=== PATIENT | female | born 1970 | race Caucasian/White ===

== ENCOUNTER 2017-02-23 12:40 | Emergency (ER) | payer OTHER ==
--- NOTE | 2017-02-23 14:51 | ED ---
General Adult HPI - General Chief complaint: Allergic Reaction Stated complaint: Nauseated, anxiety Time Seen by Provider: 02/23/17 14:15 Source: patient, RN notes reviewed Mode of arrival: ambulatory Limitations: no limitations - History of Present Illness Initial comments: Patient's 46-year-old female who presents emergency room today with a chief complaint of diarrhea. She states possible medication reaction. She states she 's had diarrhea loose stools over the last month and a half she has been following up with her family doctor was placed on Flagyl for 6 days. States that she began having some symptoms of fatigue and muscle aches. States she was told to discontinue the Flagyl. She stopped this 1 day ago. States she's been having anxiety as well. She does admit some arm pain 2 days ago after taking Lipitor. States did not happen last night. She denies any other complaints or symptoms at this time. Been following up with family doctor had stool studies obtained which were negative. Patient does admit that she had an elevated cholesterol that she was started on the left. She states they are trying her to see a specialist. She denies any new symptoms or complaints today. Patient denies any recent fever, chills, shortness of breath, chest pain , back pain, abdominal pain, nausea or vomiting, numbness or tingling, dysuria or hematuria, constipation or diarrhea, headaches or visual changes, or any other complaints. - Related Data Home Medications Medication Instructions Recorded Confirmed Atorvastatin [Lipitor] 20 mg PO HS 02/23/17 02/23/17 Allergies Allergy/AdvReac Type Severity Reaction Status Date / Time No Known Allergies Allergy Verified 02/23/17 14:13 Review of Systems ROS Statement: Those systems with pertinent positive or pertinent negative responses have been documented in the HPI. ROS Other: All systems not noted in ROS Statement are negative. Past Medical History Past Medical History: Hyperlipidemia History of Any Multi-Drug Resistant Organisms: None Reported Past Surgical History: Tubal Ligation Past Psychological History: No Psychological Hx Reported Smoking Status: Never smoker Past Alcohol Use History: None Reported Past Drug Use History: None Reported General Exam - General Exam Comments Initial Comments: General: The patient is awake and alert, in no distress, and does not appear acutely ill. Eye: Pupils are equal, round and reactive to light, extra-ocular movements are intact. No nystagmus. There is normal conjunctiva bilaterally. No signs of icterus. Ears, nose, mouth and throat: There are moist mucous membranes and no oral lesions. Neck: The neck is supple, there is no tenderness or JVD. Cardiovascular: There is a regular rate and rhythm. No murmur, rub or gallop is appreciated. Respiratory: Lungs are clear to auscultation, respirations are non-labored, breath sounds are equal. No wheezes, stridor, rales, or rhonchi. Gastrointestinal: Soft, non-distended, non-tender abdomen without masses or organomegaly noted. There is no rebound or guarding present. No CVA tenderness. Bowel sounds are unremarkable. Musculoskeletal: Normal ROM, no tenderness. Strength 5/5. Sensation intact. Pulses equal bilaterally 2+. Neurological: A&O x 3. CN II-XII intact, There are no obvious motor or sensory deficits. Coordination appears grossly intact. Speech is normal. Skin: Skin is warm and dry and no rashes or lesions are noted. Psychiatric: Cooperative, appropriate mood & affect, normal judgment. Limitations: no limitations Course Vital Signs 02/23/17 02/23/17 13:13 14:22 Temperature 97.4 F L Pulse Rate 71 67 Respiratory 18 16 Rate Blood Pressure 142/67 143/67 O2 Sat by Pulse 100 99 Oximetry Medical Decision Making - Medical Decision Making Patient showing no signs of distress. Her vitals are stable. She does admit that she had some loose stools over the last month and a half has had some stool studies. No C. diff test was done. At this time patient denies any recent antibiotic use other than the Flagyl which symptoms started prior to that. Denies any travel. Patient's symptoms have not changed the last month and a half. She is worried about the anxiety. At this time patient has had labs done outpatient just 2 days ago which were negative for any acute abnormalities. Results were discussed with the patient. Patient will be discharged home with a prescription for stool studies. Advised to follow-up the family doctor and also GI. Advised return if any symptoms increase or worsen or for any other concerns. She states understanding and is in agreement. Disposition Clinical Impression: Diarrhea Disposition: HOME SELF-CARE Condition: Good Instructions: Acute Diarrhea (ED) Additional Instructions: Please continue to increase oral fluids. Please follow-up family doctor over the next 2 days. Please have stool sample brought back here to the lab for evaluation. Please return if any symptoms increase or worsen or for any other concerns. Referrals: Galen Nath DO [Primary Care Provider] - 1-2 days Tala Corea MD [STAFF PHYSICIAN] - 1-2 days Time of Disposition: 14:49
[2017-02-23 15:04] VITALS: BP 110/59; PULSE 75; RESP 18; TEMP 98.3
== END 2017-02-23 15:03 | disposition home or self-care (01) ==
LOC: EC 12:40
DX: R19.7 Diarrhea, unspecified (principal); F41.9 Anxiety disorder, unspecified; E78.5 Hyperlipidemia, unspecified; Z79.899 Other long term (current) drug therapy
CPT/HCPCS: 99283

== ENCOUNTER → 2017-03-01 | Outpatient (CLI) | payer OTHER ==
--- NOTE | 2017-03-01 08:25 | US ---
EXAMINATION TYPE: US abdomen complete DATE OF EXAM: 03/01/2017 COMPARISON: NONE CLINICAL HISTORY: R10.9 Abd Pain K81.9 Cholecystitis. Epigastric pain x 1 week, diarrhea EXAM MEASUREMENTS: Liver Length: 15.9 cm Gallbladder Wall: 0.3 cm CBD: 0.2 cm Spleen: 9.2 cm Right Kidney: 10.4 x 4.9 x 3.6 cm Left Kidney: 9.9 x 5.0 x 4.8 cm Pancreas: wnl Liver: 2 adjacent cysts in right lobe with larger =1.3 x 1.2 x 0.8cm Gallbladder: wnl, seen between inferior liver and right kidney Evidence for sonographic Hutchinson's sign: No CBD: wnl Spleen: wnl Right Kidney: wnl Left Kidney: wnl Upper IVC: wnl Abd Aorta: size is wnl; mild intimal thickening is noted mid and lower aorta. Limited views of the pancreas are normal. The liver is normal in size. There is a 1.3 cm cystic lesion in the right lobe of the liver and a sec ond smaller lesion immediately adjacent to it. The gallbladder is unremarkable. Gallbladder wall measures 2.9 mm. The distal common hepatic duct nilda sures 2.1 mm. Spleen is normal in size. Both kidneys are normal. There is atheromatous irregularity of the aorta without evidence of aneurysm formation. The IVC is un remarkable. IMPRESSION: 1. SIMPLE APPEARING CYSTIC LESIONS WITHIN THE RIGHT LOBE OF THE LIVER. 2. MILD ATHEROMATOUS IRREGULARITY OF THE AORTA.
== END | disposition home or self-care (01) ==
LOC: RADUSWWP 06:58
PROVIDERS: ATTEND Family Medicine
DX: K76.89 Other specified diseases of liver (principal); I70.0 Atherosclerosis of aorta
CPT/HCPCS: 76700

== ENCOUNTER 2017-09-19 11:57 | Observation (INO) | payer BC ==
--- NOTE | 2017-09-19 12:55 | ED ---
General Adult HPI - General Chief complaint: Back Pain/Injury Stated complaint: Tingling in arms /back pain Time Seen by Provider: 09/19/17 12:43 Source: patient, RN notes reviewed Mode of arrival: ambulatory Limitations: no limitations - History of Present Illness Initial comments: 46-year-old female presented for evaluation of back pain and bilateral arm pain. Patient denies any injury or overuse. Her pain began as dull ache in her mid back between her scapula proximally 48 hours ago. Patient was at rest. Denies any injury. Patient has past medical history of hypercholesterolemia, she is a nonsmoker. Patient states she also had some bilateral upper arm pain which is dull and aching, and associated nausea. No central chest pain. Patient has family history of coronary artery disease. She presented for evaluation of this pain. - Related Data Home Medications Medication Instructions Recorded Confirmed Rosuvastatin Calcium [Crestor] 10 mg PO HS 09/19/17 09/19/17 Allergies Allergy/AdvReac Type Severity Reaction Status Date / Time No Known Allergies Allergy Verified 09/19/17 13:40 Review of Systems ROS Statement: Those systems with pertinent positive or pertinent negative responses have been documented in the HPI. ROS Other: All systems not noted in ROS Statement are negative. Past Medical History Past Medical History: Hyperlipidemia History of Any Multi-Drug Resistant Organisms: None Reported Past Surgical History: Tubal Ligation Past Psychological History: No Psychological Hx Reported Smoking Status: Never smoker Past Alcohol Use History: None Reported Past Drug Use History: None Reported General Exam Limitations: no limitations General appearance: alert, in no apparent distress Head exam: Present: atraumatic, normocephalic Eye exam: Present: normal appearance, PERRL ENT exam: Present: normal exam Neck exam: Present: normal inspection. Absent: tenderness, meningismus Respiratory exam: Present: normal lung sounds bilaterally. Absent: respiratory distress Cardiovascular Exam: Present: regular rate, normal rhythm GI/Abdominal exam: Present: soft. Absent: distended, tenderness Extremities exam: Present: normal inspection, normal capillary refill, other ( Distal pulses intact). Absent: pedal edema Back exam: Present: normal inspection. Absent: full ROM Neurological exam: Present: alert, oriented X3, CN II-XII intact. Absent: motor sensory deficit Psychiatric exam: Present: normal affect, normal mood Skin exam: Present: warm, dry, intact. Absent: cyanosis, diaphoretic Course Vital Signs 09/19/17 12:20 Temperature 98.5 F Pulse Rate 78 Respiratory 16 Rate Blood Pressure 132/61 O2 Sat by Pulse 100 Oximetry - Reevaluation(s) Reevaluation #1: 09/19/17 13:10 Cardiology in the emergency department to evaluate patient. Reevaluation #2: 09/19/17 13:00 EKG faxed to cardiology EKG Findings - EKG Comments: EKG Findings:: EKG obtained at 1232 normal sinus rhythm with sinus arrhythmia, ventricular rate 86, IA interval 134, castration 88, QTC 409, there is ST segment depression and T-wave abnormality in both the inferior and the lateral precordial leads. Repeat EKG obtained at 1254 shows normal sinus rhythm, ventricular rate 73, IA interval 132, castration 90, QTC 423, T-wave abnormality in lead III Medical Decision Making - Medical Decision Making 46-year-old female presenting with atraumatic back pain and bilateral arm pain associated with nausea. History is concerning for ACS, EKG shows some ischemic changes including ST segment depression and T-wave inversion. Patient is evaluated by cardiology in the emergency department. Chest x-ray obtained, negative including normal mediastinum. CBC CMP, troponin and d-dimer are all unremarkable. Echo is obtained and is pending. Case discussed with cardiology , patient will be initiated on heparin. She will be admitted for further evaluation and treatment. - Lab Data Result diagrams: 09/19/17 12:48 09/19/17 12:48 Lab Results 09/19/17 09/19/17 09/19/17 Range/Units 12:48 12:48 12:48 WBC 5.4 (3.8-10.6) k/uL RBC 4.43 (3.80-5.40) m/uL Hgb 14.0 (11.4-16.0) gm/dL Hct 43.1 (34.0-46.0) % MCV 97.4 (80.0-100.0) fL MCH 31.7 (25.0-35.0) pg MCHC 32.6 (31.0-37.0) g/dL RDW 13.2 (11.5-15.5) % Plt Count 248 (150-450) k/uL Neutrophils % 78 % Lymphocytes % 15 % Monocytes % 5 % Eosinophils % 1 % Basophils % 1 % Neutrophils # 4.2 (1.3-7.7) k/uL Lymphocytes # 0.8 L (1.0-4.8) k/uL Monocytes # 0.3 (0-1.0) k/uL Eosinophils # 0.0 (0-0.7) k/uL Basophils # 0.0 (0-0.2) k/uL PT (9.0-12.0) sec INR (<1.2) APTT (22.0-30.0) sec D-Dimer (<0.60) mg/L FEU Sodium 144 (137-145) mmol/L Potassium 3.9 (3.5-5.1) mmol/L Chloride 104 (98-107) mmol/L Carbon Dioxide 28 (22-30) mmol/L Anion Gap 12 mmol/L BUN 10 (7-17) mg/dL Creatinine 0.60 (0.52-1.04) mg/dL Est GFR (MDRD) Af Amer >60 (>60 ml/min/1.73 sqM) Est GFR (MDRD) Non-Af >60 (>60 ml/min/1.73 sqM) Glucose 95 (74-99) mg/dL Calcium 9.9 (8.4-10.2) mg/dL Magnesium 1.8 (1.6-2.3) mg/dL Total Bilirubin 0.5 (0.2-1.3) mg/dL AST 31 (14-36) U/L ALT 39 (9-52) U/L Alkaline Phosphatase 67 (38-126) U/L Total Creatine Kinase 95 (30-135) U/L CK-MB (CK-2) 1.2 (0.0-2.4) ng/mL CK-MB (CK-2) Rel Index 1.3 Troponin I <0.012 (0.000-0.034) ng/mL NT-Pro-B Natriuret Pep pg/mL Total Protein 8.0 (6.3-8.2) g/dL Albumin 5.0 (3.5-5.0) g/dL 09/19/17 09/19/17 Range/Units 12:48 12:48 WBC (3.8-10.6) k/uL RBC (3.80-5.40) m/uL Hgb (11.4-16.0) gm/dL Hct (34.0-46.0) % MCV (80.0-100.0) fL MCH (25.0-35.0) pg MCHC (31.0-37.0) g/dL RDW (11.5-15.5) % Plt Count (150-450) k/uL Neutrophils % % Lymphocytes % % Monocytes % % Eosinophils % % Basophils % % Neutrophils # (1.3-7.7) k/uL Lymphocytes # (1.0-4.8) k/uL Monocytes # (0-1.0) k/uL Eosinophils # (0-0.7) k/uL Basophils # (0-0.2) k/uL PT 10.2 (9.0-12.0) sec INR 1.0 (<1.2) APTT 23.7 (22.0-30.0) sec D-Dimer 0.39 (<0.60) mg/L FEU Sodium (137-145) mmol/L Potassium (3.5-5.1) mmol/L Chloride (98-107) mmol/L Carbon Dioxide (22-30) mmol/L Anion Gap mmol/L BUN (7-17) mg/dL Creatinine (0.52-1.04) mg/dL Est GFR (MDRD) Af Amer (>60 ml/min/1.73 sqM) Est GFR (MDRD) Non-Af (>60 ml/min/1.73 sqM) Glucose (74-99) mg/dL Calcium (8.4-10.2) mg/dL Magnesium (1.6-2.3) mg/dL Total Bilirubin (0.2-1.3) mg/dL AST (14-36) U/L ALT (9-52) U/L Alkaline Phosphatase (38-126) U/L Total Creatine Kinase (30-135) U/L CK-MB (CK-2) (0.0-2.4) ng/mL CK-MB (CK-2) Rel Index Troponin I (0.000-0.034) ng/mL NT-Pro-B Natriuret Pep 114 pg/mL Total Protein (6.3-8.2) g/dL Albumin (3.5-5.0) g/dL Critical Care Time Critical Care Time: Yes Total Critical Care Time: 35 Disposition Clinical Impression: Unstable angina Disposition: ADMITTED IP TO THIS [facility] Condition: Stable Referrals: Galen Nath DO [Primary Care Provider] - 1-2 days Decision to Admit Reason: Admit from EC Decision Date: 09/19/17 Decision Time: 15:14
[2017-09-19 13:16] LABS: Basophils % (A) 1 %; Eosinophils % (A) 1 %; HCT 43.1 % (34.0-46.0); Lymphocytes # (A) 0.8 k/uL (1.0-4.8); Lymphocytes % (A) 15 %; MCH 31.7 pg (25.0-35.0); MCHC 32.6 g/dL (31.0-37.0); MCV 97.4 fL (80.0-100.0); Mean Platelet Volume 7.3; Monocytes # (A) 0.3 k/uL (0-1.0); Monocytes % (A) 5 %; Neutrophils # (A) 4.2 k/uL (1.3-7.7); Neutrophils % (A) 78 %; Platelet Count 248 k/uL (150-450); RBC 4.43 m/uL (3.80-5.40); RDW 13.2 % (11.5-15.5); WBC 5.4 k/uL (3.8-10.6)
--- NOTE | 2017-09-19 13:21 | XR ---
EXAMINATION TYPE: XR chest 2V DATE OF EXAM: 09/19/2017 COMPARISON: NONE TECHNIQUE: PA and lateral views submitted. HISTORY: Chest pain FINDINGS: The lungs are clear and there is no pneumothorax, pleural effusion, or focal pneumonia. Biapical pl eural thickening. IMPRESSION: 1. No acute process.
[2017-09-19 13:25] LABS: ALT 39 U/L (9-52); AST 31 U/L (14-36); Alkaline Phosphatase 67 U/L (38-126); Anion Gap 12 mmol/L; Blood Urea Nitrogen 10 mg/dL (7-17); Calcium 9.9 mg/dL (8.4-10.2); Carbon Dioxide 28 mmol/L (22-30); Chloride 104 mmol/L (98-107); Glucose 95 mg/dL (74-99); Magnesium 1.8 mg/dL (1.6-2.3); Potassium 3.9 mmol/L (3.5-5.1); Sodium 144 mmol/L (137-145); Total Bilirubin 0.5 mg/dL (0.2-1.3)
[2017-09-19 13:35] LABS: Creatine Kinase 95 U/L (30-135)
[2017-09-19 13:41] LABS: D-Dimer 0.39 mg/L FEU (<0.60); Partial Thromboplastin Time 23.7 sec (22.0-30.0); Prothrombin Time 10.2 sec (9.0-12.0)
[2017-09-19 13:48] LABS: Creatine Kinase MB 1.2 ng/mL (0.0-2.4); Troponin I <0.012 ng/mL (0.000-0.034)
[2017-09-19] MEDS ORDERED: ASPIRIN 325 MG TAB PO STA (14:18)
[2017-09-19] MEDS ORDERED: HEPARIN SODIUM,PORCINE 5,000 UNIT/ML 1 ML VIAL IV ONE (14:19)
[2017-09-19] MEDS ORDERED: HEPARIN SODIUM,PORCINE 5,000 UNIT/ML 1 ML VIAL IV PRN (14:19)
[2017-09-19] MEDS ORDERED: HEPARIN SOD,PORK IN 0.45% NACL 25,000 UNIT in 0.45% NACL 1 500ML.BAG IV SCH (14:30)
[2017-09-19] MEDS ORDERED: NALOXONE 0.4 MG/ML 1 ML VIAL IV PRN (14:55)
[2017-09-19] MEDS ORDERED: ONDANSETRON 4 MG/2 ML VIAL IVP PRN (14:55)
[2017-09-19] MEDS ORDERED: HYDROmorphone 2 MG/ML 1 ML SYRINGE IVP PRN (14:55)
[2017-09-19] MEDS ORDERED: SODIUM CHLORIDE 0.9% 1,000 ML IV SCH (15:00)
--- NOTE | 2017-09-19 16:26 | P.CRDCN ---
History of Present Illness Consult date: 09/19/17 Requesting physician: Galen Nath Reason for Consult (text): Shoulder pain and back discomfort Chief complaint: Shoulder pain, arm numbness, and back discomfort History of present illness: This is a pleasant 46-year-old female with history of hyperlipidemia, family history of premature coronary artery disease in her father, who presented to the hospital with symptoms of discomfort in her bilateral shoulders with associated arm numbness, as well as a pain between the scapula area. She states that the bilateral shoulder and arm discomfort she has noticed off and on for the past 6 months, but again yesterday it returned. He states that she does get occasional mild nausea, denies shortness of breath, no diaphoresis. Patient is otherwise physically active, she is not a diabetic, no hypertension, nonsmoker. Her blood pressure on arrival here was 132/60 with a heart rate in the 70s, temperature 90.8, 100% on room air. Her initial EKG shows a normal sinus rhythm with nonspecific ST-T wave changes. CBC is normal, d-dimer negative, sodium 144, potassium 3.9, chloride 104, CO2 28, BUN 10, creatinine 0.6. Troponin 0.012. BNP level 114. Chest x-ray did not reveal any acute process. Past Medical History Past Medical History: Hyperlipidemia History of Any Multi-Drug Resistant Organisms: None Reported Past Surgical History: Tubal Ligation Past Psychological History: No Psychological Hx Reported Smoking Status: Never smoker Past Alcohol Use History: None Reported Past Drug Use History: None Reported Medications and Allergies Home Medications Medication Instructions Recorded Confirmed Type Rosuvastatin Calcium [Crestor] 10 mg PO HS 09/19/17 09/19/17 History Allergies Allergy/AdvReac Type Severity Reaction Status Date / Time No Known Allergies Allergy Verified 09/19/17 13:40 Physical Exam Vitals: Vital Signs Temp Pulse Resp BP Pulse Ox 09/19/17 12:20 98.5 F 78 16 132/61 100 Intake and Output 09/19/17 09/19/17 09/19/17 06:59 14:59 22:59 Other: Weight 63.503 kg Patient Weight 09/20/17 06:59 Weight 63.503 kg PHYSICAL EXAMINATION: HEENT: Head is atraumatic, normocephalic. Pupils equal, round. Neck is supple. There is no elevated jugular venous pressure. HEART EXAMINATION: Heart S1, S2 normal. No murmur or gallop heard. CHEST EXAMINATION: Lungs are clear to auscultation and precussion. No chest wall tenderness is noted on palpation or with deep breathing. ABDOMEN: Soft, nontender. Bowel sounds are heard. No organomegaly noted. EXTREMITIES: 2+ peripheral pulses with no evidence of peripheral edema and no calf tenderness noted. NEUROLOGIC patient is awake, alert and oriented -3. . Results 09/19/17 12:48 09/19/17 12:48 Cardiac Enzymes 09/19/17 09/19/17 Range/Units 12:48 12:48 AST 31 (14-36) U/L CK-MB (CK-2) 1.2 (0.0-2.4) ng/mL Troponin I <0.012 (0.000-0.034) ng/mL Coagulation 09/19/17 Range/Units 12:48 PT 10.2 (9.0-12.0) sec APTT 23.7 (22.0-30.0) sec CBC 09/19/17 Range/Units 12:48 WBC 5.4 (3.8-10.6) k/uL RBC 4.43 (3.80-5.40) m/uL Hgb 14.0 (11.4-16.0) gm/dL Hct 43.1 (34.0-46.0) % Plt Count 248 (150-450) k/uL Comprehensive Metabolic Panel 09/19/17 Range/Units 12:48 Sodium 144 (137-145) mmol/L Potassium 3.9 (3.5-5.1) mmol/L Chloride 104 (98-107) mmol/L Carbon Dioxide 28 (22-30) mmol/L BUN 10 (7-17) mg/dL Creatinine 0.60 (0.52-1.04) mg/dL Glucose 95 (74-99) mg/dL Calcium 9.9 (8.4-10.2) mg/dL AST 31 (14-36) U/L ALT 39 (9-52) U/L Alkaline Phosphatase 67 (38-126) U/L Total Protein 8.0 (6.3-8.2) g/dL Albumin 5.0 (3.5-5.0) g/dL Current Medications Generic Name Dose Route Start Last Admin Trade Name Freq PRN Reason Stop Dose Admin Heparin Sodium (Porcine) 0 unit 09/19/17 14:19 Heparin IV PER PROTOCOL PRN Low PTT Protocol Hydromorphone HCl 0.5 mg 09/19/17 14:55 Dilaudid IVP Q3HR PRN Moderate Pain Heparin Sodium/Sodium Chloride 500 mls @ 15.24 mls/hr 09/19/17 14:30 25,000 unit/ Sodium Chloride IV .Q24H JORDAN Protocol 12 UNITS/KG/HR Sodium Chloride 1,000 mls @ 20 mls/hr 09/19/17 15:00 Saline 0.9% IV .Q24H JORDAN Naloxone HCl 0.2 mg 09/19/17 14:55 Narcan IV Q2M PRN Opioid Reversal Ondansetron HCl 4 mg 09/19/17 14:55 Zofran IVP Q8HR PRN Nausea And Vomiting Intake and Output 09/19/17 09/19/17 09/19/17 06:59 14:59 22:59 Other: Weight 63.503 kg Patient Weight 09/20/17 06:59 Weight 63.503 kg 09/19/17 12:48 09/19/17 12:48 EKG Interpretations (text) EKG shows normal sinus rhythm with nonspecific ST-T wave changes Assessment and Plan Plan: Assessment and plan #1 symptoms of bilateral shoulder discomfort with associated arm numbness, and pain between the scapula. Atypical features for acute coronary syndrome. Initial troponin negative. Normal sinus rhythm with nonspecific ST-T wave changes #2 hyperlipidemia #3 family history of premature coronary artery disease Plan We will obtain an echocardiogram with Doppler study, patient will also be initiated on IV heparin. He is currently on an aspirin daily as well. This patient subsequent troponins remain negative we will recommend that she undergo a stress echocardiographic study tomorrow. If her troponins are positive patient will be recommended to undergo cardiac catheterization. Further recommendations will be based on these findings and patient's clinical course. DNP note has been reviewed, I agree with a documented findings and plan of care. Patient was seen and examined.
[2017-09-19 20:35] LABS: Creatine Kinase 80 U/L (30-135)
[2017-09-19 20:49] LABS: Creatine Kinase MB 0.8 ng/mL (0.0-2.4); Troponin I <0.012 ng/mL (0.000-0.034)
[2017-09-19] MEDS ORDERED: ATORVASTATIN 20 MG TAB PO SCH (22:30)
[2017-09-20] MEDS ORDERED: CRESTOR 10MG TABLET PO SCH
[2017-09-20 03:06] LABS: Basophils % (A) 1 %; Eosinophils % (A) 1 %; HCT 39.8 % (34.0-46.0); HGB 13.2 gm/dL (11.4-16.0); Lymphocytes % (A) 35 %; MCH 32.4 pg (25.0-35.0); MCHC 33.2 g/dL (31.0-37.0); MCV 97.7 fL (80.0-100.0); Mean Platelet Volume 6.9; Monocytes # (A) 0.4 k/uL (0-1.0); Monocytes % (A) 7 %; Neutrophils # (A) 3.1 k/uL (1.3-7.7); Neutrophils % (A) 55 %; Platelet Count 225 k/uL (150-450); RBC 4.07 m/uL (3.80-5.40); RDW 12.2 % (11.5-15.5); WBC 5.7 k/uL (3.8-10.6)
[2017-09-20 03:32] LABS: ALT 34 U/L (9-52); AST 26 U/L (14-36); Alkaline Phosphatase 55 U/L (38-126); Anion Gap 9 mmol/L; Blood Urea Nitrogen 10 mg/dL (7-17); Calcium 9.7 mg/dL (8.4-10.2); Carbon Dioxide 28 mmol/L (22-30); Chloride 107 mmol/L (98-107); Glucose 92 mg/dL (74-99); Potassium 3.8 mmol/L (3.5-5.1); Sodium 144 mmol/L (137-145); Total Bilirubin 0.6 mg/dL (0.2-1.3); Total Protein 6.4 g/dL (6.3-8.2)
[2017-09-20 03:35] LABS: Creatine Kinase 78 U/L (30-135)
[2017-09-20 03:49] LABS: Creatine Kinase MB 0.8 ng/mL (0.0-2.4); Troponin I <0.012 ng/mL (0.000-0.034)
--- NOTE | 2017-09-20 11:01 | P.HPIM ---
History of Present Illness H&P Date: 09/20/17 Chief Complaint: bilateral arm pain 46-year-old female who presented to the emergency room on 09/19/2017 with a chief complaint of bilateral shoulder pain and discomfort in between her shoulder blades. The patient states that she has had this pain on and off for several months but has never undergone workup for it. She states that she became concerned yesterday and presented to the emergency room for further evaluation. The patient has a history of hyperlipidemia and a family history of heart disease. She is a nonsmoker. The patient did have a brief period of nicotine use for approximately one year and quit in 2000. Her home medications include Crestor 10 mg at night. In the emergency room an EKG was completed revealing normal sinus rhythm. Laboratory results reveal sodium 144, potassium 3.9, BUN 10, creatinine 0.60, WBC 5.4, hemoglobin 14, platelet count 248. D- dimer was 0.39. INR 1.0. Troponins are negative 3. BNP 114. A chest x-ray was completed which was negative for an acute process. The patient was admitted for observation under the care of Dr. Nath. Consultations were placed to cardiology. The patient was seen and examined at the bedside. Multiple family members at the bedside. She states that she is feeling better this morning. She states that the pain in her shoulders has improved. She denies chest pain or pressure at this time. Denies shortness of breath. Denies nausea or vomiting. Her vital signs remain stable. She was evaluated by cardiology and is scheduled for a stress test this morning. Review of Systems GENERAL: Patient denies fever. Denies chills. EYES: Denies blurred vision. Denies vision changes. Denies eye pain. EARS, NOSE, MOUTH, & THROAT: Denies headache. Denies sore throat. Denies ear pain. RESPIRATORY: Denies cough. Denies shortness of breath. Denies sputum production. Denies hemoptysis. CARDIOVASCULAR: Denies chest pain or pressure. Denies palpitations. Denies arrhythmias. GASTROINTESTINAL: Denies abdominal pain. Denies diarrhea. Denies constipation. Denies nausea. Denies vomiting. Denies heartburn. Denies blood in the stool. GENITOURINARY: Denies urinary frequency. Denies burning. Denies dysuria. Denies cloudy urine. Denies blood in the urine. MUSCULOSKELETAL: Positive for recent bilateral shoulder pain and mid scapular pain which is currently improved but patient states has lasted on and off for 6 months. Denies myalgias. INTEGUMENTARY: Denies pruitis. Denies rash. PSYCHIATRIC: Denies suicidal or homicial ideations. ENDOCRINE: Denies weight change. Denies polydipsia. Denies polyuria. HEMATOLOGIC: Denies bleeding disorders. Past Medical History Past Medical History: Hyperlipidemia Additional Past Medical History / Comment(s): miah 2005 History of Any Multi-Drug Resistant Organisms: None Reported Past Surgical History: Tubal Ligation Past Anesthesia/Blood Transfusion Reactions: No Reported Reaction Additional Past Anesthesia/Blood Transfusion Reaction / Comment(s): never recieved blood in past Smoking Status: Former smoker - Past Family History Mother Family Medical History: Hyperlipidemia, Hypertension Additional Family Medical History / Comment(s): boarderline diabetic Father Family Medical History: Coronary Artery Disease (CAD), Hyperlipidemia, Hypertension Additional Family Medical History / Comment(s): cabg Medications and Allergies Home Medications Medication Instructions Recorded Confirmed Type Rosuvastatin Calcium [Crestor] 10 mg PO HS 09/19/17 09/19/17 History Allergies Allergy/AdvReac Type Severity Reaction Status Date / Time atorvastatin [From Lipitor] Allergy Chest Pain Verified 09/19/17 23:43 Physical Exam Vitals: Vital Signs Temp Pulse Pulse Resp BP BP Pulse Ox 09/20/17 04:00 97.6 F 59 L 16 111/70 99 09/20/17 00:00 97.4 F L 55 L 16 115/57 99 09/19/17 21:13 70 16 128/63 98 09/19/17 20:00 97.1 F L 55 L 16 124/65 97 09/19/17 19:50 78 16 126/59 97 09/19/17 16:22 76 18 125/59 98 09/19/17 12:20 98.5 F 78 16 132/61 100 Intake and Output 09/19/17 09/20/17 09/20/17 22:59 06:59 14:59 Intake Total 60 280 Balance 60 280 Intake: Intake, IV Titration 60 280 Amount Heparin Sod,Pork in 0.45% 120 NaCl 25,000 unit In 0.45 % NaCl 1 500ml.bag @ 12 UNITS/KG/HR 15.24 mls/hr IV .Q24H [facility] Rx#: [id number] Sodium Chloride 0.9% 1, 60 160 000 ml @ 20 mls/hr IV . Q24H [facility] Rx#:[id number] Other: Voiding Method Toilet Toilet Weight 63.8 kg GENERAL: This is a 46-year-old female in no apparent distress at the time of examination. Pleasant and cooperative. HEENT: Head is atraumatic, normocephalic. Pupils are equal, round, and reactive to light. Sclerae anicteric. Conjunctivae are clear. Mucus membranes of the mouth are moist. Neck is supple. RESPIRATORY: Clear to ausculation. No wheezes, rales, or rhonchi. No use of accessory muscles. Patient maintaining oxygen saturation greater than 92% on room air. No chest wall tenderness is noted on palpation or with deep breathing. CARDIOVASCULAR: Regular rate and rhythm. S1 and S2 noted. No systolic or diastolic murmur auscultated. No JVD noted. No S3 or S4 noted. GASTROINTESTINAL: No distention noted. Abdomen soft and round. Normal active bowel sounds auscultated X 4 quadrants. No pain or tenderness noted upon palpation. INTEGUMENTARY: No cyanosis. No jaundice. No rashes noted. No cellulitis noted. EXTREMITIES: 2+ peripheral pulses. No evidence of peripheral edema. No calf tenderness noted. NEUROLOGIC: Cranial nerves II-XII intact. PSYCHIATRIC: Awake, alert, and oriented X 3. Appropriate affect. Intact judgement and insight. Results CBC & Chem 7: 09/20/17 02:31 09/20/17 02:31 Labs: Abnormal Lab Results - Last 24 Hours (Table) 09/19/17 09/19/17 09/20/17 Range/Units 12:48 19:57 02:31 Lymphocytes # 0.8 L (1.0-4.8) k/uL APTT 65.9 H 51.4 H (22.0-30.0) sec Thrombosis Risk Factor Assmnt - Choose All That Apply Any of the Below Risk Factors Present?: Yes Each Factor Represents 1 point: Age 41-60 years Other Risk Factors: No Other congenital or acquired thrombophilia - If yes, enter type in comment: No Thrombosis Risk Factor Assessment Total Risk Factor Score: 1 Thrombosis Risk Factor Assessment Level: Low Risk Assessment and Plan Plan: ASSESSMENT: Bilateral shoulder pain and discomfort between the scapula, present on admission , cardiac enzymes negative 3, rule out acute coronary syndrome Hyperlipidemia Family history of premature coronary artery disease Remote history of nicotine dependence, patient smoked cigarettes for 1 year and quit in 2000 PLAN: -Cardiology on consult. Appreciate recommendations and input -Continue heparin drip -Patient scheduled for stress test today -Await results of echocardiogram -Home meds as appropriate -Monitor labs -GI prophylaxis: Protonix 40 mg by mouth daily -DVT prophylaxis: Heparin 5000 units subcu every 8 hours -Monitor vital signs and address as appropriate -Discharge planning: Patient to return home -Further recommendations pending patient's course -If stress test is negative, anticipate discharge home this afternoon with follow-up on an outpatient basis Nurse practitioner note has been reviewed by physician. Signing provider agrees with the documented findings, assessment, and plan of care.
[2017-09-20 11:02] VITALS: BP 117/73; PULSE 78; RESP 12; TEMP 97.3
--- NOTE | 2017-09-20 11:51 | ECHOS ---
STRESS ECHOCARDIOGRAM DATE OF SERVICE: 09/20/2017 INDICATIONS: Chest pain. MEDICATIONS: Crestor. BASELINE HEART RATE: 84 BASELINE BLOOD PRESSURE: 118/52 MAXIMUM HEART RATE: 181 MAXIMUM BLOOD PRESSURE: 146/67 85% MPHR: 146 100% MPHR: 172 METS: 8 MAXIMUM STAGE REACHED: III TOTAL EXERCISE TIME: 6:30 CLINICAL INFORMATION: Baseline EKG shows sinus rhythm, normal axis, normal intervals with poor R-wave progression and inferolateral ST-T wave changes. The patient exercised on Akash protocol for a total of 6-1/2 minutes achieving 8 METS, 100% of predicted maximal heart rate without chest pain. At peak exercise, there was worsening of the baseline ST-T wave changes noted. Baseline echo shows normal left ventricular size, wall motion and systolic function. Postexercise, there is normal hyperdynamic response of all segments of myocardium noted. CONCLUSIONS: 1. Average exercise tolerance. 2. Inconclusive EKG part of the stress test due to baseline EKG abnormalities. 3. Negative stress echo. MMODL / IJN: [id number] /
--- NOTE | 2017-09-20 12:24 | P.DS ---
Providers Date of admission: 09/19/17 14:55 Expected date of discharge: 09/20/17 Attending physician: Galen Nath Consults: 09/19/17 14:55 Consult Physician Urgent Consulting Provider: Luz Moise Consult Reason/Comments: Unstable angina Do you want consulting provider notified?: Already Contacted Primary care physician: Galen Nath [facility] Course: 46-year-old female who presented to the emergency room on 09/19/2017 with a chief complaint of bilateral shoulder pain and discomfort in between her shoulder blades. The patient states that she has had this pain on and off for several months but has never undergone workup for it. She states that she became concerned yesterday and presented to the emergency room for further evaluation. The patient has a history of hyperlipidemia and a family history of heart disease. She is a nonsmoker. The patient did have a brief period of nicotine use for approximately one year and quit in 2000. Her home medications include Crestor 10 mg at night. In the emergency room an EKG was completed revealing normal sinus rhythm. Laboratory results reveal sodium 144, potassium 3.9, BUN 10, creatinine 0.60, WBC 5.4, hemoglobin 14, platelet count 248. D- dimer was 0.39. INR 1.0. Troponins are negative 3. BNP 114. A chest x-ray was completed which was negative for an acute process. The patient was admitted for observation under the care of Dr. Nath. Consultations were placed to cardiology. The patient was seen and examined at the bedside. Multiple family members at the bedside. She states that she is feeling better this morning. She states that the pain in her shoulders has improved. She denies chest pain or pressure at this time. Denies shortness of breath. Denies nausea or vomiting. Her vital signs remain stable. She was evaluated by cardiology and underwent stress test on 09/20/2017 which was negative. She was cleared for discharge from a cardiology standpoint. The patient was deemed stable for discharge. She is to follow up on an outpatient basis with Dr. Nath for further evaluation of her bilateral shoulder pain. DISCHARGE DIAGNOSIS: Bilateral shoulder pain and discomfort between the scapula, present on admission , cardiac enzymes negative 3, stress test negative, acute coronary syndrome ruled out Hyperlipidemia Family history of premature coronary artery disease Remote history of nicotine dependence, patient smoked cigarettes for 1 year and quit in 2000 Nurse practitioner note has been reviewed by physician. Signing provider agrees with the documented findings, assessment, and plan of care. Patient Condition at Discharge: Stable Plan - Discharge Summary Discharge Rx Participant: No New Discharge Prescriptions: Continue Rosuvastatin Calcium [Crestor] 10 mg PO HS Discharge Medication List Rosuvastatin Calcium [Crestor] 10 mg PO HS 09/19/17 [History] Follow up Appointment(s)/Referral(s): Galen Nath DO [Primary Care Provider] - 1-2 days (Office is currently closed. Please call to make follow up appointment) Patient Instructions/Handouts: Chest Pain (DC) Activity/Diet/Wound Care/Special Instructions: stress test was negative. pt is cleared from cardiology perspective Discharge Disposition: HOME SELF-CARE
--- NOTE | 2017-09-20 15:05 | P.PN ---
Subjective Progress Note Date: 09/20/17 This is a pleasant 46-year-old female with history of hyperlipidemia, family history of premature coronary artery disease in her father, who presented to the hospital with symptoms of discomfort in her bilateral shoulders with associated arm numbness, as well as a pain between the scapula area. She states that the bilateral shoulder and arm discomfort she has noticed off and on for the past 6 months, but again yesterday it returned. He states that she does get occasional mild nausea, denies shortness of breath, no diaphoresis. Patient is otherwise physically active, she is not a diabetic, no hypertension, nonsmoker. Her blood pressure on arrival here was 132/60 with a heart rate in the 70s, temperature 90.8, 100% on room air. Her initial EKG shows a normal sinus rhythm with nonspecific ST-T wave changes. CBC is normal, d-dimer negative, sodium 144, potassium 3.9, chloride 104, CO2 28, BUN 10, creatinine 0.6. Troponin 0.012. BNP level 114. Chest x-ray did not reveal any acute process. Troponins are negative 3, patient underwent a stress echocardiographic study today that was negative for any reversible ischemia. From cardiology's perspective she may be able to be discharged home and follow-up with Dr. Moise in the office 2 weeks post discharge. Objective - Vital Signs Vital signs: Vital Signs Temp 97.3 F L 09/20/17 08:00 Pulse 78 09/20/17 12:00 Resp 12 09/20/17 12:00 BP 117/73 09/20/17 08:00 Pulse Ox 100 09/20/17 08:00 Intake & Output 09/19/17 09/20/17 09/20/17 18:59 06:59 18:59 Intake Total 340 580 Balance 340 580 Weight 63.503 kg 63.8 kg Intake: Intake, IV Titration 340 100 Amount Heparin Sod,Pork in 0.45% 120 NaCl 25,000 unit In 0.45 % NaCl 1 500ml.bag @ 12 UNITS/KG/HR 15.24 mls/hr IV .Q24H [facility] Rx#: [id number] Sodium Chloride 0.9% 1, 220 100 000 ml @ 20 mls/hr IV . Q24H [facility] Rx#:[id number] Oral 480 Other: Voiding Method Toilet Toilet - Exam PHYSICAL EXAMINATION: HEENT: Head is atraumatic, normocephalic. Pupils equal, round. Neck is supple. There is no elevated jugular venous pressure. HEART EXAMINATION: Heart S1, S2 normal. No murmur or gallop heard. CHEST EXAMINATION: Lungs are clear to auscultation and precussion. No chest wall tenderness is noted on palpation or with deep breathing. ABDOMEN: Soft, nontender. Bowel sounds are heard. No organomegaly noted. EXTREMITIES: 2+ peripheral pulses with no evidence of peripheral edema and no calf tenderness noted. NEUROLOGIC patient is awake, alert and oriented -3. . - Labs CBC & Chem 7: 09/20/17 02:31 09/20/17 02:31 Labs: Abnormal Lab Results - Last 24 Hours (Table) 09/19/17 09/20/17 Range/Units 19:57 02:31 APTT 65.9 H 51.4 H (22.0-30.0) sec Assessment and Plan Plan: Assessment and plan #1 symptoms of bilateral shoulder discomfort with associated arm numbness, and pain between the scapula. Atypical features for acute coronary syndrome. Troponins neg. Normal sinus rhythm with nonspecific ST-T wave changes #2 hyperlipidemia #3 family history of premature coronary artery disease Plan Stress echo was performed today which was negative for any reversible ischemia. From cardiology's perspective, patient may be able to be discharged home today. We will make a follow-up appointment for her to see Dr. Moise in the office in 4 weeks. DNP note has been reviewed, I agree with a documented findings and plan of care. Patient was seen and examined.
[2017-09-21] MEDS ORDERED: PANTOPRAZOLE 40 MG TABLET PO SCH (07:30)
--- NOTE | 2017-09-21 12:26 | ECHOF ---
Referral Reason: MEASUREMENTS -------- HEIGHT: 170.2 cm WEIGHT: 63.5 kg BP: RVIDd: 2.3 cm (< 3.3) IVSd: 0.8 cm (0.6 - 1.1) LVIDd: 4.1 cm (3.9 - 5.3) LVPWd: 0.9 cm (0.6 - 1.1) IVSs: 0.9 cm LVIDs: 3.4 cm LVPWs: 0.9 cm LAESV Index (A-L): 21.07 ml/m Ao Diam: 2.4 cm (2.0 - 3.7) AV Cusp: 1.8 cm (1.5 - 2.6) LA Diam: 2.7 cm (2.7 - 3.8) MV E Drew: 0.81 m/s MV DecT: 161 ms MV A Drew: 0.63 m/s MV E/A Ratio: 1.29 RAP: 5.00 mmHg RVSP: 19.30 mmHg FINDINGS -------- Sinus rhythm. This was a technically good study. LV size, wall thickness and systolic function are normal, with an EF greater than 55%. The right ventricle is normal in size. The left atrial size is normal. The right atrial size is normal. The aortic valve is trileaflet, and appears structurally normal. No aortic stenosis or regurgitation. Mild mitral regurgitation is present. Mild tricuspid regurgitation present. There is no evidence of pulmonary hypertension. The right v entricular systolic pressure, as measured by Doppler, is 19.30mmHg. There is no pulmonic regurgitation present. The aortic root size is normal. There is no pericardial effusion. CONCLUSIONS -------- 1. LV size, wall thickness and systolic function are normal, with an EF greater than 55%. 2. The aortic valve is trileaflet, and appears structurally normal. No aortic stenosis or regurgitati on. 3. Mild mitral regurgitation is present. 4. Mild tricuspid regurgitation present. 5. There is no evidence of pulmonary hypertension. 6. The right ventricular systolic pressure, as measured by Doppler, is 19.30mmHg. 7. There is no pulmonic regurgitation present. 8. The aortic root size is normal. 9. There is no pericardial effusion. [employer] PROFESSOR: Nancy Diggs RDCS
== END 2017-09-20 13:00 | disposition home or self-care (01) ==
LOC: EC 11:57 → 6SEL 14:55
PROVIDERS: ADMIT Family Medicine; ATTEND Family Medicine
DX: M25.512 Pain in left shoulder (principal); M25.511 Pain in right shoulder; R20.2 Paresthesia of skin; E78.5 Hyperlipidemia, unspecified; E78.00 Pure hypercholesterolemia, unspecified; M79.622 Pain in left upper arm; M79.621 Pain in right upper arm; R20.0 Anesthesia of skin; R11.0 Nausea; M54.9 Dorsalgia, unspecified; Z87.891 Personal history of nicotine dependence; Z82.49 Family history of ischemic heart disease and other diseases of the circulatory system; Z79.899 Other long term (current) drug therapy; Z83.3 Family history of diabetes mellitus; Z88.8 Allergy status to other drugs, medicaments and biological substances
CPT/HCPCS: 96366 ×5; 96376 ×2; 96365 ×2; 99291; 36415; 93005; 93017; 93306; 93350; 85379; 83880; 80053 ×2; 82550 ×2; 82553 ×2; 83735; 84484 ×2; 85025 ×2; 85610; 85730 ×2; 71046; G0378 ×2; J1644 ×2

== ENCOUNTER → 2017-10-30 | Outpatient (CLI) | payer BC ==
--- NOTE | 2017-10-30 11:54 | NM ---
EXAMINATION TYPE: NM hepatobiliary w CCK DATE OF EXAM: 10/30/2017 COMPARISON: Ultrasound 03/01/2017 HISTORY: 47-year-old female gastroesophageal reflux disease, epigastric pain TECHNIQUE: After the intravenous administration of 5.3 mCi Tc 99m Mebrofenin hepatobiliary scintigrap hy is performed. Immediate images post injection. FINDINGS: There is satisfactory initial accumulation of tracer by the liver. The gallbladder is visualized wit hin 12 minutes. The small bowel activity is noted within 70 minutes. At 70 minutes, CCK was adminis tered, patient was injected with 1.25 mcg of Kinevac, and gallbladder ejection fraction is calculated at 59 %, in the normal range. Therefore there is no scintigraphic evidence of cystic or common bile duct obstruction to suggest acute cholecystitis or gallbladder dyskinesia. IMPRESSION: No scintigraphic evidence for acute/chronic cholecystitis or biliary dyskinesia. Normal gallbladder e jection fraction.
== END | disposition home or self-care (01) ==
LOC: RADNMMAIN 06:47
PROVIDERS: ATTEND Surgery
DX: K21.9 Gastro-esophageal reflux disease without esophagitis (principal); K81.1 Chronic cholecystitis
CPT/HCPCS: 78227; A9537; J2805

== ENCOUNTER → 2017-11-01 | Day surgery (SDC) | payer BC ==
[2017-10-27 14:38] VITALS: BMI 21.7
[~2017-11-01] MED LIST: LACTATED RINGERS 1,000 ML IV SCH; LIDOCAINE 1% 20 ML VIAL (10MG/ML) FOR IV START INTRADERMA PRN; LIDOCAINE 1% INJ 10MG/ML (20 ML MDV) ONE; PROPOFOL 10 MG/ML 20 ML VIAL IV ONE
[2017-11-01 09:51] VITALS: RESP 16; TEMP 98.5
--- NOTE | 2017-11-01 10:14 | P.GSHP ---
History of Present Illness H&P Date: 11/01/17 Chief Complaint: Epigastric pain This a 47-year-old female who dissected planes epigastric pain. Patient presents today for EGD. Her recent HIDA scan shows no evidence of cholecystitis. She also has an abnormal ejection fraction. Past Medical History Past Medical History: Chest Pain / Angina, GERD/Reflux, Hyperlipidemia Additional Past Medical History / Comment(s): shingles 2005. HAS BEEN HAVING EPISODES OF STOMACH PAIN FOR PAST MONTH History of Any Multi-Drug Resistant Organisms: None Reported Past Surgical History: Tubal Ligation Past Anesthesia/Blood Transfusion Reactions: No Reported Reaction Additional Past Anesthesia/Blood Transfusion Reaction / Comment(s): never recieved blood in past Smoking Status: Former smoker - Past Family History Mother Family Medical History: Hyperlipidemia, Hypertension Additional Family Medical History / Comment(s): boarderline diabetic Father Family Medical History: Coronary Artery Disease (CAD), Hyperlipidemia, Hypertension Additional Family Medical History / Comment(s): cabg Medications and Allergies Home Medications Medication Instructions Recorded Confirmed Type Rosuvastatin Calcium [Crestor] 10 mg PO AC-SUPPER 09/19/17 11/01/17 History Sucralfate [Carafate] 1 gm PO BID 10/27/17 11/01/17 History Allergies Allergy/AdvReac Type Severity Reaction Status Date / Time atorvastatin [From Lipitor] Allergy Chest Pain Verified 10/27/17 14:34 metronidazole Allergy Chest Pain Verified 10/27/17 14:34 Surgical - Exam Vital Signs Temp Pulse Resp BP Pulse Ox 98.5 F 75 16 120/71 99 11/01/17 09:49 11/01/17 09:49 11/01/17 09:49 11/01/17 09:49 11/01/17 09:49 - General well developed, no distress - Eyes PERRL - ENT normal pinna - Neck no masses - Respiratory normal expansion - Cardiovascular Rhythm: regular - Abdomen Abdomen: soft, tender (Mild epigastric tenderness) Assessment and Plan Assessment: Epigastric pain. We'll perform EGD.
--- NOTE | 2017-11-01 10:26 | P.OP ---
Date of Procedure: 11/01/17 Preoperative Diagnosis: Epigastric dull pain Postoperative Diagnosis: Mild antral gastritis Procedure(s) Performed: EGD Anesthesia: MAC Surgeon: Abhishek Garland Pathology: other (Antral, esophagus) Condition: stable Disposition: PACU Description of Procedure: The patient's placed on the endoscopy table lateral position. She received IV sedation. The gastroscope placed oropharynx passed in the esophagus and stomach. Scope was then placed through the pylorus. The first and second portion of the duodenum appeared normal. Scope was then brought back the antrum this mild inflamed. A biopsies performed. The scope was unretroflexed and remainder of the stomach appeared normal. There is no hiatal hernia seen. The GE junction was at 40 cm.. The distal esophagus inflamed a biopsies performed. The proximal esophagus appeared normal. Scope was withdrawn for patient.
[2017-11-01 10:52] VITALS: BP 132/70; PULSE 62
== END ==
LOC: ORWHC2ENDO 09:12
PROVIDERS: ATTEND Surgery
DX: K21.0 Gastro-esophageal reflux disease with esophagitis (principal); K29.70 Gastritis, unspecified, without bleeding; E78.5 Hyperlipidemia, unspecified; Z87.891 Personal history of nicotine dependence; Z82.49 Family history of ischemic heart disease and other diseases of the circulatory system; Z79.899 Other long term (current) drug therapy; Z88.1 Allergy status to other antibiotic agents; Z88.8 Allergy status to other drugs, medicaments and biological substances
CPT/HCPCS: 88305; 43239; J2001; J2704

== ENCOUNTER 2020-12-18 17:54 | Inpatient (IN) | payer BC ==
[2020-12-18] MEDS ORDERED: KETOROLAC 15 MG/ML 1 ML VIAL IVP STA (19:46)
--- NOTE | 2020-12-18 19:56 | ED ---
General Adult HPI - General Chief complaint: Abdominal Pain Stated complaint: L side swelling, fever Time Seen by Provider: 12/18/20 19:35 Source: patient, RN notes reviewed, old records reviewed Mode of arrival: ambulatory Limitations: no limitations - History of Present Illness Initial comments: 50-year-old presenting for evaluation of lower abdominal pain. Patient states that she was diagnosed with uterine fibroid within the past several months as well as abnormal Pap smear. She states over the past 1 week she's noticed bloating and increased pain in her lower abdomen and pelvis. She did report some bleeding after her Pap smear. She also reports dysuria. She noted a fever today and was concerned about infection. She's had no upper respiratory symptoms. No cough or dyspnea. No sore throat. - Related Data Home Medications Medication Instructions Recorded Confirmed Rosuvastatin Calcium [Crestor] 10 mg PO DAILY@1900 09/19/17 12/18/20 Ibuprofen [Motrin Ib] 200 mg PO Q6H 12/18/20 12/18/20 Allergies Allergy/AdvReac Type Severity Reaction Status Date / Time atorvastatin [From Lipitor] Allergy Chest Pain Verified 12/18/20 21:44 Latex, Natural Rubber Allergy Swelling Verified 12/18/20 21:44 metronidazole Allergy Chest Pain Verified 12/18/20 21:44 Review of Systems ROS Statement: Those systems with pertinent positive or pertinent negative responses have been documented in the HPI. ROS Other: All systems not noted in ROS Statement are negative. Past Medical History Past Medical History: Chest Pain / Angina, GERD/Reflux, Hyperlipidemia Additional Past Medical History / Comment(s): shingles 2005. HAS BEEN HAVING EPISODES OF STOMACH PAIN FOR PAST MONTH History of Any Multi-Drug Resistant Organisms: None Reported Past Surgical History: Tubal Ligation Past Anesthesia/Blood Transfusion Reactions: No Reported Reaction Additional Past Anesthesia/Blood Transfusion Reaction / Comment(s): never recieved blood in past Past Psychological History: No Psychological Hx Reported Smoking Status: Never smoker Past Alcohol Use History: None Reported Past Drug Use History: None Reported - Past Family History Mother Family Medical History: Hyperlipidemia, Hypertension Additional Family Medical History / Comment(s): boarderline diabetic Father Family Medical History: Coronary Artery Disease (CAD), Hyperlipidemia, Hypertension Additional Family Medical History / Comment(s): cabg General Exam Limitations: no limitations General appearance: alert, in no apparent distress Head exam: Present: atraumatic, normocephalic Eye exam: Present: normal appearance, PERRL ENT exam: Present: normal exam Neck exam: Present: normal inspection. Absent: tenderness, meningismus Respiratory exam: Present: normal lung sounds bilaterally. Absent: respiratory distress, wheezes Cardiovascular Exam: Present: regular rate, normal rhythm GI/Abdominal exam: Present: soft, tenderness (Minimal bilateral lower abdominal tenderness and fullness.). Absent: distended Extremities exam: Present: normal inspection, normal capillary refill. Absent: pedal edema, calf tenderness Back exam: Present: normal inspection Neurological exam: Present: alert, oriented X3, CN II-XII intact. Absent: motor sensory deficit Psychiatric exam: Present: normal affect, normal mood Skin exam: Present: warm, dry, intact. Absent: cyanosis, diaphoretic Course Vital Signs 12/18/20 17:56 Temperature 99.2 F Pulse Rate 100 Respiratory 20 Rate Blood Pressure 127/68 O2 Sat by Pulse 99 Oximetry Medical Decision Making - Lab Data Result diagrams: 12/18/20 20:37 12/18/20 20:37 Lab Results 12/18/20 12/18/20 12/18/20 Range/Units 20:37 20:37 20:37 WBC 11.7 H (3.8-10.6) k/uL RBC 3.33 L (3.80-5.40) m/uL Hgb 10.3 L (11.4-16.0) gm/dL Hct 31.6 L (34.0-46.0) % MCV 94.9 (80.0-100.0) fL MCH 31.1 (25.0-35.0) pg MCHC 32.7 (31.0-37.0) g/dL RDW 11.8 (11.5-15.5) % Plt Count 379 (150-450) k/uL MPV 7.2 Neutrophils % 84 % Lymphocytes % 7 % Monocytes % 6 % Eosinophils % 1 % Basophils % 0 % Neutrophils # 9.8 H (1.3-7.7) k/uL Lymphocytes # 0.9 L (1.0-4.8) k/uL Monocytes # 0.7 (0-1.0) k/uL Eosinophils # 0.1 (0-0.7) k/uL Basophils # 0.0 (0-0.2) k/uL Sodium 136 L (137-145) mmol/L Potassium 5.0 (3.5-5.1) mmol/L Chloride 106 (98-107) mmol/L Carbon Dioxide 19 L (22-30) mmol/L Anion Gap 11 mmol/L BUN 22 H (7-17) mg/dL Creatinine 2.32 H (0.52-1.04) mg/dL Est GFR (CKD-EPI)AfAm 27 (>60 ml/min/1.73 sqM) Est GFR (CKD-EPI)NonAf 24 (>60 ml/min/1.73 sqM) Glucose 86 (74-99) mg/dL Plasma Lactic Acid [place] 1.2 (0.7-2.0) mmol/L Calcium 8.9 (8.4-10.2) mg/dL Total Bilirubin 0.5 (0.2-1.3) mg/dL AST 25 (14-36) U/L ALT 8 (4-34) U/L Alkaline Phosphatase 69 (38-126) U/L Total Protein 6.7 (6.3-8.2) g/dL Albumin 3.5 (3.5-5.0) g/dL Amylase 43 (30-110) U/L Lipase 17 L (23-300) U/L Disposition Clinical Impression: Bladder mass, Hydronephrosis, Acute renal failure (ARF) Disposition: [facility]ITT[facility] Condition: Stable Is patient prescribed a controlled substance at d/c from ED?: No Referrals: Galen Nath DO [Primary Care Provider] - 1-2 days Decision to Admit Reason: Admit from EC Decision Date: 12/18/20 Decision Time: 22:38
[2020-12-18 20:56] LABS: Basophils % (A) 0 %; Eosinophils # (A) 0.1 k/uL (0-0.7); Eosinophils % (A) 1 %; HCT 31.6 % (34.0-46.0); HGB 10.3 gm/dL (11.4-16.0); Lymphocytes # (A) 0.9 k/uL (1.0-4.8); Lymphocytes % (A) 7 %; MCH 31.1 pg (25.0-35.0); MCHC 32.7 g/dL (31.0-37.0); MCV 94.9 fL (80.0-100.0); Mean Platelet Volume 7.2; Monocytes # (A) 0.7 k/uL (0-1.0); Monocytes % (A) 6 %; Neutrophils # (A) 9.8 k/uL (1.3-7.7); Neutrophils % (A) 84 %; Platelet Count 379 k/uL (150-450); RBC 3.33 m/uL (3.80-5.40); RDW 11.8 % (11.5-15.5); WBC 11.7 k/uL (3.8-10.6)
[2020-12-18 21:06] LABS: Albumin 3.5 g/dL (3.5-5.0); Calcium 8.9 mg/dL (8.4-10.2); Total Bilirubin 0.5 mg/dL (0.2-1.3); Total Protein 6.7 g/dL (6.3-8.2)
--- NOTE | 2020-12-18 21:31 | CT ---
EXAMINATION TYPE: CT abdomen pelvis w con DATE OF EXAM: 12/18/2020 COMPARISON: 08/18/2014 INDICATION: lower anterior abdominal pain DLP: 667.1 mGycm, Automated exposure control for dose reduction was used. CONTRAST: 100 mL of Isovue 300. Study performed without Oral Contrast TECHNIQUE: Axial images were obtained from above the diaphragm to the pubic rami in the axial plane a t 5 mm thick sections. Reconstructed images are reviewed on the computer in the coronal plane. FINDINGS: Limited CT sections are obtained the lung bases. Streaky opacities in the posterior left lung base. Correlate for atelectasis. CT ABDOMEN: Liver: There is a 1.6 cm hypodensity measuring 6 Hounsfield units compatible this hepatic cyst in the right lobe liver. Spleen: Normal Pancreas: Normal Adrenal glands: The adrenal glands are normal. Gallbladder: Normal Kidneys: No masses are evident. There is moderate right hydronephrosis and marked right hydroureter. This extends urinary bladder. Mild left hydronephrosis and hydroureter is present. Ureter extends to the pelvis. No cysts are present. Delayed images were obtained through the kidneys, which remain unr emarkable. Aorta: Normal Inferior vena cava: Normal. CT PELVIS: Loops of bowel within the abdomen and pelvis are normal. The study is performed without oral cont rast limiting bowel evaluation. Appendix: Normal as visualized. Urinary bladder: There is irregular wall thickening through the posterior urinary bladder suspicious for bladder mass. Genitourinary structures: Uterus is enlarged and has hypoechoic areas within. This could be a uterine fibroid anteriorly. This may be related to a fibroid or fluid within the endometrial canal more post eriorly. Adnexal regions may contain some cysts on the right. There is mild fullness on the left ovar y. No omental caking is evident. No significant free fluid is evident. Small amount of free fluid is within the pelvis. Osseous structures: No suspicious lytic or sclerotic lesions. IMPRESSIONS: 1. Thickening of the posterior urinary bladder wall. Underlying mass is suspected. This may be the e tiology of moderate right hydronephrosis with moderate to severe right hydroureter and more mild left hydronephrosis and hydroureter. 2. Enlarged heterogenous uterus with fullness in the ovaries. Additional workup is recommended.
[2020-12-18] MEDS ORDERED: SODIUM CHLORIDE 0.9% 1,000 ML IV ONE (21:50)
[2020-12-18] MEDS ORDERED: NALOXONE 0.4 MG/ML 1 ML VIAL IV PRN (22:04)
[2020-12-18] MEDS ORDERED: ACETAMINOPHEN TAB 325 MG TAB PO PRN (22:04)
[2020-12-18] MEDS: SODIUM CHLORIDE 0.9% 1,000 ML IV SCH (22:40)
[2020-12-18 23:05] LABS: Appearance,Urine Clear (Clear); Bacteria,Urine Rare /hpf; Bilirubin,Urine Negative (Negative); Blood,Urine Large (Negative); Color,Urine Light Yellow; Glucose,Urine (UA) Negative (Negative); Hyaline Casts,Urine 3 /lpf (0-2); Ketones,Urine Trace (Negative); Leukocyte Esterase,Urine Negative (Negative); Mucus,Urine Rare /hpf; Nitrite,Urine Negative (Negative); PH, Urine 5.5 (5.0-8.0); Protein,Urine 1+ (Negative); RBC,Urine 3 /hpf (0-5); Squamous Epithelial Cell,Urine <1 /hpf (0-4); Urobilinogen,Urine <2.0 mg/dL (<2.0); WBC,Urine 4 /hpf (0-5)
[2020-12-19] MEDS: HYDROmorphone 0.5 MG/0.5 ML SYRINGE IVP PRN ×3 (01:32→13:04)
[2020-12-19 06:16] LABS: Basophils # (A) 0.1 k/uL (0-0.2); Basophils % (A) 1 %; Eosinophils # (A) 0.1 k/uL (0-0.7); Eosinophils % (A) 1 %; HCT 28.4 % (34.0-46.0); HGB 9.7 gm/dL (11.4-16.0); Lymphocytes # (A) 1.1 k/uL (1.0-4.8); Lymphocytes % (A) 10 %; MCHC 33.9 g/dL (31.0-37.0); MCV 94.4 fL (80.0-100.0); Monocytes # (A) 0.8 k/uL (0-1.0); Monocytes % (A) 8 %; Neutrophils # (A) 8.5 k/uL (1.3-7.7); Neutrophils % (A) 80 %; Platelet Count 360 k/uL (150-450); RBC 3.01 m/uL (3.80-5.40); RDW 11.9 % (11.5-15.5); WBC 10.6 k/uL (3.8-10.6)
[2020-12-19 06:37] LABS: Calcium 8.4 mg/dL (8.4-10.2); Potassium 4.8 mmol/L (3.5-5.1)
--- NOTE | 2020-12-19 09:09 | P.NPCON ---
History of Present Illness - Reason for Consult acute renal failure - History of Present Illness Reason for consultation: Acute kidney injury History of present illness: Patient is a 50-year-old female seen in renal consultation for acute kidney injury. Patient's baseline creatinine as of October 142020 was 0.5. She denies any history of kidney disease. Patient states she recently had an abnormal Pap smear and was scheduled to see a varnish inspector next week. She has noticed low-grade fever last couple of days. She's been having lower abdominal discomfort and has been taking Motrin 200 mg every 6 hours for the last 20 days or so. Patient's creatinine on admission was 2.32 and his 2.51 today. She also underwent CAT scan of the abdomen and pelvis yesterday with IV contrast which revealed possible mass in the urinary bladder along with bilateral hydronephrosis. Urology has been consulted. No history of diabetes. Denies family history of renal disease. No vomiting or diarrhea. Oral intake has been poor the last few days. Blood pressure stable. Vital signs are stable. General: The patient appeared well nourished and normally developed. HEENT: Head exam is unremarkable. Neck is without jugular venous distension. LUNGS: Breath sounds decreased. HEART: Rate and Rhythm are regular. ABDOMEN: Soft, mild generalized tenderness. EXTREMITITES: No edema. Past Medical History Past Medical History: Chest Pain / Angina, GERD/Reflux, Hyperlipidemia Additional Past Medical History / Comment(s): shingles 2005. HAS BEEN HAVING EPISODES OF STOMACH PAIN FOR PAST MONTH History of Any Multi-Drug Resistant Organisms: None Reported Past Surgical History: Tubal Ligation Past Anesthesia/Blood Transfusion Reactions: No Reported Reaction Additional Past Anesthesia/Blood Transfusion Reaction / Comment(s): never recieved blood in past Past Psychological History: No Psychological Hx Reported Smoking Status: Never smoker Past Alcohol Use History: None Reported Past Drug Use History: None Reported - Past Family History Mother Family Medical History: Hyperlipidemia, Hypertension Additional Family Medical History / Comment(s): boarderline diabetic Father Family Medical History: Coronary Artery Disease (CAD), Hyperlipidemia, Hypertension Additional Family Medical History / Comment(s): cabg Medications and Allergies Home Medications Medication Instructions Recorded Confirmed Type Rosuvastatin Calcium [Crestor] 10 mg PO DAILY@1900 09/19/17 12/18/20 History Ibuprofen [Motrin Ib] 200 mg PO Q6H 12/18/20 12/18/20 History Allergies Allergy/AdvReac Type Severity Reaction Status Date / Time atorvastatin [From Lipitor] Allergy Chest Pain Verified 12/18/20 21:44 Latex, Natural Rubber Allergy Swelling Verified 12/18/20 21:44 metronidazole Allergy Chest Pain Verified 12/18/20 21:44 Physical Exam Vitals: Vital Signs Temp Pulse Resp BP Pulse Ox 12/19/20 05:40 98.5 F 99 18 117/67 99 12/19/20 01:23 99.4 F 84 18 125/61 100 12/18/20 17:56 99.2 F 100 20 127/68 99 Intake and Output 12/18/20 12/19/20 12/19/20 22:59 06:59 14:59 Other: Weight 65.317 kg 65.317 kg Results - Lab Results Most recent lab results Calcium 8.4 mg/dL (8.4-10.2) 12/19/20 05:38 12/19/20 05:38 12/19/20 05:38 Assessment and Plan Plan: Assessment: 1. Acute kidney injury secondary to obstructive uropathy and nonsteroidals. Also received IV contrast on December 18. Baseline creatinine near 0.5. Creatinine 2.3 on admission and is 2.51 today. 2. Bilateral hydronephrosis with possible urinary bladder mass. Urology consulted. Currently has a Zavala catheter. 3. Metabolic acidosis secondary to acute kidney injury and IV fluids. 4. Anemia. Rule out iron deficiency. Plan: Maintain IV fluids. Add oral bicarb. Check iron studies. Avoid nephrotoxins, including nonsteroidals. Continue to monitor renal function and urine output. Await urology recommendations. Thank you for the consultation. I will continue to follow the patient with you during her hospital stay.
[2020-12-19] MEDS: SODIUM BICARBONATE TAB 650 MG TAB PO SCH ×2 (09:43→20:31)
--- NOTE | 2020-12-19 10:53 | P.GSCN ---
History of Present Illness Consult date: 12/19/20 Reason for Consult: Hydronephrosis Requesting physician: Neda Earl History of present illness: The patient is a 50-year-old white female who denies any prior history of UTIs or urolithiasis. She has recently experienced lower abdominal swelling associated with right lower quadrant abdominal discomfort. She has also noted a diminished urinary stream. She is postmenopausal but has noted some spotting, increased since she underwent a Pap smear 3 weeks ago. Review of Systems - Constitutional Reports fever, Denies chills, Denies weight gain, Denies weight loss - Respiratory Denies dyspnea - Gastrointestinal Reports abdominal pain - Genitourinary Genitourinary: Reports difficulty voiding Past Medical History Past Medical History: Chest Pain / Angina, GERD/Reflux, Hyperlipidemia Additional Past Medical History / Comment(s): shingles 2005. HAS BEEN HAVING EPISODES OF STOMACH PAIN FOR PAST MONTH History of Any Multi-Drug Resistant Organisms: None Reported Past Surgical History: Tubal Ligation Past Anesthesia/Blood Transfusion Reactions: No Reported Reaction Additional Past Anesthesia/Blood Transfusion Reaction / Comm: never recieved blood in past Past Psychological History: No Psychological Hx Reported Smoking Status: Never smoker Past Alcohol Use History: None Reported Past Drug Use History: None Reported - Past Family History Mother Family Medical History: Hyperlipidemia, Hypertension Additional Family Medical History / Comment(s): boarderline diabetic Father Family Medical History: Coronary Artery Disease (CAD), Hyperlipidemia, Hypertension Additional Family Medical History / Comment(s): cabg Medications and Allergies Home Medications Medication Instructions Recorded Confirmed Type Rosuvastatin Calcium [Crestor] 10 mg PO DAILY@1900 09/19/17 12/18/20 History Ibuprofen [Motrin Ib] 200 mg PO Q6H 12/18/20 12/18/20 History Allergies Allergy/AdvReac Type Severity Reaction Status Date / Time atorvastatin [From Lipitor] Allergy Chest Pain Verified 12/18/20 21:44 Latex, Natural Rubber Allergy Swelling Verified 12/18/20 21:44 metronidazole Allergy Chest Pain Verified 12/18/20 21:44 Surgical - Exam Vital Signs Temp Pulse Resp BP Pulse Ox 99.2 F 100 20 127/68 99 12/18/20 17:56 12/18/20 17:56 12/18/20 17:56 12/18/20 17:56 12/18/20 17:56 - General well developed, well nourished, no distress - Neck no masses, trachea midline - Respiratory normal respiratory effort - Abdomen Soft, non-distended. Suprapubic fullness is noted. There is mild right lower quadrant tenderness to palpation, without guarding or rebound. The Zavala catheter is draining clear yellow urine. - Psychiatric oriented to time, oriented to person, oriented to place, speech is normal, memory intact Results - Labs 12/19/20 05:38 12/19/20 05:38 Abnormal Lab Results - Last 24 Hours (Table) 12/18/20 12/18/20 12/18/20 Range/Units 20:37 20:37 22:13 WBC 11.7 H (3.8-10.6) k/uL RBC 3.33 L (3.80-5.40) m/uL Hgb 10.3 L (11.4-16.0) gm/dL Hct 31.6 L (34.0-46.0) % Neutrophils # 9.8 H (1.3-7.7) k/uL Lymphocytes # 0.9 L (1.0-4.8) k/uL Sodium 136 L (137-145) mmol/L Carbon Dioxide 19 L (22-30) mmol/L BUN 22 H (7-17) mg/dL Creatinine 2.32 H (0.52-1.04) mg/dL Lipase 17 L (23-300) U/L Ur Specific [place] 1.000 L (1.001-1.035) Urine Protein 1+ H (Negative) Urine Ketones Trace H (Negative) Urine Blood Large H (Negative) Urine Bacteria Rare H (None) /hpf Hyaline Casts 3 H (0-2) /lpf Urine Mucus Rare H (None) /hpf 12/19/20 12/19/20 Range/Units 05:38 05:38 WBC (3.8-10.6) k/uL RBC 3.01 L (3.80-5.40) m/uL Hgb 9.7 L (11.4-16.0) gm/dL Hct 28.4 L (34.0-46.0) % Neutrophils # 8.5 H (1.3-7.7) k/uL Lymphocytes # (1.0-4.8) k/uL Sodium 136 L (137-145) mmol/L Carbon Dioxide 20 L (22-30) mmol/L BUN 21 H (7-17) mg/dL Creatinine 2.51 H (0.52-1.04) mg/dL Lipase (23-300) U/L Ur Specific [place] (1.001-1.035) Urine Protein (Negative) Urine Ketones (Negative) Urine Blood (Negative) Urine Bacteria (None) /hpf Hyaline Casts (0-2) /lpf Urine Mucus (None) /hpf Diabetes panel 12/18/20 12/19/20 Range/Units 20:37 05:38 Sodium 136 L 136 L (137-145) mmol/L Potassium 5.0 4.8 (3.5-5.1) mmol/L Chloride 106 107 (98-107) mmol/L Carbon Dioxide 19 L 20 L (22-30) mmol/L BUN 22 H 21 H (7-17) mg/dL Creatinine 2.32 H 2.51 H (0.52-1.04) mg/dL Glucose 86 82 (74-99) mg/dL Calcium 8.9 8.4 (8.4-10.2) mg/dL AST 25 (14-36) U/L ALT 8 (4-34) U/L Alkaline Phosphatase 69 (38-126) U/L Total Protein 6.7 (6.3-8.2) g/dL Albumin 3.5 (3.5-5.0) g/dL Calcium panel 12/18/20 12/19/20 Range/Units 20:37 05:38 Calcium 8.9 8.4 (8.4-10.2) mg/dL Albumin 3.5 (3.5-5.0) g/dL Pituitary panel 12/18/20 12/19/20 Range/Units 20:37 05:38 Sodium 136 L 136 L (137-145) mmol/L Potassium 5.0 4.8 (3.5-5.1) mmol/L Chloride 106 107 (98-107) mmol/L Carbon Dioxide 19 L 20 L (22-30) mmol/L BUN 22 H 21 H (7-17) mg/dL Creatinine 2.32 H 2.51 H (0.52-1.04) mg/dL Glucose 86 82 (74-99) mg/dL Calcium 8.9 8.4 (8.4-10.2) mg/dL Adrenal panel 12/18/20 12/19/20 Range/Units 20:37 05:38 Sodium 136 L 136 L (137-145) mmol/L Potassium 5.0 4.8 (3.5-5.1) mmol/L Chloride 106 107 (98-107) mmol/L Carbon Dioxide 19 L 20 L (22-30) mmol/L BUN 22 H 21 H (7-17) mg/dL Creatinine 2.32 H 2.51 H (0.52-1.04) mg/dL Glucose 86 82 (74-99) mg/dL Calcium 8.9 8.4 (8.4-10.2) mg/dL Total Bilirubin 0.5 (0.2-1.3) mg/dL AST 25 (14-36) U/L ALT 8 (4-34) U/L Alkaline Phosphatase 69 (38-126) U/L Total Protein 6.7 (6.3-8.2) g/dL Albumin 3.5 (3.5-5.0) g/dL - Imaging CT scan - abdomen: report reviewed, image reviewed Assessment and Plan (1) Hydronephrosis Current Visit: Yes Status: Acute Code(s): N13.30 - UNSPECIFIED HYDR ONEPHROSIS SNOMED Code(s): 20308933 Plan: I had a lengthy discussion with Mrs. Mistry regarding her condition. She has bilateral hydronephrosis, moderate on the right and mild on the left. The level of obstruction appears to be within the pelvis. The computed tomography scan shows uterine enlargement as well as posterior bladder wall thickening. She was scheduled to see Dr. Browne on December 23, and I have thus consulted her. I have scheduled Mrs. Mistry to undergo cystoscopy, bilateral retrograde pyelograms, bilateral ureteral stent insertion, possible bladder biopsy, possible TUR-BT tomorrow morning. The rationale for the procedure was discussed in detail, as were potential risks which include anesthesia, bleeding, infecti on, bladder perforation, ureteral injury, and inability to successfully place stents. Time with Patient: Greater than 30
[2020-12-19] MEDS: SODIUM CHLORIDE 0.9% 1,000 ML IV SCH ×2 (13:16→20:31)
[2020-12-19] MEDS ORDERED: ALPRAZolam 0.25 MG TAB PO PRN (13:43)
[2020-12-19] MEDS ORDERED: TEMAZEPAM 15 MG CAP PO PRN (13:43)
--- NOTE | 2020-12-19 13:58 | P.OBCN ---
History of Present Illness Consult date: 12/19/20 Reason for consult: pelvic mass (enlarged uterus, fibroid) Chief complaint: abdominal bloating, dysuria, RLQ pain History of present illness: This is a 50 yo female that was admitted to [facility] on 12/18 for bladder irregularity and b/l hydronephrosis. Patient states she been began having urinary issues since end of September and was seen with her primary care around 10/15. She was evaluated for urinary tract infection which was negative. Patient was scheduled for annual exam which was completed an ultrasound was ordered, based on findings of pelvic exam. Patient states she did have a pelvic ultrasound completed at Dr. Nath's office about 3 weeks ago, this report is unavailable to us at this time. She states she was told she had a uterine fibroid, no mention of ovarian cysts. Patient states she has been menopausal since around age 38 and notes spotting irregularly since that time. Patient notes increased frequency of spotting since her Pap smear was obtained. Patient denies changes in her bowel function, but does note some "swelling" of her abdomen, in addition to increasing right lower quadrant pain. Patient is not currently sexually active and states she hasn't been for many years secondary to discomfort. MANAGER BUILDING history This is a 3 para 3, she states she had 3 normal spontaneous vaginal deliveries with no complications. Pregnancies were uncomplicated. She states she went through menopause at age 38 and has had irregular spotting since that time. She is not currently sexually active Review of Systems Ears, nose, mouth and throat: Denies headache Respiratory: Denies dyspnea Gastrointestinal: Reports bloating (she states she percieves this as swelling increasing since october), Denies constipation, Denies diarrhea, Denies nausea, Denies vomiting Genitourinary: Reports dysuria (Postmenopausal bleeding), Denies Menstruation: Reports postmenopausal Past Medical History Past Medical History: Chest Pain / Angina, GERD/Reflux, Hyperlipidemia Additional Past Medical History / Comment(s): miah 2005. HAS BEEN HAVING EPISODES OF STOMACH PAIN FOR PAST MONTH History of Any Multi-Drug Resistant Organisms: None Reported Past Surgical History: Tubal Ligation Past Anesthesia/Blood Transfusion Reactions: No Reported Reaction Additional Past Anesthesia/Blood Transfusion Reaction / Comm: never recieved blood in past Past Psychological History: No Psychological Hx Reported Smoking Status: Never smoker Past Alcohol Use History: None Reported Past Drug Use History: None Reported - Past Family History Mother Family Medical History: Hyperlipidemia, Hypertension Additional Family Medical History / Comment(s): boarderline diabetic Father Family Medical History: Coronary Artery Disease (CAD), Hyperlipidemia, Hypertension Additional Family Medical History / Comment(s): cabg Medications and Allergies Home Medications Medication Instructions Recorded Confirmed Type Rosuvastatin Calcium [Crestor] 10 mg PO DAILY@1900 09/19/17 12/18/20 History Ibuprofen [Motrin Ib] 200 mg PO Q6H 12/18/20 12/18/20 History Allergies Allergy/AdvReac Type Severity Reaction Status Date / Time atorvastatin [From Lipitor] Allergy Chest Pain Verified 12/18/20 21:44 Latex, Natural Rubber Allergy Swelling Verified 12/18/20 21:44 metronidazole Allergy Chest Pain Verified 12/18/20 21:44 Exam Osteopathic Statement: *. No significant issues noted on an osteopathic structural exam other than those noted in the History and Physical/Consult. Vital Signs Temp Pulse Pulse Resp BP BP Pulse Ox 12/19/20 08:14 98.2 F 75 18 117/64 98 12/19/20 08:00 75 18 12/19/20 05:40 98.5 F 99 18 117/67 99 12/19/20 01:23 99.4 F 84 18 125/61 100 12/18/20 17:56 99.2 F 100 20 127/68 99 Intake and Output 12/18/20 12/19/20 12/19/20 22:59 06:59 14:59 Output Total 500 Balance -500 Output: Urine 500 Other: Voiding Method Indwelling Catheter Weight 65.317 kg 65.317 kg Targeted physical exam is performed and on this date and data governance analyst a well- nourished well-developed female in no acute distress, breathing is noted to be nonlabored, abdomen is noted to be tense, but no guarding is appreciated. On pelvic exam external genitalia is noted to be normal for age, on bimanual exam it is difficult to ascertain uterine mobility or size given a shot discomfort with exam. Anteriorly the bladder wall feels thickened, and firm. The cervix is palpated, no masses are appreciated but once again difficulty with exam secondary to patient discomfort. No lower extremity swelling is appreciated Results Result Diagrams: 12/19/20 05:38 12/19/20 05:38 Abnormal Lab Results - Last 24 Hours (Table) 12/18/20 12/18/20 12/18/20 Range/Units 20:37 20:37 22:13 WBC 11.7 H (3.8-10.6) k/uL RBC 3.33 L (3.80-5.40) m/uL Hgb 10.3 L (11.4-16.0) gm/dL Hct 31.6 L (34.0-46.0) % Neutrophils # 9.8 H (1.3-7.7) k/uL Lymphocytes # 0.9 L (1.0-4.8) k/uL Sodium 136 L (137-145) mmol/L Carbon Dioxide 19 L (22-30) mmol/L BUN 22 H (7-17) mg/dL Creatinine 2.32 H (0.52-1.04) mg/dL Lipase 17 L (23-300) U/L Ur Specific [place] 1.000 L (1.001-1.035) Urine Protein 1+ H (Negative) Urine Ketones Trace H (Negative) Urine Blood Large H (Negative) Urine Bacteria Rare H (None) /hpf Hyaline Casts 3 H (0-2) /lpf Urine Mucus Rare H (None) /hpf 12/19/20 12/19/20 Range/Units 05:38 05:38 WBC (3.8-10.6) k/uL RBC 3.01 L (3.80-5.40) m/uL Hgb 9.7 L (11.4-16.0) gm/dL Hct 28.4 L (34.0-46.0) % Neutrophils # 8.5 H (1.3-7.7) k/uL Lymphocytes # (1.0-4.8) k/uL Sodium 136 L (137-145) mmol/L Carbon Dioxide 20 L (22-30) mmol/L BUN 21 H (7-17) mg/dL Creatinine 2.51 H (0.52-1.04) mg/dL Lipase (23-300) U/L Ur Specific [place] (1.001-1.035) Urine Protein (Negative) Urine Ketones (Negative) Urine Blood (Negative) Urine Bacteria (None) /hpf Hyaline Casts (0-2) /lpf Urine Mucus (None) /hpf Assessment and Plan (1) Uterine fibroid Current Visit: Yes Status: Acute Code(s): D25.9 - LEIOMYOMA OF UTERUS, UNSPECIFIED SNOMED Code(s): 20738661 (2) Ovarian cyst Current Visit: Yes Status: Acute Code(s): N83.209 - UNSPECIFIED OVARIAN CYST, UNSPECIFIED SIDE SNOMED Code(s): 69894470 Plan: This 50-year-old female is admitted to [facility] with working diagnosis of bladder irregularity/questionable mass, bilateral hydronephrosis. Patient was evaluated by Dr. Landaverde and is being taken to the operating suite tomorrow for cystoscopy and stent placement. Patient had a CT scan revealing uterine enlargement and right ovarian cystic changes. Ultrasound is ordered for further evaluation of pelvic anatomy. D iscussion with the patient and her significant other about findings of CT scan and need for ultrasound. Patient states understanding. We will follow up once ultrasound is completed for further recommendation Thank you for the consult
--- NOTE | 2020-12-19 15:42 | HP ---
HISTORY AND PHYSICAL DATE OF SERVICE: 12/19/2020. I am covering for Dr. Nath. CHIEF COMPLAINTS: Abdominal pain and some fever. HISTORY OF PRESENT ILLNESS: This 50-year-old woman with a past medical history of multiple medical problems including GERD, hyperlipidemia, history of shingles, history of episodes of stomach pain for the past one month, being followed by Dr. Nath in the outpatient setting, was having some fever and abdominal pain. The patient came to [facility] and was admitted for further evaluation and treatment. Evaluation showed multiple abnormalities including creatinine elevated up to 0.32. The previous creatinine was normal indicating acute renal failure and hyponatremia, elevated WBC and possibly an abnormal urine and abdomen and pelvis CAT scan was also done because of abdominal pain which is felt mainly in the lower part and inguinal areas. The CT of the abdomen showed thickening of the posterior urinary bladder and underlying mass suspected, etiology of right hydronephrosis noted. The patient has moderate severe right hydroureter and mild left hydronephrosis and hydroureter, enlarged heterogeneous uterus with fullness was noted. The patient had abnormal Pap smear and abnormal uterine possibly uterine fibroid and was slated to have an outpatient appointment with CHASSIS INSPECTOR arranged by the primary care physician. There is no history of fever, rigors or chills. No history of headache, loss of consciousness, seizures at this time. PAST MEDICAL HISTORY: History of recent abnormal Pap smears and other history as described. GERD, hyperlipidemia, shingles. MEDICATIONS: Home medications are: Motrin and Crestor. ALLERGIES: LIPITOR, NATURAL RUBBER MATERIAL, FLAGYL. FAMILY HISTORY: History of hypertension, hyperlipidemia, history of diabetes in the family. SOCIAL HISTORY: No history of current smoking, or alcohol. Previous history of smoking. REVIEW OF SYSTEMS: ENT: No diminished hearing. No diminished vision. CARDIOVASCULAR: No angina or palpitations. RESPIRATION: No cough or hemoptysis. GI: As mentioned earlier. : As mentioned earlier. NERVOUS SYSTEM: No numbness or weakness. ALLERGY/IMMUNOLOGY: No asthma, hayfever. MUSCULOSKELETAL: As mentioned earlier. HEMATOLOGY/ONCOLOGY: No history of anemia. ENDOCRINE: No history of diabetes or hypothyroidism. CONSTITUTIONAL: As mentioned earlier. DERMATOLOGY: Negative. RHEUMATOLOGY: Negative. PSYCHIATRY: As mentioned earlier. PHYSICAL EXAMINATION: The patient is alert and oriented times three. Pulse 75, blood pressure 117/64, respiration 18, temperature 98.4, pulse ox 98% on room air. HEENT: Conjunctivae normal. NECK: No JVD. CARDIOVASCULAR: S1, S2. RESPIRATION: Breath sounds diminished in the bases. A few scattered rhonchi. No crackles. ABDOMEN: Soft. Mild diffuse discomfort in the lower part of the abdomen. No guarding. No rigidity. No mass palpable. No renal angle tenderness. LEGS are no edema. No swelling. NERVOUS SYSTEM: Higher functions as mentioned earlier. Moves all 4 limbs. No focal motor or sensory deficits. LYMPHATICS: No lymph nodes palpable in the neck, axillae or groin. SKIN: No rashes, no ulcers, no bleeding. JOINTS: No active deforming arthropathy. LABS: WBC 11.7, hemoglobin 10.3. Sodium 136, creatinine is 2.32. ASSESSMENT: 1. Abdominal pain with acute renal failure, possible acute tubular necrosis, rule out postobstructive renal failure. 2. Possible urinary tract infection with sepsis, present on admission. 3. Increased WBC. 4. Anemia. 5. Hyponatremia. 6. Thickened posterior urinary bladder wall, rule out underlying mass. 7. Moderate right hydronephrosis with moderate severe hydroureter and mild left hydronephrosis, hydroureter. 8. Heterogeneous mass in the uterus. 9. Recent abnormal Pap smear. 10.History of gastroesophageal reflux disease. 11.Hyperlipidemia. 12.History of shingles. 13.History of stomach pains. 14.FULL CODE. RECOMMENDATIONS AND DISCUSSION: In this 50-year-old woman who presented with multiple complex medical issues, we will monitor the patient closely, continue the current medications, management and symptomatic treatment. Otherwise, at this time, nephrology and urology has been consulted. Repeat labs will be ordered. IV hydration. Urology recommended cystoscopy and bilateral retrograde pyelogram and bilateral ureteral stent insertion, possible bladder biopsy and TURBT tomorrow morning. CHASSIS INSPECTOR evaluation also underway. We will continue to monitor obtain cultures as well. See orders for details. Prognosis guarded. A copy of dictation being forwarded to Dr. Nath, who is the primary physician. MMNIKKI / ZAKI: [id number] /
[2020-12-19] MEDS ORDERED: ROSUVASTATIN CALCIUM 10 MG PO SCH (19:00)
--- NOTE | 2020-12-19 19:06 | US ---
EXAMINATION TYPE: US pelvis complete transvag DATE OF EXAM: 12/19/2020 COMPARISON: CT 12/18/2020. CLINICAL HISTORY: enlarged uterus, right ovarian cysts. enlarged uterus TECHNIQUE: Transvaginal (TV) and Transabdominal (TA) . Transabdominal sonographic images of the pel vis were acquired. Transvaginal sonographic images were medically necessary to better assess the fol lowing anatomy: ovaries Date of LMP: unknown EXAM MEASUREMENTS: Uterus: 12.1 x 7.2 x 7.8 cm Right Ovary: unable to visualize Left Ovary: unable to visualize 1. Uterus: Anteverted complex anechoic area = 3.9 x 4.3 x 5.6cm 2. Endometrium: not clearly visualized 3. Right Ovary: Obscured by overlying bowel gas 4. Left Ovary: Obscured by overlying bowel gas 5. Bilateral Adnexa: appears wnl 6. Posterior cul-de-sac: wnl IMPRESSION: Indeterminate 5.6 cm complex cystic structure in the uterus and corresponding to CT finding. Recommen d MANDARIN CHINESE TEACHER consultation. Bilateral ovaries not visualized.
[2020-12-19 19:11] LABS: Ferritin 254.7 ng/mL (10.0-291.0)
[2020-12-19 19:50] LABS: % Iron Saturation 11.6 (12.00-45.00)
[2020-12-19] MEDS: HYDROcodone/APAP 5-325MG 1 EACH TAB PO PRN (20:30)
[2020-12-19] MEDS: HEPARIN SODIUM,PORCINE/PF 5,000 UNIT/0.5 ML SYRINGE SQ SCH (20:31)
[2020-12-20] MEDS: HYDROcodone/APAP 5-325MG 1 EACH TAB PO PRN ×4 (02:12→22:32)
[2020-12-20 07:11] LABS: African American GFR (CKD) 41 (>60 ml/min/1.73 sqM); Anion Gap 10 mmol/L; Blood Urea Nitrogen 16 mg/dL (7-17); Calcium 8.4 mg/dL (8.4-10.2); Carbon Dioxide 20 mmol/L (22-30); Chloride 109 mmol/L (98-107); Glucose 82 mg/dL (74-99); Magnesium 2.1 mg/dL (1.6-2.3); Non-African American GFR(CKD) 36 (>60 ml/min/1.73 sqM); Potassium 4.5 mmol/L (3.5-5.1); Sodium 139 mmol/L (137-145)
[2020-12-20] MEDS: PANTOPRAZOLE 40 MG TABLET PO SCH (07:21)
[2020-12-20] MEDS: SODIUM BICARBONATE TAB 650 MG TAB PO SCH ×2 (07:21→19:41)
[2020-12-20] MEDS ORDERED: ONDANSETRON 4 MG/2 ML VIAL ONE (08:09)
[2020-12-20] MEDS ORDERED: PROPOFOL 10 MG/ML 20 ML VIAL IV ONE (08:09)
[2020-12-20] MEDS ORDERED: LIDOCAINE 1% INJ 10MG/ML (20 ML MDV) ONE (08:09)
[2020-12-20] MEDS ORDERED: fentaNYL (PF) 50 MCG/ML 2 ML AMP ONE (08:09)
[2020-12-20] MEDS ORDERED: MIDAZOLAM 2 MG/2 ML VIAL ONE (08:09)
[2020-12-20] MEDS ORDERED: IV FLUID CONTINUATION 1,000 ML IV ONE (08:11)
[2020-12-20 09:06] LABS: Basophils # (A) 0.06 X 10*3/uL (0.00-0.10); Basophils % (A) 0.5 %; Eosinophils # (A) 0.16 X 10*3/uL (0.04-0.35); Eosinophils % (A) 1.4 %; HCT 26.9 % (37.2-46.3); HGB 8.6 g/dL (12.0-15.0); Lymphocytes # (A) 0.96 X 10*3/uL (0.90-5.00); Lymphocytes % (A) 8.5 %; MCH 30.8 pg (27.0-32.0); MCV 96.4 fL (80.0-97.0); Mean Platelet Volume 9.9 fL (9.5-12.2); Monocytes # (A) 1.01 X 10*3/uL (0.20-1.00); Monocytes % (A) 8.9 %; Neutrophils # (A) 9.07 X 10*3/uL (1.80-7.70); Neutrophils % (A) 80.2 %; Platelet Count 351 X 10*3/uL (140-440); RBC 2.79 X 10*6/uL (4.10-5.20); RDW 12.5 % (11.5-14.5); WBC 11.32 X 10*3/uL (4.50-10.00)
--- NOTE | 2020-12-20 09:30 | P.OP ---
Date of Procedure: 12/20/20 Preoperative Diagnosis: Bladder tumor Postoperative Diagnosis: Same Procedure(s) Performed: Cystoscopy, TURBT (medium), examination under anesthesia Anesthesia: RADHA Surgeon: Irving Bee Estimated Blood Loss (ml): 5 IV fluids (ml): 500 Pathology: other (Posterior bladder wall tissue fragments) Condition: stable Disposition: PACU Indications for Procedure: Patient is a 50-year-old white female with a 2 to three-month history of lower abdominal swelling and discomfort, which is predominantly right sided. She has noted weakening of her urinary stream. A computed tomography scan shows bilateral hydroureteronephrosis and thickening of the posterior bladder wall. Operative Findings: Tumor infiltrating posterior bladder wall, including trigone. Ureteral orifices not seen. Description of Procedure: The patient was taken in the operating room and placed in the dorsal lithotomy position, with his legs supported in Rob stirrups. The external genitalia was prepped and draped sterilely. The 30 lens was used to introduce the 19-[place]izen [place] cystoscopic sheath through the urethra and into the bladder under direct vision. The urethra appeared normal. Tumor was seen to involve the posterior bladder wall, including the trigone. The ureteral orifices were not identified. The tumor had an infiltrative appearance, not typical of urothelial carcinoma. The remainder of the bladder appeared normal. The cystoscope was removed, and the 25-[place]izen [place] ACMI resectoscope sheath was introduced into the bladder. Using the cutting loop, a portion of the tumor was resected, predominantly within the midline. Any areas of oozing were controlled with electrocautery. Excellent hemostasis was attained. The resected tissue was saved and sent for pathologic examination. After draining the bladder and removing the resectoscope, examination under anesthesia was performed. This revealed thickening and induration of the anterior vaginal wall. An 18-[place] Zavala catheter was inserted. The return was essentially clear. The patient tolerated the procedure well. He was taken to the recovery room in stable condition.
[2020-12-20 11:38] LABS: Partial Thromboplastin Time 25.6 sec (22.0-30.0)
[2020-12-20] MEDS: HEPARIN SODIUM,PORCINE/PF 5,000 UNIT/0.5 ML SYRINGE SQ SCH (12:14)
[2020-12-20] MEDS: SODIUM CHLORIDE 0.9% 1,000 ML IV SCH ×2 (14:34→22:34)
--- NOTE | 2020-12-20 15:24 | PN ---
PROGRESS NOTE DATE OF SERVICE: 12/20/2020 I am covering for Dr. Nath. HISTORY OF PRESENT ILLNESS: This 50-year-old woman who was admitted with abdominal pain had renal failure. The patient had a cystoscopy which showed some malignant lesions in the bladder and biopsies were taken by Dr. Bee. FLIPPING MACHINE OPERATOR evaluation is ongoing at this time. No chest pain. No palpitations. No fever. PHYSICAL EXAMINATION: Alert and oriented x3. Pulse 70, blood pressure 120/70, respiration 18, temperature 97.2 pulse ox 100% on room air. HEENT: Conjunctivae normal. Oral mucosa moist. NECK: No jugular venous distention. No lymph node enlargement. CARDIOVASCULAR: S1, S2, muffled. No S3, no S4, RESPIRATORY: Diminished breath sounds at the bases. No rhonchi, no crackles. ABDOMEN: Soft, nontender. LEGS: No edema, no swelling. NERVOUS SYSTEM: No focal deficits LABS: WBC 11.32, hemoglobin is 8.6. UA noted. Otherwise, creatinine is 1.64. Cultures are negative at this time. ASSESSMENT: 1. Abdominal pain with acute renal failure, possible acute tubular necrosis, rule out postobstructive renal failure. 2. Possible acute urinary tract infection with sepsis, present on admission, on empiric antibiotics. 3. Status post cystoscopy showing possibly bladder tumor. 4. Increased WBC. 5. Anemia. 6. Hyponatremia. 7. Thickened posterior bladder wall, rule out underlying mass in the CT scan. 8. Moderate right hydronephrosis with moderate severe hydroureter and mild left hydronephrosis and hydroureter in the CT scan. 9. Heterogenous mass in the uterus. 10.Recent abnormal Pap smear. 11.History of GERD. 12.Hyperlipidemia. 13.History of shingles. 14.History of stomach pains. 15.FULL CODE. RECOMMENDATIONS AND DISCUSSION: Recommend to continue current management and continue symptomatic treatment. Otherwise, closely follow with Urology and as well as FLIPPING MACHINE OPERATOR. Symptomatic treatment. Guarded prognosis because of multiple complex medical issues and Dr. Nath will follow in the morning. MMODL / IJN: [id number] /
[2020-12-20] MEDS: ROSUVASTATIN CALCIUM 10 MG PO SCH (19:41)
[2020-12-20 20:31] LABS: INR 1.1 (<1.2); Prothrombin Time 11.7 sec (9.0-12.0)
[2020-12-21] MEDS: HYDROcodone/APAP 5-325MG 1 EACH TAB PO PRN ×4 (04:44→23:05)
[2020-12-21 05:54] LABS: Magnesium 1.8 mg/dL (1.6-2.3); Potassium 4.4 mmol/L (3.5-5.1)
[2020-12-21] MEDS: PANTOPRAZOLE 40 MG TABLET PO SCH (06:38)
--- NOTE | 2020-12-21 08:43 | P.PN ---
Progress Note - Text Progress Note Date: 12/21/20 Mrs. Mistry continues to experience lower abdominal/pelvic discomfort. She is afebrile with stable vital signs. Her Zavala catheter is draining clear yellow urine. The catheter will be removed. She will undergo bilateral nephrostomy tube insertion later today.
[2020-12-21 08:53] VITALS: RESP 16
[2020-12-21] MEDS: SODIUM BICARBONATE TAB 650 MG TAB PO SCH ×2 (09:11→20:03)
--- NOTE | 2020-12-21 11:36 | P.PN ---
Subjective Patient is seen in follow for acute kidney injury. Renal function improved initially with IV fluids. Creatinine stable at 1.65 today. She underwent cystoscopy December 20. Awaiting nephrostomy tube placement. Has a Zavala catheter. Nonoliguric. No chest pain or shortness of breath. Vital signs are stable. General: The patient appeared well nourished and normally developed. HEENT: Head exam is unremarkable. Neck is without jugular venous distension. LUNGS: Breath sounds decreased. HEART: Rate and Rhythm are regular. ABDOMEN: Soft, nontender. EXTREMITITES: No edema. Objective - Vital Signs Vital signs: Vital Signs Temp 98.2 F 12/21/20 08:16 Pulse 100 12/21/20 11:28 Resp 16 12/21/20 11:28 BP 160/86 12/21/20 11:28 Pulse Ox 99 12/21/20 11:28 Intake & Output 12/20/20 12/21/20 12/21/20 18:59 06:59 18:59 Intake Total 2280 Output Total 555 1000 540 Balance 1725 -1000 -540 Weight 65.317 kg Intake: IV 700 Intake, IV Titration 800 Amount Sodium Chloride 0.9% 1, 750 000 ml @ 75 mls/hr IV . [id number] JORDAN Rx#:[id number] cefTRIAXone 1 gm In 50 Sodium Chloride 0.9% 50 ml @ 100 mls/hr IVPB Q24H JORDAN Rx#:[id number] Oral 780 Output: Urine 550 1000 540 Estimated Blood Loss 5 Other: Voiding Method Indwelling Catheter Indwelling Catheter Indwelling Catheter # Voids 1 1 - Labs CBC & Chem 7: 12/20/20 06:01 12/21/20 05:15 Labs: Abnormal Lab Results - Last 24 Hours (Table) 12/21/20 Range/Units 05:15 Chloride 111 H (98-107) mmol/L Carbon Dioxide 19 L (22-30) mmol/L Creatinine 1.65 H (0.52-1.04) mg/dL Calcium 8.0 L (8.4-10.2) mg/dL Microbiology - Last 24 Hours (Table) 12/19/20 14:25 Urine Culture - Final Urine,Catheterized 12/19/20 14:14 Blood Culture - Preliminary Blood No Growth after 24 hours Assessment and Plan Plan: Assessment: 1. Acute kidney injury secondary to obstructive uropathy and nonsteroidals. Also received IV contrast on December 18. Baseline creatinine near 0.5. Creatinine 2.3 on admission and is stable at 1.65 today. 2. Bilateral hydronephrosis with possible urinary bladder mass. Urology following. Currently has a Zavala catheter. Status post cystoscopy December 20. 3. Metabolic acidosis secondary to acute kidney injury and IV fluids. Maintained on oral bicarbonate. 4. Anemia. Iron deficiency noted. Plan: Maintain IV fluids. IV iron 3 doses. First dose today. Avoid nephrotoxins, including nonsteroidals. Continue to monitor renal function and urine output. Awaits nephrostomy tube placement.
[2020-12-21] MEDS ORDERED: IV FLUID CONTINUATION 925 ML IV ONE (11:40)
[2020-12-21] MEDS ORDERED: fentaNYL (PF) 50 MCG/ML 2 ML AMP IVP ONE (11:45)
[2020-12-21] MEDS: LIDOCAINE 1% INJ 10MG/ML (20 ML MDV) SQ ONE ×2 (11:46→11:54)
[2020-12-21] MEDS ORDERED: IOPAMIDOL-250 50ML BTL IV ONE (12:00)
--- NOTE | 2020-12-21 12:19 | P.PN ---
Progress Note - Text Progress Note Date: 12/21/20 In to see patient status post cystoscopy with bladder biopsies yesterday with Dr. Bee. She is currently having bilateral nephrostomy tubes placed. Patient underwent ultrasound prior to procedure on Monday. Uterine enlargement was noted of 12 cm, uterine mass/questionable fibroid personally 5 cm in nature. Ovaries were not visualized secondary to overlying bowel gas. I did review the ultrasound the patient prior to her procedure. I do question whether MRI would be useful in this situation for visualization of the pelvis. I was present during the procedure and pelvic exam was done under anesthesia. Firmness of the pelvis was appreciated once again, cervix was difficult to pal henning secondary to mass/firmness of the anterior vaginal wall. I did discuss with Dr. Bee, she will likely need MULTIPLE SLIDE OPERATOR oncology pending pathology for bladder biopsies. I will continue to follow the chart and be available should questions arise.
--- NOTE | 2020-12-21 12:25 | CT ---
EXAMINATION TYPE: CT Guided Neph New Access DATE OF EXAM: 12/21/2020 COMPARISON: 12/18/2020 HISTORY: Bilateral hydronephrosis Procedure had been discussed with the patient risks, benefits, alternatives, were discussed and any q uestions were answered. Informed consent was obtained. The patient was in a semiprone position prep ped and draped on the OR table in the usual sterile fashion. Utilizing a 15 cm length Chiba needle a single pass was made into a mid pole posterior calyx under CT guidance of each kidney. An 0.018 zaynab dewire is passed through the needle and the patient was taken to the CVL lab. Contrast was injected t o outline the renal pelvis within CT scan. There was placement of a 6-[place] catheter sheath system. There was conversion to a 0.035 system was performed with passage of a guidewire into the ureter an d there is serial dilation 8 [place] with placement 8.5 [place] drainage catheter bilaterally. Approxim ately 3 minutes of fluoroscopy was provided. IMPRESSION: 1. Successful CT and fluoroscopic guided bilateral nephrostomy tube insertion.
--- NOTE | 2020-12-21 12:27 | IR ---
EXAMINATION TYPE: IR nephrostomy DATE OF EXAM: 12/21/2020 COMPARISON: NONE HISTORY: Nephrostomy tube insertion TECHNIQUE: Fluoroscopy. FINDINGS: Fluoroscopic guidance was provided during procedure of 1.[address] nephr ostomy for full report.
[2020-12-21] MEDS: SODIUM FERRIC GLUCONAT-SUCROSE 125 MG in SODIUM CHLORIDE 0.9% 100 ML IVPB SCH (12:51)
[2020-12-21] MEDS: DOCUSATE 100 MG CAP PO SCH ×2 (13:50→20:03)
--- NOTE | 2020-12-21 14:41 | P.PN ---
Subjective Progress Note Date: 12/21/20 This is a 50-year-old female admitted with acute renal failure, possible bladder tumor per her cystoscopy, heterogenous mass in the uterus, bilateral hydronephrosis multiple other medical issues. Evaluated by multiple consults; urology, SOLE LEVELER MACHINE, interventional radiology. Ultrasound completed yesterday he repo rted uterine enlargement 12 cm, questionable uterine mass, questionable fibroid, ovaries not visualized secondary to bowel gas. Scheduled for bilateral nephrostomy tube placement today by interventional radiology. Currently denies pain, complains of bloating/edema. Renal function improving with IV fluid hydration, creatinine 1.65 Denies chest pain, palpitations or shortness of breath. Afebrile,VSS. Objective - Vital Signs Vital signs: Vital Signs Temp 98.2 F 12/21/20 08:16 Pulse 100 12/21/20 11:34 Resp 16 12/21/20 11:34 BP 165/85 12/21/20 11:34 Pulse Ox 99 12/21/20 11:34 Intake & Output 12/20/20 12/21/20 12/21/20 18:59 06:59 18:59 Intake Total 2280 50 Output Total 555 1000 1715 Balance 1725 -1000 -1665 Weight 65.317 kg Intake: IV 700 50 Intake, IV Titration 800 Amount Sodium Chloride 0.9% 1, 750 000 ml @ 75 mls/hr IV . [id number] JORDAN Rx#:[id number] cefTRIAXone 1 gm In 50 Sodium Chloride 0.9% 50 ml @ 100 mls/hr IVPB Q24H JORDAN Rx#:[id number] Oral 780 Output: Drainage 1050 Left 525 Right 525 Urine 550 1000 665 Estimated Blood Loss 5 Other: Voiding Method Indwelling Catheter Indwelling Catheter Indwelling Catheter # Voids 1 1 - Exam PHYSICAL EXAM: VITAL SIGNS: As above GENERAL: Sitting up in bed, no acute distress HEENT: Conjunctivae normal. eyes normal. NECK: No JVD. No thyroid enlargement. No LNs CARDIOVASCULAR: S1, S2 regular.No murmur RESPIRATION: Breath sounds diminished in the bases. No rhonchi or crackles. No wheezing. ABDOMEN: Soft, bloated, suprapubic edema, diffuse tenderness right lower quadrant. No guarding. no masses palpable.hypoactive Bowel sounds heard. LEGS: No edema. no swelling PSYCHIATRY: Alert and oriented X3, mood and affect normal. NERVOUS SYSTEM: Cranial N 2-12 grossly normal. Moves all 4 limbs. No focal deficits. Strength and sensation grossly intact.. Skin: Warm and dry, no rash - Labs CBC & Chem 7: 12/20/20 06:01 12/21/20 05:15 Labs: Abnormal Lab Results - Last 24 Hours (Table) 12/21/20 Range/Units 05:15 Chloride 111 H (98-107) mmol/L Carbon Dioxide 19 L (22-30) mmol/L Creatinine 1.65 H (0.52-1.04) mg/dL Calcium 8.0 L (8.4-10.2) mg/dL Microbiology - Last 24 Hours (Table) 12/19/20 14:25 Urine Culture - Final Urine,Catheterized 12/19/20 14:14 Blood Culture - Preliminary Blood No Growth after 24 hours Assessment and Plan Assessment: Subacute Abdominal pain, multifactorial, secondary to renal failure, bladder tumor, uterine mass ,workup in progress Acute renal failure secondary to obstructive uropathy, IV contrast, NSAIDs Bilateral hydronephrosis, moderate on the right, mild on the left Bladder tumor, status post cystoscopy with biopsies Indeterminate 5.6 cm complex cystic structure in the uterus Iron deficient anemia Metabolic acidosis secondary to acute renal failure Plan: Continue on current medication regime ,monitoring and symptomatic treat ment. Scheduled for bilateral nephrostomy tube placement today. Pain management, continue IV fluid hydration, close monitoring of renal function with repeat labs ordered for a.m. receiving IV iron. Bladder tumor Pathology pending. Follow closely with both urology and [employer] MACHINE. Prognosis guarded given multiple complex medical issues. The impression and plan of care has been dictated as directed. : I performed a history and examination of this patient, discussed the same with the dictator. I agree with the dictator's note ,documented as a scribe. Any additional findings or plans will be noted.
[2020-12-21] MEDS: SODIUM CHLORIDE 0.9% 1,000 ML IV SCH (15:50)
[2020-12-21] MEDS: ROSUVASTATIN CALCIUM 10 MG PO SCH (20:03)
[2020-12-21] MEDS ORDERED: SENNOSIDES-DOCUSATE SODIUM 1 EACH TAB PO SCH (21:00)
[2020-12-22] MEDS: SODIUM CHLORIDE 0.9% 1,000 ML IV SCH (04:00)
[2020-12-22] MEDS: HYDROcodone/APAP 5-325MG 1 EACH TAB PO PRN ×2 (04:14→09:45)
[2020-12-22] MEDS: PANTOPRAZOLE 40 MG TABLET PO SCH (06:26)
[2020-12-22 07:41] LABS: African American GFR (CKD) >90 (>60 ml/min/1.73 sqM); Anion Gap 7 mmol/L; Blood Urea Nitrogen 6 mg/dL (7-17); Calcium 8.5 mg/dL (8.4-10.2); Carbon Dioxide 24 mmol/L (22-30); Chloride 106 mmol/L (98-107); Glucose 94 mg/dL (74-99); Magnesium 1.4 mg/dL (1.6-2.3); Non-African American GFR(CKD) 89 (>60 ml/min/1.73 sqM); Sodium 137 mmol/L (137-145)
[2020-12-22] MEDS: MAGNESIUM SULFATE-D5W PMX 1 GM in DEXTROSE/WATER 1 100ML.BAG IVPB SCH ×3 (08:05→10:04)
[2020-12-22] MEDS: DOCUSATE 100 MG CAP PO SCH (08:27)
[2020-12-22] MEDS: SODIUM BICARBONATE TAB 650 MG TAB PO SCH (08:27)
[2020-12-22 08:37] VITALS: BP 121/75; PULSE 106; TEMP 98
[2020-12-22] MEDS ORDERED: MAGNESIUM OXIDE 400 MG TAB PO STA (09:35)
--- NOTE | 2020-12-22 10:02 | P.DS ---
Providers Date of admission: 12/21/20 07:27 Expected date of discharge: 12/22/20 Attending physician: Galen Nath Consults: 12/18/20 22:04 Consult Physician Urgent Consulting Provider: Irving Bee Consult Reason/Comments: Bladder irregularity, bilateral hydro Do you want consulting provider notified?: Already Contacted 12/18/20 22:05 Consult Physician Routine Consulting Provider: Soniya Freed Consult Reason/Comments: RADHA Do you want consulting provider notified?: Yes 12/19/20 10:43 Consult Physician Routine Consulting Provider: She Browne Consult Reason/Comments: Uterine fibroid Do you want consulting provider notified?: Yes 12/20/20 09:30 Consult Physician Routine Consulting Provider: Flaco Rios Consult Reason/Comments: Bilateral hydronephrosis, needs nephrostomy tubes Do you want consulting provider notified?: Yes, Notify in am Primary care physician: Galen Nath Hospital Course: Final Diagnoses: Subacute Abdominal pain, multifactorial, secondary to renal failure, bladder tumor, uterine mass , status post biopsies ,pathology pending Acute renal failure secondary to obstructive uropathy, IV contrast, NSAIDs. Status post bilateral nephrostomy tube insertion Bilateral hydronephrosis, moderate on the right, mild on the left Bladder tumor, status post cystoscopy with biopsies Indeterminate 5.6 cm complex cystic structure in the uterus Iron deficient anemia Metabolic acidosis secondary to acute renal failure Hospital course:This is a 50-year-old female admitted with acute renal failure, possible bladder tumor per her cystoscopy, heterogenous mass in the uterus, bilateral hydronephrosis multiple other medical issues. Evaluated by multiple consults; urology, [employer]IST, interventional radiology. Ultrasound completed yesterday he reported uterine enlargement 12 cm, questionable uterine mass, questionable fibroid, ovaries not visualized secondary to bowel gas. Scheduled for bilateral nephrostomy tube placement today by interventional radiology. Currently denies pain, complains of bloating/edema. Renal function improving with IV fluid hydration, creatinine 1.65 Denies chest pain, palpitations or shortness of breath. Afebrile,VSS. Status post successful bilateral nephrostomy tube insertion. Renal function significantly improved, BUN 6, creatinine 0.77. Pain controlled. Denies chest pain, palpitations or shortness of breath. T-max 99.1. Magnesium 1.4, received supplementation. Pathology pending. Patient will be discharged home today in a stable condition with guarded prognosis. Patient to follow-up with Dr. Bee and Dr. Lora in 1 week and with PCP Dr. Nath in 2 weeks. The impression and plan of care has been dictated as directed. : I performed a history and examination of this patient, discussed the same with the dictator. I agree with the dictator's note ,documented as a scribe. Any additional findings or plans will be noted. Patient Condition at Discharge: Stable Plan - Discharge Summary Discharge Rx Participant: No New Discharge Prescriptions: New Docusate [Colace] 100 mg PO BID #60 cap Pantoprazole [Protonix] 40 mg PO AC-BRKFST #40 tablet. Ferrous Sulfate [Feosol] 325 mg PO DAILY #30 tab Cefuroxime Axetil [Ceftin] 500 mg PO BID 1 Days #10 tab HYDROcodone/APAP 5-325MG [[place] 5-325] 1 each PO Q6HR PRN #12 tab PRN Reason: Pain Sennosides-Docusate Sodium [Senokot-S] 2 each PO HS #60 tab Sodium Bicarbonate Tab 650 mg PO BID #30 tab Continue Rosuvastatin Calcium [Crestor] 10 mg PO DAILY@1900 Discontinued Ibuprofen [Motrin Ib] 200 mg PO Q6H Discharge Medication List Rosuvastatin Calcium [Crestor] 10 mg PO DAILY@1900 09/19/17 [History] Cefuroxime Axetil [Ceftin] 500 mg PO BID 1 Days #10 tab 12/22/20 [Rx] Docusate [Colace] 100 mg PO BID #60 cap 12/22/20 [Rx] Ferrous Sulfate [Feosol] 325 mg PO DAILY #30 tab 12/22/20 [Rx] HYDROcodone/APAP 5-325MG [[place] 5-325] 1 each PO Q6HR PRN #12 tab 12/22/20 [Rx] Pantoprazole [Protonix] 40 mg PO AC-BRKFST #40 tablet. 12/22/20 [Rx] Sennosides-Docusate Sodium [Senokot-S] 2 each PO HS #60 tab 12/22/20 [Rx] Sodium Bicarbonate Tab 650 mg PO BID #30 tab 12/22/20 [Rx] Follow up Appointment(s)/Referral(s): Irving Bee MD [STAFF PHYSICIAN] - 1 Week Galen Nath DO [Primary Care Provider] - 2 Weeks Elda Lora DO [Doctor of Osteopathic Medicine] - 1 Week Ambulatory/Diagnostic Orders: Complete Blood Count w/diff [LAB.AMB] Time Frame: 3 Days, Location: None Selected Activity/Diet/Wound Care/Special Instructions: Pathology pending PATIENT'S OWN CRESTOR IN MED ROOM, RETURN TO PATIENT BEFORE DISCHARGE.
[2020-12-22] MEDS: SODIUM FERRIC GLUCONAT-SUCROSE 125 MG in SODIUM CHLORIDE 0.9% 100 ML IVPB SCH (10:04)
--- NOTE | 2020-12-22 11:49 | P.PN ---
Subjective Patient is seen in follow for acute kidney injury. Renal function back to baseline. She underwent cystoscopy December 20 and underwent bilateral nephrostomy tubes on December 21. Good output from the nephrostomy tubes. Oral intake. No vomiting or diarrhea. Vital signs are stable. General: The patient appeared well nourished and normally developed. HEENT: Head exam is unremarkable. Neck is without jugular venous distension. LUNGS: Breath sounds decreased. HEART: Rate and Rhythm are regular. ABDOMEN: Soft, nontender. EXTREMITITES: No edema. Objective - Vital Signs Vital signs: Vital Signs Temp 98.0 F 12/22/20 08:25 Pulse 106 H 12/22/20 08:25 Resp 16 12/22/20 08:25 BP 121/75 12/22/20 08:25 Pulse Ox 96 12/22/20 08:25 Intake & Output 12/21/20 12/22/20 12/22/20 18:59 06:59 18:59 Intake Total 50 600 Output Total 2740 2600 985 Balance -6495 Intake: IV 50 Oral 600 Output: Drainage 2075 2600 985 Left 1125 1250 400 Right 950 1350 585 Urine 665 Other: Voiding Method Indwelling Catheter Ileal Conduit (Right) Ileal Conduit (Right) Ileal Conduit (Left) Ileal Conduit (Left) # Voids 1 - Labs CBC & Chem 7: 12/20/20 06:01 12/22/20 06:34 Labs: Abnormal Lab Results - Last 24 Hours (Table) 12/22/20 Range/Units 06:34 BUN 6 L (7-17) mg/dL Magnesium 1.4 L (1.6-2.3) mg/dL Microbiology - Last 24 Hours (Table) 12/19/20 14:14 Blood Culture - Preliminary Blood No Growth after 48 hours Assessment and Plan Plan: Assessment: 1. Acute kidney injury secondary to obstructive uropathy and nonsteroidals. Also received IV contrast on December 18. Baseline creatinine near 0.5. Creatinine 2.3 on admission and is down to 0.77 today. 2. Bilateral hydronephrosis with possible urinary bladder mass. Urology following. Status post cystoscopy and bilateral nephrostomy tubes placement this admission. 3. Metabolic acidosis secondary to acute kidney injury and IV fluids. Maintained on oral bicarbonate. 4. Anemia. Iron deficiency noted. 5. Hypomagnesemia from poor intake. Plan: Hep-Lock IV fluids. IV iron 3 doses. Second dose today. Avoid nephrotoxins, including nonsteroidals. Continue to monitor renal function and urine output. Decrease oral bicarbonate to once daily. Anticipate discharge home soon. Follow up outpatient in 1-2 weeks.
--- NOTE | 2020-12-22 19:41 | P.PN ---
Subjective Progress Note Date: 12/22/20 S/P bilateral PCN placement,creat down to 0.77 from 1.6. Was having high output from the PCN. denies any abdominal of flank pain Objective - Vital Signs Vital signs: Vital Signs Temp 98.0 F 12/22/20 08:25 Pulse 106 H 12/22/20 08:25 Resp 16 12/22/20 08:25 BP 121/75 12/22/20 08:25 Pulse Ox 96 12/22/20 08:25 Intake & Output 12/22/20 12/22/20 12/23/20 06:59 18:59 06:59 Intake Total 600 Output Total 2600 985 Balance -1999 Intake: Oral 600 Output: Drainage 2600 985 Left 1250 400 Right 1350 585 Other: Voiding Method Ileal Conduit (Right) Ileal Conduit (Right) Ileal Conduit (Left) Ileal Conduit (Left) - Constitutional General appearance: Present: no acute distress - EENT Eyes: Present: normal appearance - Genitourinary Genitourinary Comment(s): bilateral PCN draining clear yellow urine - Psychiatric Psychiatric: Present: A&O x's 3 - Labs CBC & Chem 7: 12/20/20 06:01 12/22/20 06:34 Labs: Abnormal Lab Results - Last 24 Hours (Table) 12/22/20 Range/Units 06:34 BUN 6 L (7-17) mg/dL Magnesium 1.4 L (1.6-2.3) mg/dL Microbiology - Last 24 Hours (Table) 12/19/20 14:14 Blood Culture - Preliminary Blood No Growth after 72 hours Assessment and Plan Assessment: S/P TURBT, pathology pending. Underwent bilateral PCN placement on 12/21 having high output most likely secondary to post obstructive diuresis. output did slow down this am -Advised to continue po hydration -OK for discharge from urology standpoint, will be discharged with PCN -F/U with Dr Bee and an outpatient for pathology review
[2020-12-23] MEDS ORDERED: SODIUM BICARBONATE TAB 650 MG TAB PO SCH (09:00)
--- NOTE | 2020-12-24 14:55 | CDI ---
Documentation Clarification Form Date: 12/24/20 From: Kiley Martínez Phone: Admit Date: 12/21/2020 07:27:00 AM Patient Name: Sparkle Mistry Visit Number: [id number] Discharge Date: 12/22/2020 12:35:00 PM ATTENTION: The Clinical Documentation Specialists (CDI) and [facility] Coding Staff appreciate your assistance in clarifying documentation. Please respond to the clarification below the line at the bottom and electronically sign. The CDI & [facility] Coding staff will review the response and follow-up if needed. Please note: Queries are made part of the Legal Health Record. If you have any questions, please contact the author of this message via ITS. Dr. 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 Coding guidelines do not allow coding professionals to code based on pathology results; therefore, clarification is requested. History/risk factors: acute renal failure, hyponatremia Clinical Indicators: Bladder tumor and bilateral hydronephrosis. Treatment: Cystoscopy, TUR-BT (medium) Please clarify if you agree with the pathology report diagnosis of [insert result/diagnosis]: [ ] Yes [ ] No [ ] Other (please specify) [ ] Unable to determine yes MTDD
== END 2020-12-22 12:35 | disposition home or self-care (01) | DRG 669 ==
LOC: EC 17:54 → 6NMEDSUR 22:04 → 6PED 12-20 11:43 → OBSVTOIN 12-21 07:27
PROVIDERS: ADMIT Family Medicine; ATTEND Family Medicine
PROC: 0T9030Z Drainage of Right Kidney with Drainage Device, Percutaneous Approach (ICD-10-PCS; 2020-12-21)
PROC: 0T9130Z Drainage of Left Kidney with Drainage Device, Percutaneous Approach (ICD-10-PCS; 2020-12-21)
PROC: 0TBB8ZX Excision of Bladder, Via Natural or Artificial Opening Endoscopic, Diagnostic (ICD-10-PCS; principal; 2020-12-21 15:45)
DX: C67.8 Malignant neoplasm of overlapping sites of bladder (principal); N17.9 Acute kidney failure, unspecified; E87.1 Hypo-osmolality and hyponatremia; E87.2 Acidosis; N13.30 Unspecified hydronephrosis; Z20.822 Contact with and (suspected) exposure to COVID-19; T39.315A Adverse effect of propionic acid derivatives, initial encounter; D25.9 Leiomyoma of uterus, unspecified; E83.42 Hypomagnesemia; N83.209 Unspecified ovarian cyst, unspecified side; D50.9 Iron deficiency anemia, unspecified; K21.9 Gastro-esophageal reflux disease without esophagitis; E78.5 Hyperlipidemia, unspecified; Z79.1 Long term (current) use of non-steroidal anti-inflammatories (NSAID); Z79.899 Other long term (current) drug therapy; Z86.19 Personal history of other infectious and parasitic diseases; Z87.891 Personal history of nicotine dependence; Z98.51 Tubal ligation status; Z88.8 Allergy status to other drugs, medicaments and biological substances; Z91.040 Latex allergy status; Z83.49 Family history of other endocrine, nutritional and metabolic diseases; Z82.49 Family history of ischemic heart disease and other diseases of the circulatory system; Z83.3 Family history of diabetes mellitus
CPT/HCPCS: 36415; 50432; 74177; 76830; 76856; 77012; 80048; 80053; 81001; 82150; 82728; 83540; 83550; 83605; 83690; 83735; 85025; 85610; 85730; 87040; 87086; 87635; 88307; 96374; 99284; 99285

== ENCOUNTER → 2021-01-01 | Outpatient (CLI) | payer BC ==
--- NOTE | 2021-01-01 08:19 | CT ---
EXAMINATION TYPE: CT chest w con DATE OF EXAM: 01/01/2021 COMPARISON: None HISTORY: bladder cancer follow up, mets CT DLP: 149.6 mGycm Automated exposure control for dose reduction was used. CONTRAST: CT scan of the chest is performed with IV Contrast, patient injected with 100 mL of Isovue 300. FINDINGS: LUNGS: The lungs are grossly clear, there is no concerning parenchymal mass or nodule identified. The re is no pleural effusion or pneumothorax seen. The tracheobronchial tree is patent. MEDIASTINUM: There are no greater than 1 cm hilar or mediastinal lymph nodes. No pericardial effusi on is seen. Thoracic aorta is of normal caliber. The heart is not enlarged. UPPER ABDOMEN: No significant abnormality appreciated. OTHER: No additional significant abnormality is seen. IMPRESSION: No evidence for metastatic disease.
== END | disposition home or self-care (01) ==
LOC: RADCTMAIN 07:26
PROVIDERS: ATTEND Internal Medicine Hematology & Oncology
DX: C67.9 Malignant neoplasm of bladder, unspecified (principal)
CPT/HCPCS: 71260; Q9967

== ENCOUNTER 2021-01-04 10:27 | Day surgery (SDC) | payer BC ==
[2020-12-31 15:48] VITALS: BMI 20.7
[~2021-01-04 10:27] MED LIST changes: +ACETAMINOPHEN TAB 500 MG TAB PO PRN; +DEXAMETHASONE SOD PHOSPHATE 4 MG/ML 1 ML VIAL IV ONE; +HEPARIN SODIUM,PORCINE/PF 5,000 UNIT/0.5 ML SYRINGE SQ PRN; +HYDROmorphone 0.5 MG/0.5 ML SYRINGE IVP PRN; +LIDOCAINE 1% (10MG/ML) FOR IV START INTRADERMA PRN; -LIDOCAINE 1% 20 ML VIAL (10MG/ML) FOR IV START INTRADERMA PRN; -LIDOCAINE 1% INJ 10MG/ML (20 ML MDV) ONE; +ONDANSETRON 4 MG/2 ML VIAL IVP ONE; -PROPOFOL 10 MG/ML 20 ML VIAL IV ONE; +Pre Op ABX Message 1 EACH MISC MISCELLANE ONE; +SCOPOLAMINE 1.5MG/72HR PATCH TRANSDERM ONE
[2021-01-04] MEDS ORDERED: MIDAZOLAM 2 MG/2 ML VIAL IV ONE (11:25)
--- NOTE | 2021-01-04 12:11 | P.GSHP ---
History of Present Illness H&P Date: 01/04/21 Chief Complaint: Bladder cancer 50-year-old female here today for Port-A-Cath placement. Patient was recently diagnosed with bladder cancer. She has bilateral nephrostomy tubes. She is starting chemotherapy she believes later this week. She has not had a port previously. Past Medical History Past Medical History: Cancer, GERD/Reflux, Hyperlipidemia Additional Past Medical History / Comment(s): miah 2005, Hospitalized 12/18/20 to 12/22/20 with renal failure & bladder tumor (cancer), uterine cyst, low iron., states pain lower abdomen , Irvin nephrostomy tubes. History of Any Multi-Drug Resistant Organisms: None Reported Past Surgical History: Tubal Ligation Additional Past Surgical History / Comment(s): nephrostomy tubes 12/21/20 Past Anesthesia/Blood Transfusion Reactions: No Reported Reaction Additional Past Anesthesia/Blood Transfusion Reaction / Comment(s): . Past Psychological History: No Psychological Hx Reported Smoking Status: Never smoker Past Alcohol Use History: None Reported Additional Past Alcohol Use History / Comment(s): . Past Drug Use History: None Reported - Past Family History Mother Family Medical History: Hyperlipidemia, Hypertension Additional Family Medical History / Comment(s): boarderline diabetic Father Family Medical History: Coronary Artery Disease (CAD), Hyperlipidemia, Hypertension Additional Family Medical History / Comment(s): cabg Medications and Allergies Home Medications Medication Instructions Recorded Confirmed Type Rosuvastatin Calcium [Crestor] 10 mg PO HS 09/19/17 12/31/20 History Docusate [Colace] 100 mg PO BID #60 cap 12/22/20 12/31/20 Rx Ferrous Sulfate [Feosol] 325 mg PO DAILY #30 tab 12/22/20 12/31/20 Rx HYDROcodone/APAP 5-325MG [[place] 1 each PO Q6HR PRN #12 tab 12/22/20 12/31/20 Rx 5-325] Pantoprazole [Protonix] 40 mg PO AC-BRKFST #40 tablet. 12/22/20 12/31/20 Rx Sodium Bicarbonate Tab 650 mg PO DAILY 12/31/20 12/31/20 History Allergies Allergy/AdvReac Type Severity Reaction Status Date / Time atorvastatin [From Lipitor] Allergy Chest Pain Verified 01/04/21 10:41 Latex, Natural Rubber Allergy Swelling Verified 01/04/21 10:41 metronidazole Allergy Chest Pain Verified 01/04/21 10:41 Surgical - Exam Vital Signs Temp Pulse Resp BP Pulse Ox 96.7 F L 93 16 132/64 99 01/04/21 10:50 01/04/21 10:50 01/04/21 10:50 01/04/21 10:50 01/04/21 10:50 Physical exam: General: Well-developed, well-nourished HEENT: Normocephalic, sclerae nonicteric Abdomen: Nontender, nondistended, nephrostomy tubes in place Extremities: No edema Neuro: Alert and oriented Assessment and Plan (1) Bladder cancer Narrative/Plan: Will proceed with Port-A-Cath placement at this time. Risks of bleeding, infection, DVT, pneumothorax, catheter malfunction, anesthesia related complications were discussed. The patient understands and wishes to proceed. Current Visit: Yes Status: Acute Code(s): C67.9 - MALIGNANT NEOPLASM OF BLADDER, UNSPECIFIED SNOMED Code(s): 585953919
[2021-01-04] MEDS ORDERED: SUCCINYLCHOLINE CHLORIDE 100 MG/5 ML SYR IV ONE (12:23)
[2021-01-04] MEDS ORDERED: PROPOFOL 10 MG/ML 20 ML VIAL IV ONE (12:23)
[2021-01-04] MEDS ORDERED: fentaNYL (PF) 50 MCG/ML 2 ML AMP ONE (12:23)
[2021-01-04] MEDS ORDERED: LIDOCAINE 1% INJ 10MG/ML (20 ML MDV) ONE (12:23)
[2021-01-04] MEDS ORDERED: MIDAZOLAM 2 MG/2 ML VIAL ONE (12:23)
[2021-01-04] MEDS ORDERED: SODIUM CHLORIDE 0.9% 100 ML with ceFAZolin 2,000 MG IV ONE ×2 (12:48)
[2021-01-04] MEDS ORDERED: HEPARIN SODIUM,PORCINE 100 UNIT/ML 5 ML VIAL IV ONE (12:56)
[2021-01-04] MEDS ORDERED: LIDOCAINE 1% INJ 10MG/ML (20 ML MDV) SQ ONE ×2 (12:57)
[2021-01-04] MEDS ORDERED: NALOXONE 0.4 MG/ML 1 ML VIAL IV PRN (13:23)
--- NOTE | 2021-01-04 13:24 | P.OP ---
Date of Procedure: 01/04/21 Procedure(s) Performed: PREOPERATIVE DIAGNOSIS: Bladder cancer POSTOPERATIVE DIAGNOSIS: Same PROCEDURE: Port-A-Cath placement with fluoroscopic and ultrasound guidance SURGEON: Josue EBL: Minimal ANESTHESIA: Sedation COMPLICATIONS: None OPERATIVE PROCEDURE: Patient was brought and placed on the operative table in the supine position. The patient was sedated per anesthesia that time. The chest and neck were prepped and draped in usual sterile fashion. The ultrasound probe was used to identify the location of the right internal jugular vein. The skin was localized with lidocaine. The Seldinger needle was advanced into the IJ under ultrasound guidance. The wire was advanced through the needle under fluoroscopic guidance into the superior vena cava. A port pocket was created in the right infraclavicular location. The catheter was tunneled from the wire entrance site to the port pocket. The port was then connected to the catheter. The dilator introducer was threaded over the guidewire. The guidewire and dilator were then removed. The catheter was advanced through the introducer and introducer was then removed. The tip was seen to be in the right atrial junction via fluoroscopy. A picture of the radiograph showing the tip at the radial digital junction was taken. Port was flushed with both saline and a Hep- Lock solution. There was good flow both in and out of the port. The port was sutured in underlying tissues using 3-0 silk sutures. The subcutaneous tissues were reapproximated using 3-0 Vicryl sutures and the skin at both locations using 4-0 Monocryl sutures. Skin glue and sterile dressings then applied. DISPOSITION: Stable to recovery room
[2021-01-04 13:36] VITALS: TEMP 97.3
[2021-01-04] MEDS ORDERED: HYDROmorphone 0.5 MG/0.5 ML SYRINGE IVP ONE (14:06)
--- NOTE | 2021-01-04 14:12 | XR ---
EXAMINATION TYPE: XR chest 1V confirm line [facility] DATE OF EXAM: 01/04/2021 HISTORY: Shortness of breath. COMPARISON: 09/19/2017 TECHNIQUE: Single view of the chest is submitted. FINDINGS: Right-sided MediPort catheter with its distal tip overlying the SVC. No evidence for pneumothorax. There is no evidence for focal infiltrate. The heart is stable. Hilar and mediastinal structures are within normal limits. Degenerative changes are seen of the dorsal spine. IMPRESSION: 1. Right-sided MediPort catheter with its distal tip overlying the SVC. No evidence for pneumothorax .
[2021-01-04 14:17] VITALS: RESP 16
--- NOTE | 2021-01-04 14:48 | FL ---
EXAMINATION TYPE: FL guided central line placemt DATE OF EXAM: 01/04/2021 CLINICAL HISTORY: Port-A-Cath insertion. Bladder cancer. TECHNIQUE: Fluoroscopy. COMPARISON: None. FINDINGS: Fluoroscopic guidance was provided during right internal jugular Port-A-Cath insertion pro cedure performed by Dr. Salas. A total of 14 seconds of fluoroscopic time was utilized during the pr ocedure and 1 spot intraoperative image is acquired. Single limits acquired shows right internal jugular Mediport catheter terminating at level of SVC. Th ere is partial visualization of endotracheal tube terminating above laz. IMPRESSION: As Above.
[2021-01-04 15:10] VITALS: BP 118/73; PULSE 76
== END 2021-01-04 15:13 | disposition home or self-care (01) ==
LOC: OR 10:27
PROVIDERS: ATTEND Surgery
DX: C67.9 Malignant neoplasm of bladder, unspecified (principal); K21.9 Gastro-esophageal reflux disease without esophagitis; E78.5 Hyperlipidemia, unspecified; Z86.19 Personal history of other infectious and parasitic diseases; D50.9 Iron deficiency anemia, unspecified; Z93.6 Other artificial openings of urinary tract status; Z98.51 Tubal ligation status; Z83.438 Family history of other disorder of lipoprotein metabolism and other lipidemia; Z83.3 Family history of diabetes mellitus; Z82.49 Family history of ischemic heart disease and other diseases of the circulatory system; Z79.899 Other long term (current) drug therapy; Z88.8 Allergy status to other drugs, medicaments and biological substances; Z91.040 Latex allergy status
CPT/HCPCS: 77001; 36561; 76937; C1788; J2250; J1642; J1100; J2405; J0690; J2001; J3010; J0330; J2704; J1170

== ENCOUNTER 2021-01-06 13:33 | Day surgery (SDC) | payer BC ==
[2021-01-06 14:28] VITALS: BP 136/60; PULSE 100; RESP 16; TEMP 98.5
== END 2021-01-06 14:28 | disposition home or self-care (01) ==
LOC: RADPROMAIN 13:33
PROVIDERS: ATTEND Radiology Diagnostic Radiology
DX: Z43.6 Encounter for attention to other artificial openings of urinary tract (principal)
CPT/HCPCS: 99213

== ENCOUNTER 2021-01-13 10:09 | Day surgery (SDC) | payer BC ==
[2021-01-13 11:02] VITALS: BP 104/55; PULSE 87; RESP 16; TEMP 98.3
== END 2021-01-13 11:05 | disposition home or self-care (01) ==
LOC: RADPROMAIN 10:09
PROVIDERS: ATTEND Radiology Diagnostic Radiology
DX: Z43.6 Encounter for attention to other artificial openings of urinary tract (principal)
CPT/HCPCS: 99213

== ENCOUNTER 2021-01-20 10:37 | Day surgery (SDC) | payer BC ==
[2021-01-20 11:12] VITALS: BP 111/76; PULSE 77; RESP 16; TEMP 98
== END 2021-01-20 11:23 | disposition home or self-care (01) ==
LOC: RADPROMAIN 10:37
PROVIDERS: ATTEND Radiology Diagnostic Radiology
DX: Z93.6 Other artificial openings of urinary tract status (principal); Z88.8 Allergy status to other drugs, medicaments and biological substances; Z91.040 Latex allergy status
CPT/HCPCS: 99213

== ENCOUNTER 2021-01-29 09:06 | Day surgery (SDC) | payer BC ==
[2021-01-29 09:46] VITALS: BP 112/62; PULSE 68; RESP 16; TEMP 98.3
== END 2021-01-29 09:51 | disposition home or self-care (01) ==
LOC: RADPROMAIN 09:06
PROVIDERS: ATTEND Radiology Diagnostic Radiology
DX: Z43.6 Encounter for attention to other artificial openings of urinary tract (principal)
CPT/HCPCS: 99213

== ENCOUNTER 2021-02-03 12:50 | Day surgery (SDC) | payer BC ==
[2021-02-03 14:06] VITALS: BP 120/66; PULSE 88; RESP 16; TEMP 98.3
== END 2021-02-03 13:40 | disposition home or self-care (01) ==
LOC: RADPROMAIN 12:50
PROVIDERS: ATTEND Radiology Diagnostic Radiology
DX: Z43.6 Encounter for attention to other artificial openings of urinary tract (principal)
CPT/HCPCS: 99213

== ENCOUNTER 2021-02-10 10:11 | Day surgery (SDC) | payer BC ==
[2021-02-10 11:00] VITALS: BP 113/64; PULSE 75; RESP 18; TEMP 98
== END 2021-02-10 11:16 | disposition home or self-care (01) ==
LOC: RADPROMAIN 10:11
PROVIDERS: ATTEND Radiology Diagnostic Radiology
DX: Z43.6 Encounter for attention to other artificial openings of urinary tract (principal)
CPT/HCPCS: 99213

== ENCOUNTER 2021-02-24 08:48 | Day surgery (SDC) | payer BC ==
[2021-02-24 09:31] VITALS: BP 110/56; PULSE 86; RESP 16; TEMP 98.4
== END 2021-02-24 09:25 | disposition home or self-care (01) ==
LOC: RADPROMAIN 08:48
PROVIDERS: ATTEND Radiology Diagnostic Radiology
DX: Z43.6 Encounter for attention to other artificial openings of urinary tract (principal)
CPT/HCPCS: 99213

== ENCOUNTER 2021-03-10 10:54 | Day surgery (SDC) | payer BC ==
[2021-03-10 11:26] VITALS: BP 118/68; PULSE 75; RESP 16; TEMP 98.1
== END 2021-03-10 11:31 | disposition home or self-care (01) ==
LOC: RADPROMAIN 10:54
PROVIDERS: ATTEND Radiology Diagnostic Radiology
DX: Z43.6 Encounter for attention to other artificial openings of urinary tract (principal)
CPT/HCPCS: 99213

== ENCOUNTER 2021-03-17 10:29 | Day surgery (SDC) | payer BC ==
[2021-03-17 13:38] VITALS: BP 143/84; PULSE 74; RESP 18; TEMP 98.1
== END 2021-03-17 11:00 | disposition home or self-care (01) ==
LOC: RADPROMAIN 10:29
PROVIDERS: ATTEND Radiology Diagnostic Radiology
DX: Z43.6 Encounter for attention to other artificial openings of urinary tract (principal)
CPT/HCPCS: 99213

== ENCOUNTER 2021-03-22 09:53 | Day surgery (SDC) | payer BC ==
[2021-03-18 15:53] VITALS: BMI 20.5
--- NOTE | 2021-03-21 21:19 | P.GSHP ---
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 The tumor primarily involved the posterior bladder wall and resulted in bilateral hydronephrosis. She underwent bilateral percutaneous nephrostomy tube insertion and is now receiving systemic chemotherapy. Her voiding function has improved significantly. She now comes for nephrostomy tube change. - Constitutional Constitutional: Denies chills, Denies fever Past Medical History Past Medical History: Cancer, GERD/Reflux, Hyperlipidemia Additional Past Medical History / Comment(s): Hx Allie 2005, Hospitalized 12/18/20 to 12/22/20 with renal failure & bladder tumor (cancer), uterine cyst, low iron, bilateral nephrostomy tubes. History of Any Multi-Drug Resistant Organisms: None Reported Past Surgical History: Tubal Ligation Additional Past Surgical History / Comment(s): Bilateral Nephrostomy tubes placed, RIGHT SCL PORT PLACEMENT. Past Anesthesia/Blood Transfusion Reactions: No Reported Reaction Additional Past Anesthesia/Blood Transfusion Reaction / Comment(s): . Past Psychological History: No Psychological Hx Reported Smoking Status: Never smoker Past Alcohol Use History: None Reported Past Drug Use History: None Reported - Past Family History Mother Family Medical History: Hyperlipidemia, Hypertension Additional Family Medical History / Comment(s): Borderline Diabetic. Father Family Medical History: Coronary Artery Disease (CAD), Hyperlipidemia, Hypertension Additional Family Medical History / Comment(s): CABG. Medications and Allergies Home Medications Medication Instructions Recorded Confirmed Type Rosuvastatin Calcium [Crestor] 10 mg PO HS 09/19/17 03/20/21 History Ferrous Sulfate [Feosol] 325 mg PO DAILY #30 tab 12/22/20 03/20/21 Rx Pantoprazole [Protonix] 40 mg PO AC-BRKFST #40 tablet. 12/22/20 03/20/21 Rx Sodium Bicarbonate Tab 650 mg PO QAM 12/31/20 03/20/21 History HYDROcodone/APAP 10-325MG [[place] 1 tab PO Q4-6H PRN 02/03/21 03/20/21 History 10-325] Ondansetron HCl [Zofran] 4 mg PO Q8H PRN 03/03/21 03/20/21 History Prochlorperazine [Compazine] 10 mg PO Q6H PRN 03/03/21 03/20/21 History Docusate [Colace] 100 mg PO BID PRN 03/18/21 03/20/21 History Allergies Allergy/AdvReac Type Severity Reaction Status Date / Time atorvastatin [From Lipitor] Allergy Chest Pain Verified 03/20/21 12:01 Latex, Natural Rubber Allergy Swelling Verified 03/20/21 12:01 metronidazole Allergy Chest Pain Verified 03/20/21 12:01 Surgical - Exam - General well developed, well nourished, no distress - Respiratory normal respiratory effort - Abdomen Abdomen: soft, non tender, no guarding, no rigid, no rebound - Psychiatric oriented to time, oriented to person, oriented to place, speech is normal, memory intact Assessment and Plan (1) Hydronephrosis Status: Acute Code(s): N13.30 - UNSPECIFIED HYDRONEPHROSIS SNOMED Code(s): 98806187 Plan: Bilateral percutaneous nephrostomy tube change, to be performed by Dr. King.
[2021-03-22] MEDS ORDERED: SODIUM CHLORIDE 0.9% 500 ML 500 ML IV SCH (10:00)
[2021-03-22] MEDS ORDERED: LIDOCAINE 1% INJ 10MG/ML (20 ML MDV) ONE (10:23)
[2021-03-22 10:32] VITALS: RESP 16; TEMP 97.9
[2021-03-22] MEDS: MIDAZOLAM 2 MG/2 ML VIAL IV ONE ×2 (11:06→11:20)
[2021-03-22] MEDS ORDERED: SODIUM CHLORIDE 0.9% 500 ML 500 ML IV ONE (11:06)
[2021-03-22] MEDS ORDERED: LIDOCAINE 1% INJ 10MG/ML (20 ML MDV) SQ ONE ×2 (11:21)
[2021-03-22] MEDS ORDERED: IOPAMIDOL-370 50ML BTL MISCELLANE ONE (11:29)
[2021-03-22] MEDS ORDERED: HYDROcodone/APAP 10-325MG 1 EACH TAB ONE (12:12)
[2021-03-22] MEDS ORDERED: HYDROcodone/APAP 10-325MG 1 EACH TAB PO ONE ×2 (12:13→12:14)
[2021-03-22] MEDS ORDERED: ONDANSETRON 4 MG/2 ML VIAL ONE (12:35)
[2021-03-22 19:48] VITALS: BP 122/58; PULSE 76
--- NOTE | 2021-03-23 08:36 | IR ---
EXAMINATION TYPE: IR nephrostomy tube change DATE OF EXAM: 03/22/2021 COMPARISON: 12/21/2020 bilateral percutaneous nephrostomy tube placement HISTORY: Hydronephrosis, ureteral obstruction, bladder cancer. [employer] OPERATOR: Dr. Cyndi Perez PROCEDURE: Informed consent was obtained. Formal timeout performed. Maximal barrier technique was utilized. The skin overlying the bilateral kidneys and existing bilateral percutaneous nephrostomy tubes was prepp ed and draped. The right percutaneous nephrostomy tube was cut at the hub. An 0.035 inch wire was advanced through t he percutaneous nephrostomy tube, the percutaneous nephrostomy tube loop was released, and wire acces s to the right ureter was obtained under fluoroscopic observation. Lidocaine used for local anesthesi a. The old percutaneous nephrostomy tube was removed. A new 8.5 Amharic percutaneous nephrostomy tube was advanced over the wire. The wire was removed. Urine returned in the hub of the catheter. A gentle hand-injection of 50:50 normal saline and iodinated contrast was injected via the tube under direct fluoroscopic observation, with delineation of the renal collecting system and ureter, and no evidence of leak. Percutaneous nephrostomy tube loop was formed. The left percutaneous nephrostomy tube was cut at the hub. An 0.035 inch wire was advanced through th e percutaneous nephrostomy tube, the percutaneous nephrostomy tube loop was released, and wire access to the left ureter was obtained under fluoroscopic observation. Lidocaine used for local anesthesia. The old percutaneous nephrostomy tube was removed. A new 8.5 Amharic percutaneous nephrostomy tube wa s advanced over the wire. The wire was removed. Urine returned in the hub of the catheter. A gentle h and-injection of 50:50 normal saline and iodinated contrast was injected via the tube under direct fl uoroscopic observation, with delineation of the renal collecting system and ureter, and no evidence o f leak. Percutaneous nephrostomy tube loop was formed. Right and left catheters were fixed to the skin with 2-0 silk and a sterile dressing was placed. The patient remained in stable condition without complication. The patient was discharged to [facility]. Total fluoroscopy time: 5.5 minutes Total images obtained: 112 IMPRESSION: Status post 8.5 FR bilateral percutaneous nephrostomy tube exchange with fluoroscopic guidance.
== END 2021-03-22 13:06 | disposition home or self-care (01) ==
LOC: OR 09:53
PROVIDERS: ATTEND Radiology Diagnostic Radiology
DX: Z43.6 Encounter for attention to other artificial openings of urinary tract (principal); N13.1 Hydronephrosis with ureteral stricture, not elsewhere classified; C67.4 Malignant neoplasm of posterior wall of bladder; K21.9 Gastro-esophageal reflux disease without esophagitis; E78.5 Hyperlipidemia, unspecified; Z79.899 Other long term (current) drug therapy; Z88.8 Allergy status to other drugs, medicaments and biological substances; Z91.040 Latex allergy status
CPT/HCPCS: 50435; C1729; C1769 ×3; J2250; J0690; J2405; J2001; Q9967

== ENCOUNTER 2021-03-24 17:44 | Emergency (ER) | payer BC ==
--- NOTE | 2021-03-24 18:04 | ED ---
General Adult HPI - General Chief complaint: Urogenital Stated complaint: problem w/ kidney drain Time Seen by Provider: 03/24/21 17:50 Source: patient, RN notes reviewed, old records reviewed Mode of arrival: ambulatory Limitations: no limitations - History of Present Illness Initial comments: This a 50-year-old female presents emergency Department with a past medical history significant for bladder scan cancer and had 2 nephrostomy tubes placed in early December patient states he had no problem with those and she had those replaced [address] ross radiologist. Patient states since then she has had virtually no output on the left side but has had normal output on the right and continues to urinate. Patient states she has some mild discomfort in her back just like when she had her original nephrostomy tubes placed. Patient denies any fever chills. Patient denies any abdominal pain. Patient denies any other symptoms at this time. - Related Data Home Medications Medication Instructions Recorded Confirmed Rosuvastatin Calcium [Crestor] 10 mg PO HS 09/19/17 03/24/21 Sodium Bicarbonate Tab 650 mg PO DAILY 12/31/20 03/24/21 HYDROcodone/APAP 10-325MG [[place] 1 tab PO Q4-6H 02/03/21 03/24/21 10-325] Prochlorperazine [Compazine] 10 mg PO Q6H PRN 03/03/21 03/24/21 Lidocaine-Prilocaine Cream [[place] 1 applic TOPICAL DAILY PRN 03/24/21 03/24/21 Cream 2.5%/2.5%] Pantoprazole [Protonix] 40 mg PO DAILY 03/24/21 03/24/21 Sennosides [Senokot] 17.2 mg PO HS 03/24/21 03/24/21 ondansetron HCL [Zofran] 8 mg PO Q8HR PRN 03/24/21 03/24/21 Previous Rx's Medication Instructions Recorded Ferrous Sulfate [Feosol] 325 mg PO DAILY #30 tab 12/22/20 Levofloxacin [Levaquin] 500 mg PO DAILY 1 Days #7 tab 03/24/21 Allergies Allergy/AdvReac Type Severity Reaction Status Date / Time atorvastatin [From Lipitor] Allergy Chest Pain Verified 03/24/21 18:35 Latex, Natural Rubber Allergy Swelling Verified 03/24/21 18:35 metronidazole Allergy Chest Pain Verified 03/24/21 18:35 Review of Systems ROS Statement: Those systems with pertinent positive or pertinent negative responses have been documented in the HPI. ROS Other: All systems not noted in ROS Statement are negative. Past Medical History Past Medical History: Cancer, GERD/Reflux, Hyperlipidemia Additional Past Medical History / Comment(s): miah 2006, Hospitalized 12/18/20 to 12/22/20 with renal failure & bladder tumor (cancer), uterine cyst, low iron., states pain lower abdomen , Irvin nephrostomy tubes. History of Any Multi-Drug Resistant Organisms: None Reported Past Surgical History: Tubal Ligation Additional Past Surgical History / Comment(s): nephrostomy tubes 12/21/20. RIGHT SCL PORT PLACEMENT. Past Anesthesia/Blood Transfusion Reactions: No Reported Reaction Additional Past Anesthesia/Blood Transfusion Reaction / Comment(s): . Past Psychological History: No Psychological Hx Reported Smoking Status: Never smoker Past Alcohol Use History: None Reported Past Drug Use History: None Reported - Past Family History Mother Family Medical History: Hyperlipidemia, Hypertension Additional Family Medical History / Comment(s): Borderline Diabetic. Father Family Medical History: Coronary Artery Disease (CAD), Hyperlipidemia, Hypertension Additional Family Medical History / Comment(s): CABG. General Exam - General Exam Comments Initial Comments: GENERAL: Patient is well-developed and well-nourished. Patient is nontoxic and well- hydrated and is in mild distress. ENT: Neck is soft and supple. No significant lymphadenopathy is noted. Oropharynx is clear. Moist mucous membranes. Neck has full range of motion without eliciting any pain. EYES: The sclera were anicteric and conjunctiva were pink and moist. Extraocular movements were intact and pupils were equal round and reactive to light. Eyelids were unremarkable. ABDOMEN: Soft and nontender with normal bowel sounds. No palpable organomegaly was noted. There is no palpable pulsatile mass. SKIN: Skin is clear with no lesions or rashes and otherwise unremarkable. NEUROLOGIC: Patient is alert and oriented x3. Cranial nerves II through XII are grossly intact. Motor and sensory are also intact. Normal speech, volume and content. Symmetrical smile. MUSCULOSKELETAL: Normal extremities with adequate strength and full range of motion. LYMPHATICS: No significant lymphadenopathy is noted PSYCHIATRIC: Normal psychiatric evaluation. Limitations: no limitations Course Vital Signs 07/14/21 07/14/21 17:48 18:19 Temperature 98 F 100.4 F H Pulse Rate 110 H Respiratory 18 Rate Blood Pressure 115/69 O2 Sat by Pulse 98 Oximetry Medical Decision Making - Medical Decision Making I spoke with Dr. Marie he wanted a nephrostogram. I spoke with Dr. Perez she ordered a CAT scan of the abdomen and pelvis and there was no [place] the patient was making good urine and she did not seem to think it this point time the patient needed nephrostogram nor did the patient wanted so at this point time she got 2 g Rocephin because the fever the potential infection and I spoke with Dr. Lisa he wanted the patient home on Levaquin and the patient will be discharged home to follow-up with Dr. Lisa. - Lab Data Result diagrams: 03/24/21 18:53 03/24/21 18:53 Lab Results 03/24/21 03/24/21 03/24/21 Range/Units 18:22 18:53 18:53 WBC 20.2 H (3.8-10.6) k/uL RBC 3.45 L (3.80-5.40) m/uL Hgb 11.6 (11.4-16.0) gm/dL Hct 35.3 (34.0-46.0) % MCV 102.2 H (80.0-100.0) fL MCH 33.5 (25.0-35.0) pg MCHC 32.8 (31.0-37.0) g/dL RDW 18.0 H (11.5-15.5) % Plt Count 148 L (150-450) k/uL MPV 6.5 Neutrophils % (Manual) 56 % Band Neuts % (Manual) 11 % Lymphocytes % (Manual) 17 % Monocytes % (Manual) 6 % Metamyelocytes % 10 % Neutrophils # (Manual) 13.50 H (1.3-7.7) k/uL Lymphocytes # (Manual) 3.43 (1.0-4.8) k/uL Monocytes # (Manual) 1.21 H (0-1.0) k/uL Metamyelocytes # (Man) 2.02 H (0) k/uL Nucleated RBCs 0 (0-0) /100 WBC Manual Slide Review Performed Anisocytosis Slight Macrocytosis Moderate Sodium 135 L (137-145) mmol/L Potassium 4.1 (3.5-5.1) mmol/L Chloride 97 L (98-107) mmol/L Carbon Dioxide 29 (22-30) mmol/L Anion Gap 9 mmol/L BUN 10 (7-17) mg/dL Creatinine 0.44 L (0.52-1.04) mg/dL Est GFR (CKD-EPI)AfAm >90 (>60 ml/min/1.73 sqM) Est GFR (CKD-EPI)NonAf >90 (>60 ml/min/1.73 sqM) Glucose 107 H (74-99) mg/dL Calcium 9.3 (8.4-10.2) mg/dL Total Bilirubin 0.2 (0.2-1.3) mg/dL AST 26 (14-36) U/L ALT 16 (4-34) U/L Alkaline Phosphatase 134 H (38-126) U/L Total Protein 6.8 (6.3-8.2) g/dL Albumin 4.2 (3.5-5.0) g/dL Urine Color Light Yellow Urine Appearance Clear (Clear) Urine pH 6.5 (5.0-8.0) Ur Specific [place] 1.008 (1.001-1.035) Urine Protein Trace H (Negative) Urine Glucose (UA) Negative (Negative) Urine Ketones Negative (Negative) Urine Blood Trace H (Negative) Urine Nitrite Negative (Negative) Urine Bilirubin Negative (Negative) Urine Urobilinogen <2.0 (<2.0) mg/dL Ur Leukocyte Esterase Small H (Negative) Urine RBC 2 (0-5) /hpf Urine WBC 9 H (0-5) /hpf Urine Bacteria Rare H (None) /hpf Urine Mucus Rare H (None) /hpf Disposition Clinical Impression: Postsurgical fever, History of nephrostomy Disposition: HOME SELF-CARE Condition: Good Instructions (If sedation given, give patient instructions): Fever in Adults (ED) Prescriptions: Levofloxacin [Levaquin] 500 mg PO DAILY 1 Days #7 tab Is patient prescribed a controlled substance at d/c from ED?: No Referrals: Galen Nath DO [Primary Care Provider] - 1-2 days Time of Disposition: 20:36
[2021-03-24 18:50] LABS: Appearance,Urine Clear (Clear); Bacteria,Urine Rare /hpf; Bilirubin,Urine Negative (Negative); Blood,Urine Trace (Negative); Color,Urine Light Yellow; Glucose,Urine (UA) Negative (Negative); Ketones,Urine Negative (Negative); Leukocyte Esterase,Urine Small (Negative); Mucus,Urine Rare /hpf; Nitrite,Urine Negative (Negative); PH, Urine 6.5 (5.0-8.0); Protein,Urine Trace (Negative); RBC,Urine 2 /hpf (0-5); Specific Gravity,Urine 1.008 (1.001-1.035); Urobilinogen,Urine <2.0 mg/dL (<2.0); WBC,Urine 9 /hpf (0-5)
[2021-03-24] MEDS ORDERED: cefTRIAXone IN SWFI 1,000 MG/10 ML SYRINGE IVP STA (18:53)
[2021-03-24] MEDS ORDERED: ACETAMINOPHEN TAB 500 MG TAB PO STA (18:53)
[2021-03-24 19:14] LABS: Anisocytosis Slight; HCT 35.3 % (34.0-46.0); HGB 11.6 gm/dL (11.4-16.0); MCH 33.5 pg (25.0-35.0); MCHC 32.8 g/dL (31.0-37.0); MCV 102.2 fL (80.0-100.0); Macrocytosis Moderate; Mean Platelet Volume 6.5; Platelet Count 148 k/uL (150-450); RBC 3.45 m/uL (3.80-5.40); WBC 20.2 k/uL (3.8-10.6)
[2021-03-24 19:20] LABS: ALT 16 U/L (4-34); AST 26 U/L (14-36); African American GFR (CKD) >90 (>60 ml/min/1.73 sqM); Albumin 4.2 g/dL (3.5-5.0); Alkaline Phosphatase 134 U/L (38-126); Anion Gap 9 mmol/L; Blood Urea Nitrogen 10 mg/dL (7-17); Calcium 9.3 mg/dL (8.4-10.2); Carbon Dioxide 29 mmol/L (22-30); Chloride 97 mmol/L (98-107); Glucose 107 mg/dL (74-99); Non-African American GFR(CKD) >90 (>60 ml/min/1.73 sqM); Potassium 4.1 mmol/L (3.5-5.1); Sodium 135 mmol/L (137-145); Total Bilirubin 0.2 mg/dL (0.2-1.3); Total Protein 6.8 g/dL (6.3-8.2)
[2021-03-24 19:40] LABS: Band Neutrophils % 11 %; Lymphocytes # (M) 3.43 k/uL (1.0-4.8); Metamyelocytes # (M) 2.02 k/uL (0); Metamyelocytes % 10 %; Monocytes # (M) 1.21 k/uL (0-1.0); Neutrophils % (M) 56 %; Nucleated Red Blood Cells 0 /100 WBC (0-0); Total Cells Counted 200
--- NOTE | 2021-03-24 20:20 | CT ---
EXAMINATION TYPE: CT abdomen pelvis w con DATE OF EXAM: 03/24/2021 COMPARISON: 12/18/2020 CT abdomen pelvis. HISTORY: Concern for obstructed LT nephrostomy tube due to decreased output. Hx bladder ca. Status po st bilateral nephrostomy tube exchange 03/22/2021. CT DLP: 947.8 mGycm Automated exposure control for dose reduction was used. TECHNIQUE: Helical acquisition of images was performed from the lung bases through the pelvis. CONTRAST: Performed without Oral Contrast and with IV Contrast, patient injected with 100 mL of Isovue 300. FINDINGS: LUNG BASES: Lung bases are clear. LIVER: Right hepatic cyst. BILIARY SYSTEM: Normal. PANCREAS: Normal. SPLEEN: Normal. ADRENALS: Normal. KIDNEYS: There are bilateral percutaneous nephrostomy tubes which appear appropriately positioned wit hin the renal collecting systems. There is mild right-sided fullness of the renal collecting system. There is no left-sided hydronephrosis. There is relatively homogenous and synchronous renal parenchym al enhancement and excretion of contrast on delayed imaging. There is hypodensity of the renal parenc hyma along the course of the right percutaneous nephrostomy tube and trace perinephric hypodensity at the site of the left percutaneous nephrostomy tube, which may be related to postprocedural changes , within expected limits. There is no hydroureter. The bilateral flank superficial subcutaneo us soft tissues along the course of the percutaneous nephrostomy tubes are unremarkable with no signi ficant inflammatory stranding or evidence of abnormal fluid collection. BOWEL: No obstruction or thickening. There is increased colonic fecal debris diffusely. Normal appen chris. PERITONEUM: No pneumoperitoneum. No free fluid. LYMPH NODES: No lymphadenopathy. PELVIS: Urinary bladder is nondistended. There is again heterogenous uterus with hypodense versus cys tic area of the fundus. The heterogenous uterine soft tissue mass is decreased in size versus . VASCULATURE: No abdominal aortic aneurysm. MUSCULOSKELETAL: There is a nondisplaced fracture of the left inferior pubic ramus with callus forma tion, which is new versus 12/18/2020 IMPRESSION: 1. Bilateral percutaneous nephrostomy tubes appear appropriately positioned within the renal collecti ng systems. There is mild fullness of the right renal collecting system. No left-sided hydronephrosis or evidence of obstruction. There is no hydroureter bilaterally. 2. Nondisplaced nonacute fracture of the left inferior pubic ramus, with periosteal reaction and call us formation. Findings are new versus 12/18/2020 CT. 3. Nondistended urinary bladder. 4. The enlarged, heterogenous, and lobular soft tissue appearance of the uterus is decreased in size versus 12/18/2020. 5. Increased colonic fecal debris. Findings may represent constipation. Dr. Cyndi Perez discussed findings with Dr. Andrés Rizo MD via the phone on 03/24/2021 7:57 PM at 7:57 PM EST, and results were acknowledged.
[2021-03-24 21:16] VITALS: BP 115/74; PULSE 97; RESP 17; TEMP 98.2
== END 2021-03-24 21:16 | disposition home or self-care (01) ==
LOC: EC 17:44
DX: R50.82 Postprocedural fever (principal); Z85.51 Personal history of malignant neoplasm of bladder; Z93.6 Other artificial openings of urinary tract status
CPT/HCPCS: 36415; 80053; 85025; 81001; 74177; 99284; 96374; J0696; Q9967

== ENCOUNTER 2021-04-07 | Day surgery (SDC) | payer BC | END 2021-04-07 11:50 | disposition home or self-care (01) | DX: Z43.6 Encounter for attention to other artificial openings of urinary tract (principal) | CPT/HCPCS: 99213 ==

== ENCOUNTER 2021-04-14 11:43 | Day surgery (SDC) | payer BC ==
[2021-04-14 11:53] VITALS: BP 121/61; PULSE 76; RESP 16
== END 2021-04-14 12:00 | disposition home or self-care (01) ==
LOC: RADPROMAIN 11:43
PROVIDERS: ATTEND Radiology Diagnostic Radiology
DX: Z48.03 Encounter for change or removal of drains (principal)
CPT/HCPCS: 99212

== ENCOUNTER → 2021-04-21 | Outpatient (CLI) | payer BC ==
[2021-04-21 11:12] LABS: African American GFR (CKD) >90 (>60 ml/min/1.73 sqM); Blood Urea Nitrogen 6 mg/dL (7-17); Non-African American GFR(CKD) >90 (>60 ml/min/1.73 sqM)
--- NOTE | 2021-04-21 13:55 | CT ---
EXAMINATION TYPE: CT ChestAbdPelvis w con DATE OF EXAM: 04/21/2021 COMPARISON: CT abdomen and pelvis 03/24/2021 HISTORY: Bladder cancer CT DLP: 551.6 mGycm Automated exposure control for dose reduction was used. CONTRAST: CT scan of the chest, abdomen and pelvis is performed with Oral Contrast and with IV Contrast, patien t injected with 100 mL of Isovue 300. FINDINGS: LUNGS: The lungs are grossly clear, there is no concerning parenchymal mass or nodule identified. Api kelvin pleural thickening is present. There is no pleural effusion or pneumothorax seen. The tracheobr onchial tree is patent. MEDIASTINUM: There are no greater than 1 cm hilar or mediastinal lymph nodes. No pericardial effusi on is seen. AORTA: No significant abnormality is seen. OTHER: No additional significant abnormality is seen. LIVER/GB: Scattered low attenuation foci statistically are likely to represent cysts similar to prior exam. PANCREAS: No significant abnormality is seen. SPLEEN: No significant abnormality is seen. ADRENALS: No significant abnormality is seen. KIDNEYS: Bilateral nephrostomies are in place, no hydronephrosis, only mild pelvic caliectasis on the right, there is some enhancement along the collecting systems. REPRODUCTIVE ORGANS: Similar appearance of what appears to be the uterus, somewhat lobular contour wi th some associated low attenuation BOWEL: No significant abnormality is seen. The appendix is normal . FREE AIR: No Free Air visible. ASCITES: None seen. RETROPERITONEAL ADENOPATHY: No retroperitoneal adenopathy is seen. Shotty nodes are again noted LYMPH NODES: No greater than 1 cm abdominal or pelvic lymph nodes are appreciated similar to prior ex am. URINARY BLADDER: Not distended, thickened wall is present. PELVIC ADENOPATHY: None visualized. OSSEOUS STRUCTURES: Inferior pubic ramus fracture on the left is again noted with some local callus formation. IMPRESSION: Findings are similar to prior exam. Metastatic disease is not evident.
== END | disposition home or self-care (01) ==
LOC: RADCTMAIN 10:25
PROVIDERS: ATTEND Internal Medicine Hematology & Oncology
DX: C67.9 Malignant neoplasm of bladder, unspecified (principal)
CPT/HCPCS: 82565; 84520; 71260; 74177; 36415; Q9967

== ENCOUNTER 2021-04-22 11:19 | Emergency (ER) | payer BC ==
[2021-04-22 11:27] VITALS: RESP 18; TEMP 99
--- NOTE | 2021-04-22 11:48 | ED ---
General Adult HPI - General Chief complaint: Neck Pain/Injury Stated complaint: Neck Swelling/Pain Time Seen by Provider: 04/22/21 11:29 Source: patient Mode of arrival: ambulatory Limitations: no limitations - History of Present Illness Initial comments: 50 year-old female patient presents to the emergency department for evaluation of right sided neck swelling and pain. Patient states it woke her from sleep last night. States that pain worsens when she takes a deep breath and the area is tender. She denies any fever or chills. She does have a mediport on the right side, last infusion was 04/14/21. She is getting chemotherapy for bladder cancer. Denies history of similar symptoms. She did take norco for pain prior to arrival. Patient denies any recent rash, cough, shortness of breath, chest pain, abdominal pain, nausea, vomiting, diarrhea, constipation, back pain, numbness, tingling, dizziness, weakness, hematuria, dysuria, urinary urgency, ur inary frequency, headache, visual changes, or any other complaints. - Related Data Home Medications Medication Instructions Recorded Confirmed Rosuvastatin Calcium [Crestor] 10 mg PO HS 09/19/17 04/22/21 Sodium Bicarbonate Tab 650 mg PO DAILY 12/31/20 04/22/21 HYDROcodone/APAP 10-325MG [[place] 1 tab PO Q6H 02/03/21 04/22/21 10-325] Pantoprazole [Protonix] 40 mg PO DAILY 03/24/21 04/22/21 Sennosides [Senokot] 17.2 mg PO HS PRN 03/24/21 04/22/21 Previous Rx's Medication Instructions Recorded Ferrous Sulfate [Feosol] 325 mg PO DAILY #30 tab 12/22/20 Apixaban [Eliquis Starter Pack 0 mg PO DIRECTED 30 Days #1 each 04/22/21 (for VTE)] Allergies Allergy/AdvReac Type Severity Reaction Status Date / Time atorvastatin [From Lipitor] Allergy Chest Pain Verified 04/22/21 15:24 Latex, Natural Rubber Allergy Swelling Verified 04/22/21 15:24 metronidazole Allergy Chest Pain Verified 04/22/21 15:24 Review of Systems ROS Statement: Those systems with pertinent positive or pertinent negative responses have been documented in the HPI. ROS Other: All systems not noted in ROS Statement are negative. Past Medical History Past Medical History: Cancer, GERD/Reflux, Hyperlipidemia Additional Past Medical History / Comment(s): miah 2006, Hospitalized 12/18/20 to 12/22/20 with renal failure & bladder tumor (cancer), uterine cyst, low ir on., states pain lower abdomen , Irvin nephrostomy tubes. History of Any Multi-Drug Resistant Organisms: None Reported Past Surgical History: Tubal Ligation Additional Past Surgical History / Comment(s): nephrostomy tubes 12/21/20. RIGHT SCL PORT PLACEMENT. Past Anesthesia/Blood Transfusion Reactions: No Reported Reaction Additional Past Anesthesia/Blood Transfusion Reaction / Comment(s): . Past Psychological History: No Psychological Hx Reported Smoking Status: Never smoker Past Alcohol Use History: None Reported Past Drug Use History: None Reported - Past Family History Mother Family Medical History: Hyperlipidemia, Hypertension Additional Family Medical History / Comment(s): Borderline Diabetic. Father Family Medical History: Coronary Artery Disease (CAD), Hyperlipidemia, Hypertension Additional Family Medical History / Comment(s): CABG. General Exam Limitations: no limitations General appearance: alert, in no apparent distress, other Course Vital Signs 04/22/21 04/22/21 11:21 14:28 Temperature 99.0 F Pulse Rate 139 H 85 Respiratory 18 18 Rate Blood Pressure 121/57 111/67 O2 Sat by Pulse 97 99 Oximetry EKG Findings - EKG Comments: EKG Findings:: EKG obtained at 1148 shows sinus rhythm with marked sinus arrhythmia with junctional escape complexes, ventricular rate is 96, GA interval 144, QRS duration 86, QT 308, QTC 389. No evidence of ST elevation or depression. Medical Decision Making - Medical Decision Making 50-year-old female patient presents to the emergency department today for evaluation of right neck swelling and pain. Physical examination did reveal soft tissue swelling to the supraclavicular region. No right arm swelling. Radial pulses intact. Lungs are clear to auscultation. Chest x-ray was obtained and was negative. Ultrasound of the right upper extremity was obtained and did reveal occlusive thrombosis of the right internal jugular vein. I did discuss the case with vascular states that patient can be started on anticoagulation orally and discharged home. He recommends that the right chest Mediport be removed. I discussed the case with Dr. Salas who inserted the mediport, he states that he will consult with vascular and have patient follow up outpatient. I did discuss results and plan with the patient. We will start eliquis. We discussed risk associated with anticoagulation. We discussed s/sx and risk of PE. She is instructed to follow up with oncology to determine further need of mediport catheter. Return parameters were discussed in detail. She verbalizes understanding and agrees with this plan. Case discussed with my attending Dr. Ibanez. - Lab Data Result diagrams: 04/22/21 12:28 04/22/21 12:28 Lab Results 04/22/21 04/22/21 04/22/21 Range/Units 12:28 12:28 12:28 WBC 11.5 H (3.8-10.6) k/uL RBC 3.10 L (3.80-5.40) m/uL Hgb 11.2 L (11.4-16.0) gm/dL Hct 32.9 L (34.0-46.0) % MCV 105.9 H (80.0-100.0) fL MCH 36.2 H (25.0-35.0) pg MCHC 34.2 (31.0-37.0) g/dL RDW 15.9 H (11.5-15.5) % Plt Count 108 L (150-450) k/uL MPV 7.3 Neutrophils % (Manual) 69 % Band Neuts % (Manual) 13 % Lymphocytes % (Manual) 6 % Monocytes % (Manual) 11 % Metamyelocytes % 1 % Neutrophils # (Manual) 9.40 H (1.3-7.7) k/uL Lymphocytes # (Manual) 0.69 L (1.0-4.8) k/uL Monocytes # (Manual) 1.27 H (0-1.0) k/uL Metamyelocytes # (Man) 0.12 H (0) k/uL Nucleated RBCs 0 (0-0) /100 WBC Manual Slide Review Performed Macrocytosis Moderate Sodium 134 L (137-145) mmol/L Potassium 4.1 (3.5-5.1) mmol/L Chloride 100 (98-107) mmol/L Carbon Dioxide 25 (22-30) mmol/L Anion Gap 9 mmol/L BUN 9 (7-17) mg/dL Creatinine 0.45 L (0.52-1.04) mg/dL Est GFR (CKD-EPI)AfAm >90 (>60 ml/min/1.73 sqM) Est GFR (CKD-EPI)NonAf >90 (>60 ml/min/1.73 sqM) Glucose 143 H (74-99) mg/dL Plasma Lactic Acid [place] 0.9 (0.7-2.0) mmol/L Calcium 9.1 (8.4-10.2) mg/dL Total Bilirubin 0.2 (0.2-1.3) mg/dL AST 20 (14-36) U/L ALT 11 (4-34) U/L Alkaline Phosphatase 91 (38-126) U/L Total Protein 6.3 (6.3-8.2) g/dL Albumin 3.7 (3.5-5.0) g/dL - Radiology Data Radiology results: report reviewed, image reviewed X-ray of the chest is obtained. Report was reviewed in its entirety. Impress ion by Dr. Estes shows on retrospective review of the patient's CT performed yesterday with attention to the right side of the neck, we are unable to exclude right IJ be thrombosis and surrounding soft tissue swelling. Correlate for possible thrombophlebitis. Doppler ultrasound could be considered. Otherwise no acute cardiopulmonary process. Ultrasound venous Doppler duplex right upper extremity was obtained. Report was reviewed in its entirety. Impression by Dr. Estes shows acute occlusive right IJ vein thrombosis. Disposition Clinical Impression: Thrombosis of right internal jugular vein Disposition: HOME SELF-CARE Condition: Good Instructions (If sedation given, give patient instructions): Deep Vein Thrombosis (ED), Safe Use of Anticoagulants (ED) Additional Instructions: Take medication as directed. Follow up with oncology to determine further need of mediport. Call Dr. Salas's office to schedule appointment. Return to the emergency department for any new, worsening, or concerning symptoms. Prescriptions: Apixaban [Eliquis Starter Pack (for VTE)] 0 mg PO DIRECTED 30 Days #1 each Is patient prescribed a controlled substance at d/c from ED?: No Referrals: Galen Nath DO [Primary Care Provider] - 1-2 days Henok Salas MD [Medical Doctor] - 1-2 days Time of Disposition: 15:23
--- NOTE | 2021-04-22 12:25 | XR ---
EXAMINATION TYPE: XR chest 1V DATE OF EXAM: 04/22/2021 COMPARISON: 01/04/[address] 04/21/2021 HISTORY: 50-year-old female right neck swelling, pain with breathing. TECHNIQUE: Single frontal view of the chest is obtained. FINDINGS: Right anterior chest wall injection port with catheter tip at the lower SVC. Heart normal size. Aorta and pulmonary vasculature within normal limits. Mild hyperinflation. No consolidation or pleural eff usion. IMPRESSION: 1. On retrospective review of the patient's CT performed yesterday with attention to the right side o f the neck, we are unable to exclude right IJV thrombosis and surrounding soft tissue swelling. Corre late for possible thrombophlebitis. Doppler ultrasound can be considered. 2. Otherwise, no acute cardiopulmonary process.
[2021-04-22 12:49] LABS: HCT 32.9 % (34.0-46.0); HGB 11.2 gm/dL (11.4-16.0); MCH 36.2 pg (25.0-35.0); MCHC 34.2 g/dL (31.0-37.0); MCV 105.9 fL (80.0-100.0); Macrocytosis Moderate; Mean Platelet Volume 7.3; Platelet Count 108 k/uL (150-450); RDW 15.9 % (11.5-15.5); WBC 11.5 k/uL (3.8-10.6)
[2021-04-22 13:03] LABS: ALT 11 U/L (4-34); AST 20 U/L (14-36); African American GFR (CKD) >90 (>60 ml/min/1.73 sqM); Albumin 3.7 g/dL (3.5-5.0); Alkaline Phosphatase 91 U/L (38-126); Anion Gap 9 mmol/L; Blood Urea Nitrogen 9 mg/dL (7-17); Calcium 9.1 mg/dL (8.4-10.2); Carbon Dioxide 25 mmol/L (22-30); Chloride 100 mmol/L (98-107); Glucose 143 mg/dL (74-99); Non-African American GFR(CKD) >90 (>60 ml/min/1.73 sqM); Potassium 4.1 mmol/L (3.5-5.1); Sodium 134 mmol/L (137-145); Total Bilirubin 0.2 mg/dL (0.2-1.3); Total Protein 6.3 g/dL (6.3-8.2)
[2021-04-22 13:29] LABS: Band Neutrophils % 13 %; Lymphocytes # (M) 0.69 k/uL (1.0-4.8); Metamyelocytes # (M) 0.12 k/uL (0); Metamyelocytes % 1 %; Monocytes # (M) 1.27 k/uL (0-1.0); Neutrophils % (M) 69 %; Nucleated Red Blood Cells 0 /100 WBC (0-0); Total Cells Counted 100
--- NOTE | 2021-04-22 14:10 | US ---
EXAMINATION TYPE: US venous doppler duplex UE RT DATE OF EXAM: 04/22/2021 COMPARISON: NONE CLINICAL HISTORY: 50-year-old female right neck swelling. Patient has port. Right neck pain and redn ess. Not on blood thinners. SIDE PERFORMED: Right Right Arm: Appears POSITIVE for DVT in lower IJV to upper IJV. No vascular flow visualized. This is characterized by expanded and hypoechoic vein with wall thickening. The remaining right upper extremity venous structures are patent. IMPRESSION: Acute occlusive right IJ vein thrombosis.
[2021-04-22] MEDS ORDERED: APIXABAN 5 MG TAB PO STA (15:15)
[2021-04-22 15:47] VITALS: BP 117/57; PULSE 90
== END 2021-04-22 15:45 | disposition home or self-care (01) ==
LOC: EC 11:19
DX: I82.C11 Acute embolism and thrombosis of right internal jugular vein (principal); C67.9 Malignant neoplasm of bladder, unspecified; K21.9 Gastro-esophageal reflux disease without esophagitis; E78.5 Hyperlipidemia, unspecified; Z91.040 Latex allergy status; Z88.1 Allergy status to other antibiotic agents; Z98.51 Tubal ligation status
CPT/HCPCS: 36415; 71045; 80053; 83605; 85025; 93005; 99284

== ENCOUNTER 2021-04-22 17:53 | Inpatient (IN) | payer BC ==
[2021-04-22] MEDS ORDERED: HYDROcodone/APAP 10-325MG 1 EACH TAB PO ONE (18:48)
--- NOTE | 2021-04-22 18:53 | ED ---
General Adult HPI - General Chief complaint: Recheck/Abnormal Lab/Rx Stated complaint: Revisit/DVT Time Seen by Provider: 04/22/21 18:31 Source: patient Mode of arrival: ambulatory Limitations: no limitations - History of Present Illness Initial comments: Dictation was produced using [employer] dictation software. please excuse any grammatical, word or spelling errors. Chief Complaint: 50-year-old female Presents to the emergency department for hematuria History of Present Illness: 50-year-old female she presents emergency department for hematuria. Patient was recently diagnosed with venous thrombosis of the right internal jugular. This she was told that it was suspected from altercations with a port. Patient has history of bladder cancer see his chemotherapy. Patient recently started on eliquis. She was given 2 doses and discharged. Several hours later patient noted blood in her urine and in her nephrostomy tube bag. The ROS documented in this emergency department record has been reviewed and confirmed by me. Those systems with pertinent positive or negative responses have been documented in the HPI. All other systems are other negative and/or noncontributory. PHYSICAL EXAM: General Impression: Alert and oriented x3, not in acute distress HEENT: Normocephalic atraumatic, extra-ocular movements intact, pupils equal and reactive to light bilaterally, mucous membranes moist. Cardiovascular: Heart regular rate and rhythm Chest: Able to complete full sentences, no retractions, no tachypnea Abdomen: abdomen soft, non-tender, non-distended, no organomegaly Musculoskeletal: Pulses present and equal in all extremities, no peripheral edema Motor: no focal deficits noted Neurological: CN II-XII grossly intact, no focal motor or sensory deficits noted Skin: Intact with no visualized rashes, nephrostomy tubes in place without any surgical site drainage. There is no bloody urine in nephrostomy tube reservoir Psych: Normal affect and mood ED course: 50-year-old female presents with hematuria after being started on out" earlier today. She was given 2 doses for treatment of right IJ vein thrombosis. Signs upon arrival shows heart rate of 127, temperature 99.9, worse vital signs within acceptable limits. She has no chest pain or shortness of breath. EKG interpretation: Ventricular rate 107, sinus tachycardia,. 140, QRS 86, QTC 460. No [place] prolongation, no QTC prolongation, no ST or T-wave changes noted. EKG compared to 04/22/2021 showing no changes. Overall, this EKG is unremarkable Return evaluation obtained. Hemoglobin is 10.5. Early today is 11.2. Rest of CBC within acceptable limits. Coag panel is negative. Metabolic panel is unremarkable. Greater than 182 red blood cells. Patient observed the emergency department for approximately 3 hours and 30 minutes. She is reevaluated at bedside at 9:30 PM out of a stable medical condition. She has a complex patient. Case is discussed with her primary care doctor was agreeable with inpatient admission. She is presentation is complex. His concern that patient has proclivit for bleeding considering her cancer history. At this point and evaluation medicines will be held. We'll have patient admitted to be value by oncology and vascular surgery to determine the next best course of action concerning that patient has bleeding but also has a concomitant right IJ vein thrombosis. - Related Data Home Medications Medication Instructions Recorded Confirmed Rosuvastatin Calcium [Crestor] 10 mg PO HS 09/19/17 04/22/21 Sodium Bicarbonate Tab 650 mg PO DAILY 12/31/20 04/22/21 HYDROcodone/APAP 10-325MG [[place] 1 tab PO Q6H 02/03/21 04/22/21 10-325] Pantoprazole [Protonix] 40 mg PO DAILY 03/24/21 04/22/21 Sennosides [Senokot] 17.2 mg PO HS PRN 03/24/21 04/22/21 Apixaban [Eliquis Starter Pack See Taper PO DIRECTED 04/22/21 04/22/21 (for VTE)] Previous Rx's Medication Instructions Recorded Ferrous Sulfate [Feosol] 325 mg PO DAILY #30 tab 12/22/20 Allergies Allergy/AdvReac Type Severity Reaction Status Date / Time atorvastatin [From Lipitor] Allergy Chest Pain Verified 04/22/21 20:32 Latex, Natural Rubber Allergy Swelling Verified 04/22/21 20:32 metronidazole Allergy Chest Pain Verified 04/22/21 20:32 Review of Systems ROS Statement: Those systems with pertinent positive or pertinent negative responses have been documented in the HPI. ROS Other: All systems not noted in ROS Statement are negative. Past Medical History Past Medical History: Cancer, GERD/Reflux, Hyperlipidemia Additional Past Medical History / Comment(s): miah 2005, Hospitalized 12/18/20 to 12/22/20 with renal failure & bladder tumor (cancer), uterine cyst, low i elizabeth., states pain lower abdomen , Irvin nephrostomy tubes. History of Any Multi-Drug Resistant Organisms: None Reported Past Surgical History: Tubal Ligation Additional Past Surgical History / Comment(s): nephrostomy tubes 12/21/20. RIGHT SCL PORT PLACEMENT. blood clot in jugular Past Anesthesia/Blood Transfusion Reactions: No Reported Reaction Additional Past Anesthesia/Blood Transfusion Reaction / Comment(s): . Past Psychological History: No Psychological Hx Reported Smoking Status: Never smoker Past Alcohol Use History: None Reported Past Drug Use History: None Reported - Past Family History Mother Family Medical History: Hyperlipidemia, Hypertension Additional Family Medical History / Comment(s): Borderline Diabetic. Father Family Medical History: Coronary Artery Disease (CAD), Hyperlipidemia, Hypertension Additional Family Medical History / Comment(s): CABG. General Exam Limitations: no limitations Course Vital Signs 04/22/21 04/22/21 04/22/21 18:18 20:06 20:35 Temperature 99.9 F H Pulse Rate 127 H 109 H 94 Respiratory 18 18 Rate Blood Pressure 125/69 O2 Sat by Pulse 100 98 Oximetry Medical Decision Making - Lab Data Result diagrams: 04/22/21 18:31 04/22/21 18:31 Lab Results 04/22/21 04/22/21 04/22/21 Range/Units 18:31 18:31 18:31 WBC 9.7 (3.8-10.6) k/uL RBC 2.97 L (3.80-5.40) m/uL Hgb 10.5 L (11.4-16.0) gm/dL Hct 32.0 L (34.0-46.0) % MCV 107.9 H (80.0-100.0) fL MCH 35.3 H (25.0-35.0) pg MCHC 32.7 (31.0-37.0) g/dL RDW 15.9 H (11.5-15.5) % Plt Count 105 L (150-450) k/uL MPV 7.6 Neutrophils % 80 % Lymphocytes % 7 % Monocytes % 8 % Eosinophils % 0 % Basophils % 2 % Neutrophils # 7.7 (1.3-7.7) k/uL Lymphocytes # 0.6 L (1.0-4.8) k/uL Monocytes # 0.8 (0-1.0) k/uL Eosinophils # 0.0 (0-0.7) k/uL Basophils # 0.2 (0-0.2) k/uL Macrocytosis Marked A PT 10.7 (9.0-12.0) sec INR 1.0 (<1.2) APTT 26.3 (22.0-30.0) sec Sodium 137 (137-145) mmol/L Potassium 3.6 (3.5-5.1) mmol/L Chloride 102 (98-107) mmol/L Carbon Dioxide 25 (22-30) mmol/L Anion Gap 10 mmol/L BUN 9 (7-17) mg/dL Creatinine 0.47 L (0.52-1.04) mg/dL Est GFR (CKD-EPI)AfAm >90 (>60 ml/min/1.73 sqM) Est GFR (CKD-EPI)NonAf >90 (>60 ml/min/1.73 sqM) Glucose 148 H (74-99) mg/dL Calcium 9.0 (8.4-10.2) mg/dL C-Reactive Protein 13.5 H (<1.0) mg/dL Urine Color Urine Appearance (Clear) Urine RBC (0-5) /hpf Urine Mucus (None) /hpf 04/22/21 Range/Units 19:10 WBC (3.8-10.6) k/uL RBC (3.80-5.40) m/uL Hgb (11.4-16.0) gm/dL Hct (34.0-46.0) % MCV (80.0-100.0) fL MCH (25.0-35.0) pg MCHC (31.0-37.0) g/dL RDW (11.5-15.5) % Plt Count (150-450) k/uL MPV Neutrophils % % Lymphocytes % % Monocytes % % Eosinophils % % Basophils % % Neutrophils # (1.3-7.7) k/uL Lymphocytes # (1.0-4.8) k/uL Monocytes # (0-1.0) k/uL Eosinophils # (0-0.7) k/uL Basophils # (0-0.2) k/uL Macrocytosis PT (9.0-12.0) sec INR (<1.2) APTT (22.0-30.0) sec Sodium (137-145) mmol/L Potassium (3.5-5.1) mmol/L Chloride (98-107) mmol/L Carbon Dioxide (22-30) mmol/L Anion Gap mmol/L BUN (7-17) mg/dL Creatinine (0.52-1.04) mg/dL Est GFR (CKD-EPI)AfAm (>60 ml/min/1.73 sqM) Est GFR (CKD-EPI)NonAf (>60 ml/min/1.73 sqM) Glucose (74-99) mg/dL Calcium (8.4-10.2) mg/dL C-Reactive Protein (<1.0) mg/dL Urine Color Red Urine Appearance Bloody H (Clear) Urine RBC >182 H (0-5) /hpf Urine Mucus Rare H (None) /hpf Disposition Clinical Impression: Hematuria Disposition: ADMITTED IP TO THIS [facility] Condition: Fair Referrals: Gaeln Nath DO [Primary Care Provider] - 1-2 days
[2021-04-22 20:26] LABS: Basophils # (A) 0.2 k/uL (0-0.2); Basophils % (A) 2 %; Eosinophils % (A) 0 %; HGB 10.5 gm/dL (11.4-16.0); Lymphocytes # (A) 0.6 k/uL (1.0-4.8); Lymphocytes % (A) 7 %; MCH 35.3 pg (25.0-35.0); MCHC 32.7 g/dL (31.0-37.0); MCV 107.9 fL (80.0-100.0); Macrocytosis Marked; Mean Platelet Volume 7.6; Monocytes # (A) 0.8 k/uL (0-1.0); Monocytes % (A) 8 %; Neutrophils # (A) 7.7 k/uL (1.3-7.7); Neutrophils % (A) 80 %; Platelet Count 105 k/uL (150-450); RBC 2.97 m/uL (3.80-5.40); RDW 15.9 % (11.5-15.5); WBC 9.7 k/uL (3.8-10.6)
[2021-04-22 20:31] LABS: Partial Thromboplastin Time 26.3 sec (22.0-30.0); Prothrombin Time 10.7 sec (9.0-12.0)
[2021-04-22 20:40] LABS: African American GFR (CKD) >90 (>60 ml/min/1.73 sqM); Anion Gap 10 mmol/L; Blood Urea Nitrogen 9 mg/dL (7-17); Carbon Dioxide 25 mmol/L (22-30); Chloride 102 mmol/L (98-107); Glucose 148 mg/dL (74-99); Non-African American GFR(CKD) >90 (>60 ml/min/1.73 sqM); Potassium 3.6 mmol/L (3.5-5.1); Sodium 137 mmol/L (137-145)
[2021-04-22 20:54] LABS: C Reactive Protein 13.5 mg/dL (<1.0)
[2021-04-22 21:04] LABS: Mucus,Urine Rare /hpf; RBC,Urine >182 /hpf (0-5)
[2021-04-22 21:16] LABS: Appearance,Urine Bloody (Clear); Color,Urine Red
[2021-04-22] MEDS ORDERED: ACETAMINOPHEN TAB 325 MG TAB PO PRN (21:54)
[2021-04-22] MEDS ORDERED: NALOXONE 0.4 MG/ML 1 ML VIAL IV PRN (21:54)
[2021-04-22] MEDS: SODIUM CHLORIDE 0.9% 1,000 ML IV SCH (22:27)
[2021-04-23] MEDS ORDERED: SENNOSIDES 8.6 MG TAB PO PRN (06:58)
[2021-04-23] MEDS ORDERED: HYDROcodone/APAP 10-325MG 1 EACH TAB PO SCH (07:00)
[2021-04-23] MEDS: PANTOPRAZOLE 40 MG TABLET PO SCH (07:18)
[2021-04-23] MEDS: SODIUM BICARBONATE TAB 650 MG TAB PO SCH (07:59)
[2021-04-23] MEDS: FERROUS SULFATE 325 MG TAB PO SCH (07:59)
[2021-04-23 10:18] LABS: HCT 30.2 % (34.0-46.0); HGB 10.3 gm/dL (11.4-16.0); MCH 36.2 pg (25.0-35.0); MCHC 34.2 g/dL (31.0-37.0); Macrocytosis Moderate; Mean Platelet Volume 7.1; Platelet Count 129 k/uL (150-450); RBC 2.85 m/uL (3.80-5.40); WBC 6.6 k/uL (3.8-10.6)
[2021-04-23 10:22] LABS: ALT 12 U/L (4-34); AST 19 U/L (14-36); African American GFR (CKD) >90 (>60 ml/min/1.73 sqM); Albumin 3.5 g/dL (3.5-5.0); Albumin/Globulin Ratio 1.4; Alkaline Phosphatase 78 U/L (38-126); Anion Gap 9 mmol/L; Blood Urea Nitrogen 6 mg/dL (7-17); Calcium 9.2 mg/dL (8.4-10.2); Carbon Dioxide 25 mmol/L (22-30); Chloride 101 mmol/L (98-107); Globulin 2.5 g/dL; Glucose 190 mg/dL (74-99); Non-African American GFR(CKD) >90 (>60 ml/min/1.73 sqM); Potassium 4.1 mmol/L (3.5-5.1); Sodium 135 mmol/L (137-145); Total Bilirubin 0.3 mg/dL (0.2-1.3)
[2021-04-23] MEDS ORDERED: HEPARIN SODIUM 1,000 UN/ML (10ML VL) IV PRN (10:57)
[2021-04-23] MEDS ORDERED: HEPARIN SODIUM 1,000 UN/ML (10ML VL) IV ONE (10:57)
[2021-04-23 11:00] LABS: Band Neutrophils % 3 %; Lymphocytes # (M) 0.73 k/uL (1.0-4.8); Metamyelocytes # (M) 0.13 k/uL (0); Metamyelocytes % 2 %; Monocytes # (M) 0.46 k/uL (0-1.0); Myelocytes # (M) 0.33 k/uL (0); Myelocytes % 5 %; Neutrophils % (M) 73 %; Nucleated Red Blood Cells 0 /100 WBC (0-0); Total Cells Counted 200
[2021-04-23 11:01] LABS: Anisocytosis (M) Present; Poikilocytosis (M) Present; Polychromasia Present; Toxic Vacuolation Present
[2021-04-23 12:30] LABS: INR 0.9 (<1.2); Prothrombin Time 9.9 sec (9.0-12.0)
[2021-04-23 12:34] LABS: HCT 31.6 % (34.0-46.0); HGB 10.5 gm/dL (11.4-16.0); MCH 35.5 pg (25.0-35.0); MCHC 33.3 g/dL (31.0-37.0); MCV 106.7 fL (80.0-100.0); Macrocytosis Moderate; Mean Platelet Volume 7.6; Platelet Count 134 k/uL (150-450); RBC 2.96 m/uL (3.80-5.40); RDW 15.5 % (11.5-15.5)
--- NOTE | 2021-04-23 12:53 | P.GSCN ---
History of Present Illness Consult date: 04/23/21 Reason for Consult: Right IJ occlusion Requesting physician: Galen Nath History of present illness: Assessment 50-year-old female who presented to the emergency department yesterday with complaints of some swelling and discomfort around her port. Patient was recently diagnosed with bladder cancer and just finished her chemotherapy last week. She has a port present in the right IJ. She was seen in the emergency department yesterday and diagnosed with right IJ thrombus started on Eliquis, given 1 dose at 3 PM and sent home. Patient states she subsequently had hematuria and return back to the emergency department. He shouldn't states she is unsure if she will need any further chemotherapy, plan is for removal of the bladder possibly by urology. Right upper extremity venous Doppler showed positive for DVT in lower IJ pain to upper IJ pain. No vascular flow visualized. This is characterized by expanded and hypoechoic vein with wall thickening. Remaining right upper extremity venous structures are patent. He is denying any right upper extremity pain, she has not had any further hematuria. She denies any abdominal pain, chest pain, shortness of breath. Review of Systems A 14 point review of systems was completed, all pertinent positives and negatives as stated in the HPI Past Medical History Past Medical History: Cancer, GERD/Reflux, Hyperlipidemia Additional Past Medical History / Comment(s): shingles 2006, Hospitalized 12/18/20 to 12/22/20 with renal failure & bladder tumor (cancer), uterine cyst, low iron., states pain lower abdomen , Irvin nephrostomy tubes. History of Any Multi-Drug Resistant Organisms: None Reported Past Surgical History: Tubal Ligation Additional Past Surgical History / Comment(s): nephrostomy tubes 12/21/20. RIGHT SCL PORT PLACEMENT. blood clot in jugular Past Anesthesia/Blood Transfusion Reactions: No Reported Reaction Additional Past Anesthesia/Blood Transfusion Reaction / Comm: . Past Psychological History: No Psychological Hx Reported Smoking Status: Never smoker Past Alcohol Use History: None Reported Past Drug Use History: None Reported - Past Family History Mother Family Medical History: Hyperlipidemia, Hypertension Additional Family Medical History / Comment(s): Borderline Diabetic. Father Family Medical History: Coronary Artery Disease (CAD), Hyperlipidemia, Hypertension Additional Family Medical History / Comment(s): CABG. Medications and Allergies Home Medications Medication Instructions Recorded Confirmed Type Rosuvastatin Calcium [Crestor] 10 mg PO HS 09/19/17 04/22/21 History Ferrous Sulfate [Feosol] 325 mg PO DAILY #30 tab 12/22/20 04/22/21 Rx Sodium Bicarbonate Tab 650 mg PO DAILY 12/31/20 04/22/21 History HYDROcodone/APAP 10-325MG [[place] 1 tab PO Q6H 02/03/21 04/22/21 History 10-325] Pantoprazole [Protonix] 40 mg PO DAILY 03/24/21 04/22/21 History Sennosides [Senokot] 17.2 mg PO HS PRN 03/24/21 04/22/21 History Apixaban [Eliquis Starter Pack See Taper PO DIRECTED 04/22/21 04/22/21 History (for VTE)] Allergies Allergy/AdvReac Type Severity Reaction Status Date / Time atorvastatin [From Lipitor] Allergy Chest Pain Verified 04/22/21 20:32 Latex, Natural Rubber Allergy Swelling Verified 04/22/21 20:32 metronidazole Allergy Chest Pain Verified 04/22/21 20:32 Surgical - Exam Vital Signs Temp Pulse Resp BP Pulse Ox 99.9 F H 127 H 18 125/69 100 04/22/21 18:18 04/22/21 18:18 04/22/21 18:18 04/22/21 18:18 04/22/21 18:18 General appearance: The patient is alert, oriented, in no acute distress. HET: Head is normocephalic and atraumatic. Neck: Supple without lymphadenopathy. Trachea midline. Right IJ port intact. Heart: S1 S2. Regular rate and rhythm. Lungs: Clear to auscultation. Abdomen: Soft, nontender, nondistended. Extremities: Normal skin color and turgor. No cyanosis, rash, ulceration, clubbing, or edema. Radial pulses are 2/4 bilaterally. Full range of motion of right upper extremity. Neurological: No focal deficits. Strength and sensation are grossly intact. Results - Labs 04/23/21 11:40 04/23/21 08:42 Abnormal Lab Results - Last 24 Hours (Table) 04/22/21 04/22/21 04/22/21 Range/Units 18:31 18:31 19:10 RBC 2.97 L (3.80-5.40) m/uL Hgb 10.5 L (11.4-16.0) gm/dL Hct 32.0 L (34.0-46.0) % MCV 107.9 H (80.0-100.0) fL MCH 35.3 H (25.0-35.0) pg RDW 15.9 H (11.5-15.5) % Plt Count 105 L (150-450) k/uL Lymphocytes # 0.6 L (1.0-4.8) k/uL Macrocytosis Marked A Creatinine 0.47 L (0.52-1.04) mg/dL Glucose 148 H (74-99) mg/dL C-Reactive Protein 13.5 H (<1.0) mg/dL Urine Appearance Bloody H (Clear) Urine RBC >182 H (0-5) /hpf Urine Mucus Rare H (None) /hpf Diabetes panel 04/22/21 Range/Units 18:31 Sodium 137 (137-145) mmol/L Potassium 3.6 (3.5-5.1) mmol/L Chloride 102 (98-107) mmol/L Carbon Dioxide 25 (22-30) mmol/L BUN 9 (7-17) mg/dL Creatinine 0.47 L (0.52-1.04) mg/dL Glucose 148 H (74-99) mg/dL Calcium 9.0 (8.4-10.2) mg/dL Calcium panel 04/22/21 Range/Units 18:31 Calcium 9.0 (8.4-10.2) mg/dL Pituitary panel 04/22/21 Range/Units 18:31 Sodium 137 (137-145) mmol/L Potassium 3.6 (3.5-5.1) mmol/L Chloride 102 (98-107) mmol/L Carbon Dioxide 25 (22-30) mmol/L BUN 9 (7-17) mg/dL Creatinine 0.47 L (0.52-1.04) mg/dL Glucose 148 H (74-99) mg/dL Calcium 9.0 (8.4-10.2) mg/dL Adrenal panel 04/22/21 Range/Units 18:31 Sodium 137 (137-145) mmol/L Potassium 3.6 (3.5-5.1) mmol/L Chloride 102 (98-107) mmol/L Carbon Dioxide 25 (22-30) mmol/L BUN 9 (7-17) mg/dL Creatinine 0.47 L (0.52-1.04) mg/dL Glucose 148 H (74-99) mg/dL Calcium 9.0 (8.4-10.2) mg/dL - Imaging Comments: Venous Doppler ultrasound right upper extremity: Acute occlusive right IJ vein thrombosis Assessment and Plan Assessment: 1. Right IJ vein thrombosis 2. Bladder cancer, right IJ port for recent chemotherapy Plan: 1. Trial IV heparin drip 2. Await recommendations from oncology, it port no longer needed may remove, otherwise no need to discontinue port if it is functioning well. 3. Recommend outpatient anticoagulation if patient able to tolerate heparin 4. Further recommendations to follow Thank you for this consultation and allowing us take part in the plan of care of your patient during her hospital stay The impression and plan of care has been dictated as directed. I performed a history and examination of this patient, discussed the same with the dictator. I agree with the dictator's note ,documented as a scribe. Any additional findings or plans will be noted.
[2021-04-23] MEDS: HEPARIN SOD,PORK IN 0.45% NACL 25,000 UNIT in 0.45% NACL 1 250ML.BAG IV SCH (13:01)
[2021-04-23 14:08] LABS: Band Neutrophils % 3 %; Eosinophils # (M) 0.07 k/uL (0-0.7); Lymphocytes # (M) 1.26 k/uL (1.0-4.8); Metamyelocytes # (M) 0.14 k/uL (0); Metamyelocytes % 2 %; Monocytes # (M) 0.77 k/uL (0-1.0); Myelocytes # (M) 0.28 k/uL (0); Myelocytes % 4 %; Neutrophils % (M) 62 %; Nucleated Red Blood Cells 0 /100 WBC (0-0); Polychromasia Present; Promyelocytes # (M) 0.07 k/uL (0); Promyelocytes % 1 %; Total Cells Counted 200
[2021-04-23 14:09] LABS: Anisocytosis (M) Present; Poikilocytosis (M) Present; Tear Drop Cells Present
--- NOTE | 2021-04-23 16:41 | P.HPIM ---
History of Present Illness H&P Date: 04/23/21 Chief Complaint: Hematuria, right IJ occlusion This is a 50-year-old female recently diagnosed with bladder cancer, completed her chemotherapy last week, presented to the ER initially with diagnosis of acute occlusive right internal jugular venous thrombosis started on antico agulation with Eliquis. Received a dose of Eliquis at 3:35 PM and discharged home. Returned to the ER with complaints of hematuria in her nephrostomy tubes. On admission, tachycardic with heart rates up into the 120s, temperature 99.9, respiratory rate 18, blood pressure stable, maintaining O2 sats of 100% percent on room air. Denies chest pain, palpitations or shortness of breath. Denies lightheadedness, dizziness or focal deficits. Denies right upper extremity pain. EKG sinus tachycardia. Hemoglobin 11.2 on prior ER visit, down to 10.5 and currently 10.3, platelets up to 129, coag and chemistry panel unremarkable. ER physical exam reports no bloody urine and nephrostomy tube reservoirs and remains the same this a.m. Review of Systems ROS Statement: Those systems with pertinent positive or pertinent negative responses have been documented in the HPI. ROS Other: All systems not noted in ROS Statement are negative. Past Medical History Past Medical History: Cancer, GERD/Reflux, Hyperlipidemia Additional Past Medical History / Comment(s): ericksonjacqui 2006, Hospitalized 12/18/20 to 12/22/20 with renal failure & bladder tumor (cancer), uterine cyst, low iron., states pain lower abdomen , Irvin nephrostomy tubes. History of Any Multi-Drug Resistant Organisms: None Reported Past Surgical History: Tubal Ligation Additional Past Surgical History / Comment(s): nephrostomy tubes 12/21/20. RIGHT SCL PORT PLACEMENT. blood clot in jugular Past Anesthesia/Blood Transfusion Reactions: No Reported Reaction Additional Past Anesthesia/Blood Transfusion Reaction / Comment(s): . Past Psychological History: No Psychological Hx Reported Smoking Status: Never smoker Past Alcohol Use History: None Reported Past Drug Use History: None Reported - Past Family History Mother Family Medical History: Hyperlipidemia, Hypertension Additional Family Medical History / Comment(s): Borderline Diabetic. Father Family Medical History: Coronary Artery Disease (CAD), Hyperlipidemia, Hypertension Additional Family Medical History / Comment(s): CABG. Medications and Allergies Home Medications Medication Instructions Recorded Confirmed Type Rosuvastatin Calcium [Crestor] 10 mg PO HS 09/19/17 04/22/21 History Ferrous Sulfate [Feosol] 325 mg PO DAILY #30 tab 12/22/20 04/22/21 Rx Sodium Bicarbonate Tab 650 mg PO DAILY 12/31/20 04/22/21 History HYDROcodone/APAP 10-325MG [[place] 1 tab PO Q6H 02/03/21 04/22/21 History 10-325] Pantoprazole [Protonix] 40 mg PO DAILY 03/24/21 04/22/21 History Sennosides [Senokot] 17.2 mg PO HS PRN 03/24/21 04/22/21 History Apixaban [Eliquis Starter Pack See Taper PO DIRECTED 04/22/21 04/22/21 Hi story (for VTE)] Allergies Allergy/AdvReac Type Severity Reaction Status Date / Time atorvastatin [From Lipitor] Allergy Chest Pain Verified 04/22/21 20:32 Latex, Natural Rubber Allergy Swelling Verified 04/22/21 20:32 metronidazole Allergy Chest Pain Verified 04/22/21 20:32 Physical Exam Vitals: Vital Signs Temp Pulse Pulse Resp BP BP Pulse Ox 04/23/21 07:16 95 114/65 98 04/23/21 04:38 98.5 F 83 16 103/64 97 04/22/21 23:54 98.5 F 83 16 119/73 97 04/22/21 22:30 98.5 F 84 18 107/60 99 04/22/21 20:35 94 04/22/21 20:06 109 H 18 98 04/22/21 18:18 99.9 F H 127 H 18 125/69 100 Intake and Output 04/22/21 04/23/21 04/23/21 22:59 06:59 14:59 Other: Voiding Method Toilet Ileal Conduit (Right) Ileal Conduit (Left) # Voids 1 Weight 59.421 kg 59.421 kg - Exam PHYSICAL EXAM: VITAL SIGNS: As above GENERAL: Sitting up in bed, no acute distress HEENT: Conjunctivae normal. eyes normal. NECK: No JVD. No thyroid enlargement. No LNs. Right IJ port present. CARDIOVASCULAR: S1, S2 regular.No murmur RESPIRATION: Breath sounds diminished in the bases. No rhonchi or crackles. No wheezing. ABDOMEN: Soft, nontender, nondistended, positive bowel sounds. Bilateral nephrostomy tubes. with clear urine EXT: No edema, DORSEY, positive radial pulses PSYCHIATRY: Alert and oriented X3, mood and affect normal. NERVOUS SYSTEM: Cranial N 2-12 grossly normal. Moves all 4 limbs. No focal deficits. Strength and sensation grossly intact. Skin: Warm and dry, no rash Results CBC & Chem 7: 04/23/21 11:40 04/23/21 08:42 Labs: Abnormal Lab Results - Last 24 Hours (Table) 04/22/21 04/22/21 04/22/21 Range/Units 18:31 18:31 19:10 RBC 2.97 L (3.80-5.40) m/uL Hgb 10.5 L (11.4-16.0) gm/dL Hct 32.0 L (34.0-46.0) % MCV 107.9 H (80.0-100.0) fL MCH 35.3 H (25.0-35.0) pg RDW 15.9 H (11.5-15.5) % Plt Count 105 L (150-450) k/uL Lymphocytes # 0.6 L (1.0-4.8) k/uL Macrocytosis Marked A Sodium (137-145) mmol/L BUN (7-17) mg/dL Creatinine 0.47 L (0.52-1.04) mg/dL Glucose 148 H (74-99) mg/dL C-Reactive Protein 13.5 H (<1.0) mg/dL Total Protein (6.3-8.2) g/dL Urine Appearance Bloody H (Clear) Urine RBC >182 H (0-5) /hpf Urine Mucus Rare H (None) /hpf 04/23/21 04/23/21 Range/Units 08:42 08:42 RBC 2.85 L (3.80-5.40) m/uL Hgb 10.3 L (11.4-16.0) gm/dL Hct 30.2 L (34.0-46.0) % MCV 106.0 H (80.0-100.0) fL MCH 36.2 H (25.0-35.0) pg RDW 16.0 H (11.5-15.5) % Plt Count 129 L (150-450) k/uL Lymphocytes # (1.0-4.8) k/uL Macrocytosis Sodium 135 L (137-145) mmol/L BUN 6 L (7-17) mg/dL Creatinine 0.41 L (0.52-1.04) mg/dL Glucose 190 H (74-99) mg/dL C-Reactive Protein (<1.0) mg/dL Total Protein 6.0 L (6.3-8.2) g/dL Urine Appearance (Clear) Urine RBC (0-5) /hpf Urine Mucus (None) /hpf Thrombosis Risk Factor Assmnt - Choose All That Apply Any of the Below Risk Factors Present?: Yes Each Factor Represents 1 point: Age 41-60 years Other Risk Factors: Yes Each Risk Factor Represents 2 Points: Malignancy Each Risk Factor Represents 3 Points: History of DVT/PE Other congenital or acquired thrombophilia - If yes, enter type in comment: No Thrombosis Risk Factor Assessment Total Risk Factor Score: 6 Thrombosis Risk Factor Assessment Level: High Risk Assessment and Plan Assessment: Acute occlusive right IJ vein thrombosis Right IJ port, recent chemotherapy Recently diagnosed Bladder cancer, completed chemotherapy last week Plan: Continue on current medication regime monitoring and symptomatically treatment. Heparin drip ordered for anticoagulation. Vascular surgery recommendations noted and appreciated. Oncology consult in place, recommenda tions pending regarding potential port removal-if no further chemotherapy required, anticoagulation. Discharge planning in progress tentatively for tomorrow. The impression and plan of care has been dictated as directed. : I performed a history and examination of this patient, discussed the same with the dictator. I agree with the dictator's note ,documented as a scribe. Any additional findings or plans will be noted.
[2021-04-23] MEDS: HYDROcodone/APAP 10-325MG 1 EACH TAB PO PRN (17:27)
[2021-04-23] MEDS ORDERED: LORazepam 2 MG/ML INJ IV PRN (19:02)
[2021-04-23] MEDS ORDERED: HYDROmorphone 0.5 MG/0.5 ML SYRINGE IVP PRN (19:02)
--- NOTE | 2021-04-23 19:28 | P.CONS ---
History of Present Illness - Reason for Consult Consult date: 04/23/21 Bladder Cancer Requesting physician: Roddy Archer - Chief Complaint Hematuria - History of Present Illness Sparkle presented with difficulty urinating (Pain) and mild/moderate RLQ abdominal pain. She had CT Scan of abdomen/Pelvis revealing thickened posterior bladder wall and bilateral hydronephrosis , she was evaluated by Dr Bee, has Cystoscopy & TURBT on 12/20/2020 revealing large posterior wall bladder tumor, pathology revealed high-grade papillary urothelial carcinoma, no definate muscle invasion seen, but the patient clearly has locally advanced invasive disease. The patient had bilateral nephrostomy tubes. Sparkle was evaluated by Dr Best at [facility], he agreed with recommendation for Neoadjuvant Chemotherapy. The patient is a lifetime non smoker, denies ETOH use, no family history of bladder cancers. She denies anorexia or weight loss. 01/29/21: C/O Grade II nausea/vomiting, as well as, fatigue. Tolerated cycle # 1 of Cisplatinum+Gemzar well 03/02/21: Feels Ok, tolerating Cisplatinim+Gemzar well (Nausea & fatigue). 03/23/21: C/O back pain (site of nephrostomy tubes), tolerating Chemotherapy well (Grade II nausea after Cisplatinum). Remains fully active. Was seen in ER earlier in day for right neck swelling and doppler revealed occlusive likely port associated IJ Thrombus and started on Eliquis. They were discharged home nad shortly after noticed blood in both nephrostomy tubes, therefore re-addmitted, eliquis held and hematuria improved. Now started on heparin drip with mild left nephrostomy tube draining pink tinged blood. Right is clear yellow. Recent Chemotherapy with Cisplatin and Gemzar CT Scans 04/21 Review of Systems All systems: negative Constitutional: Reports as per HPI Past Medical History Past Medical History: Cancer, GERD/Reflux, Hyperlipidemia Additional Past Medical History / Comment(s): shingles 2006, Hospitalized 12/18/20 to 12/22/20 with renal failure & bladder tumor (cancer), uterine cyst, low iron., states pain lower abdomen , Irvin nephrostomy tubes. History of Any Multi-Drug Resistant Organisms: None Reported Past Surgical History: Tubal Ligation Additional Past Surgical History / Comment(s): nephrostomy tubes 12/21/20. RIGHT SCL PORT PLACEMENT. blood clot in jugular Past Anesthesia/Blood Transfusion Reactions: No Reported Reaction Additional Past Anesthesia/Blood Transfusion Reaction / Comm: . Past Psychological History: No Psychological Hx Reported Smoking Status: Never smoker Past Alcohol Use History: None Reported Past Drug Use History: None Reported - Past Family History Mother Family Medical History: Hyperlipidemia, Hypertension Additional Family Medical History / Comment(s): Borderline Diabetic. Father Family Medical History: Coronary Artery Disease (CAD), Hyperlipidemia, Hypertension Additional Family Medical History / Comment(s): CABG. Medications and Allergies Home Medications Medication Instructions Recorded Confirmed Type Rosuvastatin Calcium [Crestor] 10 mg PO HS 09/19/17 04/22/21 History Ferrous Sulfate [Feosol] 325 mg PO DAILY #30 tab 12/22/20 04/22/21 Rx Sodium Bicarbonate Tab 650 mg PO DAILY 12/31/20 04/22/21 History HYDROcodone/APAP 10-325MG [[place] 1 tab PO Q6H 02/03/21 04/22/21 History 10-325] Pantoprazole [Protonix] 40 mg PO DAILY 03/24/21 04/22/21 History Sennosides [Senokot] 17.2 mg PO HS PRN 03/24/21 04/22/21 History Apixaban [Eliquis Starter Pack See Taper PO DIRECTED 04/22/21 04/22/21 History (for VTE)] Allergies Allergy/AdvReac Type Severity Reaction Status Date / Time atorvastatin [From Lipitor] Allergy Chest Pain Verified 04/22/21 20:32 Latex, Natural Rubber Allergy Swelling Verified 04/22/21 20:32 metronidazole Allergy Chest Pain Verified 04/22/21 20:32 Physical Exam Vitals: Vital Signs Temp Pulse Pulse Resp BP BP Pulse Ox 04/23/21 07:16 95 114/65 98 04/23/21 04:38 98.5 F 83 16 103/64 97 04/22/21 23:54 98.5 F 83 16 119/73 97 04/22/21 22:30 98.5 F 84 18 107/60 99 04/22/21 20:35 94 04/22/21 20:06 109 H 18 98 04/22/21 18:18 99.9 F H 127 H 18 125/69 100 Intake and Output 04/22/21 04/23/21 04/23/21 22:59 06:59 14:59 Other: Voiding Method Toilet Ileal Conduit (Right) Ileal Conduit (Left) # Voids 1 Weight 59.421 kg 59.421 kg - Constitutional General appearance: cooperative, no acute distress - EENT Eyes: EOMI, PERRLA ENT: NA/AT - Neck Neck: normal ROM - Respiratory Respiratory: bilateral: CTA - Cardiovascular Rhythm: regular - Gastrointestinal General gastrointestinal: normal bowel sounds, soft - Genitourinary Bilateral nephro tubes. Lefft pink tinged blood, Right yellow and clear. - Integumentary Integumentary: pale - Neurologic Neurologic: CNII-XII intact - Musculoskeletal Musculoskeletal: gait normal, generalized weakness - Psychiatric Psychiatric: A&O x's 3, appropriate affect, intact judgment & insight Results CBC & Chem 7: 04/23/21 11:40 04/23/21 08:42 Labs: Abnormal Lab Results - Last 24 Hours (Table) 04/22/21 04/22/21 04/22/21 Range/Units 18:31 18:31 19:10 RBC 2.97 L (3.80-5.40) m/uL Hgb 10.5 L (11.4-16.0) gm/dL Hct 32.0 L (34.0-46.0) % MCV 107.9 H (80.0-100.0) fL MCH 35.3 H (25.0-35.0) pg RDW 15.9 H (11.5-15.5) % Plt Count 105 L (150-450) k/uL Lymphocytes # 0.6 L (1.0-4.8) k/uL Macrocytosis Marked A Creatinine 0.47 L (0.52-1.04) mg/dL Glucose 148 H (74-99) mg/dL C-Reactive Protein 13.5 H (<1.0) mg/dL Urine Appearance Bloody H (Clear) Urine RBC >182 H (0-5) /hpf Urine Mucus Rare H (None) /hpf CT scan - abdomen: report reviewed CT Scan - head: report reviewed CT scan - pelvis: report reviewed Assessment and Plan (1) Hematuria Current Visit: Yes Status: Acute Code(s): R31.9 - HEMATURIA, UNSPECIFIED SNOMED Code(s): 98207518 (2) Bladder cancer Current Visit: No Status: Acute Code(s): C67.9 - MALIGNANT NEOPLASM OF BLADDER, UNSPECIFIED SNOMED Code(s): 698023046 (3) Macrocytic anemia Current Visit: Yes Status: Acute Code(s): D53.9 - NUTRITIONAL ANEMIA, UNSP ECIFIED SNOMED Code(s): 52554945 Plan: Assessment and Recommendations: Brain-adjuvant Chemotherapy for Urothelial Cancer: - Status Post 4 cycles of Cisplatin and Gemsar on 04/14 Recent IJ Thrombus - Started on Eliquis - heamaturia. Now on heparin drip, monitir for bleeding, then switch to PO and would monitor 12 hours after PO before discharge Hematuria: - Monitor CBC Macrocytic Anemia: - Stable at 10 today - No transfusion needed - Iron studies and macrocytic deficiencies checked - Replace if needed As far as port, she is possibly completed with chemotherapy however unable to know till she is re-evaluated by surgery. At this time do not use port. Will await to see how she does and may need port removed.
[2021-04-23] MEDS: SENNOSIDES-DOCUSATE SODIUM 1 EACH TAB PO SCH (19:41)
[2021-04-23] MEDS: ROSUVASTATIN 10 MG PO SCH (19:41)
[2021-04-23] MEDS ORDERED: ATORVASTATIN 10 MG TAB PO SCH (21:00)
[2021-04-23] MEDS: SODIUM CHLORIDE 0.9% 1,000 ML IV SCH (21:36)
[2021-04-23 22:37] LABS: % Iron Saturation 9.01 (12.00-45.00); Folate, Serum 19.2 ng/mL; Iron 21 ug/dL (50-170); Total Iron Binding Capacity 233 ug/dL (228-460)
[2021-04-24 03:55] LABS: Anisocytosis Slight; HGB 10.4 gm/dL (11.4-16.0); MCHC 33.6 g/dL (31.0-37.0); MCV 107.2 fL (80.0-100.0); Macrocytosis Marked; Mean Platelet Volume 7.1; Platelet Count 174 k/uL (150-450); RBC 2.89 m/uL (3.80-5.40); RDW 16.2 % (11.5-15.5); WBC 5.2 k/uL (3.8-10.6)
[2021-04-24 04:22] LABS: Band Neutrophils % 3 %; Eosinophils # (M) 0.05 k/uL (0-0.7); Lymphocytes # (M) 1.77 k/uL (1.0-4.8); Metamyelocytes # (M) 0.21 k/uL (0); Metamyelocytes % 4 %; Monocytes # (M) 0.68 k/uL (0-1.0); Myelocytes # (M) 0.05 k/uL (0); Myelocytes % 1 %; Neutrophils % (M) 44 %; Nucleated Red Blood Cells 0 /100 WBC (0-0); Total Cells Counted 100
[2021-04-24 04:24] LABS: Polychromasia Present
[2021-04-24] MEDS: SENNOSIDES-DOCUSATE SODIUM 1 EACH TAB PO SCH ×2 (07:54→20:10)
[2021-04-24] MEDS: PANTOPRAZOLE 40 MG TABLET PO SCH (07:54)
[2021-04-24] MEDS: FERROUS SULFATE 325 MG TAB PO SCH (07:55)
[2021-04-24] MEDS: SODIUM BICARBONATE TAB 650 MG TAB PO SCH (07:55)
[2021-04-24] MEDS: HYDROcodone/APAP 10-325MG 1 EACH TAB PO PRN ×2 (09:28→20:10)
[2021-04-24] MEDS: HEPARIN SOD,PORK IN 0.45% NACL 25,000 UNIT in 0.45% NACL 1 250ML.BAG IV SCH (11:18)
--- NOTE | 2021-04-24 15:11 | PN ---
PROGRESS NOTE DATE OF SERVICE: 04/24/2021 This 50-year-old woman who was admitted with hematuria also had a history of bladder cancer. The patient also had right IJ thrombosis. The patient has been started on IV heparin at this time. The patient appears to be tolerating at this time. No hematuria is noted. Hemoglobin is 10.4. Multiple consultants are following the patient closely. Past medical history reviewed. REVIEW OF SYSTEMS: CARDIOVASCULAR SYSTEM: No angina. RESPIRATION: As mentioned earlier. GI: As mentioned earlier. : As mentioned earlier. NERVOUS SYSTEM: No numbness, weakness. CURRENT MEDICATIONS: Current medications are reviewed and include Tylenol, [place], iron sulfate, heparin, Dilaudid, Ativan, Narcan, Crestor, Protonix. Doses are reviewed. PHYSICAL EXAMINATION: Patient is alert, oriented x3. Blood pressure respirations 16, temperature 98.9, pulse ox 96% on room air. HEENT: Conjunctivae normal. NECK: No jugular venous distention. Right side slightly tender. CARDIOVASCULAR SYSTEM: S1, S2 muffled. RESPIRATORY: Breath sounds diminished at the bases. No rhonchi. No crackles. Right chest port also present. ABDOMEN: Soft. Status post tubes. NERVOUS SYSTEM: No focal deficit. LABS: WBC 5.2, hemoglobin 10.4. ASSESSMENT: 1. Acute occlusive right internal jugular vein thrombosis. 2. Recently diagnosed bladder cancer. 3. History of hematuria, present on admission. 4. Gastroesophageal reflux disease. 5. Hyperlipidemia. 6. History of shingles. 7. History of bilateral nephrostomy tubes. 8. History of tubal ligation. 9. Anemia, macrocytic, secondary to chemotherapy as well as possible hematuria. 10.Hyponatremia. 11.Elevated random glucose. 12.FULL CODE. RECOMMENDATIONS AND DISCUSSION: In this 50-year-old woman who presented with multiple complex medical issues, we will monitor the patient closely, continue the current medications, continue symptomatic treatment. Otherwise at this time I recommend continuing with monitoring. Continue the IV heparin. Closely follow with Hematology/Oncology as well as Vascular Surgery. Guarded prognosis. Further recommendations to follow. Repeat labs are ordered. MMODL / IJN: [id number] / MTDD
[2021-04-24] MEDS: ROSUVASTATIN 10 MG PO SCH (20:10)
[2021-04-24] MEDS: SODIUM CHLORIDE 0.9% 1,000 ML IV SCH (20:11)
[2021-04-25] MEDS: HEPARIN SOD,PORK IN 0.45% NACL 25,000 UNIT in 0.45% NACL 1 250ML.BAG IV SCH (04:44)
[2021-04-25] MEDS: PANTOPRAZOLE 40 MG TABLET PO SCH (08:31)
[2021-04-25] MEDS: SODIUM BICARBONATE TAB 650 MG TAB PO SCH (08:31)
[2021-04-25] MEDS: FERROUS SULFATE 325 MG TAB PO SCH (08:32)
[2021-04-25] MEDS: SENNOSIDES-DOCUSATE SODIUM 1 EACH TAB PO SCH ×2 (08:32→20:03)
[2021-04-25 09:17] LABS: Potassium 4.1 mmol/L (3.5-5.1)
[2021-04-25 09:18] LABS: African American GFR (CKD) >90 (>60 ml/min/1.73 sqM); Anion Gap 13 mmol/L; Basophils % (A) 1 %; Blood Urea Nitrogen 9 mg/dL (7-17); Calcium 9.7 mg/dL (8.4-10.2); Carbon Dioxide 18 mmol/L (22-30); Chloride 107 mmol/L (98-107); Eosinophils # (A) 0.1 k/uL (0-0.7); Eosinophils % (A) 2 %; Glucose 85 mg/dL (74-99); HCT 35.3 % (34.0-46.0); HGB 11.7 gm/dL (11.4-16.0); Hypochromasia Slight; Lymphocytes # (A) 0.8 k/uL (1.0-4.8); Lymphocytes % (A) 27 %; MCH 36.2 pg (25.0-35.0); MCHC 33.2 g/dL (31.0-37.0); MCV 108.9 fL (80.0-100.0); Macrocytosis Marked; Mean Platelet Volume 7.2; Monocytes # (A) 0.3 k/uL (0-1.0); Monocytes % (A) 11 %; Neutrophils # (A) 1.6 k/uL (1.3-7.7); Neutrophils % (A) 54 %; Non-African American GFR(CKD) >90 (>60 ml/min/1.73 sqM); Platelet Count 347 k/uL (150-450); RBC 3.24 m/uL (3.80-5.40); RDW 15.8 % (11.5-15.5); Sodium 138 mmol/L (137-145)
[2021-04-25 09:38] LABS: Band Neutrophils % 5 %; Lymphocytes # (M) 1.05 k/uL (1.0-4.8); Metamyelocytes # (M) 0.12 k/uL (0); Metamyelocytes % 4 %; Monocytes # (M) 0.21 k/uL (0-1.0); Myelocytes # (M) 0.03 k/uL (0); Myelocytes % 1 %; Neutrophils % (M) 48 %; Nucleated Red Blood Cells 0 /100 WBC (0-0); Polychromasia Present; Tear Drop Cells Present; Total Cells Counted 100
[2021-04-25] MEDS: HYDROcodone/APAP 10-325MG 1 EACH TAB PO PRN ×2 (11:15→20:03)
--- NOTE | 2021-04-25 13:42 | PN ---
PROGRESS NOTE DATE OF SERVICE: 04/25/2021 I am covering for Dr. Nath. This 50-year-old woman who was admitted with hematuria also had DVT of the right IJ. The patient is on IV heparin. No bleeding was noted at this time. Urine is clear from the nephrostomy bag. The hemoglobin is also rather stable at 11.7. No chest pain. No palpitation. White count is 3. APTT is therapeutic. PHYSICAL EXAMINATION: Alert and oriented x3. Pulse 72, blood pressure 111/73, respirations 16, temperature 98.2, pulse ox 99% on room air. HEENT: Conjunctivae normal. Neck: No JVD. Cardiovascular: S1, S2 muffled. Respiration: Breath sounds diminished in the bases. A few rhonchi. No crackles. Abdomen: Soft, nontender. Legs are no edema. No swelling. LABS: WBC 3, hemoglobin 11.7 and sodium is 138. ASSESSMENT: 1. Acute occlusive right internal jugular venous thrombosis. 2. Recently diagnosed bladder cancer on chemo. 3. History of hematuria, present on admission. 4. Gastroesophageal reflux disease. 5. Hyperlipidemia. 6. History of shingles. 7. History of bilateral nephrostomy tubes. 8. History of tubal ligation. 9. Anemia macrocytic secondary to chemotherapy as well as possible hematuria. 10.Hyponatremia. 11.Elevated random glucose. 12.FULL CODE. RECOMMENDATIONS AND DISCUSSION: I recommend to continue current medications. Symptomatic treatment. Continue with IV heparin. Possible port removal. Closely follow with Hematology/Oncology and I would also order repeat labs for tomorrow. Closely follow with Dr. Nath. Dr. Nath will follow tomorrow. MMODL / IJN: [id number] /
[2021-04-25] MEDS: ROSUVASTATIN 10 MG PO SCH (20:03)
[2021-04-25] MEDS: SODIUM CHLORIDE 0.9% 1,000 ML IV SCH (20:04)
[2021-04-26] MEDS: HEPARIN SOD,PORK IN 0.45% NACL 25,000 UNIT in 0.45% NACL 1 250ML.BAG IV SCH ×2 (02:13→21:27)
[2021-04-26 06:58] LABS: African American GFR (CKD) >90 (>60 ml/min/1.73 sqM); Anion Gap 9 mmol/L; Blood Urea Nitrogen 8 mg/dL (7-17); Calcium 9.5 mg/dL (8.4-10.2); Carbon Dioxide 22 mmol/L (22-30); Chloride 108 mmol/L (98-107); Glucose 85 mg/dL (74-99); Non-African American GFR(CKD) >90 (>60 ml/min/1.73 sqM); Potassium 4.3 mmol/L (3.5-5.1); Sodium 139 mmol/L (137-145)
[2021-04-26 07:00] LABS: HCT 32.7 % (34.0-46.0); MCH 35.8 pg (25.0-35.0); MCHC 33.7 g/dL (31.0-37.0); MCV 106.2 fL (80.0-100.0); Macrocytosis Moderate; Mean Platelet Volume 6.7; Platelet Count 440 k/uL (150-450); RBC 3.07 m/uL (3.80-5.40); RDW 15.6 % (11.5-15.5)
[2021-04-26] MEDS: SENNOSIDES-DOCUSATE SODIUM 1 EACH TAB PO SCH ×2 (07:56→20:04)
[2021-04-26] MEDS: SODIUM BICARBONATE TAB 650 MG TAB PO SCH (07:56)
[2021-04-26] MEDS: PANTOPRAZOLE 40 MG TABLET PO SCH (07:56)
[2021-04-26] MEDS: FERROUS SULFATE 325 MG TAB PO SCH (07:56)
[2021-04-26 08:15] LABS: Eosinophils # (M) 0.15 k/uL (0-0.7); Lymphocytes # (M) 1.32 k/uL (1.0-4.8); Metamyelocytes # (M) 0.06 k/uL (0); Metamyelocytes % 2 %; Monocytes # (M) 0.51 k/uL (0-1.0); Myelocytes # (M) 0.12 k/uL (0); Myelocytes % 4 %; Neutrophils # (M) 0.87 k/uL (1.3-7.7); Neutrophils % (M) 29 %; Nucleated Red Blood Cells 0 /100 WBC (0-0); Total Cells Counted 200
[2021-04-26 08:17] LABS: Poikilocytosis (M) Present
--- NOTE | 2021-04-26 09:02 | P.PN ---
Subjective Progress Note Date: 04/26/21 Principal diagnosis: Right IJ thrombosis Patient is seen and examined sitting up at the bedside. She denies any shortness of breath or chest pain. She denies any fevers or chills. She has some swelling at the port site, no redness. Some tenderness with palpation. She's had no signs or symptoms of bleeding, hemoglobin stable at 11.0. She remains on IV heparin drip throughout the weekend. Objective - Vital Signs Vital signs: Vital Signs Temp 98 F 04/26/21 05:00 Pulse 73 04/26/21 05:00 Resp 16 04/26/21 05:00 BP 104/58 04/26/21 05:00 Pulse Ox 100 04/26/21 05:00 Intake & Output 04/25/21 04/26/21 04/26/21 18:59 06:59 18:59 Intake Total 790 Output Total 1200 Balance -1200 790 Intake: Intake, IV Titration 490 Amount Heparin Sod,Pork in 0.45% 250 NaCl 25,000 unit In 0.45 % NaCl 1 250ml.bag @ 18 UNITS/KG/HR 10.696 mls/hr IV .[id number] JORDAN Rx#: [id number] Sodium Chloride 0.9% 1, 240 000 ml @ 20 mls/hr IV . Q24H JORDAN Rx#:[id number] Oral 300 Output: Urine 1200 Other: Voiding Method Toilet Toilet Ileal Conduit (Right) Ileal Conduit (Right) Ileal Conduit (Left) Ileal Conduit (Left) # Voids 2 - Exam General appearance: The patient is alert, oriented, in no acute distress. HET: Head is normocephalic and atraumatic. Neck: Supple without lymphadenopathy. Trachea midline. Heart: S1 S2. Regular rate and rhythm. Lungs: Clear to auscultation. Chest: Right upper side of chest report is with swelling, no redness, mild tenderness to palpation. Abdomen: Soft, nontender, nondistended. Bilateral nephrostomy bags with clear urine. Extremities: Normal skin color and turgor. No cyanosis, rash, ulceration, clubbing, or edema. Palpable Radial pulses bilaterally good capillary refill. Should has full range of motion of bilateral upper extremities. Neurological: No focal deficits. Strength and sensation are grossly intact. - Labs CBC & Chem 7: 04/26/21 06:24 04/26/21 06:24 Labs: Abnormal Lab Results - Last 24 Hours (Table) 04/25/21 04/25/21 04/25/21 Range/Units 07:37 07:37 07:37 WBC 3.0 L (3.8-10.6) k/uL RBC 3.24 L (3.80-5.40) m/uL Hgb (11.4-16.0) gm/dL Hct (34.0-46.0) % MCV 108.9 H (80.0-100.0) fL MCH 36.2 H (25.0-35.0) pg RDW 15.8 H (11.5-15.5) % Neutrophils # (Manual) (1.3-7.7) k/uL Lymphocytes # 0.8 L (1.0-4.8) k/uL Metamyelocytes # (Man) 0.12 H (0) k/uL Myelocytes # (Manual) 0.03 H (0) k/uL Macrocytosis Marked A APTT 44.1 H (22.0-30.0) sec Chloride (98-107) mmol/L Carbon Dioxide 18 L (22-30) mmol/L Creatinine 0.43 L (0.52-1.04) mg/dL 04/26/21 04/26/21 Range/Units 06:24 06:24 WBC 3.0 L (3.8-10.6) k/uL RBC 3.07 L (3.80-5.40) m/uL Hgb 11.0 L (11.4-16.0) gm/dL Hct 32.7 L (34.0-46.0) % MCV 106.2 H (80.0-100.0) fL MCH 35.8 H (25.0-35.0) pg RDW 15.6 H (11.5-15.5) % Neutrophils # (Manual) 0.87 L (1.3-7.7) k/uL Lymphocytes # (1.0-4.8) k/uL Metamyelocytes # (Man) 0.06 H (0) k/uL Myelocytes # (Manual) 0.12 H (0) k/uL Macrocytosis APTT (22.0-30.0) sec Chloride 108 H (98-107) mmol/L Carbon Dioxide (22-30) mmol/L Creatinine 0.44 L (0.52-1.04) mg/dL Microbiology - Last 24 Hours (Table) 04/22/21 18:50 Blood Culture - Preliminary Blood No Growth after 72 hours Assessment and Plan Assessment: 1. Right IJ vein thrombosis 2. Bladder cancer, right IJ port for recent chemotherapy Plan: 1. May transition to Eliquis if okay with hematology. 2. May keep port in place if needed, otherwise may discontinue with surgery 3. Recommend outpatient anticoagulation if patient able to tolerate Inc. you for this consultation, vascular surgery will sign off at this time. The impression and plan of care has been dictated as directed. Dr. Vargas I performed a history and examination of this patient, discussed the same with the dictator. I agree with the dictator's note ,documented as a scribe. Any additional findings or plans will be noted.
[2021-04-26] MEDS ORDERED: HEPARIN SODIUM 1,000 UN/ML (10ML VL) MISCELLANE ONE (09:08)
[2021-04-26] MEDS: HYDROcodone/APAP 10-325MG 1 EACH TAB PO PRN ×2 (10:18→20:03)
--- NOTE | 2021-04-26 15:24 | P.PN ---
Subjective Progress Note Date: 04/26/21 Principal diagnosis: Hematuria No further bleeding, occassional pink tinge in left nephro bag, however hemoglobin remains stable. Will re-trial eliquis today. Heparin drip to stop at 6pm and Eliquis to begin. RN to monitor closely through night, especially first 12 hours. Discussed with patient and who are a bit hesistant, however choices of anticoagulation DOAC will be easiest to monitor, ensure sufficient blood thinning, with less blood monitoring, therefore retrial was felt to benefit risk especially with monitoring overnight. Objective - Vital Signs Vital signs: Vital Signs Temp 98.0 F 04/26/21 11:26 Pulse 74 04/26/21 11:26 Resp 16 04/26/21 11:26 BP 134/68 04/26/21 11:26 Pulse Ox 100 04/26/21 11:26 Intake & Output 04/25/21 04/26/21 04/26/21 18:59 06:59 18:59 Intake Total 790 86.159 Output Total 1200 Balance -1200 790 86.159 Intake: Intake, IV Titration 490 86.159 Amount Heparin Sod,Pork in 0.45% 250 86.159 NaCl 25,000 unit In 0.45 % NaCl 1 250ml.bag @ 18 UNITS/KG/HR 10.696 mls/hr IV .[id number] JORDAN Rx#: [id number] Sodium Chloride 0.9% 1, 240 000 ml @ 20 mls/hr IV . Q24H JORDAN Rx#:[id number] Oral 300 Output: Urine 1200 Other: Voiding Method Toilet Toilet Toilet Ileal Conduit (Right) Ileal Conduit (Right) Ileal Conduit (Right) Ileal Conduit (Left) Ileal Conduit (Left) Ileal Conduit (Left) # Voids 2 - Exam - Constitutional General appearance: cooperative, no acute distress - EENT Eyes: EOMI, PERRLA ENT: NA/AT - Neck Neck: normal ROM - Respiratory Respiratory: bilateral: CTA - Cardiovascular Rhythm: regular - Gastrointestinal General gastrointestinal: normal bowel sounds, soft - Genitourinary Bilateral nephro tubes. Lefft pink tinged blood, Right yellow and clear. - Integumentary Integumentary: pale - Neurologic Neurologic: CNII-XII intact - Musculoskeletal Musculoskeletal: gait normal, generalized weakness - Psychiatric Psychiatric: A&O x's 3, appropriate affect, intact judgment & insight - Labs CBC & Chem 7: 04/26/21 06:24 04/26/21 06:24 Labs: Abnormal Lab Results - Last 24 Hours (Table) 04/26/21 04/26/21 04/26/21 Range/Units 06:24 06:24 06:24 WBC 3.0 L (3.8-10.6) k/uL RBC 3.07 L (3.80-5.40) m/uL Hgb 11.0 L (11.4-16.0) gm/dL Hct 32.7 L (34.0-46.0) % MCV 106.2 H (80.0-100.0) fL MCH 35.8 H (25.0-35.0) pg RDW 15.6 H (11.5-15.5) % Neutrophils # (Manual) 0.87 L (1.3-7.7) k/uL Metamyelocytes # (Man) 0.06 H (0) k/uL Myelocytes # (Manual) 0.12 H (0) k/uL APTT 38.7 H (22.0-30.0) sec Chloride 108 H (98-107) mmol/L Creatinine 0.44 L (0.52-1.04) mg/dL Microbiology - Last 24 Hours (Table) 04/22/21 18:50 Blood Culture - Preliminary Blood No Growth after 72 hours Assessment and Plan (1) Hematuria Current Visit: Yes Status: Acute Code(s): R31.9 - HEMATURIA, UNSPECIFIED SNOMED Code(s): 73849374 (2) Bladder cancer Current Visit: No Status: Acute Code(s): C67.9 - MALIGNANT NEOPLASM OF BLADDER, UNSPECIFIED SNOMED Code(s): 199695853 (3) Macrocytic anemia Current Visit: Yes Status: Acute Code(s): D53.9 - NUTRITIONAL ANEMIA, UNSPECIFIED SNOMED Code(s): 37968755 Plan: Assessment and Recommendations: Brain-adjuvant Chemotherapy for Urothelial Cancer: - Status Post 4 cycles of Cisplatin and Gemsar on 04/14 Recent IJ Thrombus - Started on Eliquis - heamaturia. Now on heparin drip, monitir for bleeding, then switch to PO and would monitor 12 hours after PO before discharge - Start Eliquis re-challenge tonight Hematuria: Improved - No further bleeding on heparin drip - Monitor CBC Macrocytic Anemia: - Stable Discussed with Dr. Maria L jauregui to keep port as long as on anticoagulation. She maybe done with chemotherapy, therefore we will be able to remove however at this time we are awaiting surgical consultation after completion of brain adjuvant chemo
[2021-04-26] MEDS ORDERED: APIXABAN 5 MG TAB PO SCH (18:00)
[2021-04-26] MEDS: ROSUVASTATIN 10 MG PO SCH (20:04)
[2021-04-26] MEDS: SODIUM CHLORIDE 0.9% 1,000 ML IV SCH (20:04)
[2021-04-27] MEDS: HYDROcodone/APAP 10-325MG 1 EACH TAB PO PRN ×3 (08:26→21:10)
--- NOTE | 2021-04-27 08:52 | P.PN ---
Subjective Progress Note Date: 04/27/21 Principal diagnosis: Hematuria Discharge planned changed as patient likely completed with chemotherapy and she is very nervous to access or use port given a few different opinions in initial visit to ER. Discussed with Dr Salas and plan to remove port today. WIll continue Heparin drip till port removal and then switch to PO DOAC. If line required in future may use picc Objective - Vital Signs Vital signs: Vital Signs Temp 98.2 F 04/27/21 04:36 Pulse 71 04/27/21 04:36 Resp 16 04/27/21 04:36 BP 108/66 04/27/21 04:36 Pulse Ox 100 04/27/21 04:36 Intake & Output 04/26/21 04/27/21 04/27/21 18:59 06:59 18:59 Intake Total 195.536 405.367 Output Total 800 Balance 195.536 -394.633 Intake: Intake, IV Titration 195.536 405.367 Amount Heparin Sod,Pork in 0.45% 195.536 165.367 NaCl 25,000 unit In 0.45 % NaCl 1 250ml.bag @ 18 UNITS/KG/HR 10.696 mls/hr IV .[id number] JORDAN Rx#: [id number] Sodium Chloride 0.9% 1, 240 000 ml @ 20 mls/hr IV . Q24H JORDAN Rx#:[id number] Output: Drainage 800 Bilateral 800 Other: Voiding Method Toilet Toilet Ileal Conduit (Right) Ileal Conduit (Right) Ileal Conduit (Left) Ileal Conduit (Left) # Voids 2 - Exam - Constitutional General appearance: cooperative, no acute distress - EENT Eyes: EOMI, PERRLA ENT: NA/AT - Neck Neck: normal ROM - Respiratory Respiratory: bilateral: CTA - Cardiovascular Rhythm: regular - Gastrointestinal General gastrointestinal: normal bowel sounds, soft - Genitourinary Bilateral nephro tubes. Lefft pink tinged blood, Right yellow and clear. - Integumentary Integumentary: pale - Neurologic Neurologic: CNII-XII intact - Musculoskeletal Musculoskeletal: gait normal, generalized weakness - Psychiatric Psychiatric: A&O x's 3, appropriate affect, intact judgment & insight - Labs CBC & Chem 7: 04/26/21 06:24 04/26/21 06:24 Labs: Abnormal Lab Results - Last 24 Hours (Table) 04/26/21 04/26/21 04/27/21 Range/Units 06:24 16:39 04:40 APTT 38.7 H 52.2 H 72.7 H (22.0-30.0) sec Microbiology - Last 24 Hours (Table) 04/22/21 18:50 Blood Culture - Preliminary Blood No Growth after 96 hours Assessment and Plan (1) Hematuria Current Visit: Yes Status: Acute Code(s): R31.9 - HEMATURIA, UNSPECIFIED SNOMED Code(s): 10882784 (2) Bladder cancer Current Visit: No Status: Acute Code(s): C67.9 - MALIGNANT NEOPLASM OF BLADDER, UNSPECIFIED SNOMED Code(s): 354393016 (3) Macrocytic anemia Current Visit: Yes Status: Acute Code(s): D53.9 - NUTRITIONAL ANEMIA, UNSPECIFIED SNOMED Code(s): 47981732 Plan: Assessment and Recommendations: Brain-adjuvant Chemotherapy for Urothelial Cancer: - Status Post 4 cycles of Cisplatin and Gemsar on 04/14 Recent IJ Thrombus - Started on Eliquis - heamaturia. Now on heparin drip, monitir for bleeding, then switch to PO and would monitor 12 hours after PO before discharge - Start Eliquis re-challenge tonight Hematuria: Improved - No further bleeding on heparin drip - Monitor CBC Macrocytic Anemia: - Stable Removal of Port today, continue Heparin drip immediately after port removal and then convert to Eliquis at 9pm tonight. Physician Attest: I have completed the full history and physical and agree with above dictation, dictated as a ascribe.
[2021-04-27] MEDS: PANTOPRAZOLE 40 MG TABLET PO SCH (09:06)
[2021-04-27] MEDS: SODIUM BICARBONATE TAB 650 MG TAB PO SCH (09:06)
[2021-04-27] MEDS: SENNOSIDES-DOCUSATE SODIUM 1 EACH TAB PO SCH ×2 (09:06→21:09)
[2021-04-27] MEDS: FERROUS SULFATE 325 MG TAB PO SCH (09:06)
[2021-04-27] MEDS ORDERED: IV FLUID CONTINUATION 1,000 ML IV ONE (11:17)
[2021-04-27] MEDS ORDERED: ONDANSETRON 4 MG/2 ML VIAL ONE (11:33)
[2021-04-27] MEDS ORDERED: ONDANSETRON 4 MG/2 ML VIAL IVP ONE (11:35)
[2021-04-27] MEDS ORDERED: DEXAMETHASONE SOD PHOSPHATE 4 MG/ML 1 ML VIAL IVP ONE (11:36)
--- NOTE | 2021-04-27 12:05 | P.GSCN ---
History of Present Illness Consult date: 04/27/21 History of present illness: Patient admitted for recent findings of DVT right neck. Patient had a Port-A-Cath placed right IJ 4 months ago. She was seen in the ER on Monday and found have an acute DVT of the right internal jugular vein. Patient says her pain is improved. Oncology believes that she is likely done with the need for the Port-A-Cath at this time. Patient is anxious to have the port removed since it is not being used imminently. She has been on a heparin drip. Review of Systems The patient denies any acute changes in vision or hearing, no dysphagia or odynophagia, no chest pain or shortness of breath, no dysuria or hematuria, no headache, no runny nose, no rectal bleeding or melena, no unexplained weight loss Past Medical History Past Medical History: Cancer, GERD/Reflux, Hyperlipidemia Additional Past Medical History / Comment(s): natanaelmonicojacqui 2005, Hospitalized 12/18/20 to 12/22/20 with renal failure & bladder tumor (cancer), uterine cyst, low iron ., states pain lower abdomen , Irvin nephrostomy tubes. History of Any Multi-Drug Resistant Organisms: None Reported Past Surgical History: Tubal Ligation Additional Past Surgical History / Comment(s): nephrostomy tubes 12/21/20. RIGHT SCL PORT PLACEMENT. blood clot in jugular Past Anesthesia/Blood Transfusion Reactions: No Reported Reaction Additional Past Anesthesia/Blood Transfusion Reaction / Comm: . Past Psychological History: No Psychological Hx Reported Smoking Status: Never smoker Past Alcohol Use History: None Reported Past Drug Use History: None Reported - Past Family History Mother Family Medical History: Hyperlipidemia, Hypertension Additional Family Medical History / Comment(s): Borderline Diabetic. Father Family Medical History: Coronary Artery Disease (CAD), Hyperlipidemia, Hypertension Additional Family Medical History / Comment(s): CABG. Medications and Allergies Home Medications Medication Instructions Recorded Confirmed Type Rosuvastatin Calcium [Crestor] 10 mg PO HS 09/19/17 04/22/21 History Ferrous Sulfate [Feosol] 325 mg PO DAILY #30 tab 12/22/20 04/22/21 Rx Sodium Bicarbonate Tab 650 mg PO DAILY 12/31/20 04/22/21 History HYDROcodone/APAP 10-325MG [[place] 1 tab PO Q6H 02/03/21 04/22/21 History 10-325] Pantoprazole [Protonix] 40 mg PO DAILY 03/24/21 04/22/21 History Sennosides [Senokot] 17.2 mg PO HS PRN 03/24/21 04/22/21 History Apixaban [Eliquis Starter Pack See Taper PO DIRECTED 04/22/21 04/22/21 History (for VTE)] Allergies Allergy/AdvReac Type Severity Reaction Status Date / Time atorvastatin [From Lipitor] Allergy Chest Pain Verified 04/22/21 20:32 Latex, Natural Rubber Allergy Swelling Verified 04/22/21 20:32 metronidazole Allergy Chest Pain Verified 04/22/21 20:32 Surgical - Exam Vital Signs Temp Pulse Resp BP Pulse Ox 99.9 F H 127 H 18 125/69 100 04/22/21 18:18 04/22/21 18:18 04/22/21 18:18 04/22/21 18:18 04/22/21 18:18 Physical exam: General: Well-developed, well-nourished HEENT: Normocephalic, sclerae nonicteric Chest: Right-sided Port-A-Cath in place Abdomen: Nontender, nondistended Extremities: No edema Neuro: Alert and oriented Results - Labs 04/26/21 06:24 04/26/21 06:24 Abnormal Lab Results - Last 24 Hours (Table) 04/26/21 04/27/21 Range/Units 16:39 04:40 APTT 52.2 H 72.7 H (22.0-30.0) sec Microbiology - Last 24 Hours (Table) 04/22/21 18:50 Blood Culture - Preliminary Blood No Growth after 96 hours Assessment and Plan (1) Bladder cancer Narrative/Plan: With Port-A-Cath removal at this time. Risks of bleeding, infection, PE reviewed. She understands and wishes to proceed. Current Visit: No Status: Acute Code(s): C67.9 - MALIGNANT NEOPLASM OF BLADDER, UNSPECIFIED SNOMED Code(s): 529247515
[2021-04-27] MEDS ORDERED: MIDAZOLAM 2 MG/2 ML VIAL ONE (12:26)
[2021-04-27] MEDS ORDERED: LIDOCAINE 1% INJ 10MG/ML (20 ML MDV) ONE (12:26)
[2021-04-27] MEDS ORDERED: fentaNYL (PF) 50 MCG/ML 2 ML AMP ONE (12:26)
[2021-04-27] MEDS ORDERED: PROPOFOL 10 MG/ML 20 ML VIAL IV ONE (12:26)
[2021-04-27] MEDS ORDERED: BUPIVACAINE (PF) 0.5% 30 ML VIAL SQ ONE ×2 (12:47)
[2021-04-27] MEDS ORDERED: LACTATED RINGERS 1,000 ML IV ONE (12:52)
--- NOTE | 2021-04-27 15:50 | P.OP ---
Date of Procedure: 04/27/21 Procedure(s) Performed: PREOPERATIVE DIAGNOSIS: Bladder cancer, DVT POSTOPERATIVE DIAGNOSIS: Same PROCEDURE: Port-A-Cath removal SURGEON: Josue EBL: Minimal ANESTHESIA: Sedation COMPLICATIONS: None OPERATIVE PROCEDURE: Patient was placed in the supine position. The patient was sedated per anesthesia that time. The chest was prepped and draped in the usual sterile fashion. The skin was localized with Marcaine solution. The previous incision was re-incised using a scalpel. The port was easily excised using accommodation of blunt dissection sharp dissection and electrocautery. The subcutaneous tissues were reapproximated using 3-0 Vicryl sutures. The skin was reapproximated using 4-0 Monocryl sutures. Skin glue was then applied. DISPOSITION: Stable to recovery room
[2021-04-27] MEDS: APIXABAN 5 MG TAB PO SCH (21:09)
[2021-04-27] MEDS: SODIUM CHLORIDE 0.9% 1,000 ML IV SCH (21:10)
[2021-04-27] MEDS: ROSUVASTATIN 10 MG PO SCH (21:10)
[2021-04-28 06:39] LABS: ALT 11 U/L (4-34); AST 23 U/L (14-36); African American GFR (CKD) >90 (>60 ml/min/1.73 sqM); Albumin 3.9 g/dL (3.5-5.0); Albumin/Globulin Ratio 1.6; Alkaline Phosphatase 70 U/L (38-126); Anion Gap 9 mmol/L; Blood Urea Nitrogen 9 mg/dL (7-17); Carbon Dioxide 25 mmol/L (22-30); Chloride 104 mmol/L (98-107); Globulin 2.5 g/dL; Glucose 83 mg/dL (74-99); Non-African American GFR(CKD) >90 (>60 ml/min/1.73 sqM); Potassium 4.8 mmol/L (3.5-5.1); Sodium 138 mmol/L (137-145); Total Bilirubin 0.2 mg/dL (0.2-1.3); Total Protein 6.4 g/dL (6.3-8.2)
[2021-04-28 07:48] LABS: Anisocytosis Slight; Basophils % (A) 0 %; Eosinophils % (A) 0 %; HCT 32.4 % (34.0-46.0); HGB 10.7 gm/dL (11.4-16.0); Hypochromasia Slight; Lymphocytes # (A) 1.4 k/uL (1.0-4.8); Lymphocytes % (A) 23 %; MCH 35.9 pg (25.0-35.0); MCV 108.8 fL (80.0-100.0); Macrocytosis Marked; Mean Platelet Volume 7.3; Monocytes # (A) 0.5 k/uL (0-1.0); Monocytes % (A) 9 %; Neutrophils % (A) 65 %; Platelet Count 681 k/uL (150-450); RBC 2.98 m/uL (3.80-5.40); RDW 16.2 % (11.5-15.5); WBC 6.2 k/uL (3.8-10.6)
[2021-04-28] MEDS: APIXABAN 5 MG TAB PO SCH ×2 (08:27→20:00)
[2021-04-28] MEDS: HYDROcodone/APAP 10-325MG 1 EACH TAB PO PRN ×2 (08:27→19:20)
[2021-04-28] MEDS: SODIUM BICARBONATE TAB 650 MG TAB PO SCH (08:28)
[2021-04-28] MEDS: PANTOPRAZOLE 40 MG TABLET PO SCH (08:28)
[2021-04-28] MEDS: SENNOSIDES-DOCUSATE SODIUM 1 EACH TAB PO SCH ×2 (08:28→20:00)
[2021-04-28] MEDS: FERROUS SULFATE 325 MG TAB PO SCH (08:28)
--- NOTE | 2021-04-28 12:33 | P.PN ---
Subjective Progress Note Date: 04/28/21 Principal diagnosis: DVT Patient doing well today. Minimal pain. Some bleeding from nephrostomy tubes last night. Objective - Vital Signs Vital signs: Vital Signs Temp 98.4 F 04/28/21 11:52 Pulse 81 04/28/21 11:52 Resp 17 04/28/21 11:52 BP 106/69 04/28/21 11:52 Pulse Ox 100 04/28/21 11:52 Intake & Output 04/27/21 04/28/21 04/28/21 18:59 06:59 18:59 Intake Total 463.762 0392.418 Output Total 1 900 Balance 346.338 528.418 Intake: IV 300 Intake, IV Titration 47.338 328.418 Amount Heparin Sod,Pork in 0.45% 47.338 88.418 NaCl 25,000 unit In 0.45 % NaCl 1 250ml.bag @ 18 UNITS/KG/HR 10.696 mls/hr IV .[id number] [facility] Rx#: [id number] Sodium Chloride 0.9% 1, 240 000 ml @ 20 mls/hr IV . Q24H [facility] Rx#:[id number] Oral 1100 Output: Drainage 900 Left 520 Right 380 Estimated Blood Loss 1 Other: Voiding Method Toilet Toilet Toilet Ileal Conduit (Right) Ileal Conduit (Right) Ileal Conduit (Right) Ileal Conduit (Left) Ileal Conduit (Left) Ileal Conduit (Left) # Voids 2 2 - Exam Right chest wall incision clean and dry with minimal tenderness - Labs CBC & Chem 7: 04/28/21 05:27 04/28/21 05:27 Labs: Abnormal Lab Results - Last 24 Hours (Table) 04/27/21 04/28/21 04/28/21 Range/Units 19:49 05:27 05:27 RBC 2.98 L (3.80-5.40) m/uL Hgb 10.7 L (11.4-16.0) gm/dL Hct 32.4 L (34.0-46.0) % MCV 108.8 H (80.0-100.0) fL MCH 35.9 H (25.0-35.0) pg RDW 16.2 H (11.5-15.5) % Plt Count 681 H (150-450) k/uL Macrocytosis Marked A APTT 53.3 H (22.0-30.0) sec Creatinine 0.47 L (0.52-1.04) mg/dL Microbiology - Last 24 Hours (Table) 04/22/21 18:50 Blood Culture - Preliminary Blood No Growth after 120 hours Assessment and Plan (1) Bladder cancer Narrative/Plan: Patient doing well clinically. Continue anticoagulation per primary service. May remove dressing tomorrow. May shower today. Current Visit: No Status: Acute Code(s): C67.9 - MALIGNANT NEOPLASM OF BLADDER, UNSPECIFIED SNOMED Code(s): 767332475
--- NOTE | 2021-04-28 13:32 | P.PN ---
Subjective Progress Note Date: 04/26/21 Patient seen and examined she was doing quite well. Continue to wait for removal of Port-A-Cath. Due to clotting she'll need to be on anticoagulation for approximately 12 weeks. She is currently on heparin Objective - Vital Signs Vital signs: Vital Signs Temp 98.0 F 04/27/21 20:22 Pulse 96 04/27/21 20:22 Resp 20 04/27/21 20:22 BP 108/65 04/27/21 20:22 Pulse Ox 97 04/27/21 20:22 Intake & Output 04/27/21 04/27/21 04/28/21 06:59 18:59 06:59 Intake Total 405.367 347.338 88.418 Output Total 800 1 200 Balance -394.633 346.338 -111.582 Intake: IV 300 Intake, IV Titration 405.367 47.338 88.418 Amount Heparin Sod,Pork in 0.45% 165.367 47.338 88.418 NaCl 25,000 unit In 0.45 % NaCl 1 250ml.bag @ 18 UNITS/KG/HR 10.696 mls/hr IV .[id number] [facility] Rx#: [id number] Sodium Chloride 0.9% 1, 240 000 ml @ 20 mls/hr IV . Q24H [facility] Rx#:[id number] Output: Drainage 800 200 Bilateral 800 Left 100 Right 100 Estimated Blood Loss 1 Other: Voiding Method Toilet Toilet Toilet Ileal Conduit (Right) Ileal Conduit (Right) Ileal Conduit (Right) Ileal Conduit (Left) Ileal Conduit (Left) Ileal Conduit (Left) # Voids 2 - Exam PHYSICAL EXAM: VITAL SIGNS: As above GENERAL: Sitting up in bed, no acute distress HEENT: Conjunctivae normal. eyes normal. NECK: No JVD. No thyroid enlargement. No LNs. Right IJ port present. CARDIOVASCULAR: S1, S2 regular.No murmur RESPIRATION: Breath sounds diminished in the bases. No rhonchi or crackles. No wheezing. ABDOMEN: Soft, nontender, nondistended, positive bowel sounds. Bilateral nephrostomy tubes. with clear urine EXT: No edema, DORSEY, positive radial pulses PSYCHIATRY: Alert and oriented X3, mood and affect normal. NERVOUS SYSTEM: Cranial N 2-12 grossly normal. Moves all 4 limbs. No focal deficits. Strength and sensation grossly intact. Skin: Warm and dry, no rash - Labs CBC & Chem 7: 04/28/21 05:27 04/28/21 05:27 Labs: Abnormal Lab Results - Last 24 Hours (Table) 04/27/21 04/27/21 Range/Units 04:40 19:49 APTT 72.7 H 53.3 H (22.0-30.0) sec Microbiology - Last 24 Hours (Table) 04/22/21 18:50 Blood Culture - Preliminary Blood No Growth after 120 hours Assessment and Plan (1) Hematuria Current Visit: Yes Status: Acute Code(s): R31.9 - HEMATURIA, UNSPECIFIED SNOMED Code(s): 81296823 (2) Macrocytic anemia Current Visit: Yes Status: Acute Code(s): D53.9 - NUTRITIONAL ANEMIA, UNSPECIFIED SNOMED Code(s): 37597328 (3) Bladder cancer Current Visit: No Status: Acute Code(s): C67.9 - MALIGNANT NEOPLASM OF BLADDER, UNSPECIFIED SNOMED Code(s): 911602696 (4) Thrombosis of right internal jugular vein Current Visit: No Status: Acute Code(s): I82.C11 - ACUTE EMBOLISM AND THROMBOSIS OF RIGHT INTERNAL JUGULAR VEIN SNOMED Code(s): 681607439 Plan: Plan removal of the IJ Port-A-Cath thrombosis attenuated anticoagulation and c ontinue to monitor signs of bleeding
--- NOTE | 2021-04-28 13:35 | P.PN ---
Subjective Progress Note Date: 04/27/21 Patient seen and examined she was doing quite well. She has right IJ port removed with minimal discomfort she is going to have a trial of her [place] 10 mg twice a day if tolerated will go home hopefully Monday Objective - Vital Signs Vital signs: Vital Signs Temp 98.0 F 04/27/21 20:22 Pulse 96 04/27/21 20:22 Resp 20 04/27/21 20:22 BP 108/65 04/27/21 20:22 Pulse Ox 97 04/27/21 20:22 Intake & Output 04/27/21 04/27/21 04/28/21 06:59 18:59 06:59 Intake Total 405.367 347.338 88.418 Output Total 800 1 200 Balance -394.633 346.338 -111.582 Intake: IV 300 Intake, IV Titration 405.367 47.338 88.418 Amount Heparin Sod,Pork in 0.45% 165.367 47.338 88.418 NaCl 25,000 unit In 0.45 % NaCl 1 250ml.bag @ 18 UNITS/KG/HR 10.696 mls/hr IV .[id number] [facility] Rx#: [id number] Sodium Chloride 0.9% 1, 240 000 ml @ 20 mls/hr IV . Q24H [facility] Rx#:[id number] Output: Drainage 800 200 Bilateral 800 Left 100 Right 100 Estimated Blood Loss 1 Other: Voiding Method Toilet Toilet Toilet Ileal Conduit (Right) Ileal Conduit (Right) Ileal Conduit (Right) Ileal Conduit (Left) Ileal Conduit (Left) Ileal Conduit (Left) # Voids 2 - Exam PHYSICAL EXAM: VITAL SIGNS: As above GENERAL: Sitting up in bed, no acute distress HEENT: Conjunctivae normal. eyes normal. NECK: No JVD. No thyroid enlargement. No LNs. Right IJ port present. CARDIOVASCULAR: S1, S2 regular.No murmur RESPIRATION: Breath sounds diminished in the bases. No rhonchi or crackles. No wheezing. ABDOMEN: Soft, nontender, nondistended, positive bowel sounds. Bilateral nephr ostomy tubes. with clear urine EXT: No edema, DORSEY, positive radial pulses PSYCHIATRY: Alert and oriented X3, mood and affect normal. NERVOUS SYSTEM: Cranial N 2-12 grossly normal. Moves all 4 limbs. No focal deficits. Strength and sensation grossly intact. Skin: Warm and dry, no rash - Labs CBC & Chem 7: 04/28/21 05:27 04/28/21 05:27 Labs: Abnormal Lab Results - Last 24 Hours (Table) 04/27/21 04/27/21 Range/Units 04:40 19:49 APTT 72.7 H 53.3 H (22.0-30.0) sec Microbiology - Last 24 Hours (Table) 04/22/21 18:50 Blood Culture - Preliminary Blood No Growth after 120 hours Assessment and Plan (1) Hematuria Current Visit: Yes Status: Acute Code(s): R31.9 - HEMATURIA, UNSPECIFIED SNOMED Code(s): 56950238 (2) Macrocytic anemia Current Visit: Yes Status: Acute Code(s): D53.9 - NUTRITIONAL ANEMIA, UNSPECIFIED SNOMED Code(s): 54657706 (3) Bladder cancer Current Visit: No Status: Acute Code(s): C67.9 - MALIGNANT NEOPLASM OF BLADDER, UNSPECIFIED SNOMED Code(s): 296613683 (4) Thrombosis of right internal jugular vein Current Visit: No Status: Acute Code(s): I82.C11 - ACUTE EMBOLISM AND THR OMBOSIS OF RIGHT INTERNAL JUGULAR VEIN SNOMED Code(s): 124649895 Plan: Continue to monitor patient for signs of bleeding we'll place her back on Alquist overnight if she does well hopefully discharge in the morning
--- NOTE | 2021-04-28 15:29 | P.PN ---
Subjective Progress Note Date: 04/28/21 Principal diagnosis: Hematuria Status Post Port removal. Started back on Eliquis bolus dosing 04/27/21 at 9pm. She did initially have increased hematuria, hemoglobin has remained stable. She is very anxious about continuing on although appears very ancious about starting on other option, lovenox. Clinical observation there does not appear to be santo blood in nephrostomy bags. She is scheduled for cystoscopy next week with Dr. Bee in office, to re- evaluate bladder cancer. CT was negative for progressive disease. She states she is urinating and urinating blood as well, have asked Dr. Bee to evaluate inpatient due to her hematuria, the fact she is now on anticoagulation and scheduled for cystoscopy, and have asked him to further evaluate. She also has questions related to procedure we are unable to answer, she would like these answered if possible while here. Objective - Vital Signs Vital signs: Vital Signs Temp 98.4 F 04/28/21 11:52 Pulse 81 04/28/21 11:52 Resp 17 04/28/21 11:52 BP 106/69 04/28/21 11:52 Pulse Ox 100 04/28/21 11:52 Intake & Output 04/27/21 04/28/21 04/28/21 18:59 06:59 18:59 Intake Total 924.134 8249.418 Output Total 1 900 Balance 346.338 528.418 Intake: IV 300 Intake, IV Titration 47.338 328.418 Amount Heparin Sod,Pork in 0.45% 47.338 88.418 NaCl 25,000 unit In 0.45 % NaCl 1 250ml.bag @ 18 UNITS/KG/HR 10.696 mls/hr IV .[id number] [facility] Rx#: [id number] Sodium Chloride 0.9% 1, 240 000 ml @ 20 mls/hr IV . Q24H [facility] Rx#:[id number] Oral 1100 Output: Drainage 900 Left 520 Right 380 Estimated Blood Loss 1 Other: Voiding Method Toilet Toilet Toilet Ileal Conduit (Right) Ileal Conduit (Right) Ileal Conduit (Right) Ileal Conduit (Left) Ileal Conduit (Left) Ileal Conduit (Left) # Voids 2 2 - Exam - Constitutional General appearance: cooperative, no acute distress - EENT Eyes: EOMI, PERRLA ENT: NA/AT - Neck Neck: normal ROM - Respiratory Respiratory: bilateral: CTA - Cardiovascular Rhythm: regular - Gastrointestinal General gastrointestinal: normal bowel sounds, soft - Genitourinary Bilateral nephro tubes. Lefft pink tinged blood, Right yellow and clear. - Integumentary Integumentary: pale - Neurologic Neurologic: CNII-XII intact - Musculoskeletal Musculoskeletal: gait normal, generalized weakness - Psychiatric Psychiatric: A&O x's 3, appropriate affect, intact judgment & insight - Labs CBC & Chem 7: 04/28/21 05:27 04/28/21 05:27 Labs: Abnormal Lab Results - Last 24 Hours (Table) 04/27/21 04/28/21 04/28/21 Range/Units 19:49 05:27 05:27 RBC 2.98 L (3.80-5.40) m/uL Hgb 10.7 L (11.4-16.0) gm/dL Hct 32.4 L (34.0-46.0) % MCV 108.8 H (80.0-100.0) fL MCH 35.9 H (25.0-35.0) pg RDW 16.2 H (11.5-15.5) % Plt Count 681 H (150-450) k/uL Macrocytosis Marked A APTT 53.3 H (22.0-30.0) sec Creatinine 0.47 L (0.52-1.04) mg/dL Microbiology - Last 24 Hours (Table) 04/22/21 18:50 Blood Culture - Preliminary Blood No Growth after 120 hours Assessment and Plan (1) Hematuria Current Visit: Yes Status: Acute Code(s): R31.9 - HEMATURIA, UNSPECIFIED SNOMED Code(s): 69333132 (2) Bladder cancer Current Visit: No Status: Acute Code(s): C67.9 - MALIGNANT NEOPLASM OF BLADDER, UNSPECIFIED SNOMED Code(s): 083096255 (3) Macrocytic anemia Current Visit: Yes Status: Acute Code(s): D53.9 - NUTRITIONAL ANEMIA, UNSPECIFIED SNOMED Code(s): 37064340 Plan: Assessment and Recommendations: Brain-adjuvant Chemotherapy for Urothelial Cancer: - Status Post 4 cycles of Cisplatin and G[place]ar on 04/14 Recent IJ Thrombus - Started on Eliquis - heamaturia. Now on heparin drip, monitir for bleeding, then switch to PO and would monitor 12 hours after PO before discharge - Start Eliquis re-challenge tonight Hematuria: Improved - No further bleeding on heparin drip - Monitor CBC Macrocytic Anemia: - Stable Removal of Port today, continue Heparin drip immediately after port removal and then convert to Eliquis at 9pm tonight. Eliquis 10mg started 2100 04/27/21. She did have some intitial increased hamturia. This appears stable as hemoglobin has not dropped significantly. We have asked urology to evaluate regarding hematuria and question of progressed bladder tumor resulting in hematuria versus other. PLanned for cystoscopy next week, patient with many questions would like to ask prior to discharge. Physician Attest: I have completed the full history and physical and agree with above dictation, dictated as a ascribe.
[2021-04-28 15:41] LABS: Anisocytosis Slight; Basophils # (A) 0.1 k/uL (0-0.2); Basophils % (A) 2 %; Eosinophils # (A) 0.1 k/uL (0-0.7); Eosinophils % (A) 1 %; HCT 32.7 % (34.0-46.0); HGB 10.6 gm/dL (11.4-16.0); Hypochromasia Moderate; Lymphocytes # (A) 1.7 k/uL (1.0-4.8); Lymphocytes % (A) 32 %; MCH 35.4 pg (25.0-35.0); MCHC 32.3 g/dL (31.0-37.0); MCV 109.7 fL (80.0-100.0); Macrocytosis Marked; Mean Platelet Volume 7.4; Monocytes # (A) 0.5 k/uL (0-1.0); Monocytes % (A) 10 %; Neutrophils # (A) 2.8 k/uL (1.3-7.7); Neutrophils % (A) 52 %; Platelet Count 616 k/uL (150-450); RBC 2.98 m/uL (3.80-5.40); RDW 16.1 % (11.5-15.5); WBC 5.4 k/uL (3.8-10.6)
[2021-04-28] MEDS: ROSUVASTATIN 10 MG PO SCH (19:59)
[2021-04-28] MEDS: SODIUM CHLORIDE 0.9% 1,000 ML IV SCH (20:00)
[2021-04-28 22:30] LABS: % Iron Saturation 0.82 (12.00-45.00); Ferritin 732.6 ng/mL (10.0-291.0)
[2021-04-29 05:08] VITALS: RESP 16
[2021-04-29 07:50] LABS: Basophils # (A) 0.1 k/uL (0-0.2); Basophils % (A) 2 %; Eosinophils % (A) 1 %; HCT 34.2 % (34.0-46.0); HGB 10.7 gm/dL (11.4-16.0); Hypochromasia Slight; Lymphocytes # (A) 1.1 k/uL (1.0-4.8); Lymphocytes % (A) 30 %; MCH 34.2 pg (25.0-35.0); MCHC 31.4 g/dL (31.0-37.0); Macrocytosis Marked; Mean Platelet Volume 7.6; Monocytes # (A) 0.5 k/uL (0-1.0); Monocytes % (A) 14 %; Neutrophils # (A) 1.9 k/uL (1.3-7.7); Neutrophils % (A) 49 %; Platelet Count 718 k/uL (150-450); RBC 3.13 m/uL (3.80-5.40); RDW 15.9 % (11.5-15.5); WBC 3.9 k/uL (3.8-10.6)
[2021-04-29] MEDS: SENNOSIDES-DOCUSATE SODIUM 1 EACH TAB PO SCH (08:06)
[2021-04-29] MEDS: SODIUM BICARBONATE TAB 650 MG TAB PO SCH (08:06)
[2021-04-29] MEDS: FERROUS SULFATE 325 MG TAB PO SCH (08:06)
[2021-04-29] MEDS: APIXABAN 5 MG TAB PO SCH (08:06)
[2021-04-29] MEDS: PANTOPRAZOLE 40 MG TABLET PO SCH (08:06)
[2021-04-29] MEDS: HYDROcodone/APAP 10-325MG 1 EACH TAB PO PRN (11:17)
[2021-04-29 12:05] VITALS: BP 113/66; PULSE 84; TEMP 98.3
--- NOTE | 2021-04-29 12:27 | P.GSCN ---
History of Present Illness Consult date: 04/29/21 Reason for Consult: Gross hematuria, bladder cancer History of present illness: This is a 50-year-old female patient of Dr. Bee with history of high-grade transitional cell carcinoma, on diagnosis she had evidence of T3 disease with bilateral hydronephrosis. She completed neoadjuvant chemotherapy, with the plan of doing a cystectomy [place]. She is admitted to the hospital with a thrombus in the IJ, and has been subsequently started on anticoagulation. Her bilateral hydronephrosis being managed by bilateral nephrostomy tubes. Upon starting anticoagulation hematuria was noticed in the nephrostomy tubes. Her hemoglobin is stable, denies any flank pain. On evaluation output from the right nephrostomy tube is light red, draining without any problems. No hematuria noticed on the left. Review of Systems - Constitutional Denies fever, Denies weight loss - EENT Ears, nose, mouth and throat: Denies dysphagia - Cardiovascular Denies chest pain, Denies shortness of breath - Respiratory Denies cough, Denies 7 - Gastrointestinal Reports as per HPI - Genitourinary Genitourinary: Reports hematuria - Neurological Denies headaches, Denies syncope - Hematologic/Lymphatic Denies easy bleeding, Denies easy bruising Past Medical History Past Medical History: Cancer, GERD/Reflux, Hyperlipidemia Additional Past Medical History / Comment(s): er[place] 2006, Hospitalized 12/18/20 to 12/22/20 with renal failure & bladder tumor (cancer), uterine cyst, low iron., states pain lower abdomen , Irvin nephrostomy tubes. History of Any Multi-Drug Resistant Organisms: None Reported Past Surgical History: Tubal Ligation Additional Past Surgical History / Comment(s): nephrostomy tubes 12/21/20. RIGHT SCL PORT PLACEMENT. blood clot in jugular Past Anesthesia/Blood Transfusion Reactions: No Reported Reaction Additional Past Anesthesia/Blood Transfusion Reaction / Comm: . Past Psychological History: No Psychological Hx Reported Smoking Status: Never smoker Past Alcohol Use History: None Reported Past Drug Use History: None Reported - Past Family History Mother Family Medical History: Hyperlipidemia, Hypertension Additional Family Medical History / Comment(s): Borderline Diabetic. Father Family Medical History: Coronary Artery Disease (CAD), Hyperlipidemia, Hypertension Additional Family Medical History / Comment(s): CABG. Medications and Allergies Home Medications Medication Instructions Recorded Confirmed Type Rosuvastatin Calcium [Crestor] 10 mg PO HS 09/19/17 04/22/21 History Ferrous Sulfate [Feosol] 325 mg PO DAILY #30 tab 12/22/20 04/22/21 Rx Sodium Bicarbonate Tab 650 mg PO DAILY 12/31/20 04/22/21 History HYDROcodone/APAP 10-325MG [[place] 1 tab PO Q6H 02/03/21 04/22/21 History 10-325] Pantoprazole [Protonix] 40 mg PO DAILY 03/24/21 04/22/21 History Sennosides [Senokot] 17.2 mg PO HS PRN 03/24/21 04/22/21 History Apixaban [Eliquis Starter Pack See Taper PO DIRECTED 04/22/21 04/22/21 History (for VTE)] Apixaban [Eliquis] 5 mg PO BID #60 tab 04/27/21 Rx Allergies Allergy/AdvReac Type Severity Reaction Status Date / Time atorvastatin [From Lipitor] Allergy Chest Pain Verified 04/22/21 20:32 Latex, Natural Rubber Allergy Swelling Verified 04/22/21 20:32 metronidazole Allergy Chest Pain Verified 04/22/21 20:32 Surgical - Exam Vital Signs Temp Pulse Resp BP Pulse Ox 99.9 F H 127 H 18 125/69 100 04/22/21 18:18 04/22/21 18:18 04/22/21 18:18 04/22/21 18:18 04/22/21 18:18 - General no distress, no pain - Eyes PERRL, normal ocular movement - ENT normal nares, normal mucosa - Respiratory normal expansion, normal respiratory effort - Abdomen Abdomen: soft, non tender - Genitourinary Bilateral nephrostomy tube in place, site is clean. Right nephrostomy with light red urine, left nephrostomy tube urine is clear - Psychiatric oriented to time, oriented to person, oriented to place Results - Labs 04/29/21 06:57 04/28/21 05:27 Abnormal Lab Results - Last 24 Hours (Table) 04/28/21 04/28/21 04/29/21 Range/Units 14:50 14:50 06:57 RBC 2.98 L 3.13 L (3.80-5.40) m/uL Hgb 10.6 L 10.7 L (11.4-16.0) gm/dL Hct 32.7 L (34.0-46.0) % MCV 109.7 H (80.0-100.0) fL MCH 35.4 H (25.0-35.0) pg RDW 16.1 H 15.9 H (11.5-15.5) % Plt Count 616 H 718 H (150-450) k/uL Macrocytosis Marked A Marked A Iron 2 L (50-170) ug/dL % Saturation 0.82 L (12.00-45.00) Ferritin 732.6 H (10.0-291.0) ng/mL Microbiology - Last 24 Hours (Table) 04/22/21 18:50 Blood Culture - Final Blood No Growth after 144 hours Assessment and Plan Assessment: This is a 50-year-old female patient of Dr. Bee with history of high-grade transitional cell carcinoma, on diagnosis she had evidence of T3 disease with bilateral hydronephrosis. Her bilateral hydronephrosis being managed by bilateral nephrostomy tubes. Upon starting anticoagulation for IJ thrombus hematuria was noticed in the nephrostomy tubes. Her hemoglobin is stable, den ies any flank pain. -Discussed with her intermittent hematuria can occur in the setting of a neph rostomy tube, but given the light consistency of the urine and a stable hemoglobin can continue with anticoagulation. -Advised to keep follow-up with Dr. Beefor cystoscopy on May 05, no need to stop anticoagulation for diagnostic cystoscopy
--- NOTE | 2021-04-29 13:08 | P.PN ---
Progress Note - Text Progress Note Date: 04/29/21 Patient doing well today. Denies pain at the port site. Labs are for discharge. Her dressing was removed. Her incision is clean and dry. January discharge. January shower. We'll sign off.
[2021-04-29 13:32] VITALS: BMI 20.5
--- NOTE | 2021-04-29 13:43 | P.PN ---
Subjective Progress Note Date: 04/29/21 Principal diagnosis: Hematuria Hemoglobin remains stable, no worsening bleeding. Objective - Vital Signs Vital signs: Vital Signs Temp 98.3 F 04/29/21 12:05 Pulse 84 04/29/21 12:05 Resp 16 04/29/21 12:05 BP 113/66 04/29/21 12:05 Pulse Ox 99 04/29/21 12:05 Intake & Output 04/28/21 04/29/21 04/29/21 18:59 06:59 18:59 Output Total 1040 Balance -1040 Weight 59.421 kg Output: Drainage 1040 Left 610 Right 430 Other: Voiding Method Toilet Toilet Toilet Ileal Conduit (Right) Ileal Conduit (Right) Ileal Conduit (Right) Ileal Conduit (Left) Ileal Conduit (Left) Ileal Conduit (Left) # Voids 2 - Exam - Constitutional General appearance: cooperative, no acute distress - EENT Eyes: EOMI, PERRLA ENT: NA/AT - Neck Neck: normal ROM - Respiratory Respiratory: bilateral: CTA - Cardiovascular Rhythm: regular - Gastrointestinal General gastrointestinal: normal bowel sounds, soft - Genitourinary Bilateral nephro tubes. Lefft pink tinged blood, Right yellow and clear. - Integumentary Integumentary: pale - Neurologic Neurologic: CNII-XII intact - Musculoskeletal Musculoskeletal: gait normal, generalized weakness - Psychiatric Psychiatric: A&O x's 3, appropriate affect, intact judgment & insight - Labs CBC & Chem 7: 04/29/21 06:57 04/28/21 05:27 Labs: Abnormal Lab Results - Last 24 Hours (Table) 04/28/21 04/28/21 04/29/21 Range/Units 14:50 14:50 06:57 RBC 2.98 L 3.13 L (3.80-5.40) m/uL Hgb 10.6 L 10.7 L (11.4-16.0) gm/dL Hct 32.7 L (34.0-46.0) % MCV 109.7 H 109.0 H (80.0-100.0) fL MCH 35.4 H (25.0-35.0) pg RDW 16.1 H 15.9 H (11.5-15.5) % Plt Count 616 H 718 H (150-450) k/uL Macrocytosis Marked A Marked A Iron 2 L (50-170) ug/dL % Saturation 0.82 L (12.00-45.00) Ferritin 732.6 H (10.0-291.0) ng/mL Microbiology - Last 24 Hours (Table) 04/22/21 18:50 Blood Culture - Final Blood No Growth after 144 hours Assessment and Plan (1) Hematuria Current Visit: Yes Status: Acute Code(s): R31.9 - HEMATURIA, UNSPECIFIED SNOMED Code(s): 60787731 (2) Bladder cancer Current Visit: No Status: Acute Code(s): C67.9 - MALIGNANT NEOPLASM OF BLADDER, UNSPECIFIED SNOMED Code(s): 269006832 (3) Macrocytic anemia Current Visit: Yes Status: Acute Code(s): D53.9 - NUTRITIONAL ANEMIA, UNSPECIFIED SNOMED Code(s): 51509326 Plan: Assessment and Recommendations: Brain-adjuvant Chemotherapy for Urothelial Cancer: - Status Post 4 cycles of Cisplatin and Gemsar on 04/14 Recent IJ Thrombus - Started on Eliquis - heamaturia. Now on heparin drip, monitir for bleeding, then switch to PO and would monitor 12 hours after PO before discharge - Start Eliquis re-challenge tonight Hematuria: Improved - No further bleeding on heparin drip - Monitor CBC Macrocytic Anemia: - Stable Discharge today on 10mg PO BID eliquis to complete 7 days then 5mg po BID She may follow-up after cystoscopy with Dr. Pedersen in office.
== END 2021-04-29 13:51 | disposition home or self-care (01) | DRG 300 ==
LOC: EC 17:53 → 5NMEDONC 21:54 → OBSVTOIN 04-23 11:31
PROVIDERS: ADMIT Family Medicine; ATTEND Family Medicine
PROC: 02HV33Z Insertion of Infusion Device into Superior Vena Cava, Percutaneous Approach (ICD-10-PCS; 2021-04-27)
PROC: B5181ZA Fluoroscopy of Superior Vena Cava using Low Osmolar Contrast, Guidance (ICD-10-PCS; 2021-04-27)
PROC: B548ZZA Ultrasonography of Superior Vena Cava, Guidance (ICD-10-PCS; 2021-04-27)
PROC: 0JH63XZ Insertion of Tunneled Vascular Access Device into Chest Subcutaneous Tissue and Fascia, Percutaneous Approach (ICD-10-PCS; principal; 2021-04-27 10:10)
DX: I82.C11 Acute embolism and thrombosis of right internal jugular vein (principal); E87.1 Hypo-osmolality and hyponatremia; N13.30 Unspecified hydronephrosis; D53.9 Nutritional anemia, unspecified; C67.9 Malignant neoplasm of bladder, unspecified; T45.1X5A Adverse effect of antineoplastic and immunosuppressive drugs, initial encounter; E78.5 Hyperlipidemia, unspecified; K21.9 Gastro-esophageal reflux disease without esophagitis; R31.0 Gross hematuria; Z79.01 Long term (current) use of anticoagulants; Z79.899 Other long term (current) drug therapy; Z86.19 Personal history of other infectious and parasitic diseases; Z92.21 Personal history of antineoplastic chemotherapy; Z98.51 Tubal ligation status; Z91.040 Latex allergy status; Z91.048 Other nonmedicinal substance allergy status; Z88.8 Allergy status to other drugs, medicaments and biological substances
CPT/HCPCS: 36415; 80048; 80053; 81001; 82272; 82607; 82728; 82746; 83540; 83550; 83921; 85025; 85610; 85730; 86140; 87040; 93005; 99284

== ENCOUNTER 2021-05-06 14:09 | Day surgery (SDC) | payer BC ==
[2021-05-06 14:50] VITALS: BP 125/59; PULSE 105; RESP 14; TEMP 98.5
== END 2021-05-06 14:45 | disposition home or self-care (01) ==
LOC: RADPROMAIN 14:09
PROVIDERS: ATTEND Radiology Diagnostic Radiology
DX: Z48.03 Encounter for change or removal of drains (principal)
CPT/HCPCS: 99213

== ENCOUNTER 2021-05-19 14:25 | Day surgery (SDC) | payer BC ==
[2021-05-19 15:13] VITALS: BP 135/69; PULSE 75; RESP 16; TEMP 98.4
== END 2021-05-19 15:13 | disposition home or self-care (01) ==
LOC: RADPROMAIN 14:25
PROVIDERS: ATTEND Radiology Diagnostic Radiology
DX: Z43.6 Encounter for attention to other artificial openings of urinary tract (principal)
CPT/HCPCS: 99213

== ENCOUNTER 2021-06-02 14:40 | Day surgery (SDC) | payer BC ==
[2021-06-02 15:49] VITALS: BP 122/81; PULSE 98; RESP 16; TEMP 98.2
== END 2021-06-02 15:54 | disposition home or self-care (01) ==
LOC: RADPROMAIN 14:40
PROVIDERS: ATTEND Radiology Diagnostic Radiology
DX: Z48.01 Encounter for change or removal of surgical wound dressing (principal)
CPT/HCPCS: 36415; 99213

== ENCOUNTER 2021-10-25 12:29 | Day surgery (SDC) | payer BC ==
[2021-10-25 13:43] VITALS: RESP 16; TEMP 98.5
[2021-10-25 14:35] VITALS: BP 110/56; PULSE 72
--- NOTE | 2021-10-25 15:27 | IR ---
PICC LINE PLACEMENT: HISTORY: Infection requiring long-term antibiotic therapy PROCEDURE: Chemotherapy. COMPLICATIONS: None ANESTHESIA: 1. 1% Lidocaine locally. FINDINGS/TECHNIQUE: The procedure was explained to the patient. The risks, complications, benefits and alternatives were discussed and any questions were answered. Informed consent was obtained. The patient was placed supine on the fluoroscopic table and prepped and draped in the usual sterile fash ion. Utilizing a 21 gauge needle and sonographic and fluoroscopic guidance, access in the left bas ilic vein was achieved and there is placement of a 0.018 guidewire. The vein is patent. A 5-Fr lino th was placed over the guidewire. The guidewire and dilator were removed and a 5-F. Double lumen PIC C line was placed through the sheath with the tip at the level of the SVC. The sheath was removed, t he catheter was flushed and sutured into position. The patient was stable throughout the procedure a nd remained stable upon discharge from the Department of Radiology. The vein puncture was patent under ultrasound. A beaulieu scale image was obtained to document patency of the vein punctured. All elements of the maximal barrier technique were utilized. FLUOROSCOPY TIME: 0.3 minutes and one image submitted IMPRESSION: Successful PICC double lumen line placement under ultrasound and fluoroscopic guidance.
== END 2021-10-25 14:35 | disposition home or self-care (01) ==
LOC: CATHCVL 12:29
PROVIDERS: ATTEND Radiology Diagnostic Radiology
DX: Z51.11 Encounter for antineoplastic chemotherapy (principal); I87.2 Venous insufficiency (chronic) (peripheral); Z20.822 Contact with and (suspected) exposure to COVID-19
CPT/HCPCS: 36573; 87635; C1751; C1769

== ENCOUNTER 2022-03-03 19:43 | Inpatient (IN) | payer BC ==
[2022-03-04] MEDS ORDERED: SODIUM CHLORIDE 0.9% 1,000 ML IV STA (01:19)
--- NOTE | 2022-03-04 01:25 | ED ---
Abdominal Pain HPI - General Chief Complaint: Abdominal Pain Stated Complaint: Irregular CT Time Seen by Provider: 03/04/22 01:12 Source: patient, family Mode of arrival: ambulatory Limitations: no limitations - History of Present Illness Initial Comments: This patient is a 51-year-old woman who presents with complaint of computed tomography scan abnormality. The patient states that she had a follow-up computed tomography scan for cancer surveillance out performed yesterday. She states in addition to the cancer surveillance she had been having some abdominal symptoms. She states she is having mainly left-sided abdominal pain and fullness. She states that she also not seem to be passing usual bowel movements. She states that tonight after having the computed tomography scan she received a call telling her she needed go to the emergency room because there probably was a blockage. Patient's history is notable for having had previous bladder cancer, suspected to have been cervical in origin. She had bladder resection and has a urostomy. She states that she did have adjunct therapy the last being in October. Patient's last bowel movement was yesterday. She has had some flatus through the morning. No vomiting. No fever MD Complaint: abdominal pain -: days(s) Location: LUQ, LLQ Radiation: none Severity: moderate Quality: aching, fullness Consistency: constant Improves With: nothing Worsens With: nothing Associated Symptoms: denies other symptoms - Related Data Home Medications Medication Instructions Recorded Confirmed Rosuvastatin Calcium [Crestor] 10 mg PO HS 09/19/17 11/03/21 Sodium Bicarbonate Tab 650 mg PO DAILY 12/31/20 11/03/21 HYDROcodone/APAP 10-325MG [[place] 1 tab PO Q6H 02/03/21 11/03/21 10-325] Pantoprazole [Protonix] 40 mg PO DAILY 03/24/21 11/03/21 Sennosides [Senokot] 17.2 mg PO HS PRN 03/24/21 11/03/21 Aprepitant [Emend] 1 tab PO DIRECTED 10/11/21 11/03/21 Ondansetron [Zofran] 1 - 2 tab PO QID PRN 10/11/21 11/03/21 dexAMETHasone [Decadron] 8 mg PO DIRECTED 10/11/21 11/03/21 Previous Rx's Medication Instructions Recorded Ferrous Sulfate [Feosol] 325 mg PO DAILY #30 tab 12/22/20 Apixaban [Eliquis] 5 mg PO BID #60 tab 04/27/21 Allergies Allergy/AdvReac Type Severity Reaction Status Date / Time atorvastatin [From Lipitor] Allergy Chest Pain Verified 03/03/22 20:50 Latex, Natural Rubber Allergy Swelling Verified 03/03/22 20:50 metronidazole Allergy Chest Pain Verified 03/03/22 20:50 Review of Systems ROS Statement: Those systems with pertinent positive or pertinent negative responses have been documented in the HPI. ROS Other: All systems not noted in ROS Statement are negative. Constitutional: Denies: fever, chills Respiratory: Denies: cough, dyspnea Cardiovascular: Denies: chest pain, palpitations Gastrointestinal: Reports: abdominal pain, nausea, constipation. Denies: vomiting, diarrhea, melena, hematochezia Genitourinary: Denies: dysuria, hematuria Musculoskeletal: Denies: back pain Skin: Denies: rash Neurological: Denies: headache, weakness Past Medical History Past Medical History: Cancer, GERD/Reflux, Hyperlipidemia Additional Past Medical History / Comment(s): shingles 2006, Hospitalized 12/18/20 to 12/22/20 with renal failure & bladder tumor (cancer), uterine cyst, low iron., states pain lower abdomen , Irvin nephrostomy tubes. History of Any Multi-Drug Resistant Organisms: None Reported Past Surgical History: Tubal Ligation Additional Past Surgical History / Comment(s): nephrostomy tubes 12/21/20. RIGHT SCL PORT PLACEMENT. blood clot in jugular Past Anesthesia/Blood Transfusion Reactions: No Reported Reaction Additional Past Anesthesia/Blood Transfusion Reaction / Comment(s): . Past Psychological History: No Psychological Hx Reported Smoking Status: Never smoker Past Alcohol Use History: None Reported Past Drug Use History: None Reported - Past Family History Mother Family Medical History: Hyperlipidemia, Hypertension Additional Family Medical History / Comment(s): Borderline Diabetic. Father Family Medical History: Coronary Artery Disease (CAD), Hyperlipidemia, Hypertension Additional Family Medical History / Comment(s): CABG. General Exam Limitations: no limitations General appearance: alert, in no apparent distress Head exam: Present: atraumatic, normocephalic Eye exam: Present: normal appearance. Absent: scleral icterus, conjunctival injection ENT exam: Present: normal oropharynx Neck exam: Present: normal inspection, full ROM Respiratory exam: Present: normal lung sounds bilaterally. Absent: respiratory distress, wheezes, rales, rhonchi, stridor Cardiovascular Exam: Present: regular rate, normal rhythm, normal heart sounds. Absent: systolic murmur, diastolic murmur, rubs, gallop GI/Abdominal exam: Present: tenderness. Absent: distended, guarding, rebound, rigid, pulsatile mass Extremities exam: Present: normal inspection, normal capillary refill. Absent: pedal edema, calf tenderness Back exam: Present: normal inspection. Absent: CVA tenderness (R), CVA tenderness (L) Neurological exam: Present: alert Skin exam: Present: warm, dry, intact, normal color. Absent: rash Course Vital Signs 03/03/22 20:50 Temperature 97.6 F Pulse Rate 84 Respiratory 16 Rate Blood Pressure 123/68 O2 Sat by Pulse 100 Oximetry Disposition Clinical Impression: Bowel obstruction, Abdominal pain Disposition: ADMITTED IP TO THIS [facility] Condition: Fair Referrals: Galen Nath DO [Primary Care Provider] - 1-2 days Decision Time: 01:45
[2022-03-04] MEDS ORDERED: NALOXONE 0.4 MG/ML 1 ML VIAL IV PRN (01:54)
[2022-03-04] MEDS: SODIUM CHLORIDE 0.9% 1,000 ML IV SCH ×3 (01:59→15:10)
[2022-03-04 02:05] LABS: Basophils # (A) 0.1 k/uL (0-0.2); Basophils % (A) 1 %; Eosinophils # (A) 0.2 k/uL (0-0.7); Eosinophils % (A) 3 %; HCT 34.2 % (34.0-46.0); HGB 11.5 gm/dL (11.4-16.0); Lymphocytes # (A) 0.3 k/uL (1.0-4.8); Lymphocytes % (A) 7 %; MCHC 33.7 g/dL (31.0-37.0); MCV 98.1 fL (80.0-100.0); Mean Platelet Volume 6.9; Monocytes # (A) 0.4 k/uL (0-1.0); Monocytes % (A) 9 %; Neutrophils # (A) 3.9 k/uL (1.3-7.7); Neutrophils % (A) 78 %; Platelet Count 327 k/uL (150-450); RBC 3.49 m/uL (3.80-5.40); RDW 11.6 % (11.5-15.5); WBC 4.9 k/uL (3.8-10.6)
[2022-03-04] MEDS ORDERED: MORPHINE SULFATE 4 MG/ML SYRINGE IV STA (02:05)
[2022-03-04 02:14] LABS: ALT 12 U/L (4-34); AST 36 U/L (14-36); African American GFR (CKD) >90 (>60 ml/min/1.73 sqM); Albumin 4.1 g/dL (3.5-5.0); Alkaline Phosphatase 71 U/L (38-126); Anion Gap 7 mmol/L; Blood Urea Nitrogen 6 mg/dL (7-17); Calcium 9.1 mg/dL (8.4-10.2); Carbon Dioxide 25 mmol/L (22-30); Chloride 107 mmol/L (98-107); Glucose 98 mg/dL (74-99); Non-African American GFR(CKD) >90 (>60 ml/min/1.73 sqM); Sodium 139 mmol/L (137-145); Total Bilirubin 0.7 mg/dL (0.2-1.3); Total Protein 6.9 g/dL (6.3-8.2)
[2022-03-04 02:16] LABS: Potassium 4.8 mmol/L (3.5-5.1)
[2022-03-04] MEDS ORDERED: ONDANSETRON 4 MG/2 ML VIAL IVP STA (02:16)
[2022-03-04] MEDS: ONDANSETRON 4 MG/2 ML VIAL IVP PRN (02:20)
[2022-03-04] MEDS: PANTOPRAZOLE 40 MG/10 ML VIAL IV SCH (08:39)
[2022-03-04] MEDS: MORPHINE SULFATE 4 MG/ML SYRINGE IV PRN (08:39)
--- NOTE | 2022-03-04 12:41 | P.GSCN ---
History of Present Illness Consult date: 03/04/22 History of present illness: CHIEF COMPLAINT: Abdominal pain HISTORY OF PRESENT ILLNESS: This is a 51-year-old female who presented to the hospital with abnormal computed tomography scan findings. Patient had undergone a computed tomography scan for cancer surveillance yesterday. She has a known history of bladder cancer with cervical source status post bladder resection and hysterectomy in May 2021. Patient's had chemotherapy. Her last cycle of chemotherapy was in October. Surgeries were completed at [facility] in [place]. At this time patient reports that her pain is mostly her chronic pain. She is having some flatus. She had been having diarrhea last episode of diarrhea was on Monday. She does complain of abdominal distention with sharp crampy pain along the sides of the abdomen have been intermittent over the last week. She did have an episode of vomiting after the CAT scan contrast. She reports decrease in appetite. Patient has had prior bowel obstruction did require laparotomy. Patient is currently on Eliquis for blood clot in the jugular vein. Patient computed tomography scan results head showed dilated small bowel loops proximal to the small bowel anastomosis in the left side of the abdomen suggestive of acute mechanical obstruction. This could be due to stenosis at the site of anastomosis however adhesions can't be excluded. Newly seen multiple hepatic focal lesions concerning for hepatic metastasis. Surgical ser vice consulted for small bowel obstruction. PAST MEDICAL HISTORY: See list. PAST SURGICAL HISTORY: See list. MEDICATIONS: See list. ALLERGIES: See list. SOCIAL HISTORY: No illicit drug use. REVIEW OF SYSTEMS: CONSTITUTIONAL: Denies fever or chills. HEENT: Denies blurred vision, vision changes, or eye pain. Denies hemoptysis CARDIOVASCULAR: Denies chest pain or pressure. RESPIRATORY: No shortness of breath. GASTROINTESTINAL: See HPI for pertinent findings HEMATOLOGIC: Denies bleeding disorders. GENITOURINARY: Denies any blood in urine or increased urinary frequency. SKIN: Denies pruitis. Denies rash. PHYSICAL EXAM: VITAL SIGNS: Reviewed GENERAL: Well-developed in no acute distress. HEENT: No sclera icterus. Extraocular movements grossly intact. Moist buccal mucosa. Head is atraumatic, normocephalic. No nasal drainage. ABDOMEN: Soft. Distended. Diffuse tenderness. Mid abdominal scarring with urostomy on the right. NEUROLOGIC: Alert and oriented. Cranial nerves II through XII grossly intact. LABORATORY DATA: WBC 4.9 Hgb 11.5 platelets 327 Sodium 139 potassium 4.8 creatinine 0.55 LFTs normal IMAGING: Computed tomography scan abdomen and pelvis significant bilateral hydronephrosis more on the right side with dilated ureters down to the expected location of the neobladder. Focal tumor recurrence cannot be excluded. Distal small bowel loops proximal to the small bowel anastomosis in the left side of the abdomen suggestive of acute mechanical obstruction. His could be due to stenosis at the site of anastomosis however adhesions cannot be excluded. Newly seen multiple hepatic focal lesions concerning for hepatic metastasis. Recommend further PET scan assessment. Abdominal x-ray results pending ASSESSMENT: 1. Acute mechanical small bowel obstruction 2. History of bladder cancer with cervical source and bladder resection, urostomy and hysterectomy PLAN: -Depending on abdominal x-ray results we will assess if NG tube is required -Further recommendations forthcoming per surgeon -Keep patient nothing by mouth -Continue IV fluids -Agree with urology and oncology consults -Continue supportive care -Continue pain medication and antiemetics as needed -keep Eliquis on hold Thank you for this consultation Physician Veterinary Radiologist note has been reviewed by physician. Signing provider agrees with the documented findings, assessment, and plan of care. I have personally seen and examined the patient, reviewed the RADIATION PROTECTION SPECIALIST /PAs history, exam and MDM and agree with the assessment and plan as written. Based on total visit time, I have performed more than 50% of the visit. As above: Patient with outpatient routine CAT scan performed for follow-up of locally advanced cervical cancer. Patient required previous cystectomy ileal loop conduit placement. Patient says that after her surgery she had a bowel obstruction during that same hospital stay the required to follow-up surgeries. She has had vague crampy abdominal pain over the last 7-10 days and has had some intermittent vomiting as well. CAT scan shows evidence of partial small bowel obstruction. Abdominal x-rays today do not show significant gastric distention. She would like to avoid the nasogastric tube. Keep nothing by mouth for now. We'll follow with you. Discussed with patient that it bowel obstruction persisted transfer to [facility] may be in her best interest since we do not have the ability locally to revise her conduit if this was involved in the bowel obstruction. Past Medical History Past Medical History: Cancer, GERD/Reflux, Hyperlipidemia Additional Past Medical History / Comment(s): ericksonjacqui 2006, Hospitalized 12/18/20 to 12/22/20 with renal failure & bladder tumor (cancer), uterine cyst, low iron., states pain lower abdomen , Irvin nephrostomy tubes. History of Any Multi-Drug Resistant Organisms: None Reported Past Surgical History: Tubal Ligation Additional Past Surgical History / Comment(s): nephrostomy tubes 12/21/20. RIGHT SCL PORT PLACEMENT No longer in place. blood clot in jugular Past Anesthesia/Blood Transfusion Reactions: No Reported Reaction Additional Past Anesthesia/Blood Transfusion Reaction / Comm: . Past Psychological History: No Psychological Hx Reported Smoking Status: Never smoker Past Alcohol Use History: None Reported Additional Past Alcohol Use History / Comment(s): . Past Drug Use History: None Reported - Past Family History Mother Family Medical History: Hyperlipidemia, Hypertension Additional Family Medical History / Comment(s): Borderline Diabetic. Father Family Medical History: Coronary Artery Disease (CAD), Hyperlipidemia, Hypertension Additional Family Medical History / Comment(s): CABG. Medications and Allergies Home Medications Medication Instructions Recorded Confirmed Type Rosuvastatin Calcium [Crestor] 10 mg PO HS 09/19/17 03/04/22 History Ferrous Sulfate [Feosol] 325 mg PO DAILY #30 tab 12/22/20 03/04/22 Rx Sodium Bicarbonate Tab 650 mg PO DAILY 12/31/20 03/04/22 History HYDROcodone/APAP 10-325MG [[place] 1 tab PO Q4H PRN 02/03/21 03/04/22 History 10-325] Sennosides [Senokot] 17.2 mg PO HS PRN 03/24/21 03/04/22 History Apixaban [Eliquis] 5 mg PO BID #60 tab 04/27/21 03/04/22 Rx Pantoprazole [Protonix] 40 mg PO DAILY 03/04/22 03/04/22 History Allergies Allergy/AdvReac Type Severity Reaction Status Date / Time atorvastatin [From Lipitor] Allergy Chest Pain Verified 03/04/22 08:29 Latex, Natural Rubber Allergy Swelling Verified 03/04/22 08:29 metronidazole Allergy Chest Pain Verified 03/04/22 08:29 Surgical - Exam Vital Signs Temp Pulse Resp BP Pulse Ox 97.6 F 84 16 123/68 100 03/03/22 20:50 03/03/22 20:50 03/03/22 20:50 03/03/22 20:50 03/03/22 20:50 Results - Labs 03/04/22 01:38 03/04/22 01:38 Abnormal Lab Results - Last 24 Hours (Table) 03/04/22 03/04/22 Range/Units 01:38 01:38 RBC 3.49 L (3.80-5.40) m/uL Lymphocytes # 0.3 L (1.0-4.8) k/uL BUN 6 L (7-17) mg/dL Diabetes panel 03/04/22 Range/Units 01:38 Sodium 139 (137-145) mmol/L Potassium 4.8 (3.5-5.1) mmol/L Chloride 107 (98-107) mmol/L Carbon Dioxide 25 (22-30) mmol/L BUN 6 L (7-17) mg/dL Creatinine 0.55 (0.52-1.04) mg/dL Glucose 98 (74-99) mg/dL Calcium 9.1 (8.4-10.2) mg/dL AST 36 (14-36) U/L ALT 12 (4-34) U/L Alkaline Phosphatase 71 (38-126) U/L Total Protein 6.9 (6.3-8.2) g/dL Albumin 4.1 (3.5-5.0) g/dL Calcium panel 03/04/22 Range/Units 01:38 Calcium 9.1 (8.4-10.2) mg/dL Albumin 4.1 (3.5-5.0) g/dL Pituitary panel 03/04/22 Range/Units 01:38 Sodium 139 (137-145) mmol/L Potassium 4.8 (3.5-5.1) mmol/L Chloride 107 (98-107) mmol/L Carbon Dioxide 25 (22-30) mmol/L BUN 6 L (7-17) mg/dL Creatinine 0.55 (0.52-1.04) mg/dL Glucose 98 (74-99) mg/dL Calcium 9.1 (8.4-10.2) mg/dL Adrenal panel 03/04/22 Range/Units 01:38 Sodium 139 (137-145) mmol/L Potassium 4.8 (3.5-5.1) mmol/L Chloride 107 (98-107) mmol/L Carbon Dioxide 25 (22-30) mmol/L BUN 6 L (7-17) mg/dL Creatinine 0.55 (0.52-1.04) mg/dL Glucose 98 (74-99) mg/dL Calcium 9.1 (8.4-10.2) mg/dL Total Bilirubin 0.7 (0.2-1.3) mg/dL AST 36 (14-36) U/L ALT 12 (4-34) U/L Alkaline Phosphatase 71 (38-126) U/L Total Protein 6.9 (6.3-8.2) g/dL Albumin 4.1 (3.5-5.0) g/dL
--- NOTE | 2022-03-04 13:14 | P.HPIM ---
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 Positive diarrhea earlier in the week, subsided on Monday . Currently complains of constipation, pa ssing flatus. Bilateral lower abdominal cramping times one week. Patient had a CT completed yesterday for cancer surveillance, ordered by , reported bilateral subcentimeter inguinal lymph nodes measuring up to 9.5 mm on the left side, nonspecific fracture of the right inferior pubic ramus-possible pathological fracture,significant bilateral hydronephrosis more on the right side with dilated ureters down to the expected location of the neobladder focal tumor recurrence cannot be excluded, dilated small bowel loops proximal to the small bowel anastomosis in the left side abdomen suggestive of acute mechanical obstruction, possible stenosis at the site of anastomosis , possible adhesions, small amount of free pelvic fluid ,newly seen multiple hepatic focal lesions concerning for hepatic metastasis. Abdominal x-rays completed, results pending. Reports passing flatus, no nausea and vomiting, currently. Diffuse abdominal pain-patient states chronic. Denies chest pain, palpitations or shortness of breath. Afebrile, normal WBC. Chemistry and Hematology panel unremarkable with the exception of RBCs 3.49 and lymphocytes 0.3. Review of Systems ROS Statement: Those systems with pertinent positive or pertinent negative responses have been documented in the HPI. ROS Other: All systems not noted in ROS Statement are negative. Past Medical History Past Medical History: Cancer, GERD/Reflux, Hyperlipidemia Additional Past Medical History / Comment(s): shingles 2006, Hospitalized 12/18/20 to 12/22/20 with renal failure & bladder tumor (cancer), uterine cyst, low iron., states pain lower abdomen , Irvin nephrostomy tubes. History of Any Multi-Drug Resistant Organisms: None Reported Past Surgical History: Tubal Ligation Additional Past Surgical History / Comment(s): nephrostomy tubes 12/21/20. RIGHT SCL PORT PLACEMENT No longer in place. blood clot in jugular Past Anesthesia/Blood Transfusion Reactions: No Reported Reaction Additional Past Anesthesia/Blood Transfusion Reaction / Comment(s): . Past Psychological History: No Psychological Hx Reported Smoking Status: Never smoker Past Alcohol Use History: None Reported Additional Past Alcohol Use History / Comment(s): . Past Drug Use History: None Reported - Past Family History Mother Family Medical History: Hyperlipidemia, Hypertension Additional Family Medical History / Comment(s): Borderline Diabetic. Father Family Medical History: Coronary Artery Disease (CAD), Hyperlipidemia, Hypertension Additional Family Medical History / Comment(s): CABG. Medications and Allergies Home Medications Medication Instructions Recorded Confirmed Type Rosuvastatin Calcium [Crestor] 10 mg PO HS 09/19/17 03/04/22 History Ferrous Sulfate [Feosol] 325 mg PO DAILY #30 tab 12/22/20 03/04/22 Rx Sodium Bicarbonate Tab 650 mg PO DAILY 12/31/20 03/04/22 History HYDROcodone/APAP 10-325MG [[place] 1 tab PO Q4H PRN 02/03/21 03/04/22 History 10-325] Sennosides [Senokot] 17.2 mg PO HS PRN 03/24/21 03/04/22 History Apixaban [Eliquis] 5 mg PO BID #60 tab 04/27/21 03/04/22 Rx Pantoprazole [Protonix] 40 mg PO DAILY 03/04/22 03/04/22 History Allergies Allergy/AdvReac Type Severity Reaction Status Date / Time atorvastatin [From Lipitor] Allergy Chest Pain Verified 03/04/22 08:29 Latex, Natural Rubber Allergy Swelling Verified 03/04/22 08:29 metronidazole Allergy Chest Pain Verified 03/04/22 08:29 Physical Exam Vitals: Vital Signs Temp Pulse Pulse Resp BP BP Pulse Ox 03/04/22 04:55 97.6 F 77 16 123/73 100 03/04/22 03:18 98.6 F 70 18 126/75 98 03/03/22 20:50 97.6 F 84 16 123/68 100 Intake and Output 03/03/22 03/04/22 03/04/22 22:59 06:59 14:59 Other: # Voids 1 Weight 64.546 kg 64.546 kg PHYSICAL EXAM: VITAL SIGNS: As above GENERAL: Sitting up in bed, no acute distress HEENT: Conjunctivae normal. eyes normal. NECK: No JVD. No thyroid enlargement. No LNs. CARDIOVASCULAR: S1, S2 regular.No murmur RESPIRATION: Breath sounds diminished in the bases. No rhonchi or crackles. No wheezing. ABDOMEN: Soft, distended, diffuse abdominal pain, hypoactive bowel sounds. Midline abdominal surgical scar, urostomy on the right. EXT: No edema, no cyanosis, clubbing , or calf tenderness. PSYCHIATRY: Alert and oriented X3, mood and affect normal. NERVOUS SYSTEM: Cranial N 2-12 grossly normal.No focal deficits. Strength and sensation grossly intact. Skin: Warm and dry, no rash Results CBC & Chem 7: 03/04/22 01:38 03/04/22 01:38 Labs: Abnormal Lab Results - Last 24 Hours (Table) 03/04/22 03/04/22 Range/Units 01:38 01:38 RBC 3.49 L (3.80-5.40) m/uL Lymphocytes # 0.3 L (1.0-4.8) k/uL BUN 6 L (7-17) mg/dL Thrombosis Risk Factor Assmnt - Choose All That Apply Any of the Below Risk Factors Present?: Yes Each Factor Represents 1 point: Age 41-60 years Each Risk Factor Represents 2 Points: Malignancy Each Risk Factor Represents 3 Points: History of DVT/PE Thrombosis Risk Factor Assessment Total Risk Factor Score: 6 Thrombosis Risk Factor Assessment Level: High Risk Assessment and Plan Assessment: Abdominal pain, acute mechanical small bowel obstruction, in a patient with history of bladder cancer, bladder resection, urostomy and hysterectomy. Bilateral hydronephrosis greater on the right side with dilated ureters, in a patient with a urostomy, CT reports potential focal tumor reoccurrence. Multiple hepatic focal lesions, possible hepatic metastasis per CT Bilateral inguinal lymph nodes measuring up to 9.5 mm on the left side, nonspecific per CT Nondisplaced fracture of the right inferior pubic ramus, possible pathological fracture secondary to underlying lesion. Gastroesophageal reflux disease Plan: Continue on current medication regime ,monitoring and symptomatic treatment. Maintain IV fluid hydration. General surgery and oncology consults in place with recommendations pending. Possible bone scan-defer to oncology, prior to initiating orthopedic surgery consult. Keep Npo, maintain IV fluid hydration, abdominal x-ray completed, results pending-potential NG placement for decompression. Prognosis guarded given multiple complex medical issues. The impression and plan of care has been dictated as directed. : I performed a history and examination of this patient, discussed the same with the dictator. I agree with the dictator's note ,documented as a scribe. Any additional findings or plans will be noted.
--- NOTE | 2022-03-04 13:24 | XR ---
EXAMINATION TYPE: XR abdomen 2V DATE OF EXAM: 03/04/2022 HISTORY: Pain. Technique: 2 views of the abdomen are submitted. Comparison: None. Findings: There is no convincing evidence of pneumoperitoneum. Contrast is noted within the right hemicolon. Dilated small bowel persists overlying the left hemiabd omen measuring up to 4.2 cm. No sizable air-fluid levels are seen. Rings of sutures are noted within the right mid abdomen and le ft lower quadrant. No mass effects are noted. No renal calcifications are identified. IMPRESSION: 1. Findings may reflect partial small bowel obstruction versus ileus.
--- NOTE | 2022-03-04 14:23 | P.CONS ---
History of Present Illness - Reason for Consult Consult date: 03/04/22 Bladder Cancer, abnormal CT Requesting physician: Titi Marroquin - History of Present Illness Sparkle presented with difficulty urinating (Pain) and mild/moderate RLQ abdominal pain. She had CT Scan of abdomen/Pelvis revealing thickened posterior bladder wall and bilateral hydronephrosis , she was evaluated by Dr Bee, has Cystoscopy & TURBT on 12/20/2020 revealing large posterior wall bladder tumor, pathology revealed high-grade papillary urothelial carcinoma, no definate muscle invasion seen, but the patient clearly has locally advanced invasive disease. The patient had bilateral nephrostomy tubes. Sparkle was evaluated by Dr Best at [facility], he agreed with recommendation for Neoadjuvant Chemotherapy. The patient is a lifetime non smoker, denies ETOH use, no family history of bladder cancers. She denies anorexia or weight loss. 01/29/21: C/O Grade II nausea/vomiting, as well as, fatigue. Tolerated cycle # 1 of Cisplatinum+Gemzar well 03/02/21: Feels Ok, tolerating Cisplatinim+Gemzar well (Nausea & fatigue). 03/23/21: C/O back pain (site of nephrostomy tubes), tolerating Chemotherapy well (Grade II nausea after Cisplatinum). Remains fully active. 05/13/21: Was hospitalized at [facility] with large R Internal jugular/R supra- clavicular vein DVT > started on Eliquis > Mediport removed. She completed 4 cycles of Cisplatinum+Gemzar chemotherapy > Cysteoscopy by Dr Bee > good resp onse to Neoadjuvant therapy. 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 She was seen by Dr Burt > XRT/Cisplatinum advised > tolerated well so far > nausea & fatigue. C/O insomnia 10/18/21: here for acute visit due to nausea and vomiting for straight week, she received IV fluids, was receiving dex and emend, she has lost 10lbs 10/26/21: C/O Nausea/vomiting & fatigue. Completing concurrent therapy (10 more daily XRT treatments left). 12/03/21: Feels well, stronger, fully active. CT Scan @ [facility] > OLAF (Hepatic lesions represent hepatic cysts and present unchnaged on multiple prior scans). 02/02/22: Feels well, C/O insomina, more active Patient had restaging CT abdomen and pelvis and radiology called last night to report concern of acute mechanical obstruction. I called patient and she admitted to having iincreased abdominal distention, nausea, no vomiting, diarrhea no formed stool over the week. Therefore she was sent to ER for further evaluation. Review of Systems All systems: negative Constitutional: Reports as per HPI Past Medical History Past Medical History: Cancer, GERD/Reflux, Hyperlipidemia Additional Past Medical History / Comment(s): miah 2006, Hospitalized 12/18/20 to 12/22/20 with renal failure & bladder tumor (cancer), uterine cyst, low iron., states pain lower abdomen , Irvin nephrostomy tubes. History of Any Multi-Drug Resistant Organisms: None Reported Past Surgical History: Tubal Ligation Additional Past Surgical History / Comment(s): nephrostomy tubes 12/21/20. RIGHT SCL PORT PLACEMENT No longer in place. blood clot in jugular Past Anesthesia/Blood Transfusion Reactions: No Reported Reaction Additional Past Anesthesia/Blood Transfusion Reaction / Comm: . Past Psychological History: No Psychological Hx Reported Smoking Status: Never smoker Past Alcohol Use History: None Reported Additional Past Alcohol Use History / Comment(s): . Past Drug Use History: None Reported - Past Family History Mother Family Medical History: Hyperlipidemia, Hypertension Additional Family Medical History / Comment(s): Borderline Diabetic. Father Family Medical History: Coronary Artery Disease (CAD), Hyperlipidemia, Hypertension Additional Family Medical History / Comment(s): CABG. Medications and Allergies Home Medications Medication Instructions Recorded Confirmed Type Rosuvastatin Calcium [Crestor] 10 mg PO HS 09/19/17 03/04/22 History Ferrous Sulfate [Feosol] 325 mg PO DAILY #30 tab 12/22/20 03/04/22 Rx Sodium Bicarbonate Tab 650 mg PO DAILY 12/31/20 03/04/22 History HYDROcodone/APAP 10-325MG [[place] 1 tab PO Q4H PRN 02/03/21 03/04/22 History 10-325] Sennosides [Senokot] 17.2 mg PO HS PRN 03/24/21 03/04/22 History Apixaban [Eliquis] 5 mg PO BID #60 tab 04/27/21 03/04/22 Rx Pantoprazole [Protonix] 40 mg PO DAILY 03/04/22 03/04/22 History Allergies Allergy/AdvReac Type Severity Reaction Status Date / Time atorvastatin [From Lipitor] Allergy Chest Pain Verified 03/04/22 08:29 Latex, Natural Rubber Allergy Swelling Verified 03/04/22 08:29 metronidazole Allergy Chest Pain Verified 03/04/22 08:29 Physical Exam Vitals: Vital Signs Temp Pulse Pulse Resp BP BP Pulse Ox 03/04/22 04:55 97.6 F 77 16 123/73 100 03/04/22 03:18 98.6 F 70 18 126/75 98 03/03/22 20:50 97.6 F 84 16 123/68 100 Intake and Output 03/03/22 03/04/22 03/04/22 22:59 06:59 14:59 Other: # Voids 1 Weight 64.546 kg 64.546 kg NAD Alert and Oriented x4 No increased respirations Tachycardic normal no rash Abdominal tenderness ansd distenion no LE Edema Results CBC & Chem 7: 03/04/22 01:38 03/04/22 01:38 Labs: Abnormal Lab Results - Last 24 Hours (Table) 03/04/22 03/04/22 Range/Units 01:38 01:38 RBC 3.49 L (3.80-5.40) m/uL Lymphocytes # 0.3 L (1.0-4.8) k/uL BUN 6 L (7-17) mg/dL CT scan - abdomen: report reviewed US - abdomen: report reviewed Assessment and Plan (1) Bowel obstruction Narrative/Plan: Geberal surgery is following and awaiting on Xray for further recs Current Visit: Yes Status: Acute Code(s): K56.609 - UNSP INTESTNL OBST, UNSP TO PARTIAL VERSUS COMPLETE OBST SNOMED Code(s): 82505215 (2) Bladder cancer Narrative/Plan: No on active treatment Current Visit: No Status: Acute Code(s): C67.9 - MALIGNANT NEOPLASM OF BLADDER, UNSPECIFIED SNOMED Code(s): 122520700 Plan: Await recs from gen surgery Bowel rest
--- NOTE | 2022-03-04 17:03 | P.GSCN ---
History of Present Illness Consult date: 03/04/22 Reason for Consult: Hydronephrosis Requesting physician: Jill Curiel History of present illness: The patient is a 51-year-old white female diagnosed with high-grade muscle invasive urothelial carcinoma of the bladder in December 2020. The tumor primarily involved the posterior bladder wall and resulted in bilateral hydronephrosis. She underwent bilateral percutaneous nephrostomy tube insertion and received neoadjuvant chemotherapy. 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 She received radiation therapy and chemotherapy postoperatively. She has recently experienced abdominal discomfort, nausea, and vomiting. She reports mild left flank discomfort. She denies hematuria. Review of Systems - Gastrointestinal Reports abdominal pain, Reports nausea, Reports vomiting - Genitourinary Genitourinary: Reports flank pain, Denies hematuria Past Medical History Past Medical History: Cancer, GERD/Reflux, Hyperlipidemia Additional Past Medical History / Comment(s): miah 2005, Hospitalized 12/18/20 to 12/22/20 with renal failure & bladder tumor (cancer), uterine cyst, low iron., states pain lower abdomen , Irvin nephrostomy tubes. History of Any Multi-Drug Resistant Organisms: None Reported Past Surgical History: Tubal Ligation Additional Past Surgical History / Comment(s): nephrostomy tubes 12/21/20. RIGHT SCL PORT PLACEMENT No longer in place. blood clot in jugular Past Anesthesia/Blood Transfusion Reactions: No Reported Reaction Additional Past Anesthesia/Blood Transfusion Reaction / Comm: . Past Psychological History: No Psychological Hx Reported Smoking Status: Never smoker Past Alcohol Use History: None Reported Additional Past Alcohol Use History / Comment(s): . Past Drug Use History: None Reported - Past Family History Mother Family Medical History: Hyperlipidemia, Hypertension Additional Family Medical History / Comment(s): Borderline Diabetic. Father Family Medical History: Coronary Artery Disease (CAD), Hyperlipidemia, Hypertension Additional Family Medical History / Comment(s): CABG. Medications and Allergies Home Medications Medication Instructions Recorded Confirmed Type Rosuvastatin Calcium [Crestor] 10 mg PO HS 09/19/17 03/04/22 History Ferrous Sulfate [Feosol] 325 mg PO DAILY #30 tab 12/22/20 03/04/22 Rx Sodium Bicarbonate Tab 650 mg PO DAILY 12/31/20 03/04/22 History HYDROcodone/APAP 10-325MG [[place] 1 tab PO Q4H PRN 02/03/21 03/04/22 History 10-325] Sennosides [Senokot] 17.2 mg PO HS PRN 03/24/21 03/04/22 History Apixaban [Eliquis] 5 mg PO BID #60 tab 04/27/21 03/04/22 Rx Pantoprazole [Protonix] 40 mg PO DAILY 03/04/22 03/04/22 History Allergies Allergy/AdvReac Type Severity Reaction Status Date / Time atorvastatin [From Lipitor] Allergy Chest Pain Verified 03/04/22 08:29 Latex, Natural Rubber Allergy Swelling Verified 03/04/22 08:29 metronidazole Allergy Chest Pain Verified 03/04/22 08:29 Surgical - Exam Vital Signs Temp Pulse Resp BP Pulse Ox 97.6 F 84 16 123/68 100 03/03/22 20:50 03/03/22 20:50 03/03/22 20:50 03/03/22 20:50 03/03/22 20:50 - General well developed - Respiratory normal respiratory effort - Abdomen Soft, non-distended, no mass. The right-sided urostomy stoma is nicely budded. There is mild tenderness, no guarding or rebound. - Psychiatric oriented to time, oriented to person, oriented to place, speech is normal, memory intact Results - Labs 03/04/22 01:38 03/04/22 01:38 Abnormal Lab Results - Last 24 Hours (Table) 03/04/22 03/04/22 Range/Units 01:38 01:38 RBC 3.49 L (3.80-5.40) m/uL Lymphocytes # 0.3 L (1.0-4.8) k/uL BUN 6 L (7-17) mg/dL Diabetes panel 03/04/22 Range/Units 01:38 Sodium 139 (137-145) mmol/L Potassium 4.8 (3.5-5.1) mmol/L Chloride 107 (98-107) mmol/L Carbon Dioxide 25 (22-30) mmol/L BUN 6 L (7-17) mg/dL Creatinine 0.55 (0.52-1.04) mg/dL Glucose 98 (74-99) mg/dL Calcium 9.1 (8.4-10.2) mg/dL AST 36 (14-36) U/L ALT 12 (4-34) U/L Alkaline Phosphatase 71 (38-126) U/L Total Protein 6.9 (6.3-8.2) g/dL Albumin 4.1 (3.5-5.0) g/dL Calcium panel 03/04/22 Range/Units 01:38 Calcium 9.1 (8.4-10.2) mg/dL Albumin 4.1 (3.5-5.0) g/dL Pituitary panel 03/04/22 Range/Units 01:38 Sodium 139 (137-145) mmol/L Potassium 4.8 (3.5-5.1) mmol/L Chloride 107 (98-107) mmol/L Carbon Dioxide 25 (22-30) mmol/L BUN 6 L (7-17) mg/dL Creatinine 0.55 (0.52-1.04) mg/dL Glucose 98 (74-99) mg/dL Calcium 9.1 (8.4-10.2) mg/dL Adrenal panel 03/04/22 Range/Units 01:38 Sodium 139 (137-145) mmol/L Potassium 4.8 (3.5-5.1) mmol/L Chloride 107 (98-107) mmol/L Carbon Dioxide 25 (22-30) mmol/L BUN 6 L (7-17) mg/dL Creatinine 0.55 (0.52-1.04) mg/dL Glucose 98 (74-99) mg/dL Calcium 9.1 (8.4-10.2) mg/dL Total Bilirubin 0.7 (0.2-1.3) mg/dL AST 36 (14-36) U/L ALT 12 (4-34) U/L Alkaline Phosphatase 71 (38-126) U/L Total Protein 6.9 (6.3-8.2) g/dL Albumin 4.1 (3.5-5.0) g/dL - Imaging CT scan - abdomen: report reviewed, image reviewed Assessment and Plan (1) Hydronephrosis Current Visit: No Status: Acute Code(s): N13.30 - UNSPECIFIED HYDRONEPHROSIS SNOMED Code(s): 25647641 Plan: Mrs. Mistry's CT scan shows bilateral hydronephrosis, greater on the right side. Her renal function is normal. I compare the recent CT scan with the one done in December 2020 at the time of her diagnosis. The degree of hydronephrosis is essentially unchanged. It is my impression that her hydronephrosis is chronic and that no further evaluation is warranted. It is possible that she has developed a stricture at the anastomotic site between the ureter and the ileal conduit, but this is quite unlikely. A loopogram could be performed to rule this out, though I feel this is unnecessary given that her renal function is normal. Please notify me if I can be of any further assistance. Time with Patient: Greater than 30
[2022-03-05] MEDS: SODIUM CHLORIDE 0.9% 1,000 ML IV SCH ×4 (01:31→19:07)
[2022-03-05] MEDS: PANTOPRAZOLE 40 MG/10 ML VIAL IV SCH (07:21)
--- NOTE | 2022-03-05 10:48 | P.PN ---
Progress Note - Text Progress Note Date: 03/05/22 Patient is currently having bowel movements. Per nursing her abdomen is soft nontender Patient will have her diet advanced to full liquid diet.
[2022-03-05] MEDS: MORPHINE SULFATE 4 MG/ML SYRINGE IV PRN (22:03)
[2022-03-05] MEDS: ONDANSETRON 4 MG/2 ML VIAL IVP PRN (22:03)
--- NOTE | 2022-03-05 23:54 | P.PN ---
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 Positive diarrhea earlier in the week, subsided on Monday . Currently complains of constipation, passing flatus. Bilateral lower abdominal cramping times one week. Patient had a CT completed yesterday for cancer surveillance, ordered by , reported bilateral subcentimeter inguinal lymph nodes measuring up to 9.5 mm on the left side, nonspecific fracture of the right inferior pubic ramus-possible pathological fracture,significant bilateral hydronephrosis more on the right side with dilated ureters down to the expected location of the neobladder focal tumor recurrence cannot be excluded, dilated small bowel loops proximal to the small bowel anastomosis in the left side abdomen suggestive of acute mechanical obstruction, possible stenosis at the site of anastomosis , possible adhesions, small amount of free pelvic fluid ,newly seen multiple hepatic focal lesions concerning for hepatic metastasis. Abdominal x-rays completed, results pending. Reports passing flatus, no nausea and vomiting, currently. Diffuse abdominal pain-patient states chronic. Denies chest pain, palpitations or shortness of breath. Afebrile, normal WBC. Chemistry and Hematology panel unremarkable with the exception of RBCs 3.49 and lymphocytes 0.3. 03/05/2022 Patient with small bowel obstruction versus ileus and she has been evaluated by surgery, it looks like patient condition is improving, she had one bowel movement and diet advanced to full liquid diet, her abdominal pain is 5/10 which is basically improving Neurologist evaluated the patient for hydronephrosis and looks like it's a chronic problem oncology team for her history of coronary bladder cancer, now on CAT scan she has evidence of multiple liver lesions suspicious for metastatic disease, follow-up with oncology team further recommendation Continue with Protonix She's on normal saline at 130, lowered into 75 mL/h Eliquis remains on hold, I discussed with patient to give subcutaneous injection of heparin or Lovenox and she did not like the idea. We will discuss again tomorrow Objective - Vital Signs Vital signs: Vital Signs Temp 99.1 F 03/05/22 11:56 Pulse 71 03/05/22 11:56 Resp 16 03/05/22 11:56 BP 122/69 03/05/22 11:56 Pulse Ox 96 03/05/22 11:56 FiO2 Intake & Output 03/04/22 03/05/22 03/05/22 18:59 06:59 18:59 Intake Total 1560 0 Output Total 600 Balance 1560 -600 Intake: Intake, IV Titration 1560 Amount Sodium Chloride 0.9% 1, 1560 000 ml @ 130 mls/hr IV . [id number] [facility] Rx#:[id number] Oral 0 Output: Urine 600 Other: Voiding Method Ileal Conduit (Right) # Bowel Movements 2 - Exam GENERAL: The patient is alert and oriented x3, not in any acute distress. Well developed, well nourished. HEENT: Pupils are round and equally reacting to light. EOMI. No scleral icterus. No conjunctival pallor. Normocephalic, atraumatic. No pharyngeal erythema. No thyromegaly. CARDIOVASCULAR: S1 and S2 present. No murmurs, rubs, or gallops. PULMONARY: Chest is clear to auscultation, no wheezing or crackles. ABDOMEN: Soft, nontender, nondistended, normoactive bowel sounds. No palpable organomegaly. MUSCULOSKELETAL: No joint swelling or deformity. EXTREMITIES: No cyanosis, clubbing, or pedal edema. NEUROLOGICAL: Gross neurological examination did not reveal any focal deficits. SKIN: No rashes. no petechiae. - Labs CBC & Chem 7: 03/04/22 01:38 03/04/22 01:38 Assessment and Plan Assessment: Partial small bowel obstruction versus ileus, improving and diet is been advanced Multiple new liver lesions suspicious for metastatic disease History of urinary bladder cancers status post resection Chronic bilateral hydronephrosis, evaluated by urologist Nondisplaced fracture of the right inferior pubic rami History of GERD Plan: This is a pleasant 51 years old female SBO Diet advance to liquid diet Surgical team on the case Keep Eliquis on hold, we will discuss with surgery tomorrow for possible resume the medication Urologist evaluation for hydronephrosis, it is a chronic problem Also oncology team on the case, patient with possible liver metastasis. Labs and medication were reviewed.. Continue same treatment. Continue with symptomatic treatment. Resume home medication. Monitor lytes and vitals. DVT and GI prophylaxis. Further recommendations as per clinical course of the patient DVT prophylaxis: Subcutaneous heparin GI Prophylaxis: Pepcid Prognosis is guarded
[2022-03-06] MEDS: SODIUM CHLORIDE 0.9% 1,000 ML IV SCH ×2 (05:44→17:03)
[2022-03-06] MEDS: PANTOPRAZOLE 40 MG/10 ML VIAL IV SCH (07:37)
--- NOTE | 2022-03-06 09:32 | P.PN ---
Progress Note - Text Progress Note Date: 03/06/22 Patient several bowel movements last night. She still feels abdominal distention and bloating. She is on a full diet. On exam vital signs are stable. Abdomen soft. He is mild distention. There is no significant pain. Resolving small bowel obstruction. Patient will continue full liquid diet.
[2022-03-06] MEDS: ONDANSETRON 4 MG/2 ML VIAL IVP PRN ×2 (17:02→21:07)
[2022-03-06] MEDS: ENOXAPARIN 40 MG/0.4 ML SYRINGE SQ SCH (21:07)
[2022-03-06] MEDS: MORPHINE SULFATE 4 MG/ML SYRINGE IV PRN (21:07)
--- NOTE | 2022-03-07 00:40 | P.PN ---
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 Positive diarrhea earlier in the week, subsided on Monday . Currently complains of constipation, passing flatus. Bilateral lower abdominal cramping times one week. Patient had a CT completed yesterday for cancer surveillance, ordered by , reported bilateral subcentimeter inguinal lymph nodes measuring up to 9.5 mm on the left side, nonspecific fracture of the right inferior pubic ramus-possible pathological fracture,significant bilateral hydronephrosis more on the right side with dilated ureters down to the expected location of the neobladder focal tumor recurrence cannot be excluded, dilated small bowel loops proximal to the small bowel anastomosis in the left side abdomen suggestive of acute mechanical obstruction, possible stenosis at the site of anastomosis , possible adhesions, small amount of free pelvic fluid ,newly seen multiple hepatic focal lesions concerning for hepatic metastasis. Abdominal x-rays completed, results pending. Reports passing flatus, no nausea and vomiting, currently. Diffuse abdominal pain-patient states chronic. Denies chest pain, palpitations or shortness of breath. Afebrile, normal WBC. Chemistry and Hematology panel unremarkable with the exception of RBCs 3.49 and lymphocytes 0.3. 03/05/2022 Patient with small bowel obstruction versus ileus and she has been evaluated by surgery, it looks like patient condition is improving, she had one bowel movement and diet advanced to full liquid diet, her abdominal pain is 5/10 which is basically improving Neurologist evaluated the patient for hydronephrosis and looks like it's a chronic problem oncology team for her history of coronary bladder cancer, now on CAT scan she has evidence of multiple liver lesions suspicious for metastatic disease, follow-up with oncology team further recommendation Continue with Protonix She's on normal saline at 130, lowered into 75 mL/h Eliquis remains on hold, I discussed with patient to give subcutaneous injection of heparin or Lovenox and she did not like the idea. We will discuss again tomorrow 03/06/2022 Patient is still on full liquid diet with no nausea vomiting, she rates her abdominal pain today as 5/10, she had only one bowel movement yesterday. No other new complaints I discussed with the patient and at bedside her liver lesion which needs to be followed up, also explained possibility including but not limited to metastatic disease. She is verbalized understanding and acceptance Patient admits on subcutaneous heparin for DVT prophylaxis, Eliquis is on hold for surgery team Oncology and surgery team from the patient closely Objective - Vital Signs Vital signs: Vital Signs Temp 98.7 F 03/06/22 13:18 Pulse 78 03/06/22 13:18 Resp 16 03/06/22 13:18 BP 122/70 03/06/22 13:18 Pulse Ox 94 L 03/06/22 13:18 FiO2 Intake & Output 03/06/22 03/06/22 03/07/22 06:59 18:59 06:59 Intake Total 900 Output Total 975 Balance -975 900 Intake: Intake, IV Titration 900 Amount Sodium Chloride 0.9% 1, 900 000 ml @ 75 mls/hr IV . [id number] [facility] Rx#:[id number] Output: Urine 975 Other: Voiding Method Ileal Conduit (Right) Ileal Conduit (Right) # Bowel Movements 2 - Exam GENERAL: The patient is alert and oriented x3, not in any acute distress. Well developed, well nourished. HEENT: Pupils are round and equally reacting to light. EOMI. No scleral icterus. No conjunctival pallor. Normocephalic, atraumatic. No pharyngeal erythema. No thyromegaly. CARDIOVASCULAR: S1 and S2 present. No murmurs, rubs, or gallops. PULMONARY: Chest is clear to auscultation, no wheezing or crackles. ABDOMEN: Soft, nontender, nondistended, normoactive bowel sounds. No palpable organomegaly. MUSCULOSKELETAL: No joint swelling or deformity. EXTREMITIES: No cyanosis, clubbing, or pedal edema. NEUROLOGICAL: Gross neurological examination did not reveal any focal deficits. SKIN: No rashes. no petechiae. - Labs CBC & Chem 7: 03/04/22 01:38 03/04/22 01:38 Assessment and Plan Assessment: Partial small bowel obstruction versus ileus, improving and diet is been advanced Multiple new liver lesions suspicious for metastatic disease History of urinary bladder cancers status post resection Chronic bilateral hydronephrosis, evaluated by urologist Nondisplaced fracture of the right inferior pubic rami History of GERD Plan: This is a pleasant 51 years old female SBO Diet advance to liquid diet Surgical team on the case Keep Eliquis on hold, we will discuss with surgery tomorrow for possible resume the medication Urologist evaluation for hydronephrosis, it is a chronic problem Also oncology team on the case, patient with possible liver metastasis. Labs and medication were reviewed.. Continue same treatment. Continue with symptomatic treatment. Resume home medication. Monitor lytes and vitals. DVT and GI prophylaxis. Further recommendations as per clinical course of the patient DVT prophylaxis: Subcutaneous heparin GI Prophylaxis: Pepcid Prognosis is guarded
[2022-03-07] MEDS: MORPHINE SULFATE 4 MG/ML SYRINGE IV PRN ×3 (00:55→22:43)
[2022-03-07] MEDS: SODIUM CHLORIDE 0.9% 1,000 ML IV SCH ×2 (04:17→21:39)
[2022-03-07] MEDS: ONDANSETRON 4 MG/2 ML VIAL IVP PRN ×3 (04:17→21:36)
[2022-03-07] MEDS: PANTOPRAZOLE 40 MG/10 ML VIAL IV SCH (09:25)
[2022-03-07] MEDS: ENOXAPARIN 40 MG/0.4 ML SYRINGE SQ SCH (09:25)
[2022-03-07] MEDS ORDERED: LORazepam 2 MG/ML INJ IV PRN (10:57)
--- NOTE | 2022-03-07 13:24 | P.PN ---
Subjective Progress Note Date: 03/07/22 CHIEF COMPLAINT: Small bowel obstruction HISTORY OF PRESENT ILLNESS: Patient complains of nausea and vomiting last night. She reports that her abdominal pain is about the same. However the sharp stabbing pains that she had been having is becoming more frequent. She reports a decreased appetite. She reports feeling full this morning and unable to eat breakfast. Her last bowel movements were on Monday. She had no bowel movements yesterday she is having a small amount of flatus. Afebrile PHYSICAL EXAM: VITAL SIGNS: Reviewed. GENERAL: Well-developed in no acute distress. HEENT: No sclera icterus. Extraocular movements grossly intact. Moist buccal mucosa. Head is atraumatic, normocephalic. ABDOMEN: Soft. Distended more the upper abdomen. Tenderness at midline scar. And urostomy with urine output. NEUROLOGIC: Alert and oriented. Cranial nerves II through XII grossly intact. ASSESSMENT: 1. Acute mechanical small bowel obstruction 2. History of bladder cancer with cervical source and bladder resection, urostomy and hysterectomy PLAN: -Repeat computed tomography scan abdomen and pelvis with oral and IV contrast due to patient's worsening symptoms -Downgraded diet to clear liquids -Continue supportive care -Continue IV fluids -Continue pain medication and antiemetics as needed -Encourage patient to ambulate -check CBC, BMP Physician Multimedia Services Coordinator note has been reviewed by physician. Signing provider agrees with the documented findings, assessment, and plan of care. Objective - Vital Signs Vital signs: Vital Signs Temp 99.3 F 03/07/22 11:57 Pulse 74 03/07/22 11:57 Resp 14 03/07/22 11:57 BP 134/73 03/07/22 11:57 Pulse Ox 99 03/07/22 11:57 FiO2 Intake & Output 03/06/22 03/07/22 03/07/22 18:59 06:59 18:59 Intake Total 900 900 Output Total 1000 Balance 900 -100 Intake: Intake, IV Titration 900 900 Amount Sodium Chloride 0.9% 1, 900 900 000 ml @ 75 mls/hr IV . [id number] [facility] Rx#:[id number] Output: Urine 1000 Other: Voiding Method Ileal Conduit (Right) Ileal Conduit (Right) Ileal Conduit (Right) - Labs CBC & Chem 7: 03/04/22 01:38 03/04/22 01:38
[2022-03-07] MEDS: IOPAMIDOL CONTRAST (ORAL USE) VIAL PO PRN ×2 (14:11→15:28)
[2022-03-07 14:16] LABS: Basophils % (A) 1 %; Eosinophils # (A) 0.1 k/uL (0-0.7); Eosinophils % (A) 1 %; HCT 34.7 % (34.0-46.0); HGB 11.4 gm/dL (11.4-16.0); Lymphocytes # (A) 0.3 k/uL (1.0-4.8); Lymphocytes % (A) 5 %; MCH 32.7 pg (25.0-35.0); MCHC 32.7 g/dL (31.0-37.0); MCV 100.1 fL (80.0-100.0); Mean Platelet Volume 6.8; Monocytes # (A) 0.4 k/uL (0-1.0); Monocytes % (A) 8 %; Neutrophils # (A) 4.3 k/uL (1.3-7.7); Neutrophils % (A) 84 %; Platelet Count 279 k/uL (150-450); RBC 3.47 m/uL (3.80-5.40); RDW 11.6 % (11.5-15.5); WBC 5.1 k/uL (3.8-10.6)
[2022-03-07 14:28] LABS: African American GFR (CKD) >90 (>60 ml/min/1.73 sqM); Anion Gap 8 mmol/L; Blood Urea Nitrogen 5 mg/dL (7-17); Calcium 8.3 mg/dL (8.4-10.2); Carbon Dioxide 23 mmol/L (22-30); Chloride 110 mmol/L (98-107); Glucose 75 mg/dL (74-99); Non-African American GFR(CKD) >90 (>60 ml/min/1.73 sqM); Potassium 2.9 mmol/L (3.5-5.1); Sodium 141 mmol/L (137-145)
[2022-03-07] MEDS ORDERED: Potassium Replacement Protocol 1 EACH MISC MISCELLANE PRN ×2 (15:41→16:58)
[2022-03-07] MEDS ORDERED: Magnesium Replacement Protocol 1 EACH MISC MISCELLANE PRN (15:42)
--- NOTE | 2022-03-07 15:48 | P.PN ---
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 Positive diarrhea earlier in the week, subsided on Monday . Currently complains of constipation, passing flatus. Bilateral lower abdominal cramping times one week. Patient had a CT completed yesterday for cancer surveillance, ordered by , reported bilateral subcentimeter inguinal lymph nodes measuring up to 9.5 mm on the left side, nonspecific fracture of the right inferior pubic ramus-possible pathological fracture,significant bilateral hydronephrosis more on the right side with dilated ureters down to the expected location of the neobladder focal tumor recurrence cannot be excluded, dilated small bowel loops proximal to the small bowel anastomosis in the left side abdomen suggestive of acute mechanical obstruction, possible stenosis at the site of anastomosis , possible adhesions, small amount of free pelvic fluid ,newly seen multiple hepatic focal lesions concerning for hepatic metastasis. Abdominal x-rays completed, results pending. Reports passing flatus, no nausea and vomiting, currently. Diffuse abdominal pain-patient states chronic. Denies chest pain, palpitations or shortness of breath. Afebrile, normal WBC. Chemistry and Hematology panel unremarkable with the exception of RBCs 3.49 and lymphocytes 0.3. 03/07/2022 patient was placed on full liquid diet, tolerating with positive bowel movements 3 and Monday. Developed nausea and vomiting last night, passing flatus with no further bowel movements. This morning no flatus, no bowel movement, ongoing sharp stabbing lower quadrant pain, worse on the left. T-max 99.2, WBC 5.1. Potassium 2.9, replacement protocol as ordered. Objective - Vital Signs Vital signs: Vital Signs Temp 99.3 F 03/07/22 11:57 Pulse 74 03/07/22 11:57 Resp 14 03/07/22 11:57 BP 134/73 03/07/22 11:57 Pulse Ox 99 03/07/22 11:57 FiO2 Intake & Output 03/06/22 03/07/22 03/07/22 18:59 06:59 18:59 Intake Total 900 900 Output Total 1000 Balance 900 -100 Intake: Intake, IV Titration 900 900 Amount Sodium Chloride 0.9% 1, 900 900 000 ml @ 75 mls/hr IV . [id number] [facility] Rx#:[id number] Output: Urine 1000 Other: Voiding Method Ileal Conduit (Right) Ileal Conduit (Right) Ileal Conduit (Right) - Exam PHYSICAL EXAM: VITAL SIGNS: As above GENERAL: Sitting up at side of bed, no acute distress HEENT: Conjunctivae normal. eyes normal. NECK: No JVD. No thyroid enlargement. CARDIOVASCULAR: S1, S2 regular.No murmur RESPIRATION: Breath sounds diminished in the bases. No rhonchi or crackles. No wheezing. ABDOMEN: Soft, distended, diffuse abdominal pain,left greater than right , hypoactive bowel sounds. Midline abdominal surgical scar, urostomy on the right with your. EXT: No edema, no cyanosis, clubbing , or calf tenderness. PSYCHIATRY: Alert and oriented X3, mood and affect normal. NERVOUS SYSTEM: Cranial N 2-12 grossly normal.No focal deficits. Strength and sensation grossly intact. Skin: Warm and dry, no rash - Labs CBC & Chem 7: 03/07/22 14:05 03/07/22 14:05 Labs: Abnormal Lab Results - Last 24 Hours (Table) 03/07/22 03/07/22 Range/Units 14:05 14:05 RBC 3.47 L (3.80-5.40) m/uL MCV 100.1 H (80.0-100.0) fL Lymphocytes # 0.3 L (1.0-4.8) k/uL Potassium 2.9 L (3.5-5.1) mmol/L Chloride 110 H (98-107) mmol/L BUN 5 L (7-17) mg/dL Calcium 8.3 L (8.4-10.2) mg/dL Assessment and Plan Assessment: Abdominal pain, acute mechanical small bowel obstruction, in a patient with history of bladder cancer, bladder resection, urostomy and hysterectomy. Bilateral hydronephrosis greater on the right side with dilated ureters, in a patient with a urostomy, CT reports potential focal tumor reoccurrence, hematology following Multiple hepatic focal lesions, possible hepatic metastasis per CT Bilateral inguinal lymph nodes measuring up to 9.5 mm on the left side, nonspecific per CT Nondisplaced fracture of the right inferior pubic ramus, possible pathological fracture secondary to underlying lesion. Gastroesophageal reflux disease Hypokalemia Plan: Continue on current medication regime ,monitoring and symptomatic treatment. Potassium replacement as per replacement protocol ordered. Magnesium level added on, pending. Maintain IV fluid hydration. Further recommendations per General surgery and oncology pending. Prognosis guarded given multiple complex medical issues. The impression and plan of care has been dictated as directed. : I performed a history and examination of this patient, discussed the same with the dictator. I agree with the dictator's note ,documented as a scribe. Any additional findings or plans will be noted.
--- NOTE | 2022-03-07 16:53 | CT ---
EXAMINATION TYPE: CT abdomen pelvis w con DATE OF EXAM: 03/07/2022 COMPARISON: 03/03/2022 HISTORY: abdominal pain, N/V, diarrhea CT DLP: 661.8 mGycm Automated exposure control for dose reduction was used. CONTRAST: Performed with IV Contrast, patient injected with 100ml mL of Isovue 300. Images obtained from the diaphragm to the floor the pelvis with oral and IV contrast. There are [id number] bilateral pleural effusions. There is bilateral basilar pulmonary infiltra te or atelectasis. Heart size is normal. No pericardial effusion. There are multiple variable-sized h ypodense masses in the liver that measure up to 5 cm. Spleen is intact. Stomach is intact. There is n o pancreatic mass. Gallbladder is intact. The bile ducts are not dilated. There is abdominal ascites fluid. There is no adrenal mass. There is moderate bilateral hydronephrosis and hydroureter. There is ileal conduit. Bladder is absent. Large bowel appears mostly empty. There are multiple dilated small bowel loops with air-fluid levels. Small bowel dilated up to 4 cm. The lumbar spine is intact. Bony pelvis is intact. The hip joints are intact no hip dysplasia. There appears to be some spiculation and tethering of the bowel in the right lower quadrant. No evidence of free air. IMPRESSION: Multiple liver lesions consistent with metastatic disease. Bilateral hydronephrosis and hydroureter s imilar to recent exam and consistent with obstruction of the ileal conduit. Dilated small bowel suggestive of mechanical distal small bowel obstruction similar to recent exam. A bdominal ascites appears new compared to recent exam. Adhesions or recurrent tumor in the right lower quadrant is suspected that is producing the renal obstruction and small bowel obstruction.
--- NOTE | 2022-03-07 17:46 | P.PN ---
Subjective Progress Note Date: 03/07/22 Principal diagnosis: Abd pain, distension, Hx bladder carcinoma In f/u today pt cont to have abd discomfort, sharp at times, she had vomiting x 1 without nausea, last BM was 2 days ago. She has clear urine from the urostomy. Objective - Vital Signs Vital signs: Vital Signs Temp 99.3 F 03/07/22 11:57 Pulse 74 03/07/22 11:57 Resp 14 03/07/22 11:57 BP 134/73 03/07/22 11:57 Pulse Ox 99 03/07/22 11:57 FiO2 Intake & Output 03/06/22 03/07/22 03/07/22 18:59 06:59 18:59 Intake Total 900 900 Output Total 1000 Balance 900 -100 Intake: Intake, IV Titration 900 900 Amount Sodium Chloride 0.9% 1, 900 900 000 ml @ 75 mls/hr IV . [id number] [facility] Rx#:[id number] Output: Urine 1000 Other: Voiding Method Ileal Conduit (Right) Ileal Conduit (Right) Ileal Conduit (Right) - Constitutional General appearance: Present: average body habitus, cooperative, no acute distress - EENT Eyes: Present: anicteric sclerae, EOMI ENT: Present: hearing grossly normal - Respiratory Respiratory: bilateral: CTA - Cardiovascular Rhythm: regular Heart sounds: normal: S1, S2 Abnormal Heart Sounds: Absent: systolic murmur, diastolic murmur, rub, S3 Gallop, S4 Gallop, click, other - Peripheral edema leg Peripheral Edema: bilateral: None - Gastrointestinal Gastrointestinal Comment(s): RLQ urostomy, significant midline incision General gastrointestinal: Present: soft, tenderness - Neurologic Neurologic: Present: CNII-XII intact - Musculoskeletal Musculoskeletal: Present: strength equal bilaterally - Psychiatric Psychiatric: Present: A&O x's 3, appropriate affect, intact judgment & insight - Labs CBC & Chem 7: 03/07/22 14:05 03/07/22 14:05 Labs: Abnormal Lab Results - Last 24 Hours (Table) 03/07/22 03/07/22 Range/Units 14:05 14:05 RBC 3.47 L (3.80-5.40) m/uL MCV 100.1 H (80.0-100.0) fL Lymphocytes # 0.3 L (1.0-4.8) k/uL Potassium 2.9 L (3.5-5.1) mmol/L Chloride 110 H (98-107) mmol/L BUN 5 L (7-17) mg/dL Calcium 8.3 L (8.4-10.2) mg/dL - Imaging and Cardiology CT scan - abdomen: report reviewed CT scan - pelvis: report reviewed Assessment and Plan (1) Abdominal pain Current Visit: Yes Status: Acute Priority: High Code(s): R10.9 - UNSPECIFIED ABDOMINAL PAIN SNOMED Code(s): 03147320 (2) Bowel obstruction Current Visit: Yes Status: Acute Priority: High Code(s): K56.609 - UNSP INTESTNL OBST, UNSP TO PARTIAL VERSUS COMPLETE OBST SNOMED Code(s): 14066801 (3) Bladder cancer Current Visit: No Status: Chronic Priority: Medium Code(s): C67.9 - MALIGNANT NEOPLASM OF BLADDER, UNSPECIFIED SNOMED Code(s): 297821397 (4) Hydronephrosis Current Visit: No Status: Chronic Priority: Low Code(s): N13.30 - UNSPECIFIED HYDRONEPHROSIS SNOMED Code(s): 31734226 Plan: Abd pain-pain meds PRN. Will inquire about meds for prevention of narcotic induced constipation as pt is currently being treated for SBO. SBO being managed conservatively, per Surgery. Hydronephrosis is chronic, Urology has seen pt, reviewed scans. Pt has output from urostomy, cr is normal. Liver lesions reported on CT. Reviewed office notes, reviewed with Onc. There is documented Hx of liver cysts. There were reported on most recent scans from [facility] in November/December this year. Have requested MRI of the liver for clarity of the liver findings on CT. Ativan for anxiety
[2022-03-07] MEDS: POTASSIUM CHLORIDE 10 MEQ in WATER FOR INJECTION 1 100ML.BAG IVPB SCH ×2 (17:59→19:42)
[2022-03-07] MEDS ORDERED: MAGNESIUM SULFATE-D5W PMX 1 GM in DEXTROSE/WATER 1 100ML.BAG IVPB ONE (19:17)
[2022-03-07] MEDS: MAGNESIUM SULFATE-D5W PMX 1 GM in DEXTROSE/WATER 1 100ML.BAG IVPB SCH ×2 (21:35→22:42)
[2022-03-07] MEDS: POTASSIUM CHLORIDE ER 20 MEQ TAB.ER PO SCH ×2 (21:36→22:43)
[2022-03-08] MEDS: POTASSIUM CHLORIDE ER 20 MEQ TAB.ER PO SCH (00:03)
[2022-03-08] MEDS: MAGNESIUM SULFATE-D5W PMX 1 GM in DEXTROSE/WATER 1 100ML.BAG IVPB SCH (00:03)
[2022-03-08] MEDS: LORazepam 0.5 MG TAB PO PRN ×3 (00:03→21:50)
[2022-03-08] MEDS: POTASSIUM CHLORIDE 10 MEQ in WATER FOR INJECTION 1 100ML.BAG IVPB SCH ×7 (01:22→06:45)
[2022-03-08] MEDS: MORPHINE SULFATE 4 MG/ML SYRINGE IV PRN ×4 (05:05→23:56)
[2022-03-08] MEDS: PANTOPRAZOLE 40 MG/10 ML VIAL IV SCH (08:41)
[2022-03-08] MEDS: ENOXAPARIN 40 MG/0.4 ML SYRINGE SQ SCH (08:41)
[2022-03-08 11:10] LABS: Basophils # (A) 0.01 X 10*3/uL (0.00-0.10); Basophils % (A) 0.2 %; Eosinophils # (A) 0.02 X 10*3/uL (0.04-0.35); Eosinophils % (A) 0.4 %; HCT 33.7 % (37.2-46.3); HGB 10.7 g/dL (12.0-15.0); Immature Grans, Automated 0.4 %; MCHC 31.8 g/dL (32.0-37.0); MCV 97.7 fL (80.0-97.0); Mean Platelet Volume 9.1 fL (9.5-12.2); Monocytes # (A) 0.47 X 10*3/uL (0.20-1.00); Monocytes % (A) 9.3 %; NRBC Per 100 WBC 0 /100 WBCS (0.0-0.0); Neutrophils # (A) 4.32 X 10*3/uL (1.80-7.70); Neutrophils % (A) 85.7 %; Platelet Count 238 X 10*3/uL (140-440); RBC 3.45 X 10*6/uL (4.10-5.20); RDW 11.3 % (11.5-14.5); WBC 5.04 X 10*3/uL (4.50-10.00)
[2022-03-08 11:24] LABS: African American GFR (CKD) 120.6 (60.0-200.0); Anion Gap 14.5 mmol/L (10.00-18.00); BUN/Creat Ratio 6.33 Ratio (12.00-20.00); Blood Urea Nitrogen 3.8 mg/dL (9.0-27.0); Calcium 8.5 mg/dL (8.7-10.3); Carbon Dioxide 20.5 mmol/L (20.0-27.5); Non-African American GFR(CKD) 104.1 (60.0-200.0)
[2022-03-08] MEDS: SODIUM CHLORIDE 0.9% 1,000 ML IV SCH ×2 (11:55→20:31)
--- NOTE | 2022-03-08 13:19 | P.PN ---
Subjective Progress Note Date: 03/08/22 CHIEF COMPLAINT: Small bowel obstruction HISTORY OF PRESENT ILLNESS: The patient reports no further nausea or vomiting. But she continues to have same abdominal pains. She is still distended. She had a repeat CAT scan with oral and IV contrast that had demonstrated multiple liver lesions consistent with metastatic disease. Bilateral hydronephrosis and hydroureter summer to recent exam and consistent with obstruction of the ileal conduit. Dilated small bowel suggestive of mechanical distal small bowel obstruction similar to recent exam. Abdominal ascites appears new compared to recent exam. Adhesions or recurrent tumor at the right lower quadrant is suspected that is producing the renal obstruction and small bowel obstruction. Patient having low-grade temps 100.3. WBC is 5.04 Hgb 10.7 platelets 238 sodium 142 potassium improved from 2.8-4 creatinine 0.6. Oncology is ordered MRI for f urther evaluation of liver lesions or cysts Patient seen and examined with Dr. garland PHYSICAL EXAM: VITAL SIGNS: Reviewed. GENERAL: Well-developed in no acute distress. HEENT: No sclera icterus. Extraocular movements grossly intact. Moist buccal mucosa. Head is atraumatic, normocephalic. ABDOMEN: Distended. Tender. urostomy with urine output. NEUROLOGIC: Alert and oriented. Cranial nerves II through XII grossly intact. ASSESSMENT: 1. Acute mechanical small bowel obstruction no improvement on CAT scan 2. Advanced cervical cancer with bladder cancer status post prior cystectomy i ward loop conduit placement PLAN: -Dr. Garland informed patient of CAT scan results. He informed patient that she may require surgery. He discussed about transferring patient back to [facility] where she's had her previous surgeries. It is up to the patient if she wants to proceed with any surgery at this facility or at [facility]. Awaiting patient's decision if she wants to be transferred to [facility]. -Continue clear liquids -Continue supportive care -Continue IV fluids -Continue pain medication and antiemetics as needed -Encourage patient to ambulate Physician Motor Inspection Mechanic note has been reviewed by physician. Signing provider agrees with the documented findings, assessment, and plan of care. Objective - Vital Signs Vital signs: Vital Signs Temp 100.3 F H 03/08/22 12:53 Pulse 85 03/08/22 12:53 Resp 18 03/08/22 12:53 BP 122/70 06/28/22 12:53 Pulse Ox 98 03/08/22 12:53 FiO2 Intake & Output 03/07/22 03/08/22 03/08/22 18:59 06:59 18:59 Intake Total 900 1072 Output Total 1600 Balance 900 -528 Intake: Intake, IV Titration 900 1072 Amount Magnesium Sulfate-D5w Pmx 300 1 gm In Dextrose/Water 1 100ml.bag @ 100 mls/hr IVPB Q1H [facility] Rx#: [id number] Potassium Chloride 10 meq 700 In Water For Injection 1 100ml.bag @ 100 mls/hr IVPB Q1HR [facility] Rx#: [id number] Sodium Chloride 0.9% 1, 900 72 000 ml @ 75 mls/hr IV . [id number] [facility] Rx#:[id number] Output: Urine 1600 Other: Voiding Method Ileal Conduit (Right) Ileal Conduit (Right) Ileal Conduit (Right) # Voids 1 # Bowel Movements 1 - Labs CBC & Chem 7: 03/08/22 07:44 03/08/22 07:44 Labs: Abnormal Lab Results - Last 24 Hours (Table) 03/07/22 03/07/22 03/07/22 Range/Units 14:05 14:05 17:29 RBC 3.47 L (3.80-5.40) m/uL Hgb (12.0-15.0) g/dL Hct (37.2-46.3) % MCV 100.1 H (80.0-100.0) fL MCHC (32.0-37.0) g/dL RDW (11.5-14.5) % MPV (9.5-12.2) fL Lymphocytes # 0.3 L (1.0-4.8) k/uL Eosinophils # (0.04-0.35) X 10*3/uL Potassium 2.9 L (3.5-5.1) mmol/L Chloride 110 H (98-107) mmol/L BUN 5 L (7-17) mg/dL BUN/Creatinine Ratio (12.00-20.00) Ratio Calcium 8.3 L (8.4-10.2) mg/dL Magnesium 1.4 L (1.6-2.3) mg/dL 03/08/22 03/08/22 03/08/22 Range/Units 00:42 07:44 07:44 RBC 3.45 L (3.80-5.40) m/uL Hgb 10.7 L (12.0-15.0) g/dL Hct 33.7 L (37.2-46.3) % MCV 97.7 H (80.0-100.0) fL MCHC 31.8 L (32.0-37.0) g/dL RDW 11.3 L (11.5-14.5) % MPV 9.1 L (9.5-12.2) fL Lymphocytes # 0.20 L (1.0-4.8) k/uL Eosinophils # 0.02 L (0.04-0.35) X 10*3/uL Potassium 2.8 L (3.5-5.1) mmol/L Chloride (98-107) mmol/L BUN 3.8 L (7-17) mg/dL BUN/Creatinine Ratio 6.33 L (12.00-20.00) Ratio Calcium 8.5 L (8.4-10.2) mg/dL Magnesium (1.6-2.3) mg/dL
[2022-03-08] MEDS: ONDANSETRON 4 MG/2 ML VIAL IVP PRN ×2 (15:36→23:56)
--- NOTE | 2022-03-08 17:35 | P.PN ---
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 Positive diarrhea earlier in the week, subsided on Monday . Currently complains of constipation, passing flatus. Bilateral lower abdominal cramping times one week. Patient had a CT completed yesterday for cancer surveillance, ordered by , reported bilateral subcentimeter inguinal lymph nodes measuring up to 9.5 mm on the left side, nonspecific fracture of the right inferior pubic ramus-possible pathological fracture,significant bilateral hydronephrosis more on the right side with dilated ureters down to the expected location of the neobladder focal tumor recurrence cannot be excluded, dilated small bowel loops proximal to the small bowel anastomosis in the left side abdomen suggestive of acute mechanical obstruction, possible stenosis at the site of anastomosis , possible adhesions, small amount of free pelvic fluid ,newly seen multiple hepatic focal lesions concerning for hepatic metastasis. Abdominal x-rays completed, results pending. Reports passing flatus, no nausea and vomiting, currently. Diffuse abdominal pain-patient states chronic. Denies chest pain, palpitations or shortness of breath. Afebrile, normal WBC. Chemistry and Hematology panel unremarkable with the exception of RBCs 3.49 and lymphocytes 0.3. 03/07/2022 patient was placed on full liquid diet, tolerating with positive bowel movements and Monday. Developed nausea and vomiting last night, passing flatus with no further bowel movements. This morning no flatus, no bowel movement, ongoing sharp stabbing lower quadrant pain, worse on the left. T-max 99.2, WBC 5.1. Potassium 2.9, replacement protocol as ordered. 03/08/[address] reported multiple variable sized hypodense masses in the liver measuring up to 5 cm, consistent with metastatic disease, bilateral hydronephrosis and hydroureter similar to recent exam, consistent with obstruction of the ileal conduit ,dilated small bowel suggestive of mechanical distal small bowel obstruction similar recent exam, no abdominal ascites, adhesions and recurrent tumor in the right lower quadrant suspected, producing renal obstruction and small bowel obstruction. Liver MRI pending. Diffuse abd ominal pain persists, increased bloating. T-max 99.7, normal WBC. Hemoglobin 10.7, platelets 238. BUN 3.8, creatinine 0.6. Magnesium 2. Denies chest pain, palpitations or shortness of breath. Objective - Vital Signs Vital signs: Vital Signs Temp 100.3 F H 03/08/22 12:53 Pulse 85 03/08/22 12:53 Resp 18 03/08/22 12:53 BP 122/70 03/08/22 12:53 Pulse Ox 98 03/08/22 12:53 FiO2 Intake & Output 03/07/22 03/08/22 03/08/22 18:59 06:59 18:59 Intake Total 900 1072 Output Total 1600 Balance 900 -528 Intake: Intake, IV Titration 900 1072 Amount Magnesium Sulfate-D5w Pmx 300 1 gm In Dextrose/Water 1 100ml.bag @ 100 mls/hr IVPB Q1H [facility] Rx#: [id number] Potassium Chloride 10 meq 700 In Water For Injection 1 100ml.bag @ 100 mls/hr IVPB Q1HR [facility] Rx#: [id number] Sodium Chloride 0.9% 1, 900 72 000 ml @ 75 mls/hr IV . [id number] [facility] Rx#:[id number] Output: Urine 1600 Other: Voiding Method Ileal Conduit (Right) Ileal Conduit (Right) Ileal Conduit (Righ t) # Voids 1 # Bowel Movements 1 - Exam PHYSICAL EXAM: VITAL SIGNS: As above GENERAL: Sitting up at side of bed, no acute distress HEENT: Conjunctivae normal. eyes normal. NECK: No JVD. No thyroid enlargement. CARDIOVASCULAR: S1, S2 regular.No murmur RESPIRATION: Breath sounds diminished in the bases. No rhonchi or crackles. No wheezing. ABDOMEN: Soft, increased distention, diffuse abdominal pain,left greater than right , hypoactive bowel sounds. Midline abdominal surgical scar, urostomy on the right with urine. EXT: No edema, no cyanosis, clubbing , or calf tenderness. PSYCHIATRY: Alert and oriented X3, mood and affect normal. NERVOUS SYSTEM: Cranial N 2-12 grossly normal.No focal deficits. Strength and sensation grossly intact. Skin: Warm and dry, no rash - Labs CBC & Chem 7: 03/08/22 07:44 03/08/22 07:44 Labs: Abnormal Lab Results - Last 24 Hours (Table) 03/07/22 03/08/22 03/08/22 Range/Units 17:29 00:42 07:44 RBC 3.45 L (4.10-5.20) X 10*6/uL Hgb 10.7 L (12.0-15.0) g/dL Hct 33.7 L (37.2-46.3) % MCV 97.7 H (80.0-97.0) fL MCHC 31.8 L (32.0-37.0) g/dL RDW 11.3 L (11.5-14.5) % MPV 9.1 L (9.5-12.2) fL Lymphocytes # 0.20 L (0.90-5.00) X 10*3/uL Eosinophils # 0.02 L (0.04-0.35) X 10*3/uL Potassium 2.8 L (3.5-5.1) mmol/L BUN (9.0-27.0) mg/dL BUN/Creatinine Ratio (12.00-20.00) Ratio Calcium (8.7-10.3) mg/dL Magnesium 1.4 L (1.6-2.3) mg/dL 03/08/22 Range/Units 07:44 RBC (4.10-5.20) X 10*6/uL Hgb (12.0-15.0) g/dL Hct (37.2-46.3) % MCV (80.0-97.0) fL MCHC (32.0-37.0) g/dL RDW (11.5-14.5) % MPV (9.5-12.2) fL Lymphocytes # (0.90-5.00) X 10*3/uL Eosinophils # (0.04-0.35) X 10*3/uL Potassium (3.5-5.1) mmol/L BUN 3.8 L (9.0-27.0) mg/dL BUN/Creatinine Ratio 6.33 L (12.00-20.00) Ratio Calcium 8.5 L (8.7-10.3) mg/dL Magnesium (1.6-2.3) mg/dL Assessment and Plan Assessment: Abdominal pain, acute mechanical small bowel obstruction, in a patient with history of bladder cancer, bladder resection, urostomy and hysterectomy. Bilateral hydronephrosis greater on the right side with dilated ureters, in a patient with a urostomy, CT reports potential focal tumor reoccurrence, hematology following Multiple hepatic focal lesions, possible hepatic metastasis per CT Bilateral inguinal lymph nodes measuring up to 9.5 mm on the left side, nonspecific per CT Nondisplaced fracture of the right inferior pubic ramus, possible pathological fracture secondary to underlying lesion. Gastroesophageal reflux disease Hypokalemia Plan: Continue on current medication regime ,monitoring and symptomatic treatment. Maintain IV fluid hydration. Liver MRI pending.Further recommendations per General surgery and oncology pending. Prognosis guarded given multiple complex medical issues. The impression and plan of care has been dictated as directed. : I performed a history and examination of this patient, discussed the same with the dictator. I agree with the dictator's note ,documented as a scribe. Any additional findings or plans will be noted.
[2022-03-08 19:37] VITALS: RESP 16
--- NOTE | 2022-03-09 04:42 | MR ---
EXAMINATION TYPE: MR liver wo/w con DATE OF EXAM: 03/08/2022 COMPARISON: None HISTORY: Abdominal pain, N & V, hx of hepatic cysts. CONTRAST: Standard multiplanar, multisequence MRI departmental protocol images were obtained without contrast a nd with 6 mL intravenous Gadavist gadolinium contrast. Lung bases appear to show some bilateral lower lobe infiltrate. There are bilateral pleural effusions . No pericardial effusion. There is a 6.5 x 3.5 cm irregular low signal area on the T1 images in the junction of anterior left and right lobe of the liver. This shows some peripheral enhancement on the delayed contrast images. There is a 3.5 cm low signal lesion left lobe of the liver with some delayed central enhancement. There is 1 cm enhancing lesion in the lateral right lobe of the liver. There is a 2 cm cyst in the lateral right lobe of the liver. There are small foci measuring less than 1 cm in the superior right lobe of the liver that appear to show some delayed enhancement. There is normal c ontrast opacification of the portal venous system. No sign of a pancreatic mass. Gallbladder is diste nded. The bile ducts are not dilated. There is bilateral moderate hydronephrosis. No retroperitoneal adenopathy. Spleen is intact. No ascites. IMPRESSION: Multiple variable sized liver lesions with variable enhancement consistent with metastatic disease an d also evident on the CT scan yesterday.
[2022-03-09] MEDS: ACETAMINOPHEN TAB 325 MG TAB PO PRN ×2 (05:29→11:55)
[2022-03-09] MEDS: MORPHINE SULFATE 4 MG/ML SYRINGE IV PRN (05:29)
[2022-03-09] MEDS: LORazepam 0.5 MG TAB PO PRN (06:16)
[2022-03-09 07:41] LABS: ALT 8 U/L (4-34); AST 19 U/L (14-36); African American GFR (CKD) >90 (>60 ml/min/1.73 sqM); Albumin/Globulin Ratio 1.3; Alkaline Phosphatase 71 U/L (38-126); Anion Gap 10 mmol/L; Blood Urea Nitrogen 5 mg/dL (7-17); Carbon Dioxide 21 mmol/L (22-30); Chloride 106 mmol/L (98-107); Globulin 2.3 g/dL; Glucose 114 mg/dL (74-99); Non-African American GFR(CKD) >90 (>60 ml/min/1.73 sqM); Potassium 3.1 mmol/L (3.5-5.1); Sodium 137 mmol/L (137-145); Total Bilirubin 0.3 mg/dL (0.2-1.3); Total Protein 5.3 g/dL (6.3-8.2)
[2022-03-09 07:51] LABS: Basophils % (A) 0 %; Eosinophils % (A) 1 %; HCT 32.9 % (34.0-46.0); HGB 11.1 gm/dL (11.4-16.0); Lymphocytes # (A) 0.3 k/uL (1.0-4.8); Lymphocytes % (A) 5 %; MCH 33.5 pg (25.0-35.0); MCHC 33.9 g/dL (31.0-37.0); Mean Platelet Volume 6.8; Monocytes # (A) 0.4 k/uL (0-1.0); Monocytes % (A) 8 %; Neutrophils # (A) 4.1 k/uL (1.3-7.7); Neutrophils % (A) 83 %; Platelet Count 243 k/uL (150-450); RBC 3.32 m/uL (3.80-5.40); RDW 12.2 % (11.5-15.5); WBC 4.9 k/uL (3.8-10.6)
[2022-03-09] MEDS ORDERED: HYDROmorphone 0.5 MG/0.5 ML SYRINGE IVP PRN (07:56)
[2022-03-09] MEDS: PANTOPRAZOLE 40 MG/10 ML VIAL IV SCH (08:09)
[2022-03-09] MEDS: ENOXAPARIN 40 MG/0.4 ML SYRINGE SQ SCH (08:09)
[2022-03-09] MEDS: ONDANSETRON 4 MG/2 ML VIAL IVP PRN ×2 (08:15→15:59)
[2022-03-09 09:46] LABS: Amorphous Sediment,Urine Rare /hpf; Appearance,Urine Cloudy (Clear); Bacteria,Urine Occasional /hpf; Bilirubin,Urine Negative (Negative); Blood,Urine Trace (Negative); Color,Urine Light Yellow; Glucose,Urine (UA) Negative (Negative); Ketones,Urine 1+ (Negative); Leukocyte Esterase,Urine Large (Negative); Mucus,Urine Few /hpf; Nitrite,Urine Positive (Negative); Protein,Urine Negative (Negative); RBC,Urine <1 /hpf (0-5); Specific Gravity,Urine 1.007 (1.001-1.035); Squamous Epithelial Cell,Urine 1 /hpf (0-4); Urobilinogen,Urine <2.0 mg/dL (<2.0); WBC,Urine 9 /hpf (0-5)
[2022-03-09 10:53] LABS: RBC Morphology Normal
[2022-03-09 12:45] VITALS: BP 128/75; PULSE 109
[2022-03-09 13:08] VITALS: TEMP 98.5
--- NOTE | 2022-03-09 14:06 | P.DS ---
Providers Date of admission: 03/04/22 01:54 Expected date of discharge: 03/09/22 Attending physician: Galen Nath Consults: 03/04/22 01:54 Consult Physician Routine Consulting Provider: Corbin Pedersen Consult Reason/Comments: oncology patient Do you want consulting provider notified?: Yes Consult Physician Routine Consulting Provider: Henok Salas Consult Reason/Comments: Partial small bowel obstruction Do you want consulting provider notified?: Yes 03/04/22 12:32 Consult Physician Routine Consulting Provider: Irving Bee Consult Reason/Comments: bilateral hydropenphrosis,urostomy,poss focal tumor re-occur/bladder ca Do you want consulting provider notified?: Yes 03/09/22 07:55 Consult Physician Routine Consulting Provider: Balbina Selby Consult Reason/Comments: fevers Do you want consulting provider notified?: Yes Primary care physician: Galen Nath [place] Hospital Course: Final Diagnoses: Abdominal pain, acute mechanical small bowel obstruction, in a patient with history of bladder cancer, bladder resection, urostomy and hysterectomy. Bilateral hydronephrosis greater on the right side with dilated ureters, in a patient with a urostomy, CT reports potential focal tumor reoccurrence producing renal obstruction and small bowel obstruction,oncology following. Multiple hepatic focal lesions, possible hepatic metastasis per CT and MRI Bilateral inguinal lymph nodes measuring up to 9.5 mm on the left side, nonspecific per CT Nondisplaced fracture of the right inferior pubic ramus, possible pathological f racture secondary to underlying lesion. 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 Positive diarrhea earlier in the week, subsided on Monday . Currently complains of constipation, passing flatus. Bilateral lower abdominal cramping times one week. Patient had a CT completed yesterday for cancer surveillance, ordered by Dr Grant, reported bilateral subcentimeter inguinal lymph nodes measuring up to 9.5 mm on the left side, nonspecific fracture of the right inferior pubic ramus- possible pathological fracture,significant bilateral hydronephrosis more on the right side with dilated ureters down to the expected location of the neobladder focal tumor recurrence cannot be excluded, dilated small bowel loops proximal to the small bowel anastomosis in the left side abdomen suggestive of acute mechanical obstruction, possible stenosis at the site of anastomosis , possible adhesions, small amount of free pelvic fluid ,newly seen multiple hepatic focal lesions concerning for hepatic metastasis. Abdominal x-rays completed, results pending. Reports passing flatus, no nausea and vomiting, currently. Diffuse abdominal pain-patient states chronic. Denies chest pain, palpitations or shortness of breath. Afebrile, normal WBC. Chemistry and Hematology panel unremarkable with the exception of RBCs 3.49 and lymphocytes 0.3. 03/07/2022 patient was placed on full liquid diet, tolerating with positive bowel movements and Monday. Developed nausea and vomiting last night, passing flatus with no further bowel movements. This morning no flatus, no bowel movement, ongoing sharp stabbing lower quadrant pain, worse on the left. T-max 99.2, WBC 5.1. Potassium 2.9, replacement protocol as ordered. 03/08/[address] reported multiple variable sized hypodense masses in the liver measuring up to 5 cm, consistent with metastatic disease, bilateral hydronephrosis and hydroureter similar to recent exam, consistent with obstruction of the ileal conduit ,dilated small bowel suggestive of mechanical distal small bowel obstruction similar recent exam, no abdominal ascites, adhesions and recurrent tumor in the right lower quadrant suspected, producing renal obstruction and small bowel obstruction. Liver MRI pending. Diffuse abdominal pain persists, increased bloating. T-max 99.7, normal WBC. Hemoglobin 10.7, platelets 238. BUN 3.8, creatinine 0.6. Magnesium 2. Denies chest pain, palpitations or shortness of breath. Clinically unchanged, continues to have significant diffuse abdominal pain, abd omen distended, more firm.Positive nausea and vomiting.last bowel movement recorded at 03/08/22. Urostomy with clear urine. Liver MRI reporting multiple variable sized liver lesions with favorable enhancement consistent with metastatic disease, also evident on computed tomography scan. General surgery recommended transfer to [facility], per patient had prior extensive surgeries completed at.Please refer to further documentation as per general surgery, oncology and neurology. PCP, Dr. Nath spoke with transfer team at [facility]. The impression and plan of care has been dictated as directed. : I performed a history and examination of this patient, discussed the same with the dictator. I agree with the dictator's note ,documented as a scribe. Any additional findings or plans will be noted. Patient Condition at Discharge: Stable Plan - Discharge Summary Discharge Rx Participant: No New Discharge Prescriptions: No Action Rosuvastatin Calcium [Crestor] 10 mg PO HS Ferrous Sulfate [Feosol] 325 mg PO DAILY #30 tab Sodium Bicarbonate Tab 650 mg PO DAILY Apixaban [Eliquis] 5 mg PO BID #60 tab Pantoprazole [Protonix] 40 mg PO DAILY HYDROcodone/APAP 10-325MG [Bombay 10-325] 1 tab PO Q4H PRN PRN Reason: Pain Sennosides [Senokot] 17.2 mg PO HS PRN PRN Reason: Constipation Discharge Medication List Rosuvastatin Calcium [Crestor] 10 mg PO HS 09/19/17 [History] Ferrous Sulfate [Feosol] 325 mg PO DAILY #30 tab 12/22/20 [Rx] Sodium Bicarbonate Tab 650 mg PO DAILY 12/31/20 [History] HYDROcodone/APAP 10-325MG [Bombay 10-325] 1 tab PO Q4H PRN 02/03/21 [History] Sennosides [Senokot] 17.2 mg PO HS PRN 03/24/21 [History] Apixaban [Eliquis] 5 mg PO BID #60 tab 04/27/21 [Rx] Pantoprazole [Protonix] 40 mg PO DAILY 03/04/22 [History] Follow up Appointment(s)/Referral(s): Corbin Pedersen MD [STAFF PHYSICIAN] - 05/03/22 9:45 am Galen Nath DO [Primary Care Provider] - 1 Week (After DC from [facility]) Activity/Diet/Wound Care/Special Instructions: Transfer to [facility]
[2022-03-09] MEDS: SODIUM CHLORIDE 0.9% 1,000 ML IV SCH (14:35)
[2022-03-09] MEDS: POTASSIUM CHLORIDE 20 MEQ in WATER FOR INJECTION 1 100ML.BAG IVPB SCH ×2 (14:35→15:08)
--- NOTE | 2022-03-09 15:36 | P.PN ---
Subjective Progress Note Date: 03/09/22 CHIEF COMPLAINT: Small bowel obstruction HISTORY OF PRESENT ILLNESS: Patient continues to complain of same abdominal pain. She is still distended. She denies any nausea or vomiting. She did report some diarrhea. Patient is starting to have fevers type of 101.5 and his been tachycardic. She had a repeat CAT scan with oral and IV contrast that had demonstrated multiple liver lesions consistent with metastatic disease. Bilateral hydronephrosis and hydroureter summer to recent exam and consistent w ith obstruction of the ileal conduit. Dilated small bowel suggestive of mechanical distal small bowel obstruction similar to recent exam. Abdominal ascites appears new compared to recent exam. Adhesions or recurrent tumor at the right lower quadrant is suspected that is producing the renal obstruction and small bowel obstruction. Patient had MRI of the liver showing multiple variable sized liver lesions with variable enhancement consistent with metastatic disease. Patient seen and examined with Dr. wakefield PHYSICAL EXAM: VITAL SIGNS: Reviewed. GENERAL: Well-developed in no acute distress. HEENT: No sclera icterus. Extraocular movements grossly intact. Moist buccal mucosa. Head is atraumatic, normocephalic. ABDOMEN: Distended. Tender. urostomy with urine output. NEUROLOGIC: Alert and oriented. Cranial nerves II through XII grossly intact. ASSESSMENT: 1. Acute mechanical small bowel obstruction no improvement on CAT scan 2. Advanced cervical cancer with bladder cancer status post prior cystectomy ileal loop conduit placement PLAN: -Recommend transfer to [facility] where patient has had prior surgeries. Dr. Wakefield did discuss case with urology service. Due to patient's prior cystectomy and ileal loop conduit urology recommended that patient be seen by her previous surgeons for any further intervention. -Continue clear liquids -Continue supportive care -Continue IV fluids -Continue pain medication and antiemetics as needed -Encourage patient to ambulate Physician Customs Brokerage Agent note has been reviewed by physician. Signing provider agrees with the documented findings, assessment, and plan of care. Objective - Vital Signs Vital signs: Vital Signs Temp 98.5 F 03/09/22 13:07 Pulse 109 H 03/09/22 11:45 Resp 16 03/09/22 11:45 BP 128/75 03/09/22 11:45 Pulse Ox 97 03/09/22 11:45 FiO2 Intake & Output 03/08/22 03/09/22 03/09/22 18:59 06:59 18:59 Intake Total 1400 1080 Output Total 2000 700 Balance -600 380 Intake: Intake, IV Titration 900 Amount Sodium Chloride 0.9% 1, 900 000 ml @ 75 mls/hr IV . [id number] [facility] Rx#:[id number] Oral 500 1080 Output: Urine 1999 700 Other: Voiding Method Ileal Conduit (Right) Ileal Conduit (Right) Ileal Conduit (Right) # Voids 1 - Labs CBC & Chem 7: 03/09/22 06:55 03/09/22 06:53 Labs: Abnormal Lab Results - Last 24 Hours (Table) 03/09/22 03/09/22 03/09/22 Range/Units 06:53 06:55 06:55 RBC 3.32 L (3.80-5.40) m/uL Hgb 11.1 L (11.4-16.0) gm/dL Hct 32.9 L (34.0-46.0) % Lymphocytes # 0.3 L (1.0-4.8) k/uL Potassium 3.1 L (3.5-5.1) mmol/L Carbon Dioxide 21 L (22-30) mmol/L BUN 5 L (7-17) mg/dL Glucose 114 H (74-99) mg/dL Plasma Lactic Acid Sabas 0.6 L (0.7-2.0) mmol/L Calcium 8.0 L (8.4-10.2) mg/dL Magnesium (1.6-2.3) mg/dL Total Protein 5.3 L (6.3-8.2) g/dL Albumin 3.0 L (3.5-5.0) g/dL Urine Appearance (Clear) Urine Ketones (Negative) Urine Blood (Negative) Urine Nitrite (Negative) Ur Leukocyte Esterase (Negative) Urine WBC (0-5) /hpf Amorphous Sediment (None) /hpf Urine Bacteria (None) /hpf Urine Mucus (None) /hpf 03/09/22 03/09/22 Range/Units 09:33 14:09 RBC (3.80-5.40) m/uL Hgb (11.4-16.0) gm/dL Hct (34.0-46.0) % Lymphocytes # (1.0-4.8) k/uL Potassium (3.5-5.1) mmol/L Carbon Dioxide (22-30) mmol/L BUN (7-17) mg/dL Glucose (74-99) mg/dL Plasma Lactic Acid Sabas (0.7-2.0) mmol/L Calcium (8.4-10.2) mg/dL Magnesium 1.3 L (1.6-2.3) mg/dL Total Protein (6.3-8.2) g/dL Albumin (3.5-5.0) g/dL Urine Appearance Cloudy H (Clear) Urine Ketones 1+ H (Negative) Urine Blood Trace H (Negative) Urine Nitrite Positive H (Negative) Ur Leukocyte Esterase Large H (Negative) Urine WBC 9 H (0-5) /hpf Amorphous Sediment Rare H (None) /hpf Urine Bacteria Occasional H (None) /hpf Urine Mucus Few H (None) /hpf
[2022-03-09] MEDS: POTASSIUM CHLORIDE 10 MEQ in WATER FOR INJECTION 1 100ML.BAG IVPB SCH ×2 (16:00→18:02)
[2022-03-09] MEDS ORDERED: PIPERACILLIN-TAZOBACTAM 3.375 GM in SODIUM CHLORIDE 0.9% 100 ML IVPB SCH (16:00)
--- NOTE | 2022-03-09 16:38 | P.PN ---
Subjective Progress Note Date: 03/09/22 Principal diagnosis: Abd pain, distension, Hx bladder carcinoma In f/u today pt cont to have abd discomfort, no vomiting, had BM and is passing flatus. Objective - Vital Signs Vital signs: Vital Signs Temp 98.5 F 03/09/22 13:07 Pulse 109 H 03/09/22 11:45 Resp 16 03/09/22 11:45 BP 128/75 03/09/22 11:45 Pulse Ox 97 03/09/22 11:45 FiO2 Intake & Output 03/08/22 03/09/22 03/09/22 18:59 06:59 18:59 Intake Total 1400 1080 Output Total 2000 700 Balance -600 380 Intake: Intake, IV Titration 900 Amount Sodium Chloride 0.9% 1, 900 000 ml @ 75 mls/hr IV . [id number] JORDAN Rx#:[id number] Oral 500 1080 Output: Urine 2000 700 Other: Voiding Method Ileal Conduit (Right) Ileal Conduit (Right) Ileal Conduit (Right) # Voids 1 - Constitutional General appearance: Present: average body habitus, cooperative, no acute distress - EENT Eyes: Present: anicteric sclerae, EOMI ENT: Present: hearing grossly normal - Respiratory Details: resp even and unlabored - Neurologic Neurologic: Present: CNII-XII intact - Musculoskeletal Musculoskeletal: Present: strength equal bilaterally - Psychiatric Psychiatric: Present: A&O x's 3, appropriate affect, intact judgment & insight - Labs CBC & Chem 7: 03/09/22 06:55 03/09/22 06:53 Labs: Abnormal Lab Results - Last 24 Hours (Table) 03/09/22 03/09/22 03/09/22 Range/Units 06:53 06:55 06:55 RBC 3.32 L (3.80-5.40) m/uL Hgb 11.1 L (11.4-16.0) gm/dL Hct 32.9 L (34.0-46.0) % Lymphocytes # 0.3 L (1.0-4.8) k/uL Potassium 3.1 L (3.5-5.1) mmol/L Carbon Dioxide 21 L (22-30) mmol/L BUN 5 L (7-17) mg/dL Glucose 114 H (74-99) mg/dL Plasma Lactic Acid Sabas 0.6 L (0.7-2.0) mmol/L Calcium 8.0 L (8.4-10.2) mg/dL Magnesium (1.6-2.3) mg/dL Total Protein 5.3 L (6.3-8.2) g/dL Albumin 3.0 L (3.5-5.0) g/dL Urine Appearance (Clear) Urine Ketones (Negative) Urine Blood (Negative) Urine Nitrite (Negative) Ur Leukocyte Esterase (Negative) Urine WBC (0-5) /hpf Amorphous Sediment (None) /hpf Urine Bacteria (None) /hpf Urine Mucus (None) /hpf 03/09/22 03/09/22 Range/Units 09:33 14:09 RBC (3.80-5.40) m/uL Hgb (11.4-16.0) gm/dL Hct (34.0-46.0) % Lymphocytes # (1.0-4.8) k/uL Potassium (3.5-5.1) mmol/L Carbon Dioxide (22-30) mmol/L BUN (7-17) mg/dL Glucose (74-99) mg/dL Plasma Lactic Acid Sabas (0.7-2.0) mmol/L Calcium (8.4-10.2) mg/dL Magnesium 1.3 L (1.6-2.3) mg/dL Total Protein (6.3-8.2) g/dL Albumin (3.5-5.0) g/dL Urine Appearance Cloudy H (Clear) Urine Ketones 1+ H (Negative) Urine Blood Trace H (Negative) Urine Nitrite Positive H (Negative) Ur Leukocyte Esterase Large H (Negative) Urine WBC 9 H (0-5) /hpf Amorphous Sediment Rare H (None) /hpf Urine Bacteria Occasional H (None) /hpf Urine Mucus Few H (None) /hpf - Imaging and Cardiology MRI - abdomen: report reviewed Assessment and Plan (1) Abdominal pain Current Visit: Yes Status: Acute Priority: High Code(s): R10.9 - UNSPECIFIED ABDOMINAL PAIN SNOMED Code(s): 30319090 (2) Bowel obstruction Current Visit: Yes Status: Acute Priority: High Code(s): K56.609 - UNSP INTESTNL OBST, UNSP TO PARTIAL VERSUS COMPLETE OBST SNOMED Code(s): 44308569 (3) Bladder cancer Current Visit: No Status: Chronic Priority: Medium Code(s): C67.9 - MALIGNANT NEOPLASM OF BLADDER, UNSPECIFIED SNOMED Code(s): 093553319 (4) Hydronephrosis Current Visit: No Status: Chronic Priority: Low Code(s): N13.30 - UNSPECIFIED HYDRONEPHROSIS SNOMED Code(s): 99543274 Plan: SBO, persistent pain. Plan is to transfer to [facility]. Agree with plan. Hydronephrosis is chronic, Urology has seen pt Liver lesions reported on CT. Reviewed office notes, reviewed with Onc. There is documented Hx of liver cysts. MRI report reviewed, some new areas are questionable, not clear of recurrence of disease. CD of MRI being sent with pt for comparison to [facility] scans. [facility] Att[facility]: I have seen and examined pt, performed H&P, developed impression and plan of care. Discussed with dictator, agree with dictation, documented as a scribe
== END 2022-03-09 19:48 | DRG 687 ==
LOC: EC 19:43 → 5NMEDONC 03-04 01:54
PROVIDERS: ADMIT Family Medicine; ATTEND Family Medicine
DX: C79.11 Secondary malignant neoplasm of bladder (principal); T83.198A Other mechanical complication of other urinary devices and implants, initial encounter; K56.690 Other partial intestinal obstruction; K56.50 Intestinal adhesions [bands], unspecified as to partial versus complete obstruction; R18.8 Other ascites; C78.7 Secondary malignant neoplasm of liver and intrahepatic bile duct; M84.454A Pathological fracture, pelvis, initial encounter for fracture; N13.39 Other hydronephrosis; N13.4 Hydroureter; K21.9 Gastro-esophageal reflux disease without esophagitis; E78.5 Hyperlipidemia, unspecified; R53.83 Other fatigue; E87.6 Hypokalemia; M89.9 Disorder of bone, unspecified; R00.0 Tachycardia, unspecified; G89.29 Other chronic pain; Z90.6 Acquired absence of other parts of urinary tract; Z85.51 Personal history of malignant neoplasm of bladder; Z85.41 Personal history of malignant neoplasm of cervix uteri; Z79.01 Long term (current) use of anticoagulants; Z90.710 Acquired absence of both cervix and uterus; Z92.21 Personal history of antineoplastic chemotherapy; Z86.718 Personal history of other venous thrombosis and embolism; Z88.3 Allergy status to other anti-infective agents; Z91.040 Latex allergy status; Z79.899 Other long term (current) drug therapy; Z93.6 Other artificial openings of urinary tract status; Z98.51 Tubal ligation status; Z86.19 Personal history of other infectious and parasitic diseases; Z98.890 Other specified postprocedural states; Z82.49 Family history of ischemic heart disease and other diseases of the circulatory system; Z84.89 Family history of other specified conditions
CPT/HCPCS: 36415; 74019; 74177; 74183; 80048; 80053; 81001; 83605; 83735; 84132; 84484; 85025; 87040; 96361; 96374; 96375; 99284

== ENCOUNTER → 2022-03-03 | Outpatient (CLI) | payer BC ==
[2022-03-03 12:14] LABS: African American GFR (CKD) >90 (>60 ml/min/1.73 sqM); Blood Urea Nitrogen 5 mg/dL (7-17); Non-African American GFR(CKD) >90 (>60 ml/min/1.73 sqM)
--- NOTE | 2022-03-03 15:45 | CT ---
"EXAMINATION TYPE: CT abdomen pelvis w con DATE OF EXAM: 03/03/2022 COMPARISON: CT dated 04/21/2021 and PET scan dated 08/30/2021 HISTORY: bladder CA CT DLP: 680.8 mGycm Automated exposure control for dose reduction was used. TECHNIQUE: Helical acquisition of images was performed from the lung bases through the pelvis. CONTRAST: Performed with Oral Contrast and with IV Contrast, patient injected with 100 mL of Isovue 300. FINDINGS: LUNG BASES: Left basal linear pulmonary atelectasis. LIVER/GB: Multiple newly seen hepatic focal lesions. The largest is seen in segment 4 measuring up to 5.6 cm. This is suspicious for metastatic disease. Unremarkable gallbladder. PANCREAS: No significant abnormality is seen. SPLEEN: No significant abnormality is seen. ADRENALS: No significant abnormality is seen. KIDNEYS: Previous cystectomy, small bowel anastomosis and right lower quadrant ileal conduit. Bilater al hydronephrosis more on the right side with dilated ureters down to the expected neobladder. There is mild focal thickening at that location measuring 15 mm, nonspecific. Another suspected thickening is seen at the ileostomy at the site of crossing the anterior abdominal wall muscle, also nonspecific . Tumor recurrence cannot be excluded. FREE AIR: No free air is visualized. RETROPERITONEAL ADENOPATHY: None visualized REPRODUCTIVE ORGANS: Suspected previous hysterectomy. No gross adnexal mass. URINARY BLADDER: Previous cystectomy. PELVIC ADENOPATHY: Bilateral subcentimeter inguinal lymph nodes measuring up to 9.5 mm on the left s lucho, nonspecific. Attention on follow-up. OSSEOUS STRUCTURES: Nondisplaced fracture of the right inferior pubic ramus, please correlate for in terval trauma. Pathological fracture due to underlying lesion cannot be excluded. Further bone scan a ssessment can be considered. BOWEL: Unremarkable stomach and duodenum. Small bowel anastomosis is seen in the left side of the pe lvis. Dilated small bowel loops proximal to the anastomosis while the small bowel loops distal to the anastomosis are apparently not dilated. Mechanical small bowel obstruction can't be excluded, please correlate clinically. Further surgical consultation can be considered. The colon is almost completel y collapsed. OTHER: Scattered arterial atherosclerotic calcification. Small amount of free pelvic fluid. IMPRESSION: Interval surgery as detailed above. Significant bilateral hydronephrosis more on the right side with dilated ureters down to the expected location of the neobladder. Focal tumor recurrence cannot be exc luded. Dilated small bowel loops proximal to the small bowel anastomosis in the left side of the abdomen sug gestive of acute mechanical obstruction. This could be due to stenosis at the site of anastomosis how ever adhesions can't be excluded. Recommend clinical correlation and surgical consultation. Newly seen multiple hepatic focal lesions concerning for hepatic metastasis. Recommend further PET sc an assessment. Other findings and recommendations as described above. A [place] level critical message alert has been initiated for Corbin Pedersen MD via the [employer] Inbox 36 0 | Critical Results System on 03/03/2022 3:43 PM. This message alert has been sent to Corbin Pedersen MD via the preferences provided by the clinician for the receipt of Radiology Critical Findings. [facility] ID [id number]."
== END | disposition home or self-care (01) ==
LOC: RADCTMAIN 11:13
PROVIDERS: ATTEND Internal Medicine Hematology & Oncology
DX: C67.4 Malignant neoplasm of posterior wall of bladder (principal); N13.30 Unspecified hydronephrosis
CPT/HCPCS: 82565; 84520; 74177; 36415; Q9967

== ENCOUNTER 2022-04-11 19:40 | Emergency (ER) | payer BC ==
[2022-04-11 20:47] LABS: Albumin 2.6 g/dL (3.5-5.0); Calcium 8.5 mg/dL (8.4-10.2); Potassium 4.7 mmol/L (3.5-5.1); Total Bilirubin 0.8 mg/dL (0.2-1.3); Total Protein 5.7 g/dL (6.3-8.2)
[2022-04-11 20:49] LABS: Basophils % (A) 0 %; Eosinophils # (A) 0.1 k/uL (0-0.7); Eosinophils % (A) 1 %; Lymphocytes # (A) 0.3 k/uL (1.0-4.8); Lymphocytes % (A) 2 %; MCH 31.8 pg (25.0-35.0); MCHC 32.7 g/dL (31.0-37.0); MCV 97.3 fL (80.0-100.0); Mean Platelet Volume 7.1; Monocytes # (A) 0.8 k/uL (0-1.0); Monocytes % (A) 7 %; Neutrophils # (A) 10.1 k/uL (1.3-7.7); Neutrophils % (A) 87 %; RBC 2.02 m/uL (3.80-5.40); RDW 14.1 % (11.5-15.5); WBC 11.6 k/uL (3.8-10.6)
[2022-04-11 20:52] LABS: HCT 19.7 % (34.0-46.0); HGB 6.4 gm/dL (11.4-16.0); Platelet Count 514 k/uL (150-450)
--- NOTE | 2022-04-11 21:05 | ED ---
Recheck HPI - General Chief Complaint: Recheck/Abnormal Lab/Rx Stated Complaint: hemoglobin at 5 Time Seen by Provider: 04/11/22 20:03 Source: patient, family, RN notes reviewed, old records reviewed Mode of arrival: ambulatory Limitations: no limitations - History of Present Illness Initial Comments: 51-year-old female history of ovarian cancer status post chemo a feeding tube as well as a indwelling Zavala who is here today because she was told come the emergency department because of a hemoglobin of 5.5. This was on a routine blood draw for this morning. She been feeling weak and tired lately per her family she is been less coherent than usual. No reports of fevers chills nausea vomiting sweats no bleeding reported no blood per rectum. No other current complaints modifying factors - Related Data Home Medications Medication Instructions Recorded Confirmed Rosuvastatin Calcium [Crestor] 10 mg PO HS 09/19/17 03/04/22 Sodium Bicarbonate Tab 650 mg PO DAILY 12/31/20 03/04/22 HYDROcodone/APAP 10-325MG [Vista 1 tab PO Q4H PRN 02/03/21 03/04/22 10-325] Sennosides [Senokot] 17.2 mg PO HS PRN 03/24/21 03/04/22 Pantoprazole [Protonix] 40 mg PO DAILY 03/04/22 03/04/22 Previous Rx's Medication Instructions Recorded Ferrous Sulfate [Feosol] 325 mg PO DAILY #30 tab 12/22/20 Apixaban [Eliquis] 5 mg PO BID #60 tab 04/27/21 Allergies Allergy/AdvReac Type Severity Reaction Status Date / Time atorvastatin [From Lipitor] Allergy Chest Pain Verified 04/11/22 19:48 Latex, Natural Rubber Allergy Swelling Verified 04/11/22 19:48 metronidazole Allergy Chest Pain Verified 04/11/22 19:48 Review of Systems ROS Statement: Those systems with pertinent positive or pertinent negative responses have been documented in the HPI. ROS Other: All systems not noted in ROS Statement are negative. Past Medical History Past Medical History: Cancer, GERD/Reflux, Hyperlipidemia Additional Past Medical History / Comment(s): miah 2005, Hospitalized 12/18/20 to 12/22/20 with renal failure & bladder tumor (cancer), uterine cyst, low iron., states pain lower abdomen , Irvin nephrostomy tubes. History of Any Multi-Drug Resistant Organisms: None Reported Past Surgical History: Tubal Ligation Additional Past Surgical History / Comment(s): nephrostomy tubes 12/21/20. RIGHT SCL PORT PLACEMENT No longer in place. blood clot in jugular Past Anesthesia/Blood Transfusion Reactions: No Reported Reaction Additional Past Anesthesia/Blood Transfusion Reaction / Comment(s): . Past Psychological History: No Psychological Hx Reported Smoking Status: Never smoker Past Alcohol Use History: None Reported Past Drug Use History: None Reported - Past Family History Mother Family Medical History: Hyperlipidemia, Hypertension Additional Family Medical History / Comment(s): Borderline Diabetic. Father Family Medical History: Coronary Artery Disease (CAD), Hyperlipidemia, Hypertension Additional Family Medical History / Comment(s): CABG. General Exam - General Exam Comments Initial Comments: This a well-developed well-nourished awake alert oriented 4 female Limitations: no limitations General appearance: alert, lethargic Head exam: Present: atraumatic, normocephalic, normal inspection Eye exam: Present: other (Pale conjunctiva) ENT exam: Present: mucous membranes dry Neck exam: Present: normal inspection. Absent: tenderness, meningismus, lymphadenopathy Respiratory exam: Present: normal lung sounds bilaterally. Absent: respiratory distress, wheezes, rales, rhonchi, stridor Cardiovascular Exam: Present: normal rhythm, tachycardia, normal heart sounds. Absent: systolic murmur, diastolic murmur, rubs, gallop, clicks GI/Abdominal exam: Present: soft, normal bowel sounds. Absent: distended, tenderness, guarding, rebound, rigid Extremities exam: Present: normal inspection, full ROM, normal capillary refill. Absent: tenderness, pedal edema, joint swelling, calf tenderness Back exam: Present: normal inspection Neurological exam: Present: alert, oriented X3, CN II-XII intact Psychiatric exam: Present: normal affect, normal mood Skin exam: Present: warm, dry, intact, pallor Course Vital Signs 04/11/22 04/11/22 04/11/22 19:48 22:03 22:13 Temperature 98.1 F 98 F 98.4 F Pulse Rate 133 H 118 H 122 H Respiratory 16 16 18 Rate Blood Pressure 145/85 144/83 140/79 O2 Sat by Pulse 97 Oximetry 04/11/22 04/12/22 04/12/22 22:43 00:29 00:30 Temperature 99.2 F 97.7 F 97.9 F Pulse Rate 122 H 116 H 118 H Respiratory 16 16 16 Rate Blood Pressure 137/83 134/82 134/82 O2 Sat by Pulse 98 96 Oximetry 04/12/22 04/12/22 00:38 00:39 Temperature 98.0 F 98.0 F Pulse Rate 120 H 118 H Respiratory 18 18 Rate Blood Pressure 123/81 123/81 O2 Sat by Pulse 97 96 Oximetry Medical Decision Making - Medical Decision Making Patient did demonstrate evidence of dehydration as well as anemia. Initially I did offer admission the patient family they have adamantly refusing did not want be admitted to the hospital. Patient did receive a blood transfusion as well as IV fluids. They were cautioned that the patient does demonstrate evidence of acute kidney injury as well as the anemia. Patient will follow-up as needed I did encourage him to increase fluids. They're welcome back return parameters were discussed. - Lab Data Result diagrams: 04/11/22 20:28 04/11/22 20:28 Lab Results 04/11/22 04/11/22 04/11/22 Range/Units 20:20 20:28 20:28 WBC 11.6 H (3.8-10.6) k/uL RBC 2.02 L (3.80-5.40) m/uL Hgb 6.4 L* D (11.4-16.0) gm/dL Hct 19.7 L* (34.0-46.0) % MCV 97.3 (80.0-100.0) fL MCH 31.8 (25.0-35.0) pg MCHC 32.7 (31.0-37.0) g/dL RDW 14.1 (11.5-15.5) % Plt Count 514 H D (150-450) k/uL MPV 7.1 Neutrophils % 87 % Lymphocytes % 2 % Monocytes % 7 % Eosinophils % 1 % Basophils % 0 % Neutrophils # 10.1 H (1.3-7.7) k/uL Lymphocytes # 0.3 L (1.0-4.8) k/uL Monocytes # 0.8 (0-1.0) k/uL Eosinophils # 0.1 (0-0.7) k/uL Basophils # 0.0 (0-0.2) k/uL Sodium 133 L (137-145) mmol/L Potassium 4.7 (3.5-5.1) mmol/L Chloride 106 (98-107) mmol/L Carbon Dioxide 14 L (22-30) mmol/L Anion Gap 13 mmol/L BUN 113 H* (7-17) mg/dL Creatinine 3.72 H (0.52-1.04) mg/dL Est GFR (CKD-EPI)AfAm 15 (>60 ml/min/1.73 sqM) Est GFR (CKD-EPI)NonAf 13 (>60 ml/min/1.73 sqM) Glucose 90 (74-99) mg/dL Calcium 8.5 (8.4-10.2) mg/dL Total Bilirubin 0.8 (0.2-1.3) mg/dL AST 33 (14-36) U/L ALT 34 (4-34) U/L Alkaline Phosphatase 250 H (38-126) U/L Ammonia (<30) umol/L Creatine Kinase 36 (30-135) U/L Total Protein 5.7 L (6.3-8.2) g/dL Albumin 2.6 L (3.5-5.0) g/dL Blood Type Blood Type Confirm O Positive Blood Type Recheck Bld Type Recheck Status Antibody Screen Crossmatch Spec Expiration Date 04/11/22 04/11/22 Range/Units 20:28 20:29 WBC (3.8-10.6) k/uL RBC (3.80-5.40) m/uL Hgb (11.4-16.0) gm/dL Hct (34.0-46.0) % MCV (80.0-100.0) fL MCH (25.0-35.0) pg MCHC (31.0-37.0) g/dL RDW (11.5-15.5) % Plt Count (150-450) k/uL MPV Neutrophils % % Lymphocytes % % Monocytes % % Eosinophils % % Basophils % % Neutrophils # (1.3-7.7) k/uL Lymphocytes # (1.0-4.8) k/uL Monocytes # (0-1.0) k/uL Eosinophils # (0-0.7) k/uL Basophils # (0-0.2) k/uL Sodium (137-145) mmol/L Potassium (3.5-5.1) mmol/L Chloride (98-107) mmol/L Carbon Dioxide (22-30) mmol/L Anion Gap mmol/L BUN (7-17) mg/dL Creatinine (0.52-1.04) mg/dL Est GFR (CKD-EPI)AfAm (>60 ml/min/1.73 sqM) Est GFR (CKD-EPI)NonAf (>60 ml/min/1.73 sqM) Glucose (74-99) mg/dL Calcium (8.4-10.2) mg/dL Total Bilirubin (0.2-1.3) mg/dL AST (14-36) U/L ALT (4-34) U/L Alkaline Phosphatase (38-126) U/L Ammonia 17 (<30) umol/L Creatine Kinase (30-135) U/L Total Protein (6.3-8.2) g/dL Albumin (3.5-5.0) g/dL Blood Type O Positive Blood Type Confirm Blood Type Recheck No Previous Record Bld Type Recheck Status CABO Indicated Antibody Screen NEGATIVE Crossmatch See Detail Spec Expiration Date 04/14/20222327 Disposition Clinical Impression: Anemia, Dehydration, Acute kidney injury Disposition: HOME SELF-CARE Condition: Fair Instructions (If sedation given, give patient instructions): Anemia (ED), Dehydration (ED), Acute Kidney Injury (DC), Ovarian Cancer (DC) Is patient prescribed a controlled substance at d/c from ED?: No Referrals: Galen Nath DO [Primary Care Provider] - 1-2 days Decision Date: 04/12/22 Decision Time: 01:02
[2022-04-12] MEDS ORDERED: SODIUM CHLORIDE 0.9% 1,000 ML IV STA (00:21)
[2022-04-12 00:39] VITALS: RESP 18
[2022-04-12 02:11] VITALS: BP 150/95; PULSE 114; TEMP 98.1
== END 2022-04-12 02:52 | disposition home or self-care (01) ==
LOC: EC 19:40
DX: D64.9 Anemia, unspecified (principal); N17.9 Acute kidney failure, unspecified; E78.5 Hyperlipidemia, unspecified; K21.9 Gastro-esophageal reflux disease without esophagitis; Z79.83 Long term (current) use of bisphosphonates; Z88.3 Allergy status to other anti-infective agents; Z91.040 Latex allergy status; Z88.8 Allergy status to other drugs, medicaments and biological substances
CPT/HCPCS: 36415; 86900; 86901; 80053; 82140; 82550; 85025; 86850; 86920; 99283; P9016